=== PATIENT | female | born 1950 | race Caucasian/White ===

== ENCOUNTER 2020-06-17 15:12 | Emergency (ER) | payer MEDICARE, SELFPAY ==
--- NOTE | ~2020-06-17 | XR_ITS ---
XR ankle RT min 3V 06/17/2020 16:13 Indication: Right ankle pain Procedure: 4 views right ankle Comparison: No prior studies for comparison. Findings: There is a side plate and screws transfixing the distal fibula. There are 2 lag screws paiz sfixing the medial malleolus. Ankle mortise intact. Small degenerative calcaneal enthesophyte. No acu te fracture or traumatic malalignment. There are arterial calcifications. Impression: 1: No acute bone or joint abnormality. Reviewed, dictated and finalized at location A. URSEMENT CLERK Impression: 1: No acute bone or joint abnormality.
[2020-06-17 15:28] VITALS: BP 135/71; PULSE 71; RESP 16; TEMP 36.4; O2SAT 98
--- NOTE | 2020-06-17 16:07 | PHAR ---
TORADOL 60 MG DOSE VERIFIED WITH DR MCCORMACK
[2020-06-17] MEDS: KETOROLAC (*BKC) 60 MG/2 ML VIAL IM (16:33)
--- NOTE | 2020-06-17 16:40 | ED.LOWEXIN ---
HPI - Extremity Injury (Lower) General Chief Complaint: Extremity Injury, Lower Stated Complaint: sudden onset right foot pain Time Seen by Provider: 06/17/20 15:17 Source: patient Mode of arrival: ambulatory Limitations: no limitations History of Present Illness HPI Narrative: 70-year-old female Complained for an abrupt onset of pain in her right foot and ankle while she was just shopping at [employer] She had to take a cart out of the store and came right over the ER She did not have any particular injury to it that she can recall There is no swelling present At the time she is seen here the ankle effectively feels back to normal and she can walk and walk on her tiptoes and stand on her heels, and states I can't believe this She did have a previous operation on the ankle for a fracture Related Data Home Medications Medication Instructions Recorded Confirmed lisinopril 30 mg PO DAILY 06/17/20 metformin 1,000 mg PO BID 06/17/20 pramipexole [Mirapex ER] 0.375 mg PO DAILY 06/17/20 Allergies Allergy/AdvReac Type Severity Reaction Status Date / Time No Known Allergies Allergy Verified 06/17/20 15:26 Review of Systems Musculoskeletal: Musculoskeletal: Denies myalgias, Reports arthralgias and Denies joint swelling Neurologic: Denies dizziness, Denies focal weakness, Denies numbness and Denies weakness [facility] Social History Social History Gender identity (if verbalized by the patient): Female Exam Const: General: no acute distress and alert Orientation/consciousness: patient oriented x3 Eyes: EOM: EOMs intact bilaterally Resp: Effort & Inspection: normal respiratory effort and not labored Skin: General skin exam: normal color Neuro: General: patient oriented x3 Speech: normal speech Extrem: General: normal to inspection Other: The right foot and ankle do not have any deformity, swelling, erythema, redness, or local tenderness Dorsalis pedis and posterior tibial pulses are equal bilaterally and 2+ Sensation to light touch is normal Course Vital Signs Vital signs: Vital Signs Temperature 36.4 C L 06/17/20 15:28 Pulse Rate 71 06/17/20 15:28 Respiratory Rate 16 06/17/20 15:28 Blood Pressure 135/71 06/17/20 15:28 Pulse Oximetry 98 06/17/20 15:28 Temperature 36.4 C L 06/17/20 15:28 Pulse Rate 71 12/14/20 15:28 Respiratory Rate 16 06/17/20 15:28 Blood Pressure 135/71 06/17/20 15:28 Pulse Oximetry 98 06/17/20 15:28 MDM - Extremity Injury (Lower) Imaging Data Radiologist's impression: ITS Impressions Ankle X-Ray 06/17/20 16:16 Impression: 1: No acute bone or joint abnormality. Discharge Plan Discharge Clinical Impression: Ankle joint pain Patient Disposition: Home, Self-Care Condition: Stable Instructions: Arthralgia (ED) Additional Instructions: Advil or Aleve if needed for pain Can follow-up with your primary care doctor or if desired with orthopedics if there are any recurrent or ongoing problems Prescriptions: No Action metformin 1,000 mg Tablet 1,000 mg PO BID RF: 0 lisinopril 30 mg Tablet 30 mg PO DAILY RF: 0 pramipexole [Mirapex ER] 0.375 mg Tablet Extended Release 24 Hr 0.375 mg PO DAILY RF: 0 Follow-up/Referrals: Elder Yin MD [Physician] - PHYSICIAN,PURIFICATION OPERATOR HELPER [Primary Care Provider] - Farooq Dyer MD [Physician] -
[2020-06-17 17:16] VITALS: BP 132/70; PULSE 70; RESP 18; O2SAT 98
== END 2020-06-17 17:17 | disposition home or self-care (01) ==
PROVIDERS: Emergency Provider Emergency Medicine
DX: M25.571 Pain in right ankle and joints of right foot (principal); Z79.84 Long term (current) use of oral hypoglycemic drugs
CPT/HCPCS: 73610; 96372; 99283; J1885

== ENCOUNTER 2020-10-08 10:57 | Outpatient (CLI) | payer MEDICARE, SELFPAY | END 2020-10-08 10:58 | disposition home or self-care (01) | LOC: ANHCOVIDVC 10:57 | PROVIDERS: PCP Family Medicine | DX: Z23 Encounter for immunization (principal) | CPT/HCPCS: 0001A; 91300 ==

== ENCOUNTER → 2020-10-17 07:26 | Outpatient (CLI) | payer MEDICARE, SELFPAY ==
--- NOTE | ~2020-10-17 | XR_ITS ---
EXAMINATION: XR_CERV2-3V_CR EXAM DATE: 10/17/2020 08:49 INDICATION: Bilateral upper arm pain. Neck stiffness. TECHNIQUE: Cervical spine frontal, lateral, open-mouth odontoid projections. There is no prior stud y for comparison. FINDINGS: There is moderate disc disease C5-6 and C6-7, mild to moderate at C4-5. There is mild reve rsal of the normal cervical lordosis which may be positional, degenerative or spasm. The vertebral b odies are aligned in the AP dimension. The odontoid process is intact. The lateral masses of C1 line up with C2. Prevertebral soft tissue and pre-dens space are within normal limits. There is moderate cervical facet arthropathy and moderate mid cervical uncovertebral joint arthropathy causing some michelle unt of neural foraminal stenosis. Moderate carotid calcification, arterial sclerotic disease, with un known amount of additional atherosclerotic disease. Consider correlating with carotid ultrasound. Suze ng apices unremarkable. IMPRESSION: 1. Moderate cervical spondylosis. 2. Reversal normal cervical lordosis. 3. Carotid arteriosclerosis; consider ultrasound. Reviewed, dictated and finalized at location A.
--- NOTE | ~2020-10-17 | XR_ITS ---
EXAMINATION: XR wrist RT 2V EXAM DATE: 10/17/2020 08:49 INDICATION: Right wrist pain. TECHNIQUE: Frontal and lateral projections of the right wrist There is no prior study for comparis on. FINDINGS: There is mild right triscaphe primary osteoarthritis. There are no acute fractures or dis locations identified. There is no subcutaneous gas. There are arterial calcifications, arterioscler osis. There are no radiopaque foreign bodies. IMPRESSION: Mild right triscaphe osteoarthritis. Reviewed, dictated and finalized at location A.
== END ==
PROVIDERS: PCP Family Medicine; Visit Provider Physician Assistant
DX: R20.2 Paresthesia of skin (principal); M47.892 Other spondylosis, cervical region; M19.031 Primary osteoarthritis, right wrist
CPT/HCPCS: 72040; 73100

== ENCOUNTER 2020-10-28 11:20 | Outpatient (CLI) | payer MEDICARE, SELFPAY | END 2020-10-28 11:21 | disposition home or self-care (01) | LOC: ANHCOVIDVC 11:20 | PROVIDERS: PCP Family Medicine | DX: Z23 Encounter for immunization (principal) | CPT/HCPCS: 0002A; 91300 ==

== ENCOUNTER 2020-11-11 10:23 | Outpatient (CLI) | payer MEDICARE, SELFPAY ==
--- NOTE | ~2020-11-11 | US_ITS ---
EXAMINATION: US carotid duplex BI DATE: 11/11/2020 10:55 INDICATION: Carotid atherosclerosis and stenosis TECHNIQUE: Grayscale, color Doppler, and pulsed Doppler images of the cervical carotid arteries were obtained. The degree of vessel stenosis is placed in one of the following categories: normal, <50%, 5 0-69%, >=70% but less than near-occlusion, near-occlusion, or total occlusion. Note that percent sten osis relative to normal distal artery lumen diameter is indirectly measured from velocity measurement s as described by Navneet, et al. Radiology 2003; 229:340-346. COMPARISON: Cervical spine radiographs dated 10/17/2020 FINDINGS: RIGHT: The right common carotid artery (CCA) peak systolic velocity (PSV) is 78 cm/s. The right internal car otid artery (ICA) PSV is 60 cm/s. The right ICA end-diastolic velocity (EDV) is 24 cm/s. The right IC A/CCA PSV ratio is 0.8. Grayscale and color Doppler images yield an estimate of <50% diameter reducti on from plaque in the ICA. The external carotid artery (ECA) PSV is 75 cm/s. There is antegrade flow in the right vertebral artery. LEFT: The left CCA PSV is 71 cm/s. The left ICA PSV is 58 cm/s. The left ICA EDV is 24 cm/s. The left ICA/C CA PSV ratio is 0.8. Grayscale and color Doppler images yield an estimate of <50% diameter reduction from plaque in the ICA. The ECA PSV is 82 cm/s. There is antegrade flow in the left vertebral artery. IMPRESSION: 1. <50% stenosis in the right internal carotid artery. 2. <50% stenosis in the left internal carotid artery. Reviewed, dictated and finalized at location A.
== END 2020-11-11 10:24 | disposition home or self-care (01) ==
LOC: ANHIMG 10:24
PROVIDERS: PCP Family Medicine; Visit Provider Physician Assistant
DX: I65.23 Occlusion and stenosis of bilateral carotid arteries (principal)
CPT/HCPCS: 93880

== ENCOUNTER 2020-11-15 07:16 | Outpatient (CLI) | payer MEDICARE, SELFPAY ==
--- NOTE | ~2020-11-15 | XR_ITS ---
EXAMINATION: XR knee LT 3V DATE: 11/15/2020 07:45 INDICATION: Left knee pain. TECHNIQUE: 3 views of left knee were obtained. COMPARISON: None. FINDINGS: Bone alignment is normal. No fracture. There is mild tricompartmental osteoarthritis. There is a small knee joint effusion. IMPRESSION: 1. Mild left knee osteoarthritis. 2. Small left knee joint effusion. Reviewed, dictated and finalized at location B.
== END 2020-11-15 07:17 | disposition home or self-care (01) ==
LOC: ANHIMG 07:20
PROVIDERS: PCP Family Medicine; Visit Provider Physician Assistant
DX: M17.12 Unilateral primary osteoarthritis, left knee (principal); M25.462 Effusion, left knee
CPT/HCPCS: 73562

== ENCOUNTER 2021-01-02 09:49 | Outpatient (CLI) | payer MEDICARE, SELFPAY ==
--- NOTE | 2021-01-02 11:30 | NEURO_ITS ---
Impression: # Complains of numbness of right hand. # Right Carpal Tunnel Syndrome. # No ulnar neuropathy. # Abnormal needle/exam of right APB. Nerve Conduction Studies Anti Sensory Summary Table Stim Site NR Peak (ms) P-T Amp (?V) Site1 Site2 Delta-P (ms) Dist (cm) Emmanuel (m/s) Right Median Anti Sensory (2-3nd Digit) NO RESPONSE Wrist NR Wrist 2-3nd Digit 14.0 Wrist NR Wrist 2-3nd Digit 14.0 Right Radial Anti Sensory (Base 1st Digit) Wrist 2.5 16.1 Wrist Base 1st Digit 2.5 0.0 Right Ulnar Anti Sensory (5th Digit) Wrist 2.3 48.6 Wrist 5th Digit 2.3 14.0 61 Motor Summary Table Stim Site NR Onset (ms) O-P Amp (mV) Site1 Site2 Delta-0 (ms) Dist (cm) Emmanuel (m/s) Right Median Motor (Abd Poll Brev) Wrist 4.3 1.0 Elbow Wrist 5.9 27.0 46 Elbow 10.2 2.1 Right Ulnar Motor (Abd Dig Minimi) Wrist 2.2 7.1 A Elbow Wrist 5.5 29.0 53 A Elbow 7.7 6.2 F Wave Studies NR F-Lat (ms) L-R F-Lat (ms) Right Median (Mrkrs) (Abd Poll Brev) 31.06 Right Ulnar (Mrkrs) (Abd Dig Min) 30.00 EMG Side Muscle Nerve Root Ins Act Fibs Amp Dur Recrt Comment Right 1stDorInt Ulnar C8-T1 Nml Nml Nml Nml Nml Right Ext Indicis Radial (Post Int) C7-8 Nml Nml Nml Nml Nml Right Ext Digitorum Radial (Post Int) C7-8 Nml Nml Nml Nml Nml Right BrachioRad Radial C5-6 Nml Nml Nml Nml Nml Right PronatorTeres Median C6-7 Nml Nml Nml Nml Nml Right Abd Poll Brev Median C8-T1 Nml Nml Incr >12ms Reduced Right ABD Dig Min Ulnar C8-T1 Nml Nml Nml Nml Nml MTDD
== END 2021-01-02 09:50 | disposition home or self-care (01) ==
LOC: ANHNEURO 09:50
PROVIDERS: PCP Family Medicine; Visit Provider Physician Assistant
DX: R20.2 Paresthesia of skin (principal); G56.01 Carpal tunnel syndrome, right upper limb
CPT/HCPCS: 95886; 95909

== ENCOUNTER 2021-01-30 07:32 | Outpatient (CLI) | payer MEDICARE, SELFPAY ==
--- NOTE | ~2021-01-30 | MM_ITS ---
EXAMINATION: MM screening samantha BI w viktoria HISTORY: Screening mammogram TECHNIQUE: Craniocaudal and mediolateral oblique 3-D tomosynthesis images were obtained and synthetic 2-D images were generated. CAD analysis was submitted and interpreted. COMPARISON: No prior mammogram is available for comparison at this institution. BREAST PARENCHYMAL COMPOSITION: The breasts are almost entirely fatty. FINDINGS: There is no evidence of suspicious mass, calcification, or architectural distortion to sugg est malignancy in either breast. There has been no suspicious interval change. IMPRESSION: 1. No mammographic evidence of malignancy. 2. Recommend routine screening mammography in one year. BI-RADS Category 1: Negative Reviewed, dictated and finalized at location A.
== END 2021-01-30 07:33 | disposition home or self-care (01) ==
LOC: ANHIMG 07:36
PROVIDERS: PCP Family Medicine; Visit Provider Physician Assistant
DX: Z12.31 Encounter for screening mammogram for malignant neoplasm of breast (principal)
CPT/HCPCS: 77063; 77067

== ENCOUNTER 2021-06-27 16:41 | Emergency (ER) | payer MEDICARE, SELFPAY ==
[2021-06-27 17:09] VITALS: BP 154/96; PULSE 102; RESP 18; TEMP 36.9; O2SAT 98
--- NOTE | 2021-06-27 19:42 | PC.NURSE ---
Patient states she if feeling better, and states she wants to leave. Patient informed of risks of leaving and benefits of staying to be seen. Patient a/ox4, ambulates with a steady gait out of ED.
== END 2021-06-28 03:07 | disposition left against medical advice (07) ==
LOC: ANHED 20:05
PROVIDERS: PCP Family Medicine
DX: Z53.21 Procedure and treatment not carried out due to patient leaving prior to being seen by health care provider (principal)
CPT/HCPCS: 99199

== ENCOUNTER 2021-07-11 12:56 | Outpatient (CLI) | payer MEDICARE, SELFPAY ==
--- NOTE | 2021-07-11 | ECG_ITS ---
Measurements Intervals [place] Rate: 78 P: 7 ND: 181 QRS: 11 QRSD: 94 T: 69 QT: 377 QTc: 430 Interpretive Statements SINUS RHYTHM VENTRICULAR PREMATURE COMPLEX CANNOT RULE OUT SEPTAL INFARCT, AGE INDETERMINATE BORDERLINE ST-T WAVE ABNORMALITY- HIGH LATERAL LEADS ABNORMAL ECG Electronically Signed On 07-11-2021 13:25:35 CODER OPERATOR by Kareem Alfaro D.O.
== END 2021-07-11 12:57 | disposition home or self-care (01) ==
LOC: ANHCARD 13:01
PROVIDERS: PCP Family Medicine; Visit Provider Orthopaedic Surgery Hand Surgery
DX: E11.9 Type 2 diabetes mellitus without complications (principal); I10 Essential (primary) hypertension; R94.31 Abnormal electrocardiogram [ECG] [EKG]
CPT/HCPCS: 93005

== ENCOUNTER → 2021-10-13 11:12 | Outpatient (CLI) | payer MEDICARE, SELFPAY ==
--- NOTE | ~2021-10-13 | XR_ITS ---
EXAMINATION: XR chest 2V Exam Date/Time: 10/13/2021 11:21 CDT CLINICAL HISTORY: R05.9 - Cough, unspecified Comparison: None available RESULT: Lines, tubes, and devices: Incompletely visualized lumbar fusion hardware. Lungs and pleura: Cholecystectomy clips. Surgical material at the GE junction. Cardiomediastinal silhouette: Normal cardiomediastinal silhouette. Other: No acute osseous or upper abdominal finding. IMPRESSION: No acute cardiopulmonary process. Reviewed, dictated and finalized at location K.
== END ==
PROVIDERS: PCP Family Medicine; Visit Provider Physician Assistant
DX: R05.9 Cough, unspecified (principal)
CPT/HCPCS: 71046

== ENCOUNTER 2021-12-03 14:08 | Outpatient (CLI) | payer MEDICARE, SELFPAY ==
--- NOTE | ~2021-12-03 | CT_ITS ---
EXAMINATION: CT brain wo con DATE: 12/03/2021 14:50 INDICATION: Gait abnormality. TECHNIQUE: Computed tomography (CT) of the head was performed without intravenous contrast. The dose- length product was 681.00 mGy-cm. Automated exposure control and iterative reconstruction technique w ere employed. COMPARISON: None FINDINGS: Mild generalized atrophy. There are scattered mild periventricular and subcortical white ma tter changes, most likely related to small vessel ischemic disease (microangiopathy). There are chron ic infarctions of the right caudate nucleus and left occipital lobe. No ventriculomegaly or midline s hift. Midline sagittal images are unremarkable. No acute infarction or hemorrhage. Paranasal sinuses and mastoids are pneumatized. No depressed skull fractures. IMPRESSION: 1. 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 2: No acute intracranial abnormality. 3: Chronic age-related findings. Reviewed, dictated and finalized at location A.
== END 2021-12-03 14:09 | disposition home or self-care (01) ==
LOC: ANHIMG 14:10
PROVIDERS: PCP Family Medicine; Visit Provider Physician Assistant
DX: R26.89 Other abnormalities of gait and mobility (principal); I63.9 Cerebral infarction, unspecified
CPT/HCPCS: 70450

== ENCOUNTER 2021-12-24 10:12 | Outpatient (CLI) | payer MEDICARE, SELFPAY ==
--- NOTE | ~2021-12-24 | XR_ITS ---
EXAM: XR ribs BI 3V w CXR 2V DATE: 12/24/2021 10:38 HISTORY: R07.81 - Pleurodynia, rib popped out of place , r side pain . COMPARISON: 10/13/2021. FINDINGS: Lungs are clear. Normal cardiomediastinal silhouette. Suture material at the GE junction. C holecystectomy clips. Partially visualized lumbar fusion hardware. Lumbar scoliosis. Decreased minera lization. No fracture or dislocation. No lytic or blastic lesion. Bilateral degenerative change in th e shoulders. Soft tissues within normal limits. IMPRESSION: No acute osseous finding in the ribs. Reviewed, dictated and finalized at location K.
--- NOTE | ~2021-12-24 | XR_ITS ---
XR hip RT min 2V DATE: 12/24/2021 10:38 INDICATION: Right hip pain TECHNIQUE: AP, lateral and crosstable lateral views of right hip COMPARISON: None FINDINGS: There is osteopenia. Pedicle screws and berry are noted on the included right side of the lumbar spine at at least L3-L5. Normal alignment at the pubic symphysis and right sacroiliac joint. No right hip fracture or dislocation, avascular necrosis or bone destruction or spurring. Right hip j oint space appears well preserved. Clip overlies the right lower quadrant near the expected position of the appendix. IMPRESSION: Posterior lumbar spinal fusion Osteopenia No significant abnormality of the right hip Reviewed, dictated and finalized at location A.
== END 2021-12-24 10:13 | disposition home or self-care (01) ==
LOC: ANHIMG 10:13
PROVIDERS: PCP Family Medicine; Visit Provider Physician Assistant Medical
DX: R07.81 Pleurodynia (principal); M41.9 Scoliosis, unspecified; Z98.1 Arthrodesis status; M85.851 Other specified disorders of bone density and structure, right thigh
CPT/HCPCS: 71046; 71110; 73502

== ENCOUNTER 2022-04-01 07:59 | Outpatient (CLI) | payer MEDICARE, SELFPAY ==
--- NOTE | ~2022-04-01 | MM_ITS ---
EXAMINATION: MM screening samantha BI w viktoria HISTORY: Screening mammogram TECHNIQUE: Craniocaudal and mediolateral oblique 3-D tomosynthesis images were obtained and synthetic 2-D images were generated. CAD analysis was submitted and interpreted. COMPARISON: 01/30/2021 bilateral screening mammogram examination BREAST PARENCHYMAL COMPOSITION: The breasts are almost entirely fatty. FINDINGS: There is no evidence of suspicious mass, calcification, or architectural distortion to sugg est malignancy in either breast. There has been no suspicious interval change. IMPRESSION: 1. No mammographic evidence of malignancy. 2. Recommend routine screening mammography in one year. BI-RADS Category 1: Negative Reviewed, dictated and finalized at location A.
== END 2022-04-01 08:00 | disposition home or self-care (01) ==
LOC: ANHIMG 08:07
PROVIDERS: PCP Family Medicine; Visit Provider Family Medicine
DX: Z12.31 Encounter for screening mammogram for malignant neoplasm of breast (principal)
CPT/HCPCS: 77063; 77067

== ENCOUNTER 2022-07-07 09:05 | Outpatient (CLI) | payer MEDICARE, SELFPAY ==
[2022-07-07 09:31] LABS: Add Urine Microscopic? NO; Appearance Urine Clear (Clear); Bilirubin Urine Negative (Negative); Blood Urine Negative (Negative); Color Urine Yellow (Yellow); Glucose Urine UA Negative (Negative); Ketones Urine Negative (Negative); Leukocyte Esterase Ur Negative LEU/UL (Negative); Nitrate Urine Negative (Negative); Protein Urine Negative (Negative)
--- NOTE | 2022-07-07 10:05 | ECG_ITS ---
Measurements Intervals [place] Rate: 62 P: 47 MD: 153 QRS: 19 QRSD: 93 T: 68 QT: 385 QTc: 392 Interpretive Statements SINUS RHYTHM NORMAL ECG COMPARED TO ECG 07/11/2021 13:20:45 NO SIGNIFICANT CHANGES Electronically Signed On 07-07-2022 10:20:03 DIRECTOR OF PHYSICAL THERAPY by Kareem Alfaro D.O.
== END 2022-07-07 09:06 | disposition home or self-care (01) ==
PROVIDERS: PCP Family Medicine; Visit Provider Orthopaedic Surgery
DX: M17.12 Unilateral primary osteoarthritis, left knee (principal); K63.89 Other specified diseases of intestine; E11.9 Type 2 diabetes mellitus without complications; I10 Essential (primary) hypertension
CPT/HCPCS: 81003; 93005

== ENCOUNTER 2022-07-31 10:02 | Outpatient (CLI) | payer MEDICARE, SELFPAY ==
--- NOTE | 2022-08-03 09:40 | WPDPFTINT ---
PFT Procedure Performed PFT Procedure Performed Plethysmography (Lung Vol) Diffusing Cap (DLCO) Flow Vol Loop Spirometry w/o Bronchodil PFT Interpretation Lung volumes were measured with the body plethysmography method. Lung volumes are unremarkable. Spirometry showed normal expiratory flow rates and a normal FEV1 to FVC ratio of 74%. No post bronchodilator study carried out. Lung diffusion capacity is within the normal range at 96% predicted. The flow-volume loop is unremarkable. Impression: Spirometry, lung volumes, and lung diffusion capacity all within the normal range.
== END 2022-07-31 10:03 | disposition home or self-care (01) ==
PROVIDERS: PCP Family Medicine; Visit Provider Family Medicine
DX: R05.3 Chronic cough (principal)
CPT/HCPCS: 94375; 94726; 94729

== ENCOUNTER 2022-08-11 12:16 | Outpatient (CLI) | payer MEDICARE, SELFPAY ==
[2022-08-11 13:54] LABS: Appearance Urine Clear (Clear); Bilirubin Urine Negative (Negative); Blood Urine Negative (Negative); Color Urine Yellow (Yellow); Glucose Urine UA Negative (Negative); Hematocrit 39.8 % (37.0-47.0); Hemoglobin 12.3 g/dL (12.0-15.0); Ketones Urine Negative (Negative); Leukocyte Esterase Ur Negative LEU/UL (Negative); Mean Corpuscular HGB Conc 30.9 g/dl (32-36); Mean Corpuscular Hemoglobin 26.5 pg (26-34); Mean Corpuscular Volume 85.6 fl (80-100); Mean Platelet Volume 9.9 fl (7.4-10.4); Nitrate Urine Negative (Negative); Platelet Count Result 325 k/mm3 (150-375); Protein Urine Negative (Negative); Red Blood Count 4.65 M/mm3 (4.2-5.4); Red Cell Distribution Width 14.6 % (11.5-14.5); Specific Grav Ur 1.015 (1.001-1.035); Urobilinogen Urine 0.2 mg/dL (<2.0); White Blood Count 7.5 K/mm3 (4.5-10.0)
[2022-08-11 13:58] LABS: INR 0.9; Prothrombin Time 11.9 Seconds (11.1-14.7)
[2022-08-11 13:59] LABS: Partial Thromboplastin Time 27.3 SECONDS (22.3-36.8)
[2022-08-11 14:03] LABS: Add Urine Microscopic? NO
[2022-08-11 14:15] LABS: Eosinophils Absolute Manual 1.27 K/mm3 (0.02-0.5); Eosinophils Percent Manual 17 % (0-4); Lymphocytes Percent Manual 36 % (18-44); Monocytes Absolute Manual 0.52 K/mm3 (0.1-0.90); Monocytes Percent Manual 7 % (3-9); Neutrophils Percent Manual 40 % (46-73); Ovalocytes 1+ (NORMAL); Platelet Estimate Adequate (Adequate); Total Cells Counted 100
[2022-08-11 14:16] LABS: Schistocytes None Seen (NORMAL)
[2022-08-11 14:21] LABS: Albumin Level 4.3 g/dL (3.5-5.1); Anion Gap 4 mmol/L (8-16); Blood Urea Nitrogen 25 mg/dL (7-17); Calcium 8.7 mg/dL (8.4-10.2); Carbon Dioxide 30 mmol/L (22-30); Chloride 97 mmol/L (98-107); Estimated Glomerular Filt Rate 54; Glucose 182 mg/dL (65-110); Potassium 4.4 mmol/L (3.4-5.0); Sodium 131 mmol/L (137-145)
[2022-08-11 15:35] LABS: Urine Cotinine NEGATIVE
[2022-08-11 18:37] LABS: Hemoglobin A1C 6.1 % (<5.7)
== END 2022-08-11 12:17 | disposition home or self-care (01) ==
LOC: ANHSURGERY 12:20
PROVIDERS: PCP Family Medicine; Visit Provider Orthopaedic Surgery
DX: Z01.812 Encounter for preprocedural laboratory examination (principal); M17.12 Unilateral primary osteoarthritis, left knee
CPT/HCPCS: 80048; 80307; 81003; 82040; 83036; 85025; 85610; 85730; 87081

== ENCOUNTER 2022-09-02 00:26 | Day surgery (SDC) | payer MEDICARE, SELFPAY ==
[2022-08-10 11:40] VITALS: BMI 26.1
[2022-08-11 12:25] VITALS: BMI 26.2
--- NOTE | 2022-08-11 12:49 | PC.NURSE ---
Report to the Outpatient Waiting Room, entrance under the green pavilion located off [facility], at time ___0600____ on date __09/02/22 . Planned Procedure Time: ___729 . Time changes happen often and if your time is changed the preop area will call you the afternoon before. - You and your visitor will be asked to self-screen and do not enter if you have any COVID symptoms. - Only one visitor is requested with a max of two and NO children visitors are allowed at this time. - The patient visitor may be requested to leave or wait in car when not with patient due to distancing restrictions. - A mask is optional within the hospital at this time. Patients may have clear liquids (water, carbonated beverages, clear teas, apple juice) until 3 hours prior to surgery with a maximum of 20 ounces. - No food from midnight until time of surgery - Infants may have breast milk until 4 hours before surgery, formula 6 hours prior to surgery. - Children will be allowed to drink immediately following surgery. If applicable, please bring a bottle or sippy cup to assist with drinking. Juice, water, soda, and popsicles are readily available. For infants on formula, please bring formula the day of surgery. Pacifiers are allowed. Take the following medications with a SIP of water the morning of surgery: __NONE DO NOT STOP ANY OF YOUR OTHER PRESCRIPTION MEDICATIONS PRIOR TO SURGERY ?EXCEPT THE FOLLOWING Medications to discontinue per physician __ALEVE PER DR NATH. ALL VITAMINS/SUPPLEMENTS 3 DAYS PRE OP . LAST DOSE 08/29/22 TOTAL JOINT CLASS 08/19/22 AT 10 AM Please no make-up, nail english, hairspray, perfume, deodorant, or body powder the day of surgery. No jewelry (including any body piercings) or valuables the day of surgery, leave them at home. Please take a shower or bath the night before, or the morning of, surgery with an antibacterial soap. Wear comfortable, loose fitting clothing. Children are encouraged to wear pajamas. - Jewelry must be removed prior to entering the operating room. Rings and piercings that are not removed may be cut off. - The hospital will not accept responsibility for valuables. - Please leave all valuables, including medications, at home the day of surgery. If you are going home after surgery, a licensed driver's license examiner must drive you home. - NO public transportation without another adult if you receive anesthesia. - We recommend that an adult stay with you for 24 hours following discharge. - We also recommend that you do not drive, make important decision, drink alcoholic beverages, or take any drugs that were not prescribed by your health care provider for at least 24 hours after your discharge time. Follow any additional instructions given to you from your surgeon. If you or anyone in your household have experienced Covid symptoms in the past week, please notify your surgeon or the nurse liaison at the phone number below for possible testing. VERBAL AND WRITTEN instructions given to _PATIENT and asked if any additional questions and then verbalized understanding. Patient advised to call surgeon office or pre surgery nurse liaison [phone] if any additional questions.
[2022-08-11 13:06] VITALS: BP 135/64; PULSE 81; RESP 18; TEMP 36.8; O2SAT 98
[2022-09-02] VITALS (12 sets, daily range): BP systolic 96–151; BP diastolic 57–79; PULSE 74–95; RESP 12–20; TEMP 36.4–37.1; O2SAT 94–100
--- NOTE | ~2022-09-02 | XR_ITS ---
Left Knee Technique: Portable AP and crosstable lateral views Clinical History: Status post TKR Findings: Patient is status post total knee replacement. Orthopedic hardware alignment appears anatom ic. No hardware complication is evident. Subcutaneous emphysema and swelling is likely postoperative in nature. No acute osseous fracture is seen. Impression: Status post total knee replacement, without evidence of hardware complication. Reviewed, dictated and finalized at location . ESSOR OF FORESTRY Impression: Status post total knee replacement, without evidence of hardware complication.
[2022-09-02] MEDS: LACTATED RINGERS 1,000 ML 30 ML IV CONT ×3 (06:35→10:36)
--- NOTE | 2022-09-02 06:43 | WPDANESEPPF ---
Anes - Initial Pre Proc Eval Procedure: Operation Date: 09/02/22 07:30 Proposed Procedures p Left Total Knee Arthroplasty - Ruddy Aguilar MD Date/Time: 09/02/22 06:43 Surgeon: Ruddy Aguilar MD Pre Op Diagnosis: left knee OA Patient Data Age: 72 Gender: F Height: 1.7 m Weight: 75.9 kg Last Vital Signs Temp 36.8 C 08/11/22 13:06 Pulse 81 08/11/22 13:06 Resp 18 08/11/22 13:06 BP 135/64 08/11/22 13:06 Pulse Ox 98 08/11/22 13:06 O2 Del Method Room Air 08/11/22 13:06 Allergies Allergy/AdvReac Type Severity Reaction Status Date / Time No Known Allergies Allergy Verified 09/02/22 06:26 Home Medications Medication Instructions Recorded Confirmed Type vit C 250 mg-vit E 90 mg-zinc 40 1 tablet PO BID 09/05/20 09/02/22 History mg-copper 1 [id number] capsule (PreserVision AREDS-2) lisinopril 40 mg tablet 40 mg PO DAILY #90 tabs 10/19/21 09/02/22 Rx ashwagandha root extract 300 mg 2,100 mg PO DAILY 02/09/22 09/02/22 History capsule biotin 5,000 mcg disintegrating 10,000 mcg PO DAILY 02/09/22 09/02/22 History tablet tumeric 100 mg-chanelle 150 mg-olive 1,000 cap PO BID 02/09/22 09/02/22 History 50 mg-oreg 150 mg-caprylate capsule calcium citrate 500 mg PO DAILY #60 tabs 07/17/22 09/02/22 Rx cholecalciferol (vitamin D3) 25 25 mcg PO DAILY #30 caps 07/17/22 09/02/22 Rx mcg (1,000 unit) capsule ferrous sulfate 325 mg (65 mg 325 mg PO DAILY #30 tabs 07/17/22 09/02/22 Rx iron) tablet mecobalamin (vitamin B12) 5,000 5,000 mcg PO DAILY #30 tabs 07/17/22 09/02/22 Rx mcg disintegrating tablet metformin 1,000 mg tablet 1,000 mg PO BID #180 tabs 07/26/22 09/02/22 Rx cyclobenzaprine 10 mg tablet 10 mg PO TID PRN muscle spasm #90 08/05/22 09/02/22 Rx tabs triamcinolone acetonide 0.5 % 1 applic topical BID #15 grams 08/07/22 08/14/22 Rx topical cream famotidine 40 mg tablet 40 mg PO PRN PRN Heartburn 08/11/22 08/14/22 History hyoscyamine sulfate 0.125 mg tablet 0.125 mg PO PRN PRN IBS 08/11/22 08/14/22 History magnesium 500 mg tablet 15 mg PO BID 08/11/22 09/02/22 History naltrexone 50 mg tablet 2.5 mg PO HS 08/11/22 09/02/22 History naproxen sodium 220 mg capsule 220 mg PO Q12H PRN Pain 08/11/22 09/02/22 History (Aleve) duloxetine 30 mg capsule,delayed 30 mg PO DAILY #60 caps 08/12/22 09/02/22 Rx release pramipexole 0.25 mg tablet 0.25 mg PO TID PRN restless legs 08/27/22 09/02/22 Rx #90 tabs chlorhexidine gluconate 4 % 1 applic topical ONCE #237 mL 08/31/22 09/02/22 Rx topical liquid (Hibiclens) chlorthalidone 25 mg tablet 25 mg PO DAILY #90 tabs 09/01/22 09/02/22 Rx Patient hx anesthesia problems: none Family hx anesthesia problems: none Results Review: All pre-operative results and documents have been reviewed as part of the pre-operative evaluation. [facility] Past Medical History Medical History Arthritis Diabetes Essential hypertension Hypertension Insomnia Left knee DJD Left knee pain Restless legs Right hip pain Small intestinal bacterial overgrowth (SIBO) Unintentional weight loss Urinary frequency Vision changes Vitamin B12 deficiency Wears glasses Surgical History Surgical History History of abdominal hysterectomy History of abdominoplasty History of gastric stapling History of hernia repair History of laparoscopic cholecystectomy History of Jean Marie-en-Y gastric bypass History of tubal ligation Hx of carpal tunnel repair S/P Botox injection of bladder Family History Family History Unknown Hypertension Diabetes mellitus History of stroke Social History Social History Smoking packs per day: 1.5 Smoking cigarettes per day: 30.0 Years smoked: 23 Smoking pack-years: 34.50 Sm
[2022-09-02] MEDS: ACETAMINOPHEN 500 MG TABLET 1000 MG PO (06:44)
[2022-09-02 07:03] LABS: Glucose Point of Care 82 mg/dl (65-105)
[2022-09-02] MEDS: TRANEXAMIC ACID 1,000MG/ISO100 1,000 MG/100 ML BAG 200 MG IVPB (07:09)
[2022-09-02 07:10] LABS: Sodium 133 mmol/L (137-145)
--- NOTE | 2022-09-02 07:20 | WPDHPUPDATE1 ---
History and Physical Update Update Date/Time: 09/02/22 07:20 History and Physical has been reviewed, including an updated exam of the patient. There are NO changes in the patient's condition. Risks, benefits, and alternatives have been discussed and questions answered. Patient agrees to proceed with procedure.
[2022-09-02] MEDS: ceFAZolin 2 GM/D5W 50 ML 2 GM/50 ML BAG IVPB ×3 (07:33→23:30)
[2022-09-02] MEDS: GENTAMICIN BONE CEMENT REFOBACIN 1 EACH TOPICAL (08:15)
[2022-09-02] MEDS: TRANEXAMIC ACID 1,000 MG/10 ML AMPUL 1000 MG IV PUSH (09:10)
--- NOTE | 2022-09-02 09:52 | W.PM.PROC2 ---
Procedure Note - Detailed Date of Procedure 09/02/22 Pre-op Diagnosis left knee OA Post-op Diagnosis Same Procedure Performed L TKA Surgeon Ruddy Aguilar MD Anesthesia General Description of Procedure THE LEFT KNEE WAS PREPPED AND DRAPED IN THE STERILE FASHION. A MIDLINE SKIN INCISION WAS MADE. A MEDIAL PARAPATELLAR ARTHROTOMY WAS MADE. THE PATELLA WAS EVERTED. THERE WAS TRICOMPARTMENT DJD. THERE WAS MINIMAL PATELLA DJD. AN INTRAMEDULLARY JACOB WAS PLACED IN THE FEMUR. A DISTAL FEMORAL CUT WAS MADE IN 5 DEGREES OF VALGUS REMOVING APPROXIMATELY 10 MM OF BONE FROM THE DISTAL FEMUR. THE FEMUR WAS SIZED TO 67.5. A 67.5 FEMORAL CUTTING BLOCK WAS PLACED IN 3 DEGREES OF EXTERNAL ROTATION AND IN ALIGNMENT WITH CHRISTINA'S LINE AND THE TRANSEPICONDYLAR AXIS. ANTERIOR POSTERIOR AND CHAMFER CUTS WERE MADE. THE CUTS WERE EXCELLENT. NEXT AN INTRAMEDULLARY CUTTING GUIDE WAS PLACED IN THE TIBIA. A TRANS TIBIAL CUT WAS MADE ALONG THE LONG AXIS OF THE TIBIA. APPROXIMATELY 10 MM OF BONE WAS REMOVED FROM THE HIGH SIDE OF THE TIBIA. THE TIBIA WAS THEN PLANED TO A SMOOTH SURFACE. POSTERIOR FEMORAL OSTEOPHYTES WERE REMOVED FROM THE FEMORAL CONDYLES. A 71 TIBIAL TRIAL WAS PLACED IN ALIGNMENT WITH THE 1/3 MEDIAL ASPECT OF THE TIBIAL TUBERCLE. THEN A 65 FEMORAL TRIAL COMPONENT WAS PLACED. BOTH HAD EXCELLENT FITS. EVENTUALLY A 10 MM CR POLYETHYLENE TRIAL COMPONENT WAS PLACED. THE KNEE WAS TAKEN THROUGH A RANGE OF MOTION. THE KNEE CAME OUT TO FULL EXTENSION. THERE WAS NO ABNORMAL TILT TO THE PATELLA. THERE WAS GOOD A/P AND VARUS/VALGUS STABILITY. THERE WAS NO EXCESSIVE ROLL BACK WITH FLEXION. THE TRIAL COMPONENTS WERE REMOVED. THEN A 67.5 FEMORAL COMPONENT AND 71 TIBIAL COMPONENT WITH A 10 CR POLYETHYLENE COMPONENT WERE CEMENTED INTO PLACE. ONCE THE CEMENT WAS HARD THE KNEE WAS TAKEN THROUGH A ROM AGAIN AND FOUND TO BE STABLE WITH NO PATELLA TILT NO EXCESSIVE ROLL BACK WITH FLEXION AND GOOD STABILITY WITH COMPLETE AND FULL EXTENSION. THE KNEE WAS IRRIGATED WITH STERILE BETADINE AND WATER FOR ABOUT 3 MINUTES. THE BLEEDERS WERE CAUTERIZED. THE ARTHROTOMY WAS REPAIRED WITH NUMBER 1 VICRYL. THE SUB CUTANEOUS LAYER WITH 2-0 VICRYL AND THE SKIN WITH MAVIS. THE WOUND WAS WASHED AND A STERILE DRESSING WAS APPLIED. PATIENT WAS EXTUBATED. Estimated Blood Loss -150.0 Pathology None sent Complications No immediate complications Condition Stable Disposition PACU
[2022-09-02] MEDS: fentaNYL CITRATE INJ (*CRX) 100 MCG/2 ML VIAL 25 MCG IV PUSH ×6 (10:05→10:42)
[2022-09-02 10:06] LABS: Glucose Point of Care 127 mg/dl (65-105)
--- NOTE | 2022-09-02 10:26 | SUR.PHASEI ---
1022: Simple mask removed. Dentures inserted and glasses applied.
--- NOTE | 2022-09-02 10:32 | WPDANESPNB ---
Anes - Peripheral Nerve Block Date/Time: 09/02/22 10:32 I have discussed with the patient/family/POA the placement of a peripheral nerve block for post-operative pain management, including associated risks, benefits, complications, and side effects. Alternative methods of post-operative analgesia were detailed. Questions were solicited and answers provided to the satisfaction of the patient/family/POA. Time-Out: A pre-procedural Time-Out was completed immediately before starting the procedure and confirmed: Patient Identification, Site, Procedure, Patient Position and the Availability of Requisite Equipment. Clinical Indications: Acute post-operative pain management requested by the operative surgeon. Nerve Block Insertion Note Anes-nerve block: adductor canal left Patient position: supine Skin prep: chlorhexidine Needle: 22 gauge, stimulating, insulated echogenic needle. Needle length: 80 mm Technique: ultrasound Injectate: bupivacaine 0.5% with epi 5 mcg/ml (30ml no epi) Observations: tolerated well Complications: none Procedure start time:: 1011 Procedure end time:: 1016
--- NOTE | 2022-09-02 11:12 | ADMGEN ---
This patient, Loren Purvis, was admitted to 2 Medical Room 251-. Patient/family oriented to hospital policies and general routines including ID bracelet, bed and alarms, visiting hours, pain management, procedures, bathroom and other care routines, personal items, smoking policy, room service/diet, and visiting hours. Information on how to activate the Rapid Response Team has been discussed. Patient/Family are encouraged to report perceived risks to care and to ask questions if they do not understand what they are told or what they should do.
[2022-09-02] MEDS: SODIUM CHLORIDE 0.9% IV 1,000 ML 125 ML IV CONT (11:32)
[2022-09-02] MEDS: oxyCODONE/ACETAMINOPHEN (*CRX) 5-325 MG TABLET 1 TABLET PO (11:32)
[2022-09-02] MEDS: oxyCODONE/ACETAMINOPHEN (*CRX) 5-325 MG TABLET 2 TABLET PO ×2 (15:21→21:21)
[2022-09-02] MEDS: metFORMIN HCL 500 MG TABLET 1000 MG PO (18:07)
[2022-09-02] MEDS: SENNA/DOCUSATE SODIUM TABLET 2 TAB PO (18:07)
[2022-09-02] MEDS: CELECOXIB 200 MG CAPSULE PO (18:07)
[2022-09-02] MEDS: ASPIRIN 325 MG ENTERIC TABLET PO (21:19)
[2022-09-02] MEDS: PRAMIPEXOLE 0.25 MG TABLET PO (21:20)
[2022-09-03 00:40] VITALS: BP 104/54; PULSE 77; RESP 18; TEMP 36.5; O2SAT 95
[2022-09-03] MEDS: oxyCODONE/ACETAMINOPHEN (*CRX) 5-325 MG TABLET 2 TABLET PO (03:38)
[2022-09-03 04:10] VITALS: BP 115/63; PULSE 79; RESP 18; TEMP 36.6; O2SAT 97
[2022-09-03 05:50] LABS: Basophils Absolute Auto 0.1 K/mm3 (0.0-0.1); Basophils Percent Auto 0.7 % (0.2-1.2); Eosinophils Absolute Auto 0.2 K/mm3 (0-0.3); Hematocrit 35.5 % (37.0-47.0); Hemoglobin 10.2 g/dL (12.0-15.0); Immature Granulocyte Absolute 0.01 K/mm3 (0.00-0.031); Immature Granulocyte Percent A 0.1 % (0-0.5); Lymphocytes Absolute Auto 2.22 K/mm3 (0.9-3.2); Lymphocytes Percent Auto 24.1 % (18.3-44.2); Mean Corpuscular HGB Conc 28.7 g/dl (32-36); Mean Corpuscular Hemoglobin 26.8 pg (26-34); Mean Corpuscular Volume 93.2 fl (80-100); Mean Platelet Volume 9.3 fl (7.4-10.4); Monocytes Absolute Auto 0.7 K/mm3 (0.1-0.6); Monocytes Percent Auto 7.6 % (2.6-8.5); Neutrophils Percent Auto 65.5 % (45.5-73.1); Platelet Count Result 238 k/mm3 (150-375); Red Blood Count 3.81 M/mm3 (4.2-5.4); Red Cell Distribution Width 14.6 % (11.5-14.5); White Blood Count 9.2 K/mm3 (4.5-10.0)
[2022-09-03 06:06] LABS: Potassium 4.3 mmol/L (3.4-5.0)
[2022-09-03 06:15] LABS: Anion Gap 4 mmol/L (8-16); Blood Urea Nitrogen 24 mg/dL (7-17); Calcium 8.2 mg/dL (8.4-10.2); Carbon Dioxide 24 mmol/L (22-30); Chloride 103 mmol/L (98-107); Estimated CRCL calculation 43 ml/min; Estimated Glomerular Filt Rate 54; Glucose 78 mg/dL (65-110); Sodium 131 mmol/L (137-145)
[2022-09-03] MEDS: ceFAZolin 2 GM/D5W 50 ML 2 GM/50 ML BAG IVPB (06:45)
[2022-09-03 07:40] LABS: Platelet Estimate Adequate (Adequate); Poikilocytosis 1+ (NORMAL)
[2022-09-03 07:41] LABS: Anisocytosis 1+ (NORMAL); Ovalocytes 1+ (NORMAL); Schistocytes Rare (NORMAL)
--- NOTE | 2022-09-03 09:29 | WPDANESPN ---
Anes - Prog Note Post-Op Date/Time: 09/03/22 09:29 Cardiovascular status: normal Respiratory status: normal Airway patency: baseline Mental status: baseline Post-Op hydration status: normal Vital Signs: Last Vital Signs Temp 97.8 F 09/03/22 04:10 Pulse 79 09/03/22 04:10 Resp 18 09/03/22 04:10 BP 115/63 09/03/22 04:10 Pulse Ox 97 09/03/22 04:10 O2 Del Method Room Air 09/02/22 14:23 O2 Flow Rate 2 09/02/22 10:50 Pain Score (VAS): 0 I/O: Intake & Output 09/02/22 09/03/22 09/03/22 23:59 07:59 15:59 Intake Total 690 390 240 Balance 690 390 240 Laboratory Tests 09/03/22 05:21 09/03/22 05:21 09/02/22 09/03/22 09/03/22 10:02 05:21 05:21 WBC 9.2 RBC 3.81 L Hgb 10.2 L Hct 35.5 L MCV 93.2 MCH 26.8 MCHC 28.7 L RDW 14.6 H Plt Count 238 MPV 9.3 Immature Gran % (Auto) 0.1 Neut % (Auto) 65.5 Lymph % (Auto) 24.1 [place] % (Auto) 7.6 Eos % (Auto) 2.0 Baso % (Auto) 0.7 Lymph # (Auto) 2.22 [place] # (Auto) 0.7 H Eos # (Auto) 0.2 Baso # (Auto) 0.1 Abs Immat Gran (auto) 0.01 Absolute Neuts (auto) 6.0 Absolute Nucleated RBC 0.0 Nucleated RBC % 0.0 Platelet Estimate Adequate Poikilocytosis 1+ Anisocytosis 1+ Ovalocytes 1+ Schistocytes Rare Sodium 131 L Potassium 4.3 Chloride 103 Carbon Dioxide 24 Anion Gap 4 L BUN 24 H Creatinine 1.00 Estim Creat Clear Calc 43 Estimated GFR 54 L Glucose 78 POC Capillary Glucose 127 H Calcium 8.2 L Post-procedural complaints: none Patient Feedback: Patient satisfied with anesthetic care.
[2022-09-03] MEDS: FERROUS SULFATE 324 MG TABLET PO (09:32)
[2022-09-03] MEDS: PRAMIPEXOLE 0.25 MG TABLET PO (09:32)
[2022-09-03] MEDS: metFORMIN HCL 500 MG TABLET 1000 MG PO (09:33)
[2022-09-03] MEDS: lisinopriL 20 MG TABLET 40 MG PO (09:33)
[2022-09-03] MEDS: CELECOXIB 200 MG CAPSULE PO (09:33)
[2022-09-03] MEDS: FAMOTIDINE 20 MG TABLET 40 MG PO (09:34)
[2022-09-03] MEDS: CHOLECALCIFEROL 1,000 UNITS TABLET 1000 UNITS PO (09:34)
[2022-09-03] MEDS: polyethylene glycoL 3350 17 GM POWD.PACK PO (09:34)
[2022-09-03] MEDS: SENNA/DOCUSATE SODIUM TABLET 2 TAB PO (09:34)
[2022-09-03] MEDS: ASPIRIN 325 MG ENTERIC TABLET PO (09:34)
[2022-09-03] MEDS: CHLORTHALIDONE 25 MG TABLET PO (09:35)
[2022-09-03] MEDS: oxyCODONE/ACETAMINOPHEN (*CRX) 5-325 MG TABLET 1 TABLET PO (09:35)
[2022-09-03] MEDS: CYANOCOBALAMIN 1,000 MCG TABLET 5000 MCG PO (10:35)
--- NOTE | 2022-09-03 13:10 | PM.PNORT ---
Progress Note: A&P Assessment and Plan (1) S/P total knee arthroplasty: Qualifiers: Laterality: left Qualified Code(s): Z96.652 - Presence of left artificial knee joint Code(s): Z96.659 - Presence of unspecified artificial knee joint Status: Acute Assessment and Plan: POD #1 : Left TKA Continue PT/OT. WBAT. Walker. HIGH FALL RISK. Continue pain control. Ice Knee. Protect skin. DVT prophylaxis with Aspirin. SCDs. Incentive Spirometry Use reviewed. Monitor Dressing. Change prior to discharge. Bowel Regimen. Dispo: Home with Home Health pending progress with PT/OT (2) Restless legs: Code(s): G25.81 - Restless legs syndrome Status: Acute Assessment and Plan: Patient is on Naltrexone for RLS at home. No history of drug or alcohol abuse. Plan to hold Naltrexone on discharge in order for patient to take needed post op narcotic medication. Patient aware and agrees with plan of care. Subjective Subjective Date/Time Seen: 09/03/22 13:10 Post Op day: 1 Interval history: POD #1: Left TKA Patient doing well. Pain well controlled. No new concerns. Hopeful for d/c home today. Review of Systems Review of Systems: All systems reviewed & are unremarkable except as noted in HPI and below Constitutional: Constitutional: Denies fever(s) and Denies headache(s) ENT: Denies headache(s) Cardiovascular: Cardiovascular: Denies chest pain, Denies diaphoresis, Reports lightheadedness, Denies palpitations and Denies dyspnea Respiratory: Respiratory: Denies dyspnea Gastrointestinal: Gastrointestinal: Denies abdominal pain, Denies constipation, Denies nausea and Denies vomiting Genitourinary: Genitourinary: Reports nocturia and Denies dysuria Musculoskeletal: Musculoskeletal: Reports arthralgias (Left Knee ), Reports joint swelling (Left Knee ) and Reports limited range of motion (ROM limited due to recent surgical intervention LEFT Knee ) Neurologic: Denies headache(s) Endocrine: Endocrine: Denies palpitations Exam Const: General: comfortable and no acute distress Resp: Effort & Inspection: normal respiratory effort Cardio: Rate: regular rate Rhythm: regular rhythm GI: GI Palp: Yes Soft to palpation, No Tenderness to palpation present (GI) and No Guarding due to palpation present (GI) Skin: General skin exam: wounds noted (see extremity assessment ) Wounds: wounds noted (see extremity assessment ) Neuro: Cognition (Neuro): normal cognition Other: NV intact aside from block. Moves toes. Sensation intact to light touch. +ankle dorsiflexion/plantarflexion. Extrem: Left lower extremity: normal to inspection, normal capillary refill, knee Details: tenderness (diffuse ) Location: of the patella, swelling (moderate consistent to recent surgery ), abnormal ROM (limited due to recent surgery ) Details: pain with active ROM and pain with passive ROM and ecchymosis (as expected with recent surgery. NO hematoma. ), lower leg (Negative Marylou's Sign ), ankle (+ankle dorsiflexion/plantarflexion ) Details: normal to inspection, no edema and normal ROM; no tenderness and no swelling and foot Details: normal capillary refill, toes with normal ROM, vascular exam Details: dorsalis pedis pulse present and motor-sensory exam light-touch normal; no tenderness Other: Incision left TKA dressing c/d/i. No hematoma. No signs of infection. No wound dehiscence. Psych: Mental Status: mental status grossly normal Objective Data Vital Signs Vital Signs: Vital Signs - 24 hr 09/02/22 14:23 09/02/22 17:06 09/02/22 20:00 Temperature 36.9 C 37.1 C Pulse Rate 83 74 Respiratory Rate 16 18 Blood Pressure 135/68 117/60 Pulse Oximetry 100 100 Oxygen Delivery Room Air 09/03/22 00:40 09/03/22 04:10 09/03/22 09:30 Temperature 36.5 C 36.6 C Pulse Rate 77 79 Respiratory Rate 18 18 Blood Pressure 104/54 L 115/63 Pulse Oximetry 95 97 Oxygen Delivery Room Air Intake/Output In
--- NOTE | 2022-09-03 13:18 | PM.DS ---
DS: Admitting Diagnosis Discharge Date 09/03/22 Admitting Diagnosis Left Knee DJD DS: Discharge Diagnosis Discharge Diagnosis (1) S/P total knee arthroplasty: Qualifiers: Laterality: left Qualified Code(s): Z96.652 - Presence of left artificial knee joint Code(s): Z96.659 - Presence of unspecified artificial knee joint Status: Acute Assessment and Plan: POD #1 : Left TKA Continue PT/OT. WBAT. Walker. HIGH FALL RISK. Continue pain control. Ice Knee. Protect skin. DVT prophylaxis with Aspirin. SCDs. Incentive Spirometry Use reviewed. Monitor Dressing. Change prior to discharge. Bowel Regimen. Dispo: Home with Home Health pending progress with PT/OT (2) Restless legs: Code(s): G25.81 - Restless legs syndrome Status: Acute Assessment and Plan: Patient is on Naltrexone for RLS at home. No history of drug or alcohol abuse. Plan to hold Naltrexone on discharge in order for patient to take needed post op narcotic medication. Patient aware and agrees with plan of care. DS: Summary Hospital Course Reason for hospitalization: Left TKA Hospital Course: 72 year old female admitted s/p Left TKA for postoperative medical management, pain control and mobilization with PT/OT. Patient progressed well with PT/OT. Pain and vitals remained stable throughout. The patient has been cleared to be discharged home with home health at this time. All discharge care instructions reviewed at depth. New medications reviewed. Follow up planned for 3 weeks in the outpatient orthopedic clinic with Dr. Aguilar. Status at Discharge Functional status at discharge: uses cane/walker Overall status at discharge: patient is progressing back to baseline Time Spent with Patient Time attestation: Total time spent providing and/or coordinating discharge services: Exam Const: General: comfortable and no acute distress Resp: Effort & Inspection: normal respiratory effort Cardio: Rate: regular rate Rhythm: regular rhythm Skin: General skin exam: wounds noted (see extremity assessment ) Wounds: wounds noted (see extremity assessment ) Neuro: Cognition (Neuro): normal cognition Other: NV intact aside from block. Moves toes. Sensation intact to light touch. +ankle dorsiflexion/plantarflexion. Extrem: Left lower extremity: normal to inspection, normal capillary refill, knee Details: tenderness (diffuse ) Location: of the patella, swelling (moderate consistent to recent surgery ), abnormal ROM (limited due to recent surgery ) Details: pain with active ROM and pain with passive ROM and ecchymosis (as expected with recent surgery. NO hematoma. ), lower leg (Negative Marylou's Sign ), ankle (+ankle dorsiflexion/plantarflexion ) Details: normal to inspection, no edema and normal ROM; no tenderness and no swelling and foot Details: normal capillary refill, toes with normal ROM, vascular exam Details: dorsalis pedis pulse present and motor-sensory exam light-touch normal; no tenderness Other: Incision left TKA dressing c/d/i. No hematoma. No signs of infection. No wound dehiscence. Psych: Mental Status: mental status grossly normal DS: Data Data Completed and Pending Labs on day of discharge: Labs from last 24 hours 09/03/22 09/03/22 05:21 05:21 WBC 9.2 RBC 3.81 L Hgb 10.2 L Hct 35.5 L MCV 93.2 MCH 26.8 MCHC 28.7 L RDW 14.6 H Plt Count 238 MPV 9.3 Immature Gran % (Auto) 0.1 Neut % (Auto) 65.5 Lymph % (Auto) 24.1 [place] % (Auto) 7.6 Eos % (Auto) 2.0 Baso % (Auto) 0.7 Lymph # (Auto) 2.22 [place] # (Auto) 0.7 H Eos # (Auto) 0.2 Baso # (Auto) 0.1 Abs Immat Gran (auto) 0.01 Absolute Neuts (auto) 6.0 Absolute Nucleated RBC 0.0 Nucleated RBC % 0.0 Platelet Estimate Adequate Poikilocytosis 1+ Anisocytosis 1+ Ovalocytes 1+ Schistocytes Rare Sodium 131 L Potassium 4.3 Chloride 103 Carbon Dioxide 24 Anion Gap 4 L BUN 24 H Creatini
== END 2022-09-03 14:48 | disposition home health service (06) ==
LOC: ANHSURGERY 06:05 → ANH2MED 11:01
PROVIDERS: PCP Family Medicine; Visit Provider Orthopaedic Surgery
PROC: (CPT 27447; principal; 2022-09-02 07:30)
DX: M17.12 Unilateral primary osteoarthritis, left knee (principal); G89.18 Other acute postprocedural pain; I10 Essential (primary) hypertension; E11.9 Type 2 diabetes mellitus without complications; G25.81 Restless legs syndrome; E53.8 Deficiency of other specified B group vitamins; G47.00 Insomnia, unspecified; Z98.84 Bariatric surgery status; Z87.891 Personal history of nicotine dependence; F12.90 Cannabis use, unspecified, uncomplicated
CPT/HCPCS: 27447; 64447; 36415; 73560; 80048; 80307; 81003; 82040; 82948; 83036; 84295; 85025; 85610; 85730; 86850; 86900; 86901; 87081; 97110; 97116; 97161; 97165; 97530; 97535; A9270; C1713; C1776; J0171; J0690; J1100; J1170; J1885; J2250; J2270; J2405; J2704; J2795; J3010; J7030; J7120

== ENCOUNTER 2022-12-21 11:09 | Outpatient (CLI) | payer MEDICARE, SELFPAY ==
--- NOTE | ~2022-12-21 | XR_ITS ---
Cervical Spine: AP, lateral, open-mouth views Clinical History: Pain Findings: There is mild reversal of the normal cervical lordosis. No fracture or subluxation evident. There is moderate degenerative disc narrowing at C4-C5, C5-C6, and C6-C7. There is mild facet arthro jac at the mid to lower cervical spine. Pre-vertebral soft tissues are unremarkable. Impression: [id number] degenerative spondylosis, as detailed above. Reviewed, dictated and finalized at location M. Impression: [id number] degenerative spondylosis, as detailed above.
== END 2022-12-21 11:10 | disposition home or self-care (01) ==
PROVIDERS: PCP Family Medicine; Visit Provider Physician Assistant Medical
DX: M47.22 Other spondylosis with radiculopathy, cervical region (principal)
CPT/HCPCS: 72050

== ENCOUNTER 2023-04-06 14:06 | Outpatient (CLI) | payer MEDICARE, SELFPAY ==
--- NOTE | ~2023-04-06 | MM_ITS ---
EXAMINATION: MM screening samantha BI w viktoria HISTORY: Screening mammogram TECHNIQUE: Craniocaudal and mediolateral oblique 3-D tomosynthesis images were obtained and synthetic 2-D images were generated. CAD analysis was submitted and interpreted. COMPARISON: 04/01/2022, 01/30/2021 BREAST PARENCHYMAL COMPOSITION: The breasts are almost entirely fatty. FINDINGS: No suspicious mass, calcification, or architectural distortion are identified in either arian ast to suggest malignancy. There has been no suspicious interval change. IMPRESSION: 1. No mammographic evidence of malignancy. 2. Recommend routine screening mammography in one year. BI-RADS Category 1: Negative Reviewed, dictated and finalized at location A.
== END 2023-04-06 14:07 | disposition home or self-care (01) ==
PROVIDERS: PCP Family Medicine; Visit Provider Family Medicine
DX: Z12.31 Encounter for screening mammogram for malignant neoplasm of breast (principal)
CPT/HCPCS: 77063; 77067

== ENCOUNTER → 2023-05-24 09:51 | Outpatient (CLI) | payer MEDICARE, SELFPAY ==
--- NOTE | ~2023-05-24 | DEXA_ITS ---
Bone Density Report Name: TYRONE SANTOS Age: 73 Sex: Female Ethnicity: White Date of : 1950 Indication: postmenopausal; screening for osteoporosis; height loss; prior fracture; hysterectomy; Referring Provider: SENG OLSON Study: Bone densitometry was performed. Exam Date: May 24, 2023 Accession number: [id number] Bone Density: Region BMD T-score Z-score Classification AP Spine (L1, L2) 1.016 0.3 2.6 Normal Femoral Neck (Left) 0.556 -2.6 -0.6 Osteoporosis Total Hip (Left) 0.584 -2.9 -1.2 Osteoporosis Femoral Neck (Right) 0.520 -3.0 -0.9 Osteoporosis Total Hip (Right) 0.561 -3.1 -1.4 Osteoporosis Total Hip Mean 0.573 -3.0 -1.3 Osteoporosis World Health Organization criteria for BMD impression classify patients as: Normal (T-score at or above -1.0), Osteopenia (T-score between -1.0 and -2.5), or Osteoporosis (T-score at or below -2.5). 10-year Fracture Risk: FRAX not reported because: Some T-score for Spine Total or Hip Total or Femoral Neck at or below -2.5 Clinical Information Provided by Patient: Has had a low trauma fracture Has the following medical conditions: Hysterectomy Patient maximum height was 67.0 Menopause Age: 48 Drinks caffeinated beverages Onset of menses at age 13 Number of children 3 Impression: The patient has established osteoporosis, based on the Right Total Hip T-score and the existence of a prior fracture. The patient has risk factors, including: previous fracture. Discussion: HIGH RISK OF FRACTURE. BONE DENSITY IS UNDESIRABLY LOW AT ONE OR MORE SKELETAL SITES, CONSISTENT WITH POSTMENOPAUSAL OSTEOPOROSIS. This patient's lowest T-score, in a patient who has previously fractured, meets the World Health Organization's (WHO) criteria for severe osteoporosis. In untreated patients, the risk of osteoporotic fracture increases approximately two-fold for each 1.0 SD decrease in T-score. Low bone density is not the only risk factor for fracture; also consider factors such as patient's age, frailty or poor health, risk of falling, risk of injury, previous osteoporotic fracture, family history of osteoporosis, cigarette smoking, low body weight, etc. Not everyone with low bone mineral density has osteoporosis; osteomalacia and other metabolic bone disorders should also be considered. Patients who have osteoporosis should be evaluated for specific diseases and conditions (secondary causes) that may cause or contribute to bone loss. The [place] [employer]ocrinologists (AACE) and National Osteoporosis Foundation (NOF) recommend pharmacologic intervention for all postmenopausal women whose T-score is in this range. The patient should follow a healthful lifestyle (good nutrition with adequate calcium and vitamin D, and appropriate weight-bearing exercise). Follow
== END ==
PROVIDERS: PCP Physician Assistant; Visit Provider Physician Assistant
DX: Z78.0 Asymptomatic menopausal state (principal); M81.0 Age-related osteoporosis without current pathological fracture
CPT/HCPCS: 77080

== ENCOUNTER 2023-08-19 14:03 | Outpatient (CLI) | payer MEDICARE, SELFPAY ==
--- NOTE | ~2023-08-19 | US_ITS ---
EXAMINATION: US arterial ankle brachial ind DATE: 08/19/2023 14:55 INDICATION: Peripheral vascular disease TECHNIQUE: Segmental pressures and plethysmographic and Doppler waveforms of the brachial and lower e xtremity arteries were obtained. COMPARISON: None. FINDINGS: Right and left brachial artery pressures of 101 mm Hg and 118 mm Hg, respectively, are concordant (no rmal difference <= 30 mmHg). The right ankle-brachial index (GARRY) is 1.05 (normal >= 0.9-1.0). The right great toe-brachial index (TBI) is 0.38 (normal >= 0.65). Arterial Doppler waveforms are biphasic with brisk systolic upstrokes at both right posterior tibial and dorsalis pedis arteries. The left GARRY is 1.68. The left TBI is 0.36. Arterial Doppler waveforms are biphasic with brisk systol ic upstrokes at both left posterior tibial and dorsalis pedis arteries. IMPRESSION: 1. Mild arterial occlusive disease to the bilateral lower limbs with normal bilateral ABIs but mild t o moderately decreased bilateral TBIs. Reviewed, dictated and finalized at location A. PIECE GOODS INSPECTOR IMPRESSION: 1. Mild arterial occlusive disease to the bilateral lower limbs with normal jamal ateral ABIs but mild to moderately decreased bilateral TBIs.
== END 2023-08-19 14:04 | disposition home or self-care (01) ==
LOC: ANHIMG 14:05
PROVIDERS: PCP Family Medicine; Visit Provider Physician Assistant Medical
DX: I73.9 Peripheral vascular disease, unspecified (principal)
CPT/HCPCS: 93922

== ENCOUNTER 2023-09-10 08:17 | Outpatient (CLI) | payer MEDICARE, SELFPAY ==
--- NOTE | ~2023-09-10 | XR_ITS ---
EXAMINATION: XR hip BI 2V w AP pelvis DATE: 09/10/2023 09:22 INDICATION: Chronic bilateral hip pain TECHNIQUE: AP view the pelvis and two views of each hip were obtained. COMPARISON: 12/24/2021 FINDINGS: Bone alignment is normal. There is no fracture. There is mild osteoarthritis of the hips. T here are partially imaged surgical changes of the lower cervical spine. Phleboliths are noted in the pelvis. IMPRESSION: 1. Mild osteoarthritis of the hips. Reviewed, dictated and finalized at location B. IC SERVICE REPRESENTATIVE
--- NOTE | ~2023-09-10 | MR_ITS ---
MRI of the lumbar spine Clinical History: Radiculopathy Technique: Axial T2-weighted images, and sagittal T1-weighted, T2-weighted, and T2 fat-sat images wer e acquired. Findings: No acute fracture identified. There is 3 mm retrolisthesis of L2 over L3. There is posterio r fusion from L3 through L5, bilateral rods and intrapedicular screws present. There is posterior dec ompression at L3 and L4. There is a 1.2 cm markedly STIR hyperintense, T1 hypointense lesion at the i nferior S2 level (sagittal image 10), indeterminate. At L1-L2, there is severe degenerative disc narrowing. There is minimal disc bulge with moderate face t arthropathy. No central canal stenosis. There is severe left neural foraminal narrowing, and mild r ight neural foraminal narrowing. At L2-L3, there is right paracentral disc extrusion, with moderate facet arthropathy. There is modera te to severe right neural foraminal narrowing. Left neural foramen preserved. There is mild effacemen t of the right side of the thecal sac with right lateral recess stenosis. At L3-L4, there is no disc bulge with mild facet arthropathy. No central canal stenosis. There is mod erate right neural foraminal narrowing. Left neural foramen preserved. At L4-L5, there is disc bulge and facet arthropathy. No central canal stenosis. There is moderate rig ht neural foraminal narrowing. Left neural foramen preserved. At L5-S1, there is diffuse disc bulge and moderate facet arthropathy. No central canal stenosis. Ther e is moderate left neural foraminal narrowing, and mild right neural foraminal narrowing. Paravertebral soft tissues are unremarkable, aside from expected postoperative change. Impression: Right paracentral disc extrusion L2-L3, with associated lateral recess stenosis and possible impingem ent of adjacent nerve root. Posterior fusion from L3 through L5, as detailed above. Additional degenerative changes, as detailed above. 1.2 cm indeterminate intramedullary lesion at the inferior S2 level, T2 hyperintense and T1 hypointen se. The T1 hypointensity is somewhat worrisome, although no other overtly aggressive imaging characte ristics are seen, and no other suspicious osseous lesion seen. Consider bone scan to evaluate for upt kasandra as well as any other osseous lesions. Reviewed, dictated and finalized at location M. TURNER Impression: Right paracentral disc extrusion L2-L3, with associated lateral recess stenosis and possible impingement of adjacent nerve root. Posterior fusion from L3 through L5, as detailed above. Additional degenerative changes, as detailed above. 1.2 cm indeterminate intramedullary lesion at the inferior S2 level, T2 hyperin tense and T1 hypointense. The T1 hypointensity is somewhat worrisome, although no other overtly aggressive imaging characteristics are seen, and no other susp icious osseous lesion seen. Consider bone scan to evaluate for uptake as well a s any other osseous lesions.
== END 2023-09-10 08:18 ==
LOC: GOSHIMG 08:18
PROVIDERS: PCP Family Medicine; Visit Provider Anesthesiology Pain Medicine
DX: M46.1 Sacroiliitis, not elsewhere classified (principal); M25.559 Pain in unspecified hip; M96.1 Postlaminectomy syndrome, not elsewhere classified; M54.9 Dorsalgia, unspecified; M54.17 Radiculopathy, lumbosacral region; M16.0 Bilateral primary osteoarthritis of hip; M48.061 Spinal stenosis, lumbar region without neurogenic claudication; Z98.1 Arthrodesis status
CPT/HCPCS: 72148; 73521

== ENCOUNTER 2023-10-14 13:04 | Outpatient (NON) | payer MEDICARE, SELFPAY ==
[2023-10-14 14:34] LABS: Creatinine Urine 83.6 mg/dL
[2023-10-22 14:22] LABS: Total Volume 900
== END 2023-10-14 13:05 | disposition home or self-care (01) ==
PROVIDERS: PCP Family Medicine; Visit Provider Internal Medicine
DX: M81.0 Age-related osteoporosis without current pathological fracture (principal)
CPT/HCPCS: 82340; 82570

== ENCOUNTER 2023-11-02 09:40 | Day surgery (SDC) | payer MEDICARE, SELFPAY ==
[2023-10-28 11:22] VITALS: BMI 24.1
--- NOTE | ~2023-11-02 | XR_ITS ---
XR fluoroscopy no charge Indication: Left sacroiliac joint steroid injection TECHNIQUE: Fluoroscopy used during Left sacroiliac joint steroid injection performed by [Jens Manning MD] on 11/02/2023. 14 seconds of fluoroscopy with 6 fluoroscopic images captured. FINDINGS: Correlate with procedure note. IMPRESSION: Fluoroscopy used during Left sacroiliac joint steroid injection. Reviewed, dictated and finalized at location B.
--- NOTE | 2023-11-02 10:17 | WPDHPUPDATE1 ---
History and Physical Update Update Date/Time: 11/02/23 10:17 History and Physical has been reviewed, including an updated exam of the patient. There are NO changes in the patient's condition. Risks, benefits, and alternatives have been discussed and questions answered. Patient agrees to proceed with procedure.
--- NOTE | 2023-11-02 10:18 | W.PM.PROC2 ---
Procedure Note - Detailed Date of Procedure 11/02/23 Pre-op Diagnosis Sacroiliitis, Chronic Low Back Pain Post-op Diagnosis Same Procedure Performed left Sacroiliac Joint Steroid Injection under Fluoroscopic Guidance and with Contrast Control Surgeon Jens Manning MD Anesthesia Local Description of Procedure INFORMED CONSENT: Risks, benefits and alternatives to the procedure were discussed in detail with the patient who expressed explicit understanding and consent to proceed. Patient was informed verbally and in written form regarding the risks associated with the procedure including the low risk of serious infection, bleeding/bruising, allergic reaction, nerve or organ injury, paralysis, procedural site pain or discomfort, worsening pain and/or mobility, failure to treat and/or disfigurement. The patient expressed explicit understanding and consent to proceed. All materials required for the procedure were available prior to procedure start. Site and side were marked prior to procedure and confirmed in the presence of the patient. PROCEDURE IN DETAIL: The patient was brought to the procedural suite and placed in the prone position. Patient was made comfortable with use of pillows under the head/chest, hips and ankles. Skin overlying the injection site on the affected side(s) (left) was prepared broadly with ChloraPrep applicator and draped in a sterile manner. Aseptic technique was used throughout. The SI joint was identified in the AP view and contralateral oblique angulation with caudal tilt was utilized to optimize visualization of the inferior and medial joint line representing the posterior portion of the joint. Local anesthesia was established by infiltration with approximately 5 mL of 2% lidocaine via a 1-1/2 inch 27-gauge needle. A 22-gauge 3.5 inch Quincke spinal needle was advanced until the needle entered the inferior third of the joint space approximately 1cm cephalad from its most inferior point. In the AP view, 0.5 mL of Omnipaque 300 contrast medium was injected after negative aspiration for CSF, blood or other bodily fluid, showing appropriate intra-articular spread of contrast without evidence of intravascular, perineural or intrathecal placement. A 1.5 mL solution containing 40 mg of triamcinolone in 0.5% PF bupivacaine was injected after repeat negative aspiration. Appropriate spread of the injectate was confirmed with washout of previous injected contrast. No parasthesias were elicited. Needle was removed completely intact without difficulty. Images were saved and documented in the patient chart. Patient's skin was cleansed and sterile bandage applied. The patient tolerated the procedure well. The patient was transported to the recovery area in stable condition where they were observed for an appropriate amount of time prior to discharge, without evidence of complication. The patient was instructed to avoid excessive activity for the next 48 hours, including climbing and frequent use of stairs. Showers only for 48 hours. They were instructed not to drive or operate heavy machinery for 24 hours. They are to monitor for severe headaches, fevers, chills, night sweats, erythema/swelling at the site or any other signs of infection, bleeding/bruising, bowel or bladder changes as well as new pain, weakness or numbness in the upper or lower extremity. Should they notice these changes, they are instructed to call our office immediately or report directly to the nearest Emergency Department if no answer or if after posted office hours. COMPLICATIONS: None COMMENTS: None CONTRAST WASTED: 14.5mL Omnipaque 300. Complications No immediate complications Condition Stable Disposition Same day [facility] Billing Surgery - Charge Forward: Surgery Billing
[2023-11-02 10:40] VITALS: BP 141/90; PULSE 85; RESP 14; TEMP 37.7; O2SAT 100
[2023-11-02 10:54] VITALS: BP 157/77; PULSE 85; RESP 13; O2SAT 99
[2023-11-02 10:59] VITALS: BP 150/82; PULSE 81; RESP 12; O2SAT 98
[2023-11-02] MEDS: BETAMETHASONE SODIUM PHOSPHATE PF INJ 6 MG/ML VIAL INFILTRATE (11:01)
[2023-11-02] MEDS: BUPivacaine HCL 0.5% 10 ML AMP INFILTRATE (11:02)
[2023-11-02] MEDS: LIDOCAINE HCL 1% PF INJ 5 ML VIAL XX (11:03)
[2023-11-02 11:06] VITALS: BP 137/78; PULSE 78; RESP 16; O2SAT 100
== END 2023-11-02 11:20 | disposition home or self-care (01) ==
PROVIDERS: PCP Family Medicine; Visit Provider Anesthesiology Pain Medicine
PROC: (CPT G0260; principal; 2023-11-02 11:15)
DX: M46.1 Sacroiliitis, not elsewhere classified (principal); M54.59 Other low back pain
CPT/HCPCS: G0260; 27096; 99199

== ENCOUNTER 2023-12-21 08:14 | Day surgery (SDC) | payer MEDICARE, SELFPAY ==
--- NOTE | ~2023-12-21 | XR_ITS ---
EXAMINATION: XR fluoroscopy no charge DATE: 12/21/2023 9:25 CDT INDICATION: DOROTHY L1, L2, L4, L5 NERVE BK . TECHNIQUE: 16 fluoroscopic images and 4 sacral clips of the lumbar spine were obtained during bilater al L1, L2, L4, and L5 nerve block, performed by Jens Manning MD. I was not present during the pro cedure. Fluoroscopy exposure time was 39.7 seconds. Air Kerma 11.60 mGy. COMPARISON: None FINDINGS/IMPRESSION: Fluoroscopic documentation of bilateral L1, L2, L4, and L5 nerve block. Please refer to the operative note for complete procedural details. Reviewed, dictated and finalized at location K.
--- NOTE | 2023-12-21 09:17 | WPDHPUPDATE1 ---
History and Physical Update Update Date/Time: 12/21/23 09:17 History and Physical has been reviewed, including an updated exam of the patient. There are NO changes in the patient's condition. Risks, benefits, and alternatives have been discussed and questions answered. Patient agrees to proceed with procedure.
--- NOTE | 2023-12-21 09:18 | W.PM.PROC2 ---
Procedure Note - Detailed Date of Procedure 12/21/23 Pre-op Diagnosis lumbosacral spondylosis, chronic low back pain, post-laminectomy syndrome Post-op Diagnosis Same Procedure Performed Diagnostic bilateral Lumbar Medial Branch/Dorsal Ramus Blocks at L1, L2, L4, L5 Treating the bilateral L2-3, L5-S1 Facet Joints Under Fluoroscopic Guidance and with Contrast Control. ( 4 levels blocked). Surgeon Jens Manning MD Anesthesia Local Description of Procedure INFORMED CONSENT: Risks, benefits and alternatives to the procedure were discussed in detail with the patient who expressed explicit understanding and consent to proceed. Patient was informed verbally and in written form regarding the risks associated with the procedure including the low risk of serious infection, bleeding/bruising, allergic reaction, nerve or organ injury, paralysis, procedural site pain or discomfort, worsening pain and/or mobility, failure to treat and/or disfigurement. The patient expressed explicit understanding and consent to proceed. All materials required for the procedure were available prior to procedure start. Site and side were marked prior to procedure and confirmed in the presence of the patient. PROCEDURE IN DETAIL: The patient was brought to the procedural suite and placed in the prone position. Patient was made comfortable with use of pillows under the head/chest, hips and ankles. Skin overlying the injection site on the affected side(s) was prepared broadly with ChloraPrep applicator and draped in a sterile manner. Aseptic technique was used throughout. The endplates of the vertebral bodies at the site(s) of interest were aligned in the AP view. Ipsilateral oblique angulation was utilized to optimize visualization of the intersection between the superior articulating process and transverse process at each target site. Local anesthesia was established by infiltration with approximately 5 mL of 1% lidocaine via a 1-1/2 inch 27-gauge needle. A 25-gauge 3.5 inch Quincke spinal needle was advanced until the needle tip contacted periosteum at the target site, right L1. Lateral view was utilized to confirm the appropriate placement of the needle tip just anterior to the facet line and superior to the pedicle. In the Lateral view, 0.25 mL of Omnipaque 300 contrast medium was injected after negative aspiration for CSF, blood or other bodily fluid, showing appropriate extra-articular spread of contrast without evidence of intravascular, foraminal or intrathecal placement. A 0.5 mL solution of 0.5% PF bupivacaine was injected after negative repeat aspiration. Appropriate spread of the injectate was confirmed with washout of previously injected contrast. No parasthesias were elicited. Needle was removed completely intact without difficulty. The same exact procedure was repeated for all remaining levels on the ipsilateral side, right L2, L4, L5, modified as necessary to accommodate for the new target location with identical findings and results and no evidence of complication. The same exact procedure was repeated for all remaining levels on the contralateral side, left L1, L2, L4, L5 medial branches / dorsal ramus, modified as necessary to accommodate for the new target location with identical findings and results and no evidence of complication. Images were saved and documented in the patient chart. Patient's skin was cleaned and sterile bandage applied. The patient tolerated the procedure well. The patient was transported to the recovery area in stable condition where they were observed for an appropriate amount of time prior to discharge, without evidence of complication. Patient was instructed on the appropriate completion of a pain diary over the next 12-24 hours. The patient was instructed to avoid excessive activity for the next 48 hours, including climbing and frequent use of stairs. Showers only for 48 hours. They were instructed not to drive or operate heavy machinery for
[2023-12-21 09:27] VITALS: BP 147/75; PULSE 87; RESP 16; TEMP 37.6; O2SAT 100
[2023-12-21 09:32] VITALS: BP 166/80; PULSE 83; RESP 12; O2SAT 97
[2023-12-21 09:36] VITALS: BP 153/84; PULSE 82; RESP 12; O2SAT 100
[2023-12-21 09:41] VITALS: BP 153/83; PULSE 79; RESP 12; O2SAT 100
[2023-12-21 09:46] VITALS: BP 148/88; PULSE 80; RESP 14; O2SAT 100
[2023-12-21] MEDS: BUPivacaine HCL 0.5% 10 ML AMP INFILTRATE (09:47)
[2023-12-21] MEDS: LIDOCAINE HCL 1% PF INJ 5 ML VIAL XX (09:50)
[2023-12-21 09:53] VITALS: BP 155/102; PULSE 87; RESP 14; O2SAT 100
== END 2023-12-21 10:11 | disposition home or self-care (01) ==
PROVIDERS: PCP Family Medicine; Visit Provider Anesthesiology Pain Medicine
PROC: (CPT 64493; principal; 2023-12-21 09:15)
DX: M47.817 Spondylosis without myelopathy or radiculopathy, lumbosacral region (principal); M54.59 Other low back pain; M96.1 Postlaminectomy syndrome, not elsewhere classified
CPT/HCPCS: 64493; 64494; 99199

== ENCOUNTER 2023-12-23 04:04 | Emergency (ER) | payer MEDICARE, SELFPAY ==
--- NOTE | ~2023-12-23 | XR_ITS ---
EXAMINATION: XR chest 1V DATE: 12/23/2023 04:51 INDICATION: Hypertension. Preop. TECHNIQUE: A single frontal view of the chest was obtained. COMPARISON: Chest 2 views 12/24/2021 FINDINGS: There is no pneumonia, pleural effusion, or pneumothorax. The heart size is normal. There a re surgical clips in the abdomen. IMPRESSION: 1. No acute cardiopulmonary disease. Reviewed, dictated and finalized at location A.
--- NOTE | ~2023-12-23 | XR_ITS ---
EXAMINATION: XR hip LT 2V w AP pelvis DATE: 12/23/2023 04:51 INDICATION: Left hip pain. Fall. TECHNIQUE: An anteroposterior view of the pelvis and 2 views of left hip were obtained. COMPARISON: Pelvis and hip radiographs 09/10/2023 FINDINGS: There are changes of posterior fusion procedure in lumbar spine. No fracture. There is mild osteoarthritis of the hips. IMPRESSION: 1. Mild osteoarthritis of the hips. Reviewed, dictated and finalized at location A.
--- NOTE | ~2023-12-23 | XR_ITS ---
EXAMINATION: XR knee LT 3V DATE: 12/23/2023 04:51 INDICATION: Left knee pain. Fall. TECHNIQUE: 3 views of left knee were obtained. COMPARISON: Left knee radiographs 09/06/2023 FINDINGS: There is a total left knee arthroplasty without patellar resurfacing. There is a comminuted periprosthetic fracture of distal femur. The main distal fracture fragment demonstrates 30 degrees p osterior angulation and impaction. There is a large knee joint effusion. IMPRESSION: 1. Comminuted periprosthetic fracture of distal femur. 2. Large knee joint effusion. Reviewed, dictated and finalized at location A.
[2023-12-23 04:04] VITALS: BP 142/96; PULSE 90; RESP 16; TEMP 36.6; O2SAT 94
--- NOTE | 2023-12-23 04:15 | ECG_ITS ---
Test Date: 2023-12-23 04:22:39 Measurements Intervals [place] Rate: P: MA: QRS: QRSD: T: QT: QTc: Interpretive Statements SINUS RHYTHM NORMAL ELECTROCARDIOGRAM Electronically Signed On 12-27-2023 15:44:15 CDT by Cristhian La M.D.
[2023-12-23] MEDS: HYDROmorphone HCL INJ (*CRX) 1 MG/ML SYR IV PUSH ×3 (04:18→06:00)
[2023-12-23] MEDS: ONDANSETRON INJ 4 MG/2 ML VIAL IV PUSH ×2 (04:19→06:05)
--- NOTE | 2023-12-23 04:23 | ED.GENADULT ---
HPI - General Adult General Chief complaint: Fall Stated complaint: KNEE PAIN S/P GLF Time Seen by Provider: 12/23/23 04:08 History of Present Illness HPI narrative: patient 73-year-old female who presents emergency department with chief complaint of left lower extremity pain. The patient reports that she had the replacement done about 19 months ago reports that she was walking through her house felt her knee give out and she fell to the ground. Patient reports no head injury denies loss of consciousness reports her pain is localized to the left knee area Related Data Home Medications Medication Instructions Recorded Confirmed vit C 250 mg-vit E 90 mg-zinc 40 1 tablet PO BID 09/05/20 12/21/23 mg-copper 1 [id number] capsule (PreserVision AREDS-2) famotidine 40 mg tablet 40 mg PO DAILY PRN REFLUX 04/23/23 12/21/23 hyoscyamine sulfate 0.125 mg tablet 0.125 mg PO QID 04/23/23 12/21/23 trazodone 50 mg tablet 50 mg PO QHS PRN Insomnia 04/23/23 12/21/23 cholecalciferol (vitamin D3) 625 625 mcg PO WEEKLY 11/22/23 12/21/23 mcg (25,000 unit) capsule mirabegron 25 mg tablet,extended 25 mg PO DAILY 11/22/23 12/21/23 release 24 hr (Myrbetriq) Allergies Allergy/AdvReac Type Severity Reaction Status Date / Time No Known Allergies Allergy Verified 12/21/23 09:01 Review of Systems Review of Systems: A 10 system review of systems was completed on the patient and is negative except for what is stated in the HPI. Nursing and ancillary documentation was reviewed. [facility] Past Medical History Medical History Arthritis Diabetes Essential hypertension Hypertension Insomnia Left knee DJD Left knee pain Osteoporosis Restless legs Right hip pain Small intestinal bacterial overgrowth (SIBO) Unintentional weight loss Urinary frequency Vision changes Vitamin B12 deficiency Wears glasses Surgical History Surgical History History of abdominal hysterectomy History of abdominoplasty History of gastric stapling History of hernia repair History of laparoscopic cholecystectomy History of Jean Marie-en-Y gastric bypass History of tubal ligation Hx of carpal tunnel repair S/P Botox injection of bladder S/P total knee arthroplasty Family History Family History Unknown Hypertension Diabetes mellitus History of stroke Social History Social History Smoking packs per day: 1.5 Smoking cigarettes per day: 30.0 Years smoked: 30 Smoking pack-years: 45.00 Smoking status: Former smoker Tobacco type: cigarettes Smoking end date: 07/05/97 Alcohol intake: current Drinks per week: 1 Alcohol use details: socially Substance use: current Substance use type: marijuana Other substance usage details: GUMMIES PRN, INSOMNIA Do You Feel Safe in your Home?: Yes Lack of Transportation: No Lack of Food: Never True Current Housing: I Have Housing Concerned About Future Housing: No Difficulty Paying Gas/Electric Bills: No Difficulty Paying for Meds: No Currently Unemployed: No Education: High School Diploma/GED Difficulty w/ Childcare or Family Care: No Living arrangements: with family Gender identity (if verbalized by the patient): Female Sexual Orientation (if Verbalized by the Patient): Straight or Heterosexual Spiritual care concerns: No Agree to blood products: Yes Exam Narrative: GENERAL: Well-appearing, well-nourished, and in moderate acute pain distress. HEAD: Normocephalic, atraumatic. EYES: PERRLA and EOMI. ENT: Nares clear, no rhinorrhea or epistaxis. Mucous membranes moist. NECK: Supple. CHEST: Clear to auscultation. No respiratory distress. HEART: Regular rate and rhythm. No murmur heard. Normal peripheral pu
[2023-12-23 05:14] LABS: Basophils Absolute Auto 0.1 K/mm3 (0.0-0.1); Basophils Percent Auto 0.5 % (0.2-1.2); Eosinophils Absolute Auto 0.1 K/mm3 (0-0.3); Eosinophils Percent Auto 1.2 % (0-4.4); Hematocrit 33.4 % (37.0-47.0); Hemoglobin 10.7 g/dL (12.0-15.0); Immature Granulocyte Absolute 0.04 K/mm3 (0.00-0.031); Immature Granulocyte Percent A 0.4 % (0-0.5); Lymphocytes Percent Auto 13.7 % (18.3-44.2); Mean Corpuscular Hemoglobin 27.4 pg (26-34); Mean Corpuscular Volume 85.4 fl (80-100); Mean Platelet Volume 9.6 fl (7.4-10.4); Monocytes Absolute Auto 0.6 K/mm3 (0.1-0.6); Monocytes Percent Auto 6.1 % (2.6-8.5); Neutrophils Absolute Auto 7.4 K/mm3 (1.3-6.7); Neutrophils Percent Auto 78.1 % (45.5-73.1); Platelet Count Result 269 k/mm3 (150-375); Red Blood Count 3.91 M/mm3 (4.2-5.4); Red Cell Distribution Width 14.6 % (11.5-14.5); White Blood Count 9.5 K/mm3 (4.5-10.0)
[2023-12-23 05:26] LABS: INR 0.9; Prothrombin Time 12.3 Seconds (11.1-14.7)
[2023-12-23 05:27] LABS: Alanine Aminotransferase 20 U/L (6-35); Albumin Level 3.9 g/dL (3.5-5.1); Alkaline Phosphatase 52 U/L (38-126); Anion Gap 8 mmol/L (4-12); Aspartate Amino Transferase 32 U/L (14-36); Bilirubin,Total 0.4 mg/dL (0.2-1.3); Blood Urea Nitrogen 28 mg/dL (7-17); Calcium 8.4 mg/dL (8.4-10.2); Carbon Dioxide 27 mmol/L (22-30); Chloride 101 mmol/L (98-107); Estimated CRCL calculation 39 ml/min; Estimated Glomerular Filt Rate 49; Glucose 129 mg/dL (65-110); Partial Thromboplastin Time 25.5 Seconds (22.3-36.8); Potassium 4.5 mmol/L (3.4-5.0); Sodium 136 mmol/L (137-145)
[2023-12-23 05:46] LABS: Appearance Urine Clear (Clear); Bacteria Urine None Seen /hpf; Bilirubin Urine Negative (Negative); Blood Urine Negative (Negative); Color Urine Yellow (Yellow); Glucose Urine UA Negative (Negative); Ketones Urine Trace mg/dL (Negative); Leukocyte Esterase Ur Trace LEU/UL (Negative); Need Manual Microscopic Reviewed; Nitrate Urine Negative (Negative); Protein Urine Trace mg/dL (Negative); RBC Urine 0-2 /hpf (0-2); Specific Grav Ur 1.019 (1.001-1.035); Squamous Epithelial Cell Urine None Seen /hpf (Few); WBC Urine 0-5 /hpf (0-3); pH Urine 6.5 (5.0-9.0)
[2023-12-23 05:52] VITALS: BP 136/76; PULSE 89; RESP 15; O2SAT 100
[2023-12-23 05:52] LABS: Add Urine Microscopic? YES
--- NOTE | 2024-01-03 11:51 | PC.NURSE ---
LATE ENTRY This note is being entered to document information to the patient's record. The following information was omitted on [12/14/23], by [Keesha Guzman RN]. Left lower leg- long leg posterior splint applied.
== END 2023-12-23 06:11 | disposition short-term general hospital (02) ==
PROVIDERS: Emergency Provider Emergency Medicine; PCP Family Medicine
DX: S72.402A Unspecified fracture of lower end of left femur, initial encounter for closed fracture (principal); M97.12XA Periprosthetic fracture around internal prosthetic left knee joint, initial encounter; I10 Essential (primary) hypertension; E11.9 Type 2 diabetes mellitus without complications; E53.8 Deficiency of other specified B group vitamins; M81.0 Age-related osteoporosis without current pathological fracture; G25.81 Restless legs syndrome; Z90.710 Acquired absence of both cervix and uterus; Z90.49 Acquired absence of other specified parts of digestive tract; Z98.84 Bariatric surgery status; Z79.84 Long term (current) use of oral hypoglycemic drugs; Z79.899 Other long term (current) drug therapy; M16.0 Bilateral primary osteoarthritis of hip; W18.39XA Other fall on same level, initial encounter
CPT/HCPCS: 29505; 36415; 51702; 71045; 73502; 73562; 80053; 81001; 85025; 85610; 85730; 93005; 96374; 96375; 96376; 99285; J1170; J2405

== ENCOUNTER 2024-05-04 08:58 | Outpatient (CLI) | payer MEDICARE, SELFPAY ==
--- NOTE | ~2024-05-04 | MR_ITS ---
MRI of the right knee Clinical history: Pain Technique: Coronal proton density and proton density-weighted images, sagittal proton-density and T2 fat-sat images, and axial proton-density fat-saturated images were acquired. Findings: Anterior and posterior cruciate ligaments are intact. Medial collateral ligament is thicken ed and hyperintense proximally with running soft tissue edema, compatible with grade 1 to mild grade 2 sprain. Lateral collateral ligament complex is intact. Popliteus tendon is intact. No definite lateral meniscal tear seen. There is prominent intrasubstance degenerative signal anterio r horn of the lateral meniscus. Medial meniscus appears intact, without evidence of tear. There is extensive high-grade chondromalacia of the lateral patellar facet extending to the patellar apex. Remaining articular cartilage is well preserved. Extensor mechanism intact. Small joint effusion and small Abreu's cyst are present. Impression: Grade 1 to possibly mild grade 2 MCL sprain. Chondromalacia patella, as detailed above. Small joint effusion and small Abreu's cyst. Reviewed, dictated and finalized at location . Impression: Grade 1 to possibly mild grade 2 MCL sprain. Chondromalacia patella, as detailed above. Small joint effusion and small Abreu's cyst.
== END 2024-05-04 08:59 | disposition home or self-care (01) ==
LOC: MICIMG 08:59
PROVIDERS: PCP Family Medicine; Visit Provider Nurse Practitioner Family
DX: S83.411A Sprain of medial collateral ligament of right knee, initial encounter (principal); X58.XXXA Exposure to other specified factors, initial encounter; M22.41 Chondromalacia patellae, right knee; M25.461 Effusion, right knee; M71.21 Synovial cyst of popliteal space [Baker], right knee
CPT/HCPCS: 73721

== ENCOUNTER 2024-05-17 10:31 | Outpatient (CLI) | payer MEDICARE, SELFPAY ==
--- NOTE | ~2024-05-17 | MM_ITS ---
EXAMINATION: MM screening samantha BI w viktoria HISTORY: Screening mammogram TECHNIQUE: Craniocaudal and mediolateral oblique 3-D tomosynthesis images were obtained and synthetic 2-D images were generated. CAD analysis was submitted and interpreted. COMPARISON: 04/06/2023, 04/01/2022, 01/30/2021 BREAST PARENCHYMAL COMPOSITION:Not Dense. The breasts are almost entirely fatty FINDINGS: No suspicious mass, calcification, or architectural distortion are identified in either arian ast to suggest malignancy. There has been no suspicious interval change. IMPRESSION: No mammographic evidence of malignancy. Recommend routine screening mammography in one year. BI-RADS Category 1: Negative Reviewed, dictated and finalized at location . E HAND
== END 2024-05-17 10:32 | disposition home or self-care (01) ==
LOC: ANHIMG 10:33
PROVIDERS: PCP Family Medicine; Visit Provider Student in an Organized Health Care Education/Training Program
DX: Z12.31 Encounter for screening mammogram for malignant neoplasm of breast (principal)
CPT/HCPCS: 77063; 77067

== ENCOUNTER 2024-11-02 11:44 | Outpatient (CLI) | payer MEDICARE, SELFPAY ==
[2024-11-02 12:19] LABS: Basophils Absolute Auto 0.1 K/mm3 (0.0-0.1); Basophils Percent Auto 1.3 % (0.2-1.2); Eosinophils Absolute Auto 0.3 K/mm3 (0-0.3); Eosinophils Percent Auto 4.5 % (0-4.4); Hematocrit 40.8 % (37.0-47.0); Hemoglobin 12.6 g/dL (12.0-15.0); Immature Granulocyte Absolute 0.03 K/mm3 (0.00-0.031); Immature Granulocyte Percent A 0.4 % (0-0.5); Lymphocytes Absolute Auto 1.74 K/mm3 (0.9-3.2); Lymphocytes Percent Auto 24.4 % (18.3-44.2); Mean Corpuscular HGB Conc 30.9 g/dl (32-36); Mean Corpuscular Hemoglobin 26.9 pg (26-34); Mean Corpuscular Volume 87.2 fl (80-100); Mean Platelet Volume 9.4 fl (7.4-10.4); Monocytes Absolute Auto 0.4 K/mm3 (0.1-0.6); Monocytes Percent Auto 5.9 % (2.6-8.5); Neutrophils Absolute Auto 4.5 K/mm3 (1.3-6.7); Neutrophils Percent Auto 63.5 % (45.5-73.1); Platelet Count Result 365 k/mm3 (150-375); Red Blood Count 4.68 M/mm3 (4.2-5.4); Red Cell Distribution Width 15.1 % (11.5-14.5); White Blood Count 7.1 K/mm3 (4.5-10.0)
--- OUTSIDE RECORDS SUMMARY | 2024-11-02 13:19 | XMS_ITS | Encounter Summary ---
Author Organization [facility] Address [address] [place] [address] Care Team Providers Care Java Tech Name Role Phone Silvia Quinonez MD Primary Care Provider [phone] Encounter Details Date Type Department Care Team (Late Contact Info) Description 06/15/2007 Outpatient Historical [facility] [place] [address] [place] [id number] Sam Machado MD 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 Gender Identity Not on file Sexual Orientation Not on file documented as of this encounter Plan of Treatment Upcoming Encounters Date Type Department Care Team (Late Contact Info) Description 11/09/2024 4:30 PM CDT Telephone Check Up [facility] Oncology and Hematology - [place] [address] [facility] [address] [place] [address] Quique Khalil MD [address] [facility] [address] [place] [address] documented as of this encounter Visit Diagnoses Not on filedocumented in this encounter Care Teams Java Tech Relationship Specialty Start Date End Date Silvia Quinonez MD [address] [place] [address] PCP - General Family Practice 11/02/24 No DME 09/02/15 documented as of this encounter
--- OUTSIDE RECORDS SUMMARY | 2024-11-02 13:19 | XMS_ITS | Encounter Summary ---
Author Organization [facility] Address [address] [place] [address] Care Team Providers Care Community Development Coordinator Name Role Phone Silvia Quinonez MD Primary Care Provider [phone] Encounter Details Date Type Department Care Team (Late Contact Info) Description 06/10/2006 Outpatient Historical [facility] [place] [address] [place] [id number] Sam Machado MD 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 Gender Identity Not on file Sexual Orientation Not on file documented as of this encounter Plan of Treatment Upcoming Encounters Date Type Department Care Team (Late Contact Info) Description 11/09/2024 4:30 PM CDT Telephone Check Up [facility] Oncology and Hematology - [place] [address] [facility] [address] [place] [address] Quique Khalil MD [address] [facility] [address] [place] [address] documented as of this encounter Visit Diagnoses Not on filedocumented in this encounter Care Teams Community Development Coordinator Relationship Specialty Start Date End Date Silvia Quinonez MD [address] [place] [address] PCP - General Family Practice 11/02/24 No DME 09/02/15 documented as of this encounter
--- OUTSIDE RECORDS SUMMARY | 2024-11-02 13:19 | XMS_ITS | Encounter Summary ---
Author Organization [facility] Address [address] [place] [address] Care Team Providers Care Burner Operator Name Role Phone Silvia Quinonez MD Primary Care Provider Encounter Details Date Type Department Care Team (Latest Contact Info) Description 02/28/2008 Outpatient Historical [facility] Ora Machado MD 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 Gender Identity Not on file Sexual Orientation Not on file documented as of this encounter Plan of Treatment Upcoming Encounters Date Type Department Care Team (Late st Contact Info) Description 11/09/2024 4:30 PM CDT Telephone Check Up [facility] Oncology and Hematology - Reji [address] [facility] 200 [place] [address] Quique Khalil MD 2227 [facility] [address] [place] [address] documented as of this encounter Procedures Procedure Name Priority Date/Time Associated Diagnosis Comments MAMMO SCREEN BILAT W OR WO CAD Timed Study 02/28/2008 9:06 AM CDT documented in this encounter Results * MAMMO DIGITAL SCREEN BILAT (02/28/2008 9:06 AM CDT) Anatomical Region Laterality Modality Breast Bilateral Other 02/28/2008 9:06 AM CDT Narrative 03/01/2008 8:15 AM CDT [address] [address] Admit Date: 02/28/2008 TYRONE REID Sex: F Admit Prov: ORA MACHADO Date: 1950 Primary Care Prov: BIB MACHUCA CMRN: [id number] Room: [facility]: [id number] IMAGING SERVICES Ordering Prov: ORA MACHADO Accession Number: [id number] Interpretation BILATERAL SCREENING DIGITAL MAMMOGRAMS WITH COMPUTER ASSISTED DIAGNOSIS, 02/28/2008 Reason For Examination: Screening mammogram, V76.12. Findings: The parenchyma is predominantly fatty bilaterally. There is no mass, malignant calcification, lymphadenopathy or other sign of malignancy. The CAD system was utilized. Summary: No mammographic evidence of malignancy. No change since 02/2007. BI-RADS Category: 1, negative. Assessment BIRADS: 1-Negative Recommendation: Normal interval follow-up Dictated by: GABINO WORTHINGTON Electronically signed by: GABINO WORTHINGTON 03/01/2008 08:15 Transcribed: 02/29/2008 17:09 DKT Procedure Note Gabino Worthington MD - 03/01/[address] [address] Admit Date: 02/28/2008 TYRONE REID Sex: F Admit Prov: ORA MACHADO Date: 1950 Primary Care Prov: BIB MACHUCA CMRN: [id number] Room: [facility]: [id number] IMAGING SERVICES Ordering Prov: ORA MACHADO Interpretation BILATERAL SCREENING DIGITAL MAMMOGRAMS WITH COMPUTER ASSISTEDDIAGNOSIS, 02/28/2008 Reason For Examination: Screening mammogram, V76.12. Findings: The parenchyma is predominantly fatty bilaterally. There isno mass, malignant calcification, lymphadenopathy or other sign ofmalignancy. The CAD system was utilized. Summary: No mammographic evidence of malignancy. No change since02/2007. BI-RADS Category: 1, negative. Assessment BIRADS: 1-Negative Recommendation: Normal interval follow-up Dictated by: GABINO WORTHINGTON Electronically signed by: GABINO WORTHINGTON 03/01/2008 08:15 Transcribed: 02/29/2008 17:09 DKT us Ora Machado MD MAMMO ORDERABLES Final Result documented in this encounter Visit Diagnoses Diagnosis Other screening mammogram documented in this encounter Care Teams Burner Operator Relationship Specialty Start Date End Date Silvia Quinonez MD [address] [place] [phone] PCP - General Family Practice 11/02/24 No DME 09/02/15 documented as of this encounter
--- OUTSIDE RECORDS SUMMARY | 2024-11-02 13:19 | XMS_ITS | Encounter Summary ---
Author Organization [facility] Address [address] [place] [address] Care Team Providers Care Wrist Liner Name Role Phone Silvia Quinonez MD Primary Care Provider [phone] Encounter Details Date Type Department Care Team (Latest Contact Info) Description 07/31/2008 Outpatient Historical [facility] TF DIAChuck-Jayce Dupree MD [address] [facility] [address] [place] [address] Nonspecific Abnormal Unspecified Cardiovascular Function Study Social History Tobacco Use Types Packs/Day Years Used Date Smoking Tobacco: Never Assessed Comments Unknown Sex and Gender Information Value Date Recorded Sex Assigned at Not on file Legal Sex Female 3: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 AREA SUPERVISOR Gender Identity Not on file Sexual Orientation Not on file documented as of this encounter Plan of Treatment Upcoming Encounters Date Type Department Care Team (Late st Contact Info) Description 11/09/2024 4:30 PM CDT Telephone Check Up [facility] Oncology and Hematology - Reji 2227 [facility] 200 [place] [address] Quique Khalil MD [address] [facility] [address] [place] [address] documented as of this encounter Visit Diagnoses Diagnosis Nonspecific abnormal unspecified cardiovascular function study documented in this encounter Care Teams Wrist Liner Relationship Specialty Start Date End Date Silvia Quinonez MD [address] [place] [phone] PCP - General Family Practice 11/02/24 No DME 09/02/15 documented as of this encounter
--- OUTSIDE RECORDS SUMMARY | 2024-11-02 13:19 | XMS_ITS | Encounter Summary ---
Author Organization [facility] Address [address] [place] [address] Care Team Providers Care Curing Finisher Name Role Phone Silvia Quinonez MD Primary Care Provider [phone] Encounter Details Date Type Department Care Team (Late Contact Info) Description 06/15/2007 Outpatient Historical [facility] [place] [address] [place] [id number] Sam Machado MD 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 Gender Identity Not on file Sexual Orientation Not on file documented as of this encounter Plan of Treatment Upcoming Encounters Date Type Department Care Team (Late Contact Info) Description 11/09/2024 4:30 PM CDT Telephone Check Up [facility] Oncology and Hematology - Reji [facility] [facility] 200 [place] [address] Quique Khalil MD 2227 [facility] [address] [place] [address] documented as of this encounter Visit Diagnoses Not on filedocumented in this encounter Care Teams Curing Finisher Relationship Specialty Start Date End Date Silvia Quinonez MD [address] [place] [address] PCP - General Family Practice 11/02/24 No DME 09/02/15 documented as of this encounter
--- OUTSIDE RECORDS SUMMARY | 2024-11-02 13:19 | XMS_ITS | Encounter Summary ---
Author Organization [facility] Address [address] [place] [address] Care Team Providers Care Senior Front End Developer Name Role Phone Silvia Quinonez MD Primary Care Provider Encounter Details Date Type Department Care Team (Latest Contact Info) Description 07/31/2008 Outpatient Historical [facility] TF Loco Starr MD [address] [place] [address] [address] [place] [address] Jayce Orellana MD [address] [facility] [address] [place] [address] Other and Unspecified Angina Pectoris Social History Tobacco Use Types Packs/Day Years Used Date Smoking Tobacco: Never Assessed Comments Unknown Sex and Gender Information Value Date Recorded Sex Assigned at Not on file Legal Sex Female 3:05 AM RUG WEAVER Gender Identity Not on file Sexual Orientation Not on file documented as of this encounter Plan of Treatment Upcoming Encounters Date Type Department Care Team (Late st Contact Info) Description 11/09/2024 4:30 PM CDT Telephone Check Up [facility] Oncology and Hematology - Reji 2227 [facility] 200 [place] [address] Quique Khalil MD 2[address] [facility] [address] [place] [address] documented as of this encounter Visit Diagnoses Diagnosis Other and unspecified angina pectoris documented in this encounter Care Teams Senior Front End Developer Relationship Specialty Start Date End Date Silvia Quinonez MD [address] [place] [phone] PCP - General Family Practice 11/02/24 No DME 09/02/15 documented as of this encounter
--- OUTSIDE RECORDS SUMMARY | 2024-11-02 13:19 | XMS_ITS | Encounter Summary ---
Author Organization [facility] [place] [facility] Address 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 Gender Identity Not on file Sexual Orientation Not on file documented as of this encounter Plan of Treatment Upcoming Encounters Date Type Department Care Team (Late st Contact Info) Description 11/09/2024 4:30 PM CDT Telephone Check Up [facility] Oncology and Hematology - Reji 2[address] [facility] 200 [place] [address] Quique Khalil MD 2[address] [facility] [address] [place] [address] documented as of this encounter Visit Diagnoses Diagnosis Localized superficial swelling, mass, or lump- Primary documented in this encounter Care Teams Signals Officer Relationship Specialty Start Date End Date Silvia Quinonez MD [address] [place] [phone] PCP - General Family Practice 11/02/24 No DME 09/02/15 documented as of this encounter
--- OUTSIDE RECORDS SUMMARY | 2024-11-02 13:19 | XMS_ITS | Encounter Summary ---
Author Organization [facility] Address [address] [place] [address] Care Team Providers Care Spray Rig Operator Name Role Phone Silvia Quinonez MD Primary Care Provider [phone] Encounter Details Date Type Department Care Team (Late Contact Info) Description 06/10/2006 Outpatient Historical [facility] [place] [address] [place] [address] Sam Machado MD 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 Gender Identity Not on file Sexual Orientation Not on file documented as of this encounter Plan of Treatment Upcoming Encounters Date Type Department Care Team (Late Contact Info) Description 11/09/2024 4:30 PM CDT Telephone Check Up [facility] Oncology and Hematology - Reji [facility] [facility] 200 [place] [address] Quique Khalil MD [address] [facility] [place] [facility] [address] [place] [address] documented as of this encounter Visit Diagnoses Not on filedocumented in this encounter Care Teams Spray Rig Operator Relationship Specialty Start Date End Date Silvia Quinonez MD [address] [place] [address] PCP - General Family Practice 11/02/24 No DME 09/02/15 documented as of this encounter
--- OUTSIDE RECORDS SUMMARY | 2024-11-02 13:19 | XMS_ITS | Encounter Summary ---
Author Organization [facility] Address [address] [place] [address] Care Team Providers Care Carbon Paste Mixer Operator Name Role Phone Silvia Quinonez MD Primary Care Provider [phone] Encounter Details Date Type Department Care Team (Latest Contact Info) Description 03/03/2007 Outpatient Historical [facility] Sam Machado MD [address] [place], [place] [address] Other Screening Mammogram (Primary Dx) Social History Tobacco Use Types Packs/Day Years Used Date Smoking Tobacco: Never Assessed Comments Unknown Sex and Gender Information Value Date Recorded Sex Assigned at Not on file Legal Sex Female 3:05 AM CONTACT CENTER ANALYST Gender Identity Not on file Sexual Orientation Not on file documented as of this encounter Plan of Treatment Upcoming Encounters Date Type Department Care Team (Late st Contact Info) Description 11/09/2024 4:30 PM CDT Telephone Check Up [facility] Oncology and Hematology - Reji 2[address] [facility] [address] [place] [address] Quique Khalil MD 2[address] [facility] [address] [place] [address] documented as of this encounter Visit Diagnoses Diagnosis Other screening mammogram- Primary documented in this encounter Care Teams Carbon Paste Mixer Operator Relationship Specialty Start Date End Date Silvia Quinonez MD [address] [place] [phone] PCP - General Family Practice 11/02/24 No DME 09/02/15 documented as of this encounter
--- OUTSIDE RECORDS SUMMARY | 2024-11-02 13:20 | XMS_ITS | Encounter Summary ---
Author Organization [facility] Address [address] [place] [address] Care Team Providers Care Reading Instructor Name Role Phone Silvia Quinonez MD Primary Care Provider [phone] Encounter Details Date Type Department Care Team (Latest Contact Info) Description 06/10/2001 Outpatient Historical [facility] EMERGENCY RO[facility] WASH Duc Molina MD [address] [place] [address] [place] [address] CRAMP IN LIMB (Primary Dx) Social History Tobacco Use Types Packs/Day Years Used Date Smoking Tobacco: Never Assessed Comments Unknown Sex and Gender Information Value Date Recorded Sex Assigned at Not on file Legal Sex Female 3:05 AM PIGMENT SUPPLIER Gender Identity Not on file Sexual Orientation Not on file documented as of this encounter Plan of Treatment Upcoming Encounters Date Type Department Care Team (Late st Contact Info) Description 11/09/2024 4:30 PM CDT Telephone Check Up [facility] Oncology and Hematology - Reji 2227 [facility] 200 [place] [address] Quique Khalil MD 2[address] [facility] [address] [place] [address] documented as of this encounter Visit Diagnoses Diagnosis Cramp of limb- Primary documented in this encounter Care Teams Reading Instructor Relationship Specialty Start Date End Date Silvia Quinonez MD [address] [place] [phone] PCP - General Family Practice 11/02/24 No DME 09/02/15 documented as of this encounter
--- OUTSIDE RECORDS SUMMARY | 2024-11-02 13:20 | XMS_ITS | Encounter Summary ---
Author Organization [facility] Address [address] [place] [address] Care Team Providers Care Canal Driver Name Role Phone Silvia Quinonez MD Primary Care Provider [phone] Encounter Details Date Type Department Care Team (Late Contact Info) Description 10/08/2004 Outpatient Historical [facility] [place] [address] [place] [address] Sam Machado MD [address] [place] [address] Social History Tobacco Use Types Packs/Day Years Used Date Smoking Tobacco: Never Assessed Comments Unknown Sex and Gender Information Value Date Recorded Sex Assigned at Not on file Legal Sex Female 3:05 AM COOK SAUCE Gender Identity Not on file Sexual Orientation Not on file documented as of this encounter Plan of Treatment Upcoming Encounters Date Type Department Care Team (Late Contact Info) Description 11/09/2024 4:30 PM CDT Telephone Check Up [facility] Oncology and Hematology - Reji [facility] [email or web address] 200 [place] [address] Quique Khalil MD [address] [facility] [address] [place] [address] documented as of this encounter Visit Diagnoses Not on filedocumented in this encounter Care Teams Canal Driver Relationship Specialty Start Date End Date Silvia Quinonez MD [address] [place] [address] PCP - General Family Practice 11/02/24 No DME 09/02/15 documented as of this encounter
--- OUTSIDE RECORDS SUMMARY | 2024-11-02 13:20 | XMS_ITS | Encounter Summary ---
Author Organization [facility] Address [address] [place] [address] Care Team Providers Care Manager Of Digital Name Role Phone Silvia Quinonez MD Primary Care Provider [phone] Encounter Details Date Type Department Care Team (Latest Contact Info) Description 04/23/[address] [facility] Marquez, Tiffanie Barrett MD [address] [facility] [address] [place] [address] OTHER MALAISE AND FATIGUE (Primary Dx) Social History Tobacco Use Types Packs/Day Years Used Date Smoking Tobacco: Never Assessed Comments Unknown Sex and Gender Information Value Date Recorded Sex Assigned at Not on file Legal Sex Female 3:05 AM JIRA DEVELOPER Gender Identity Not on file Sexual Orientation Not on file documented as of this encounter Plan of Treatment Upcoming Encounters Date Type Department Care Team (Late st Contact Info) Description 11/09/2024 4:30 PM CDT Telephone Check Up [facility] Oncology and Hematology - Reji [address] [facility] 200 [place] [address] Quique Khalil MD 2[address] [facility] [address] [place] [address] documented as of this encounter Visit Diagnoses Diagnosis Other malaise and fatigue- Primary documented in this encounter Care Teams Manager Of Digital Relationship Specialty Start Date End Date Silvia Quinonez MD [address] [place] [address] PCP - General Family Practice 11/02/24 No DME 09/02/15 documented as of this encounter
--- OUTSIDE RECORDS SUMMARY | 2024-11-02 13:20 | XMS_ITS | Encounter Summary ---
Author Organization [facility] Address 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 Gender Identity Not on file Sexual Orientation Not on file documented as of this encounter Plan of Treatment Upcoming Encounters Date Type Department Care Team (Late st Contact Info) Description 11/09/2024 4:30 PM CDT Telephone Check Up [facility] Oncology and Hematology - Reji [address] [facility] 200 [place] [address] Quique Khalil MD 2227 [facility] [address] [place] [address] documented as of this encounter Visit Diagnoses Diagnosis Persistent postoperative fistula, 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
--- OUTSIDE RECORDS SUMMARY | 2024-11-02 13:20 | XMS_ITS | Encounter Summary ---
Author Organization [facility] Address [address] [place] [address] Care Team Providers Care Biscuit Packer Name Role Phone Silvia Quinonez MD Primary Care Provider Encounter Details Date Type Department Care Team (Latest Contact Info) Description 11/16/2001 Outpatient Historical [facility] Jocy Espinal MD NO ADDRESS ON FILE SCREENING MAMM-MAILG NEOPL-OTHER (Primary Dx) Social History Tobacco Use Types Packs/Day Years Used Date Smoking Tobacco: Never Assessed Comments Unknown Sex and Gender Information Value Date Recorded Sex Assigned at Not on file Legal Sex Female 3:05 AM BORDERER Gender Identity Not on file Sexual Orientation Not on file documented as of this encounter Plan of Treatment Upcoming Encounters Date Type Department Care Team (Late st Contact Info) Description 11/09/2024 4:30 PM CDT Telephone Check Up [facility] Oncology and Hematology - Reji [address] [place] [address] [facility] 200 [place] [address] [place] [address] [place] [address] [address] [place] [address] documented as of this encounter Visit Diagnoses Diagnosis Other screening mammogram- Primary documented in this encounter Care Teams Biscuit Packer Relationship Specialty Start Date End Date Silvia Quinonez MD [address] [place] [phone] PCP - General Family Practice 11/02/24 No DME 09/02/15 documented as of this encounter
--- OUTSIDE RECORDS SUMMARY | 2024-11-02 13:20 | XMS_ITS | Encounter Summary ---
Author Organization [facility] Address 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 Gender Identity Not on file Sexual Orientation Not on file documented as of this encounter Plan of Treatment Upcoming Encounters Date Type Department Care Team (Late st Contact Info) Description 11/09/2024 4:30 PM CDT Telephone Check Up [facility] Oncology and Hematology - Reji [address] [place] [address] [facility] 200 [place] [address] Quique Khalil MD [address] [facility] [address] [place] [address] documented as of this encounter Visit Diagnoses Diagnosis Other screening mammogram- Primary documented in this encounter Care Teams Cheesemaker Helper Relationship Specialty Start Date End Date Silvia Quinonez MD [address] [place] [phone] PCP - General Family Practice 11/02/24 No DME 09/02/15 documented as of this encounter
--- OUTSIDE RECORDS SUMMARY | 2024-11-02 13:20 | XMS_ITS | Encounter Summary ---
Author Organization [facility] Address [address] [place] [address] Care Team Providers Care Parks Worker Name Role Phone Silvia Quinonez MD Primary Care Provider [phone] Encounter Details Date Type Department Care Team (Late Contact Info) Description 08/18/2000 Outpatient Historical [facility] Primary Care Internal Medicine [address] [place] [address] Jens Lora MD [address] [place] [address] Social History Tobacco Use Types Packs/Day Years Used Date Smoking Tobacco: Never Assessed Comments Unknown Sex and Gender Information Value Date Recorded Sex Assigned at Not on file Legal Sex Female 3:05 AM INTERNAL AUDIT DIRECTOR Gender Identity Not on file Sexual Orientation Not on file documented as of this encounter Plan of Treatment Upcoming Encounters Date Type Department Care Team (Late st Contact Info) Description 11/09/2024 4:30 PM CDT Telephone Check Up [facility] Oncology and Hematology - Re[facility] [address] [facility] [address] [place] [address] Quique Khalil MD [address] [facility] [address] [place] [address] documented as of this encounter Visit Diagnoses Not on filedocumented in this encounter Care Teams Parks Worker Relationship Specialty Start Date End Date Silvia Quinonez MD [address] [place] [address] PCP - General Family Practice 11/02/24 No DME 09/02/15 documented as of this encounter
--- OUTSIDE RECORDS SUMMARY | 2024-11-02 13:20 | XMS_ITS | Encounter Summary ---
Author Organization [facility] Address [address] [place] [address] Care Team Providers Care Dairy Farmer Name Role Phone Silvia Quinonez MD Primary Care Provider [phone] Encounter Details Date Type Department Care Team (Latest Contact Info) Description 09/21/2002 Outpatient Historical [facility] Loco Ahn MD [address] [facility] [address] [place] [address] ABDOMINAL PAIN RUQ (Primary Dx) Social History Tobacco Use Types Packs/Day Years Used Date Smoking Tobacco: Never Assessed Comments Unknown Sex and Gender Information Value Date Recorded Sex Assigned at Not on file Legal Sex Female 3:05 AM POLICY LOAN CALCULATOR Gender Identity Not on file Sexual Orientation Not on file documented as of this encounter Plan of Treatment Upcoming Encounters Date Type Department Care Team (Late st Contact Info) Description 11/09/2024 4:30 PM CDT Telephone Check Up [facility] Oncology and Hematology - Reji [address] [facility] [address] [place] [address] Quique Khalil MD [address] [facility] [address] [place] [address] documented as of this encounter Visit Diagnoses Diagnosis Abdominal pain, right upper quadrant- Primary documented in this encounter Care Teams Dairy Farmer Relationship Specialty Start Date End Date Silvia Quinonez MD [address] [place] [phone] PCP - General Family Practice 11/02/24 No DME 09/02/15 documented as of this encounter
--- OUTSIDE RECORDS SUMMARY | 2024-11-02 13:20 | XMS_ITS | Encounter Summary ---
Author Organization [employer] [facility] Address [address] [place] [address] Care Team Providers Care Halftone Operator Name Role Phone Silvia Quinonez MD Primary Care Provider [phone] Encounter Details Date Type Department Care Team (Late st Contact Info) Description 10/18/2015 Chart Note [facility] Therapy Services Lara Andersony [address] [place] [id number] Tatiana Spaulding Physical Therapist Social History Tobacco Use Types Packs/Day Years Used Date Smoking Tobacco: Former Cigarettes 1 23 1 - 04/04/1986 Smokeless Tobacco: Never Alcohol Use Standard Drinks/Week Comments Yes 0 (1 standard drink = 0.6 oz pur e alcohol) social Comments No Sex and Gender Information Value Date Recorded Sex Assigned at Not on file Legal Sex Female 3:05 AM SAMPLE TESTER GRINDER Gender Identity Not on file Sexual Orientation Not on file Occupation Industry Job Start Date Job End Date Not on file Not on file Not on file Not on file documented as of this encounter Miscellaneous Notes * Therapy Evaluation - Tatinaa Spaulding Physical Therapist - 10/18/2015 8:15 AM CDT Images from the original note were not included. Physical Therapy Discharge Summary Patient: Loren Purvis Date: 10/18/2015 Date of : 1950 Referring Provider: Patricia Krueger MD Diagnosis: sciatic R leg pain Loren Purvis was seen from 07/17/15 to 08/09/15 for a total of 7 visits with 1 cancellation and 1 no-show. This patient did not return for further therapy visits following the last session noted above, therefore a complete re-evaluation of status was not completed & she is now Discharged from PT. Please contact me if you have any questions. Thank you for this referral. JOHN Schumacher [facility] [address] [facility], [address] [place] [address] (phone) [phone] (fax) [place]: [id number] documented in this encounter Plan of Treatment Upcoming Encounters Date Type Department Care Team (Late st Contact Info) Description 11/09/2024 4:30 PM CDT Telephone Check Up [facility] Oncology and Hematology - Reji [address] [facility] [address] [place] [address] Quique Khalil MD [address] [facility] [address] [place] [address] documented as of this encounter Visit Diagnoses Not on filedocumented in this encounter Additional Health Concerns Assessment Noted Time PHQ-9 Depression Total Score: 2 09/02/19 16 11:00 AM SAMPLE TESTER GRINDER documented as of this encounter Care Teams Halftone Operator Relationship Specialty Start Date End Date Silvia Quinonez MD [address] [place] [phone] PCP - General Family Practice 11/02/24 No DME 09/02/15 documented as of this encounter
--- OUTSIDE RECORDS SUMMARY | 2024-11-02 13:20 | XMS_ITS | Encounter Summary ---
Author Organization [facility] Address [address] [place] [address] Care Team Providers Care Maintenance Superintendent Name Role Phone Silvia Quinonez MD Primary Care Provider [phone] Encounter Details Date Type Department Care Team (Late st Contact Info) Description 10/28/2001 Outpatient Historical [facility] Mary Carmen Cline MD [address] [facility] [address] [place] [address] HEMORRHOIDS NOS (Primary Dx) Social History Tobacco Use Types Packs/Day Years Used Date Smoking Tobacco: Never Assessed Comments Unknown Sex and Gender Information Value Date Recorded Sex Assigned at Not on file Legal Sex Female 3:05 AM HEAD OF PHYSICS Gender Identity Not on file Sexual Orientation Not on file documented as of this encounter Plan of Treatment Upcoming Encounters Date Type Department Care Team (Late st Contact Info) Description 11/09/2024 4:30 PM CDT Telephone Check Up [facility] Oncology and Hematology - Reji [address] [facility] [address] [place] [address] Quique Khalil MD [address] [facility] [address] [place] [address] documented as of this encounter Visit Diagnoses Diagnosis Unspecified hemorrhoids without mention of complication- Primary documented in this encounter Care Teams Maintenance Superintendent Relationship Specialty Start Date End Date Silvia Quinonez MD [address] [place] [phone] PCP - General Family Practice 11/02/24 No DME 09/02/15 documented as of this encounter
--- OUTSIDE RECORDS SUMMARY | 2024-11-02 13:20 | XMS_ITS | Clinical Summary ---
Author Organization [facility] Address [address] [place] [address] Care Team Providers Care Manager Behavioral Name Role Phone Silvia Quinonze MD Primary Care Provider [phone] Silvia Quinonez MD Unavailable [phone] Allergies Active Allergy Reactions Criticality Noted Date Comments Amlodipine Fatigue Low 03/23/2012 Excessive fatigue Other Unknown 05/22/2009 SURGICAL MESH Medications calcium carbonate (CALCIUM 500 ORAL) Active cholecalciferol (VITAMIN D-3) 18637 unit tablet once a week 3 Active naltrexone HCl (NALTREXONE ORAL) Take by mouth Active alendronate (FOSAMAX) 70 mg tablet Take 70 mg by mouth once a week 0 Active chlorthalidone 25 mg tablet Take 25 mg by mouth daily 1 Active cyclobenzaprine (FLEXERIL) 5 mg tablet Take 10 mg by mouth once Active fesoterodine ER (TOVIAZ) 4 mg tablet extended release 24 hr Take 4 mg by mouth daily Active gabapentin (NEURONTIN) 100 mg capsule Take 100 mg by mouth 3 (three) times a day 0 Active ibandronate (BONIVA) 150 mg tablet TAKE 1 TABLET ONCE MONTHLY WITH 8 TO 10 OUNCES OF WATER. STAY UPRIGHT AND DO NOT EAT OR DRINK FOR 1 HOUR. 2 Active levothyroxine (SYNTHROID) 75 mcg tablet TAKE 1 & 1 2 (ONE & ONE HALF) TABLETS BY MOUTH FIRST IN THE MORNING ON AN EMPTY STOMACH. 0 Active lisinopriL (PRINIVIL,ZESTR IL) 40 mg tablet Take 40 mg by mouth daily 1 Active metFORMIN (GLUCOPHAGE) 1,000 mg tablet Take 1,000 mg by mouth 2 (two) times a day 1 Active pramipexole (MIRAPEX) 0.25 mg tablet 1 Active pravastatin (PRAVACHOL) 40 mg tablet Take 40 mg by mouth daily 0 Active rOPINIRole (REQUIP) 1 mg tablet Active traMADoL (ULTRAM) 50 mg tablet Active traZODone (DESYREL) 50 mg tablet Take 50 mg by mouth nightly 1 Active triamcinolone (KENALOG) 0.1 % lotion APPLY LOTION TOPICALLY TO AFFECTED AREA TWICE DAILY 1 Active trospium (SANCTURA) 20 mg tablet Take 20 mg by mouth 2 (two) times a day 1 Active calcium carbonate (OS-KANWAL) 1,500 mg (600 mg elemental) tablet Take 1 tablet (1,500 mg total) by mouth 2 (two) times a day 4 Active metFORMIN (GLUCOPHAGE) 1,000 mg tablet Take 1 tablet (1,000 mg total) by mouth 2 (two) times a day with meals 4 Active pramipexole (MIRAPEX) 0.25 mg tablet Take 1 tablet (0.25 mg total) by mouth 3 (three) times a day as needed (restless leg syndrome) 4 Active hydrOXYzine (ATARAX) 25 mg tablet Take 1 tablet (25 mg total) by mouth 2 (two) times a day as needed for itching 4 Active mirabegron ER (MYRBETRIQ) 25 mg tablet extended release 24 hr Take 1 tablet (25 mg total) by mouth Active cholecalciferol (VITAMIN D-3) 2000 unit capsule Take 1 capsule (2,000 Units total) by mouth daily Active rOPINIRole (REQUIP) 0.5 mg tablet Take 1 tablet (0.5 mg total) by mouth nightly Active traZODone (DESYREL) 50 mg tablet Take 1 tablet (50 mg total) by mouth nightly Active acetaminophen 500 mg capsuleIndicati ons:Pain Take 2 capsules (1,000 mg total) by mouth every 6 (six) hours as needed for pain 4 Active gabapentin (NEURONTIN) 300 mg capsule Take 1 capsule (300 mg total) by mouth 3 (three) times a day 4 12/29/19 25 Active lidocaine (ASPERCREME) 4 % adhesive patch,medicated Place 1 patch on the skin daily 4 Active methocarbamoL (ROBAXIN) 500 mg tablet Take 1 tablet (500 mg total) by mouth 3 (three) times a day 4 Active polyethylene glycol (MIRALAX) 17 gram packetIndicatio ns:constipation Take 1 packet (17 g total) by mouth daily 4 Active Eliquis 5 mg tablet Take 1 tablet (5 mg total) by mouth every 12 (twelve) hours 4 Active diclofenac sodium (VOLTAREN) 1 % gel APPLY 4G TOPICALLY FOUR TIMES DAILY TO SINGLE KNEE, ANKLE, FOOT (INCLUDING SOLES, TOES, TOP OF FOOT) [address] (PROTONIX) 40 mg EC tablet Take 1 tablet (40 mg total) by mouth every morning 4 Active Active Problems Problem Noted Date Diagnosed Date Anemia 12/24/2023 Assessment & Plan (12/29/2023 8:46 AM CDT): - Hgb 10.6 on admission - EBL in OR 750 cc - Hgb trend 10.6-7.9-7-6.7 - 12/23: Hgb 7, hypotensive.1 unit PRBCs transfused. Post transfusion Hgb 7.6, additional 1 unit PRBCs ordered to be transfused, post transfusion Hgb 8.0g/dL - Hgb (12/25): 7.4g/d - Hgb (12/26): 8.6g/d - Hgb (12/27): 7.7 g/dL - CBC was monitored, no active signs or symptoms of bleeding, hemodynamically unsupported at discharge YAMILKA (acute kidney injury) 12/24/2023 Assessment & Plan (12/29/2023 8:46 AM CDT): - Cr 1.22 on admission - Cr trend 1.22-1.83-2 - Creatinine (12/25): 1.49mg/dL + urine output 1275mL/24h - Cr (12/26): 1.29, urine output 2175ml/24h - Cr (12/28): 1.33, urine output 1750 ml/24 h - Continue to encourage oral intake Discharge planning issues 12/24/2023 Assessment & Plan (12/29/2023 8:45 AM CDT): 12/23: 2 unit PRBCs transfused, hypotensive. Espino removed, void check. Pending PT/OT. 12/23: Hgb 8.5; normotensive, vitals stable. CTM CBC; PT/OT recommend IPR 12/25: Patient is medically stable for discharge, SW/CM updated. Discharge pending facility acceptance - 12/28 Patient is medically stable for discharge, SW/CM updated. Discharge today to IRF. Periprosthetic distal femur fracture, Left 12/22 Assessment & Plan (12/29/2023 8:43 AM CDT): - Ortho consult - s/p OR 12/22 IMN and ORIF left distal femur - EBL in OR 750 cc - Hemovac drain in place, will be removed by orthopedics once output < 30 mL over 24h - WBAT LLE - 12/25: Hemovac drain removal - Sutures/nadia to be removed 3 weeks from surgery on 01/14/24 - Pain control, PT/OT - Bone Health referral - DVT prevention at discharge: aspirin 81 mg twice daily with food x 14 days - Follow up scheduled with Ortho Trauma on 02/01/24 Fall 12/23/2023 Assessment & Plan (12/23/2023 2:18 PM CDT): -Same level mechanical fall occurred AFTER the fracture per patient Acute pain 12/23/2023 Assessment & Plan (12/24/2023 2:23 PM CDT): - Patient previously prescribed Percocet 5/325 - Oxy 5 prn - Scheduled Tylenol - Gabapentin 300 mg TID - Robaxin 500 mg TID - Lidocaine patch for chronic back pain HTN (hypertension) 12/23/2023 Assessment & Plan (12/29/2023 8:44 AM CDT): - Home Lisinopril held - Home Chlorthalidone held - Vital signs monitored - Blood pressure has been hypo- to normo-tensive. Okay to resume lisinopril and chlorthalidone for high blood pressure. Follow up with PCP for further management. Restless leg syndrome 12/23/2023 Assessment & Plan (12/23/2023 2:22 PM CDT): - Home Ropinirole continued - Home Pramipexole PRN Type 2 diabetes mellitus 12/23/2023 Assessment & Plan (12/29/2023 8:40 AM CDT): - Home Metformin held - SSI, Accu check ACHS - Carb controlled diet - Hgb A1C 5.5 - 6: BG 488-Pt endorsed eating a lot of candy prior to getting checked. 7u insulin ordered - Pt educated on eating candy - Continue home medications at discharge, follow up with PCP Advanced care planning/counseling discussion Assessment & Plan (12/23/2023 2:39 PM CDT): - Patient confirmed DNR/DNI - Okay with intubation for orthopedic surgery Encounter for medication review 12/23/2023 Assessment & Plan (12/23/2023 2:40 PM CDT): - Medication list confirmed with patient 12/22 Hypercholesteremia 06/01/2018 Type 2 diabetes with stage 3 chronic kidney disease GFR 30-59 12/14/2017 Low ferritin level 03/14/2017 Rash and nonspecific skin eruption 03/14/2017 Memory loss of unknown cause 08/06/2016 Chronic cough 05/07/2016 Urinary incontinence 05/07/2016 Anxiety disorder 09/30/2015 Chronic pain 09/03/2013 Overview (12/20/2020): In back Vitamin B12 deficiency 09/03/2013 Vitamin D deficiency 07/07/2012 Gallstones 05/11/2012 Pain in extremity 10/01/2011 Notalgia 10/01/2011 GERD (gastroesophageal reflux disease) 2 Fuchs' corneal dystrophy 10/01/2011 Osteopenia 10/01/2011 Knee pain 10/02/2010 Restless legs syndrome 09/27/2009 Overview (12/20/2020): Improved with treatment for intestinal bacterial overgrowth (Dr. Ferrell) Diabetes mellitus 09/27/2009 HTN (hypertension), benign 09/27/2009 Immunizations Immunization Administration Dates Next Due Influenza, Quadrivalent, Hig h Dose, Preservative Free, Intrr 04/27/2020 Influenza, Quadrivalent, Spl it, Preservative Free, Intramuscular 04/29/2018,03/31/2016 Influenza, Trivalent, High D ose, Split, Preservative Free, Intramuscular 04/28/2014 Influenza, Trivalent, IM (MDV) 06/18/2015 Influenza, Trivalent, Preservative Free, Intramu scular 05/04/2017 Pfizer SARS-CoV-2 Monovalent Vaccination (12+ Yrs) PURPLE 10/28/2020,10/08/2020 Pneumococcal Conjugate PCV 13 10/03/2014 Pneumococcal Polysaccharide PPV23 09/16/2011 Tdap 10/21/2011 ZOSTER LIVE 07/05/2014 Surgical History Surgery Date Site/Laterality Comments GASTRIC BYPASS High Gastric Bypass - (Added by TW Conv) Medical History Medical History Date Comments Personal history of healed t raumatic fracture History of fracture of ankle - (Added by TW Conv) Type 2 diabetes mellitus (HCC) Hypertension Social History Tobacco Use Types Packs/Day Years Used Date Smoking Tobacco: Never Smokeless Tobacco: Never Tobacco Cessation:Counseling Given: Not Answered [facility] Utilities Answer Date Recorded In the past 12 months has th e [employer] gas, oil, or water directworx threatened to shut off services in your home? No 12/23/2023 Humiliation, Afraid, Rape, and Kick questionnair e Answer Date Recorded Within the last year, have y ou been afraid of your partner or ex-partner? No 12/23/2023 Within the last year, have y ou been humiliated or emotionally abused in other ways by your partner or ex-partner? No Within the last year, have y ou been kicked, hit, slapped, or otherwise physically hurt by your partner or ex-partner? No 12/23/2023 Within the last year, have y ou been raped or forced to have any kind of sexual activity by your partner or ex-partner? No 12/23/2023 Social Connection and Isolat ion Panel [NHANES] Answer Date Recorded In a typical week, how many times do you talk on the phone with family, friends, or neighbors? More than three times a week 12/23/2023 How often do you get togethe r with friends or relatives? Twice a week 12/23/2023 How often do you attend chur ch or evangelical services? More than 4 times per year 12/23/2023 Do you belong to any clubs o r organizations such as temple groups, unions, fraternal or athletic groups, or school groups? Yes 12/23/2023 How often do you attend meet ings of the clubs or organizations you belong to? 1 to 4 times per year 12/23/2023 Are you , , di vorced, , never , or living with a partner? 12/23/2023 AUDIT-C Answer Date Recorded Q1: How often do you have a drink containing alc ohol? Monthly or less 12/23/2023 Q2: How many drinks containi ng alcohol do you have on a typical day when you are drinking? 1 or 2 12/23/2023 Q3: How often do you have si x or more drinks on one occasion? Less than monthly 12/23/2023 Overall Financial Resource Strain (CARDIA) Answe r Date Recorded How hard is it for you to pa y for the very basics like food, housing, medical care, and heating? Not hard at all 12/23/2023 [facility] Occupat ional Health - Occupational Stress Questionnaire Answer Date Recorded Do you feel stress - tense, restless, nervous, or anxious, or unable to sleep at night because your mind is troubled all the time - these days? Not at all 12/23/2023 Exercise Vital Sign Answer Date Recorde d On average, how many days pe r week do you engage in moderate to strenuous exercise (like a brisk walk)? 4 days 12/23/2023 On average, how many minutes do you engage in exercise at this level? 60 min 12/23/2023 Hunger Vital Sign Answer Date Recorded Within the past 12 months, y ou worried that your food would run out before you got the money to buy more. Never true 12/23/19 Within the past 12 months, t he food you bought just didn't last and you didn't have money to get more. Never true 12/23/2023 PRAPARE - Transportation Answer Date Re corded In the past 12 months, has l ack of transportation kept you from medical appointments or from getting medications? No 12/04 In the past 12 months, has l ack of transportation kept you from meetings, work, or from getting things needed for daily living? No 12/23/2023 Housing Stability Vital Sign Answer Anderson e Recorded In the last 12 months, was t here a time when you were not able to pay the mortgage or rent on time? No 12/23/2023 In the past 12 months, how m any times have you moved where you were living? 0 12/23/2023 Homeless in the Last Year Not on file 2023 Personal Safety Answer Date Recorded Have you ever been in or are you currently in a harmful physical or emotional relationship or is someone making you feel afraid or unsafe? Denies 12/23/2023 Comments No Sex and Gender Information Value Date Recorded Sex Assigned at Not on file Legal Sex Female 8:58 PM RESPIRATORY THERAPY TECHNICIAN Gender Identity Female 12/16/2020 9:45 PM CDT Sexual Orientation Not on file Obstetrics History Last Filed Vital Signs Vital Sign Reading Time Taken Comments Blood Pressure 108/54 12/29/2023 3:41 PM CDT Pulse 78 12/29/2023 3:41 PM CDT Temperature 36.4 C (97.5 F) 12/29/2023 3:41 PM CDT Respiratory Rate 20 12/29/2023 3:41 PM CDT Oxygen Saturation 95% 12/29/2023 3:41 PM CDT Inhaled Oxygen Concentration - - Weight 74.5 kg (164 lb 4.8 oz) 12/29/2023 5:00 P M CDT Height 170.2 cm (5' 7.01 ) 12/28/2023 11:05 AM C DT Body Mass Index 25.73 12/28/2023 11:05 AM CDT Plan of Treatment Health Maintenance Due Date Last Done Comments Albumin Creatinine Ratio, Urine 1950 Colon Cancer Screening-Colonoscopy 1950 Depression Screening 1950 Hepatitis C Screening 1950 Dilated Eye Exam 1949 Foot Exam 1949 Hepatitis B Screening 1967 Well Visit 65+ 2014 Zoster Vaccine (2 of 3) 08/30/2014 07/05/2014 Osteoporosis Screening-Bone Density Scan 09/30/2017 10/01/2015, 10/01/2015, 07/07/2012 Pneumococcal vaccine 65+ (3 of 3 - PCV20 or PCV21) 10/04/2019 10/03/2014, 09/16/2011 Lipid Panel 11/29/2020 11/30/2019 DTaP/Tdap/Td Vaccine (2 - Td or Tdap) 10/20/2021 10/21/2011 Covid-19 Vaccine (3 - 2023-2 5 season) 2024 10/28/2020, 10/08/2020 Hemoglobin A1C 06/27/2024 12/27/2023, 12/04, 11/30/2019, Additional history exists eGFR 12/27/2024 12/28/2023, 12/04, 12/26/2023, Additional history exists Fall Risk Assessment 12/28/2024 12/29/2023 Influenza Vaccine (Season Ended) 2025 04/27/2020, 04/29/2018, 05/04/2017, Additional history exists Medical Devices Implanted Type Area Regional Office Coordinator Device Identifier Shelf Expiration Date Model / Serial / Lot [employer] Screw Bone 5mm 80mm Lock Strl 2361-5080s - [id number] Implanted:Qty: 1 on 12/23/2023 by Dave Rosas MD at [facility] Screw Left: Femur [employer] [id number] 10/02/2033 1845-2831 S / / [id number] [employer] Screw Bone 5mm 70mm Lock Strl 2361-5070s - [id number] Implanted:Qty: 1 on 12/23/2023 by Dave Rosas MD at [facility] Screw Left: Femur [employer] [id number] 11/01/2033 1003-7773 S / / [id number] [employer] Screw Bone Locking Cannulated Tibial Oversized Thread Black T2 Alpha 5.0x85mm Titanium 2361-5085s - [id number] Implanted:Qty: 1 on 12/23/2023 by Dave Rosas MD at [facility] Screw Left: Fem[employer] [id number] 10/02/2033 0221-5394 S / / [id number] [employer] Screw Bone 5mm 37.5mm T2 Alpha Lock Strl 2360-5037s - [id number] Implanted:Qty: 1 on 12/23/2023 by Dave Rosas MD at [facility] Screw Left: Femur [employer] [id number] 11/01/2033 6007-7954 S / / [id number] [employer] Screw Bone 5mm 40mm T2 Alpha Lock Strl 2360-5040s - [id number] Implanted:Qty: 1 on 12/23/2023 by Dave Rosas MD at [facility] Screw Left: Femur [employer] [id number] 11/01/2033 9065-6384 S / / [id number] [employer] Screw Bone 5mm 42.5mm T2 Alpha Lock Strl 2360-5042s - [id number] Implanted:Qty: 1 on 12/23/2023 by Dave Rosas MD at [facility] Screw Left: Femur [employer] [id number] 10/02/2030 4227-9580 S / / [id number] S[employer] Plate Bone Compression Locking Low Profile 18 Hole Left Va Lcp 4.3d052pl Ss 02.124.419s - [id number] Implanted:Qty: 1 on 12/23/2023 by Dave Rosas MD at [facility] Left: Femur [employer]ynthes 02.124.41 9S / / [employer] Nail Intramedullary Femoral Retrograde T2 Alpha [id number] Titanium 2339-1124s - [id number] Implanted:Qty: 1 on 12/23/2023 by Dave Rosas MD at [facility] Left: Femur [employer] 07/04/2033 0046-5904 S / / [id number] Synthes 5mm 36mm Variable Angle Self Tap Lock Stardrive Condylar T25 02.231.236 - [id number] Implanted:Qty: 1 on 12/23/2023 by Dave Rosas MD at [facility] Left: Femur [employer]ynthe[employer] I 02.231.23 6 / / Synthes 4.5mm 8mm 36mm Self Tap Large Hexagonal Socket Cortex Screw Bone 214.836 - [id number] Implanted:Qty: 1 on 12/23/2023 by Dave Rosas MD at [facility] Left: Femur Synthes I 214.836 / / Synthes 5mm 80mm Variable Angle Self Tap Lock [employer] Condylar T25 02.231.280 - [id number] Implanted:Qty: 2 on 12/23/2023 by Dave Rosas MD at [facility] Left: Femur Synthes 02.231.28 0 / / Synthes 5mm 85mm Variable Angle Self Tap Lock [employer] Condylar T25 02.231.285 - [id number] Implanted:Qty: 2 on 12/23/2023 by Dave Rosas MD at [facility] Left: Femur Synthes I 02.231.28 5 / / Synthes 4.5mm 8mm 100mm Self Tap Large Hexagonal Socket Cortical Screw 214.900 - [id number] Implanted:Qty: 1 on 12/23/2023 by Dave Rosas MD at [facility] Left: Femur Synthes I 214.900 / / Synthes 5mm 38mm Variable Angle Self Tap Lock [employer] Condylar T25 02.231.238 - [id number] Implanted:Qty: 1 on 12/23/2023 by Dave Rosas MD at [facility] Left: Femur Synthes I 8 / / Synthes 5mm 40mm Variable Angle Self Tap Lock [employer] Condylar T25 240 - [id number] Implanted:Qty: 1 on 12/23/2023 by Dave Rosas MD at [facility] Left: Femur Synthes I 0 / / Explanted Type Area Regional Office Coordinator Device Identifier Shelf Expiration Date Model / Serial / Lot [employer] Nail Intramedullary Femoral Retrograde T2 Alpha 38p761er Titanium 2339-1122s - [id number] Explanted:Qty: 1 on 12/23/2023 by Dave Rosas MD at [facility] Left: Femur [employer] 07/04/2033 7542-8312 S / / [id number] Procedures Procedure Name Priority Date/Time Associated Diagnosis Comments EGFR Routine 12/28/2023 12:34 AM CDT HEMOGLOBIN A1C Routine 12/26/2023 10:39 PM CDT BONE MINERAL DENSITY 07/07/2012 from Last 3 Months or Most Recently Relevant to Health Maintenance Results * (ABNORMAL) eGFR (12/28/2023 12:34 AM CDT) eGFR 52(L) >=60 mL/min/1. 73 m2 Comment: Interpretive Data Reference Interval Normal >/= 90 mL/min/1.73m2 Mildly decreased* 60 - 89 mL/min/1.73m2 Mildly to moderately decreased 45 - 59 mL/min/1.73m2 Moderately to severely decreased 30 - 44 mL/min/1.73m2 Severely decreased 15 - 29 mL/min/1.73m2 Kidney Failure < 15 mL/min/1.73m2 *Relative to young adult level Estimated glomerular filtration rate is determined by the 2020 CKD-EPI equation recommended by the National Kidney Foundation (A Unifying Approach to GFR Estimation: Recommendations of the NKF-ASK Task Force on Reassessing the Inclusion of Race in Diagnosing Kidney Disease, JASN 2020). The CKD-EPI equation should not be used for patients with unstable renal function and has not been validated in children and those over 70. Current interpretive data was last reviewed 2021. Blood 12/28/2023 12:3 4 AM CDT 12/28/2023 1:26 AM CDT Rama Johnson MD LAB BLOOD ORDERABLES Final Result Performing Organization Address [facility] de Phone Number [facility] Department [place] [address] * Hemoglobin A1c (12/26/2023 10:39 PM CDT) Hgb A1C 5.5 4.0 - 5.6 % Estimated Average Glucose 111 mg/dL [facility] Comment: The ADA recommends reporting an estimated Average Glucose (eAG) with all Hemoglobin A1c results using the equation derived from a study of 507 normal and diabetic adults. Minority populations were underrepresented and children were not included. (Diabetes Care 2020; 43(S1): S66-S76). The eAG is not equivalent to a fasting glucose. Blood 12/26/2023 10:3 9 PM CDT 12/26/2023 11:40 PM CDT Result [facility] Rama Johnson MD LAB BLOOD ORDERABLES Final Result Performing Organization Address [facility] de Phone Number [facility] [place] [address] * BONE MINERAL DENSITY (07/07/2012) Anatomical Region Laterality Modality Radiographic Bonnie ging Narrative 07/07/2012 Ordered by an unspecified provider. Historical Provider IMG DXA PROCEDURES Final Result from Last 3 Months or Most Recently Relevant to Health Maintenance Insurance AETNA MEDICARE GOLD MEDICARE AETNA SENIOR SUPPLEMENT AETNA MEDICARE GOLD [id number] [place] [id number] [facility] MEDICARE [facility] MEDICARE GOLD Advance Directives For more information, please contact: [phone] * Full Code (Latest Code Status on File) Date Activated Date Inactivated Comments 12/24/2023 2:29 AM 12/30/2023 2:38 AM * LIMITED - No CPR Date Activated Date Inactivated Comments 12/23/2023 2:10 PM 12/24/2023 2:29 AM Question Answer Comments Provide aggressive medical m anagement before a full cardiopulmonary arrest occurs. Use antibiotics, IV Fluids, and medical treatment unless specifically selected below: No intubation Discussed with the following attending physician: Denise. Okay to proceed with surgery, Okay with intubation for surgery * Full Code Date Activated Date Inactivated Comments 12/23/2023 1:45 PM 12/23/2023 2:10 PM Care Teams Manager Behavioral Relationship Specialty Start Date End Date Silvia Quinonez MD PCP - General Family Medicine 12/23/23 Silvia Quinonez MD Family Medicine 12/23/23
--- OUTSIDE RECORDS SUMMARY | 2024-11-02 13:20 | XMS_ITS | Encounter Summary ---
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 Gender Identity Not on file Sexual Orientation Not on file documented as of this encounter Plan of Treatment Upcoming Encounters Date Type Department Care Team (Late st Contact Info) Description 11/09/2024 4:30 PM CDT Telephone Check Up [facility] Oncology and Hematology - [place] [address] [place] [address] [facility] [address] [place] [address] Quique Khalil MD [address] [facility] [address] [place] [address] documented as of this encounter Visit Diagnoses Not on filedocumented in this encounter Care Teams Data Quality Consultant Relationship Specialty Start Date End Date Silvia Quinonez MD [address] [place] [address] PCP - General Family Practice 11/02/24 No DME 09/02/15 documented as of this encounter
--- OUTSIDE RECORDS SUMMARY | 2024-11-02 13:20 | XMS_ITS | Encounter Summary ---
Author Organization [facility] Address [address] [place] [address] Care Team Providers Care Early Intervention School Psychologist Name Role Phone Silvia Quinonez MD Primary Care Provider [phone] Encounter Details Date Type Department Care Team (Latest Contact Info) Description 11/18/2004 Inpatient Historical [facility] INPAT[facility] IN BED Sam Machado MD 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 Gender Identity Not on file Sexual Orientation Not on file documented as of this encounter Plan of Treatment Upcoming Encounters Date Type Department Care Team (Late st Contact Info) Description 11/09/2024 4:30 PM CDT Telephone Check Up [facility] Oncology and Hematology - Reji [address] [facility] [address] [place] [address] Quique Khalil MD [address] [facility] [address] [place] [address] documented as of this encounter Procedures Procedure Name Priority Date/Time Associated Diagnosis Comments CBC WITH DIFFERENTIAL Routine 11/19/2004 5:15 AM CDT CBC WITH DIFFERENTIAL Routine 11/19/2004 5:15 AM CDT POC GLUCOSE Routine 11/18/2004 8:25 AM CDT URINALYSIS W/REFLEX MICROSCOPIC Routine 11/10/2004 10:38 AM CDT CBC WITH DIFFERENTIAL Routine 11/10/2004 10:34 AM CDT CBC WITH DIFFERENTIAL Routine 11/10/2004 10:34 AM CDT BASIC METABOLIC PANEL Routine 11/10/2004 10:34 AM CDT documented in this encounter Results * (ABNORMAL) CBC WITH DIFFERENTIAL (11/19/2004 5:15 AM CDT) NEUTROPHILS 83(H) 45 - 70 % INTERFAC E SYSTEM LYMPHOCYTES 11(L) 16 - 45 % INTERFAC E SYSTEM MONOCYTES 6 3 - 13 % INTERFACE SYSTEM EOSINOPHILS 0 0 - 7 % INTERFAC E SYSTEM BASOPHILS 0 0 - 2 % INTERFACE SYSTEM NEUTROPHIL ABSOLUTE 10.45(H) 1.90 - 7.00 K/uL INTERFACE SYSTEM LYMPHOCYTE ABSOLUTE 1.39 0.70 - 4.50 K/uL INTERFACE SYSTEM MONOCYTE ABSOLUTE 0.80 0.10 - 1.30 K/uL INTERFACE SYSTEM EOSINOPHIL ABSOLUTE 0.01 0.00 - 0.70 K/uL INTERFACE SYSTEM BASOPHILS ABSOLUTE 0.01 0.00 - 0.20 K/uL INTERFACE SYSTEM 11/19/2004 5:15 AM CDT us Sam Machado MD HEMATOLOGY ORDERABLES Final Re sult INTERFACE SYSTEM Refer to clinic/hospital department * (ABNORMAL) CBC WITH DIFFERENTIAL (11/19/2004 5:15 AM CDT) WBC 12.7(H) 4.0 - 9.8 K/uL INTERFACE SYSTEM RBC 4.35 3.90 - 4.90 M/uL INTERFACE SYSTEM HEMOGLOBIN 11.8 11.8 - 14.8 g/dL INTERFACE SYSTEM HEMATOCRIT 36.7 35.5 - 44.0 % INTERFACE SYSTEM MCV 84.4 82.0 - 99.0 fL INTERFACE SYSTEM MCH 27.1(L) 27.2 - 32.6 pg INTERFACE SYSTEM MCHC 32.2 31.5 - 35.5 % INTERFACE SYSTEM RDW 13.3 11.5 - 14.5 % INTERFACE SYSTEM RDW-STDEV 41.2 37.1 - 48.7 fL INTERFACE SYSTEM PLATELETS 268 140 - 350 K/uL INTERFACE SYSTEM MPV 9.8 9.3 - 12.4 fL INTERFACE SYSTEM 11/19/2004 5:15 AM CDT us Sam Machado MD HEMATOLOGY ORDERABLES Final Re sult Performing Organization Address [facility] Number INTERFACE SYSTEM Refer to clinic/hospital department * POC GLUCOSE (11/18/2004 8:25 AM CDT) GLUCOSE POC 84 65 - 115 mg/dL INTERFACE SYSTEM 11/18/2004 8:25 AM CDT us Sam aMchado MD POINT OF CARE TESTING Final Re sult Performing Organization Address [facility] INTERFACE SYSTEM Refer to clinic/hospital department * URINALYSIS (11/10/2004 10:38 AM CDT) COLOR UA Yellow INTERFACE SYSTEM CLARITY UA Clear Clear INTERFACE SYSTEM SPECIFIC GRAVITY UA 1.015 1.001 - 1.035 INTERFACE SYSTEM PH UA 8.0 5.0 - 8.0 INTERFACE SYSTEM LEUKOCYTE ESTERASE UA Negative Negative INTERFACE SYSTEM NITRITE UA Negative Negative INTERFACE SYSTEM PROTEIN UA Negative Negative INTERFACE SYSTEM GLUCOSE UA Negative Negative INTERFACE SYSTEM KETONES UA Negative Negative INTERFACE SYSTEM UROBILINOGEN UA <1 <1 EU INTE RFACE SYSTEM BILIRUBIN UA Negative Negative INTERFA CE SYSTEM BLOOD UA Negative Negative INTERFACE SYSTEM 11/10/2004 10:3 8 AM CDT us Sam Machado MD URINE ORDERABLES Final Result Performing Organization Address [facility] Number INTERFACE SYSTEM Refer to clinic/hospital department * BASIC METABOLIC PANEL (11/10/2004 10:34 AM CDT) GLUCOSE 93 65 - 109 mg/dL INTERFACE SYSTEM CREATININE 0.9 0.4 - 1.2 mg/dL INTERFACE SYSTEM CALCIUM 9.5 8.6 - 10.2 mg/dL INTERFACE SYSTEM BUN 13 6 - 20 mg/dL INTERFACE SYSTEM SODIUM 139 135 - 145 mmol/L INTERFACE SYSTEM POTASSIUM 4.4 3.5 - 4.9 mmol/L INTERFACE SYSTEM CHLORIDE 102 96 - 108 mmol/L INTERFACE SYSTEM CO2 29 22 - 30 mmol/L INTERFACE SYSTEM 11/10/2004 10:3 4 AM CDT Sam Machado MD CHEMISTRY ORDERABLES Final Res ult Performing Organization Address [facility] de Phone Number INTERFACE SYSTEM Refer to clinic/hospital department * CBC WITH DIFFERENTIAL (11/10/2004 10:34 AM CDT) NEUTROPHILS 55 45 - 70 % INTERFAC E SYSTEM LYMPHOCYTES 33 16 - 45 % INTERFAC E SYSTEM MONOCYTES 8 3 - 13 % INTERFACE SYSTEM EOSINOPHILS 3 0 - 7 % INTERFAC E SYSTEM BASOPHILS 1 0 - 2 % INTERFACE SYSTEM NEUTROPHIL ABSOLUTE 2.61 1.90 - 7.00 K/uL INTERFACE SYSTEM LYMPHOCYTE ABSOLUTE 1.55 0.70 - 4.50 K/uL INTERFACE SYSTEM MONOCYTE ABSOLUTE 0.37 0.10 - 1.30 K/uL INTERFACE SYSTEM EOSINOPHIL ABSOLUTE 0.15 0.00 - 0.70 K/uL INTERFACE SYSTEM BASOPHILS ABSOLUTE 0.04 0.00 - 0.20 K/uL INTERFACE SYSTEM 11/10/2004 10:3 4 AM CDT Sam Machado MD HEMATOLOGY ORDERABLES Final Re sult Performing Organization Address [facility] de Phone Number INTERFACE SYSTEM Refer to clinic/hospital department * (ABNORMAL) CBC WITH DIFFERENTIAL (11/10/2004 10:34 AM CDT) WBC 4.7 4.0 - 9.8 K/uL INTERFACE SYSTEM RBC 5.11(H) 3.90 - 4.90 M/uL INTERFACE SYSTEM HEMOGLOBIN 13.9 11.8 - 14.8 g/dL INTERFACE SYSTEM HEMATOCRIT 43.0 35.5 - 44.0 % INTERFACE SYSTEM MCV 84.1 82.0 - 99.0 fL INTERFACE SYSTEM MCH 27.2 27.2 - 32.6 pg INTERFACE SYSTEM MCHC 32.3 31.5 - 35.5 % INTERFACE SYSTEM RDW 13.3 11.5 - 14.5 % INTERFACE SYSTEM RDW-STDEV 41.0 37.1 - 48.7 fL INTERFACE SYSTEM PLATELETS 291 140 - 350 K/uL INTERFACE SYSTEM MPV 9.5 9.3 - 12.4 fL INTERFACE SYSTEM 11/10/2004 10:3 4 AM CDT us Sam Machado MD HEMATOLOGY ORDERABLES Final Re sult INTERFACE SYSTEM Refer to clinic/hospital department documented in this encounter Visit Diagnoses Diagnosis Uterovaginal prolapse, incomplete- Primary documented in this encounter Care Teams Early Intervention School Psychologist Relationship Specialty Start Date End Date Silvia Quinonez MD [address] [place] [id number] PCP - General Family Practice 11/02/24 No DME 09/02/15 documented as of this encounter
--- OUTSIDE RECORDS SUMMARY | 2024-11-02 13:20 | XMS_ITS | Encounter Summary ---
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 Gender Identity Not on file Sexual Orientation Not on file documented as of this encounter Plan of Treatment Upcoming Encounters Date Type Department Care Team (Late st Contact Info) Description 11/09/2024 4:30 PM CDT Telephone Check Up [facility] Oncology and Hematology - [place]ji [address] [place] [address] [facility] [address] [place] [address] Quique Khalil MD [address] [facility] [address] [place] [address] documented as of this encounter Visit Diagnoses Not on filedocumented in this encounter Care Teams Map Editor Relationship Specialty Start Date End Date Silvia Quinonez MD [address] [place] [address] PCP - General Family Practice 11/02/24 No DME 09/02/15 documented as of this encounter
--- OUTSIDE RECORDS SUMMARY | 2024-11-02 13:20 | XMS_ITS | Encounter Summary ---
Author Organization [facility] Address [address] [place] [address] Care Team Providers Care Epitaxial Reactor Operator Name Role Phone Silvia Quinonez MD Primary Care Provider Encounter Details Date Type Department Care Team (Late st Contact Info) Description 11/10/2004 Outpatient Historical [facility] Support Services Card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 Gender Identity Not on file Sexual Orientation Not on file documented as of this encounter Plan of Treatment Upcoming Encounters Date Type Department Care Team (Late st Contact Info) Description 11/09/2024 4:30 PM CDT Telephone Check Up [facility] Oncology and Hematology - [place]ji [address] [place] [address] [facility] [address] [place] [address] [place] [address] [place] [address] [address] [place] [address] documented as of this encounter Visit Diagnoses Not on filedocumented in this encounter Care Teams Epitaxial Reactor Operator Relationship Specialty Start Date End Date Silvia Quinonez MD [address] [place] [phone] PCP - General Family Practice 11/02/24 No DME 09/02/15 documented as of this encounter
--- OUTSIDE RECORDS SUMMARY | 2024-11-02 13:20 | XMS_ITS | Encounter Summary ---
Author Organization [facility] Address [address] [place] [address] Care Team Providers Care Steamer Blocker Name Role Phone Silvia Quinonez MD Primary Care Provider [phone] Encounter Details Date Type Department Care Team (Late Contact Info) Description 11/10/2004 Outpatient Historical [facility] [place] [address] [place] [phone] Sam Machado MD [address] [place] [address] Social History Tobacco Use Types Packs/Day Years Used Date Smoking Tobacco: Never Assessed Comments Unknown Sex and Gender Information Value Date Recorded Sex Assigned at Not on file Legal Sex Female 3:05 AM INSTRUCTIONAL COORDINATOR Gender Identity Not on file Sexual Orientation Not on file documented as of this encounter Plan of Treatment Upcoming Encounters Date Type Department Care Team (Late Contact Info) Description 11/09/2024 4:30 PM CDT Telephone Check Up [facility] Oncology and Hematology - Reji [address] [facility] [address] [place] [address] Quique Khalil MD [address] [facility] [address] [place] [address] documented as of this encounter Visit Diagnoses Not on filedocumented in this encounter Care Teams Steamer Blocker Relationship Specialty Start Date End Date Silvia Quinonez MD [address] [place] [address] PCP - General Family Practice 11/02/24 No DME 09/02/15 documented as of this encounter
--- OUTSIDE RECORDS SUMMARY | 2024-11-02 13:20 | XMS_ITS | Encounter Summary ---
Author Organization [facility] Address [address] [place] [address] Care Team Providers Care Factory Supervisor Name Role Phone Silvia Quinonez MD Primary Care Provider [phone] Encounter Details Date Type Department Care Team (Late Contact Info) Description 05/18/2000 Outpatient Historical [facility] Care Internal Medicine 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 [address] [place] [address] documented as of this encounter Visit Diagnoses Not on filedocumented in this encounter Care Teams Factory Supervisor Relationship Specialty Start Date End Date Silvia Quinonez MD [address] [place] [address] PCP - General Family Practice 11/02/24 No DME 09/02/15 documented as of this encounter
--- OUTSIDE RECORDS SUMMARY | 2024-11-02 13:20 | XMS_ITS | Clinical Summary ---
Author Organization [facility] Address [address] [place] [address] Phone Care Team Providers Care Maintenance Team Leader Name Role Phone Silvia Quinonez MD Primary Care Provider [phone] Allergies Active Allergy Reactions Criticality Noted Date Comments Amlodipine Other (See Comments) Low 03/23/2012 Excessive fatigue Unclassified Drug Unknown 05/22/2009 SURGICAL MESH Medications vit C-vit P-nfwnen-lkbd OXIDE-lutein (PRESERVISION) 226-90-0.8-5 mg Capsule Take 1 Capsule by mouth daily. Active metFORMIN (GLUCOPHAGE) 1,000 mg tablet Take 1,000 mg by mouth 2 times daily. 4 Active lisinopriL (PRINIVIL) 40 mg tablet Take 40 mg by mouth daily. 5 Active levocetirizine (XYZAL) 5 mg tablet Take 5 mg by mouth 2 times daily. Active hyoscyamine sulfate 0.125 mg tablet Take 0.125 mg by mouth every 4 hours as needed for Spasm. Active FIBER, DEXTRIN, ORAL Take by mouth 2 times daily. Active ferrous sulfate 137 mg (45 mg iron) Tablet Sustained Release Take 45 mg by mouth daily. Active docusate sodium (COLACE) 100 mg capsule Take 100 mg by mouth 2 times daily. Active cyclobenzaprine (FLEXERIL) 10 mg tablet Take 10 mg by mouth 3 times daily as needed for Spasm. Active chlorthalidone (HYGROTON) 25 mg tablet Take 1 Tablet by mouth daily. 5 Active calcium as CARBONATE (CALTRATE) 1,500 mg (600 mg elemental) Tablet Take 1,500 mg by mouth 2 times daily. 4 Active biotin 1,000 mcg Tablet, Chewable Take 1,000 mcg by mouth daily. Active OMEGA-3 FATTY ACIDS ORAL Take 720 mg by mouth 2 times daily. 2 Active pramipexole (MIRAPEX) 0.25 mg tablet Take 0.25 mg by mouth daily at bedtime. 2 tablets by mouth daily at bedtime 4 Active B-complex with vitamin C (SUPER B COMPLEX + C ORAL) Take by mouth daily. Active zoledronic kgzh-shslytdS-m ater (RECLAST) 5 mg/100 mL Piggyback Inject 5 mg by intravenous injection one time only. 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 GF R 30-59 12/14/2017 Rash and nonspecific skin eruption 03/14/2017 Low ferritin level 03/14/2017 Memory loss of unknown cause 08/06/2016 Urinary incontinence 05/07/2016 Chronic cough 05/07/2016 Anxiety disorder 09/30/2015 Vitamin D deficiency 09/03/2013 Chronic pain 09/03/2013 Overview (09/03/2013): In back Vitamin B12 deficiency 09/03/2013 Gallstones 05/11/2012 GERD (gastroesophageal reflux disease) 2 Knee pain 10/02/2010 Diabetes mellitus 09/27/2009 HTN (hypertension), benign 09/27/2009 Restless legs syndrome 09/27/2009 Overview (01/26/2017): Improved with treatment for intestinal bacterial overgrowth (Dr. Ferrell) Resolved Problems Problem Noted Date Diagnosed Date Resolved Date Chest pain 03/23/2012 09/03/2013 Shortness of breath 01/21/2011 08/06/19 17 Overview (09/15/2012): Likely due to weight, mild anxiety. PFTs nl 2010, stress echo nl 2008 Encounters Date Type Department Care Team Description 11/02/2024 10:30 AM CDT Office Visit [facility] Oncology and Hematology - [address] [place] [address] Quique Khalil MD Chronic anemia (Primary Dx) from Last 3 Months Immunizations Immunization Administration Dates Next Due (ADACEL/BOOSTRIX)(10 YR UP) TDAP VACCINE, 0.5ML, IM 10/21/2011 (PNEUMOVAX 23)(50 YRS UP) PN EUMOCOCCAL POLYSACCHARIDE (PPV23) 0.5 ML, IM 09/16/2011 (PREVNAR 13)(6 WKS UP) PNEUM OCOCCAL CONJUGATE (PCV13) 0.5 ML, IM 10/03/2014 INFLUENZA VACCINE QUADRIVALENT 3 YR UP PF IM INFLUENZA VACCINE QUADRIVALENT 6 MOS UP PF IM Influenza Seasonal Unspecified Formulation IM ,04/28/2014 Influenza Vaccine High Dose 65+ Yrs IM 4 Influenza Vaccine Split 3+ Yrs IM 06/18/2015 Influenza Vaccine Tri Split 4+ Pf Im 05/04/2017 Zoster Vaccine Live SQ 07/05/2014 Family History Medical History Relation Name Comments Hypertension Brother 1 Pedro Liver Disease Brother 2 Romeo hep c, at 69 Healthy Daughter Heike Heart Disease Mother Christina LA x 1 Stroke Mother Christina silent Healthy Sister 1 Eunice Healthy Sister 2 Aurelia Healthy Son 1 Сергей Healthy Son 2 Nnamdi Relation Name Status Comments Brother 1 Pedro Alive Brother 2 Romeo (Age 69) Daughter Heike Alive Father unknown Other Mother Christina Alive Sister 1 Eunice Alive Sister 2 Aurelia Alive Son 1 Сергей Alive Son 2 Nnamdi Alive Social History Tobacco Use Types Packs/Day Years Used Date Smoking Tobacco: Former Cigarettes 1 23 1 - 04/04/1986 Smokeless Tobacco: Never Tobacco Cessation:Counseling Given: Not Answered Alcohol Use Standard Drinks/Week Comments Yes 0 (1 standard drink = 0.6 oz pur e alcohol) social Comments No Sex and Gender Information Value Date Recorded Sex Assigned at Not on file 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 Gender Identity Not on file Sexual Orientation Not on file Occupation Industry Job Start Date Job End Date Not on file Not on file Not on file Not on file Last Filed Vital Signs Vital Sign Reading Time Taken Comments Blood Pressure 160/94 11/02/2024 11:12 AM CDT Pt stated thatsince she got off of her lisinopril her bp has been running high Pulse 71 11/02/2024 11:10 AM CDT Temperature 36.8 C (98.2 F) 11/02/2024 11:10 AM CDT Respiratory Rate 15 11/02/2024 11:1 0 AM CDT Oxygen Saturation 94% 11/02/2024 11: 10 AM CDT Inhaled Oxygen Concentration - - Weight 70.6 kg (155 lb 9.6 oz) 11/02/2024 11:10 AM CDT Height 170.2 cm (5' 7 ) 11/02/2024 11:1 0 AM CDT Body Mass Index 24.37 11/02/2024 11:10 AM CDT Plan of Treatment Upcoming Encounters Date Type Department Care Team (Late st Contact Info) Description 11/09/2024 4:30 PM CDT Telephone Check Up [facility] Oncology and Hematology - [place] [address] [facility] [address] [place] [address] Quique Khalil MD [address] [place] [address] Health Maintenance Due Date Last Done Comments DIABETES ANNUAL FOOT EXAM 1967 FIT-DNA Q 3 years 1994 FIT/FOBT Q 1 year 1994 Flex Sig/CT Colonography Q 5 years 1994 ZOSTER VACCINE (2 of 3) 08/30/2014 07/05/2014 DIABETES MICROALBUMIN ANNUAL SCREEN 06/14/2019 06/14/2018, 09/18/2016, 03/20/2016, Additional history exists PNEUMOCOCCAL VACCINE 50+ YEA RS (3 of 3 - PCV20 or PCV21) 10/04/2019 10/03/2014, 09/16/2011 OSTEOPOROSIS SCREENING 09/30/2020 10/01/2015, 2015 LDL CHOLESTEROL ANNUAL 11/29/2020 0, 06/14/2018, 09/18/2016, Additional history exists DIABETES ANNUAL RETINAL EXAM 08/07/202109/2020, 06/14/2020, 06/14/2020, Additional history exists DTAP/TDAP/TD VACCINES (2 - T d or Tdap) 10/20/2021 10/21/2011 RSV VACCINE (60+ or ) (1 - 1-dose 75+ series) 01/09/2024 INFLUENZA VACCINE (#1) 2024 0, 04/29/2018, 05/04/2017, Additional history exists COVID-19 Vaccine (3 - 2023-2 5 season) 2024 10/28/2020, 10/08/2020 DIABETES HBA1C Q 6 MONTHS 06/27/20242023, 12/26/2023, 04/18/2020, Additional history exists Medicare Advantage ([place]) Preventative Visit/Annual Wellness Visit 07/05/2024 11/30/2019, 09/30/2017, 09/29/2016, Additional history exists COLORECTAL SCREENING 12/26/2029 12/27/2019, 10/01/19 10 Colorectal Cancer Screening 12/26/2029 Procedures Procedure Name Priority Date/Time Associated Diagnosis Comments DIABETES EYE EXAM Routine 12/12/2019 LIPID PANEL Routine 11/30/2019 12:13 PM CDT Type 2 diabetes mellitus with other diabetic kidney complication, without long-term current use of insulin ([facility]) HEMOGLOBIN A1C Routine 11/30/2019 12:13 PM CDT Type 2 diabetes mellitus with other diabetic kidney complication, without long-term current use of insulin ([facility]) MICROALBUMIN/CREATIN INE RATIO, RANDOM UR Routine 06/14/2018 2:19 AM SOAKER SODA WORKER Type 2 diabetes mellitus with complication, without long-term current use of insulin ([facility]) XR DEXA BONE DENSITY AXIAL 1 OR MORE SITES Routine 10/01/2015 9:00 AM CDT Menopausal syndrome from Last 3 Months or Most Recently Relevant to Health Maintenance Results * DIABETES EYE EXAM (12/12/2019) us Abstract Provider HEALTH MAINTENANCE Edited Resu lt - Final [facility] - OB & MOTOR POOL CLERK CLIA# [id number] [address] [place] [address], [facility] [address] [place] [address] * (ABNORMAL) HEMOGLOBIN A1C (11/30/2019 12:13 PM CDT) HEMOGLOBIN A1C 5.9(H) <5.7 % 11/30/2019 4:00 PM CDT [facility] [employer] [facility] EST. AVG GLUCOSE, A1C 123 mg/dL 11/30/2019 4:00 PM CDT [facility] Blood Venipuncture / Unknown 11/30/2019 12:13 PM CDT 11/30/2019 12:13 PM CDT [facility] [facility] - 11/30/2019 4:00 PM CDT HGB A1C INTERPRETATION NORMAL: <5.7% PRE-DIABETES: 5.7 - 6.4% DIABETES: 6.5% OR GREATER Yasmeen Garcia MD CHEMISTRY ORDERABLES Final Res ult [facility]# [id number] [address] [facility] [place] [address] * (ABNORMAL) LIPID PANEL (11/30/2019 12:13 PM CDT) CHOLESTEROL 145 <200 mg/dL 11/30/2019 4:37 PM CDT [facility] TRIGLYCERIDE 76 <150 mg/dL 11/30/2019 4:37 PM CDT [facility] HDL 69(H) 40 - 59 mg/dL 11/30/2019 4:37 PM CDT [facility] LDL CALCULATED 61 <100 mg/dL 11/30/2019 4:37 PM CDT [facility] [facility] NON-HDL CHOLESTEROL 76 <130 mg/dL 11/30/2019 4:37 PM CDT [facility] Blood Venipuncture / Unknown 11/30/2019 12:13 PM CDT 11/30/2019 12:13 PM CDT [facility] [facility] - 11/30/2019 4:37 PM CDT TOTAL CHOLESTEROL mg/dL Desirable <200 Borderline high 200-239 High >=240 TRIGLYCERIDES mg/dL Normal <150 Borderline high 150-199 High 200-499 Very high >=500 HDL CHOLESTEROL mg/dL Low <40 Normal 40-59 Desirable >=60 NON HDL CHOLESTEROL mg/dL Optimal <130 Near Optimal 130-159 Borderline High 160-189 Very High >=190 CALCULATED LDL mg/dL LDL <70, OPTIMAL if have Atherosclerotic cardiovascular disease (ASCVD) or intermediate or higher (>7.5%) 10 year risk of ASCVD including most adults with diabetes. LDL <100, Optimal in adult patients with low (<7.5%) 10 year ASCVD risk LDL 100-160, Suboptimal LDL >160, High LDL >190, Very high ATPIII Guidelines Reference Ranges for Lipid Panels (NCEP/AMA) . Yasmeen Garcia MD CHEMISTRY ORDERABLES Final Res ult Performing Organization Address City/[facility]/ZIP Co de Phone Number [facility] LABORATORY SERVICES [facility]# [id number] [address] [place] [address] * MICROALBUMIN/CREATININE RATIO, RANDOM UR (06/14/2018 2:19 AM SOAKER SODA WORKER) Creatinine, Urine 128 20 - 275 mg/dL [employer] [facility] MICROALBUMIN, URINE 0.4 See Note: mg/dL [facility] Comment: Reference Range: Reference Range Not established MICROALBUMIN/CREAT RATIO, UR 3 <30 mcg/mg creat [facility] Comment: The ADA defines abnormalities in albumin excretion as follows: Category Result (mcg/mg creatinine) Normal <30 Microalbuminuria 30-299 Clinical albuminuria > OR = 300 The ADA recommends that at least two of three specimens collected within a 3-6 month period be abnormal before considering a patient to be within a diagnostic category. Test Performed at: [facility] [address] [place] [address] Jens Aguilar D.O., MPH Urine URINE SPECIMEN OBTAINED BY CLEAN CATCH PROCEDURE / Unknown 06/14/2018 2:19 AM SOAKER SODA WORKER Chary Hardin MD URINE ORDERABLES Edited Result - Final Performing Organization Address City/[facility]/ZIP Co de Phone Number [employer] [facility] [address] * XR DEXA BONE DENSITY AXIAL 1 OR MORE SITES (10/01/2015 9:00 AM CDT) Anatomical Region Laterality Modality Digital Radiogra phy 10/01/2015 9:00 AM CDT Impressions 10/01/2015 9:27 AM CDT IMPRESSION: Osteopenic BMD. Lumbar Spine T-score: -0.1 Left femoral neck T-score: -1.9 Right femoral neck T-score: -1.9 DEFINITIONS: Normal: T-score above -1.0 Osteopenia T-score less than -1.0 and above -2.5 Osteoporosis: T-score < -2.5 FOLLOW-UP RECOMMENDATIONS: Patients without high risk factors for osteoporosis: T-score -1.0 to -1.5 - Consider repeat BMD in 5-10 years T-score -1.5 to -2.0 - Consider repeat BMD in 3-5 years T-score -2.0 to - 2.5 - Consider repeat BMD every 2 years Patients on treatment for osteoporosis:1-2 years after initiation of treatment and every 2 [address] Cristhian Rivera DO DICTATION LOCATION: Location 1 - [facility] 10/01/2015 9:27 AM CDT XR DEXA BONE DENSITY AXIAL 1 OR MORE SITES DATE: 10/01/2015 9:00 AM HISTORY: 65 years old Female with post menopausal symptoms. PROCEDURE: Planar images of the lumbar spine and hip(s) using a [employer] DEXA scanner for bone mineral density determination (BMD). FINDINGS: Lumbar Spine (L1-L4) 1.171 gm/cm2, T-score: -0.1 Left femoral neck 0.780 gm/cm2, T-score: -1.9 Right femoral neck 0.780 gm/cm2, T-score: -1.9 Comments: None Detailed report placed in Imaging Section of [facility] EMR. Procedure Note Cristhian Rivera DO - 10/01/2015 XR DEXA BONE DENSITY AXIAL 1 OR MORE SITES DATE: 10/01/2015 9:00 AM HISTORY: 65 years old Female with post menopausal symptoms. PROCEDURE: Planar images of the lumbar spine and hip(s) using a [employer] DEXA scanner for bone mineral density determination (BMD). FINDINGS: Lumbar Spine (L1-L4) 1.171 gm/cm2, T-score: -0.1 Left femoral neck 0.780 gm/cm2, T-score: -1.9 Right femoral neck 0.780 gm/cm2, T-score: -1.9 Comments: None Detailed report placed in Imaging Section of [facility] EMR. IMPRESSION IMPRESSION: Osteopenic BMD. Lumbar Spine T-score: -0.1 Left femoral neck T-score: -1.9 Right femoral neck T-score: -1.9 DEFINITIONS: Normal: T-score above -1.0 Osteopenia T-score less than -1.0 and above -2.5 Osteoporosis: T-score < -2.5 FOLLOW-UP RECOMMENDATIONS: Patients without high risk factors for osteoporosis: T-score -1.0 to -1.5 - Consider repeat BMD in 5-10 years T-score -1.5 to -2.0 - Consider repeat BMD in 3-5 years T-score -2.0 to - 2.5 - Consider repeat BMD every 2 years Patients on treatment for osteoporosis:1-2 years after initiation of treatment and every 2 [address] Cristhian Rivera, DO DICTATION LOCATION: Location 1 - [facility] Patricia Krueger MD DIAGNOSTIC IMAGING ORDERABLES F inal Result from Last 3 Months or Most Recently Relevant to Health Maintenance Insurance MEDICARE PART A AND B TNA MEDICARE SUPP AESSI AETNA HMO [facility] Address: [facility] [id number] [place] [address] Advance Directives For more information, please contact: [phone] Documents on File Type Date Recorded Patient Expert Medical Writer Expl anation Advance Directive POA 10/03/2014 12:00 PM Advance Directive Living Will 10/03/2014 12:00 PM * Full Code (Latest Code Status on File) Date Activated Date Inactivated Comments 06/14/2012 8:51 AM 06/15/2012 11:54 AM * Full Code Date Activated Date Inactivated Comments 06/14/2012 6:20 AM 06/14/2012 8:51 AM * Full Code Date Activated Date Inactivated Comments 09/30/2009 7:06 AM 10/01/2009 2:01 AM Care Teams Maintenance Team Leader Relationship Specialty Start Date End Date Silvia Quinonez MD [address] [place] [address] PCP - General Family Practice 11/02/24 No DME 09/02/15
--- OUTSIDE RECORDS SUMMARY | 2024-11-02 13:20 | XMS_ITS | Encounter Summary ---
Author Organization [facility] Address [address] [place] [address] Care Team Providers Care Digital Sales Planner Name Role Phone Silvia Quinonez MD Primary Care Provider [phone] Encounter Details Date Type Department Care Team (Late Contact Info) Description 10/16/2004 Outpatient Historical [facility] [place] [address] [place] [id number] Sam Machado MD 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 Gender Identity Not on file Sexual Orientation Not on file documented as of this encounter Plan of Treatment Upcoming Encounters Date Type Department Care Team (Late Contact Info) Description 11/09/2024 4:30 PM CDT Telephone Check Up [facility] Oncology and Hematology - [place] [address] [facility] [address] [place] [address] Quique Khalil MD [address] [facility] [address] [place] [address] documented as of this encounter Visit Diagnoses Not on filedocumented in this encounter Care Teams Digital Sales Planner Relationship Specialty Start Date End Date Silvia Quinonez MD [address] [place] [address] PCP - General Family Practice 11/02/24 No DME 09/02/15 documented as of this encounter
--- OUTSIDE RECORDS SUMMARY | 2024-11-02 13:20 | XMS_ITS | Encounter Summary ---
Author Organization [facility] Address [address] [place] [address] Care Team Providers Care Mortgage Broker Name Role Phone Silvia Quinonez MD Primary Care Provider Encounter Details Date Type Department Care Team (Late Contact Info) Description 04/23/2003 Outpatient Historical Division of Neurology [address] [facility] [address] [place], [place] [id number] Tiffanie Marquez MD [address] [facility] [address] [place] [address] Social History Tobacco Use Types Packs/Day Years Used Date Smoking Tobacco: Never Assessed Comments Unknown Sex and Gender Information Value Date Recorded Sex Assigned at Not on file 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 Gender Identity Not on file Sexual Orientation Not on file documented as of this encounter Plan of Treatment Upcoming Encounters Date Type Department Care Team (Late Contact Info) Description 11/09/2024 4:30 PM CDT Telephone Check Up [facility] Oncology and Hematology - Re[place] [address] [facility] [address] [place] [address] Quique Khalil MD [address] [facility] [address] [place] [address] documented as of this encounter Visit Diagnoses Not on filedocumented in this encounter Care Teams Mortgage Broker Relationship Specialty Start Date End Date Silvia Quinonez MD [address] [place] [address] PCP - General Family Practice 11/02/24 No DME 09/02/15 documented as of this encounter
--- OUTSIDE RECORDS SUMMARY | 2024-11-02 13:20 | XMS_ITS | Encounter Summary ---
Author Organization [facility] Address 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 Oncology and Hematology - [place] [address] [facility] [address] [place] [address] Quique Khalil MD [address] [facility] [address] [place] [address] documented as of this encounter Visit Diagnoses Diagnosis Nonspecific abnormal electromyogram (EMG)- Primary documented in this encounter Care Teams Fuel Cell Assembler Relationship Specialty Start Date End Date Silvia Quinonez MD [address] [place] [address] PCP - General Family Practice 11/02/24 No DME 09/02/15 documented as of this encounter
--- OUTSIDE RECORDS SUMMARY | 2024-11-02 13:20 | XMS_ITS | Encounter Summary ---
Author Organization [facility] Address [address] [place] [address] Care Team Providers Care Legal Manager Name Role Phone Silvia Quinonez MD Primary Care Provider [phone] Encounter Details Date Type Department Care Team (Latest Contact Info) Description 02/18/2006 Outpatient Historical [facility] Sam Machado MD 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 Gender Identity Not on file Sexual Orientation Not on file documented as of this encounter Plan of Treatment Upcoming Encounters Date Type Department Care Team (Late st Contact Info) Description 11/09/2024 4:30 PM CDT Telephone Check Up [facility] Oncology and Hematology - Re[place] [address] [facility] [address] [place] [address] Quique Khalil MD [address] [facility] [address] [place] [address] documented as of this encounter Visit Diagnoses Diagnosis Other screening mammogram- Primary documented in this encounter Care Teams Legal Manager Relationship Specialty Start Date End Date Silvia Quinonez MD [address] [place] [phone] PCP - General Family Practice 11/02/24 No DME 09/02/15 documented as of this encounter
--- OUTSIDE RECORDS SUMMARY | 2024-11-02 13:20 | XMS_ITS | Encounter Summary ---
Author Organization [facility] Address 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 COORDINATOR Gender Identity Not on file Sexual Orientation Not on file documented as of this encounter Plan of Treatment Upcoming Encounters Date Type Department Care Team (Late st Contact Info) Description 11/09/2024 4:30 PM CDT Telephone Check Up [facility] Oncology and Hematology - [place] [address] [place] [address] [facility] [address] [place] [address] Quique Khalil MD [address] [facility] [address] [place] [address] documented as of this encounter Visit Diagnoses Diagnosis Other screening mammogram- Primary documented in this encounter Care Teams Equestrian Trainer Relationship Specialty Start Date End Date Silvia Quinonez MD [address] [place] [phone] PCP - General Family Practice 11/02/24 No DME 09/02/15 documented as of this encounter
--- OUTSIDE RECORDS SUMMARY | 2024-11-02 13:20 | XMS_ITS | Encounter Summary ---
Author Organization [facility] Address [address] [place] [address] Care Team Providers Care Well Head Pumper Name Role Phone Silvia Quinonez MD Primary Care Provider [phone] Encounter Details Date Type Department Care Team ([facility] Contact Info) Description 11/18/2004 Outpatient Historical [facility] [address] [place] [address] Efren Resendez MD [address] [place] [address] [place] [address] Social History Tobacco Use Types Packs/Day Years Used Date Smoking Tobacco: Never Assessed Comments Unknown Sex and Gender Information Value Date Recorded Sex Assigned at Not on file 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 Gender Identity Not on file Sexual Orientation Not on file documented as of this encounter Plan of Treatment Upcoming Encounters Date Type Department Care Team (Late Contact Info) Description 11/09/2024 4:30 PM CDT Telephone Check Up [facility] Oncology and Hematology - Reji [address] [facility] [address] [place] [address] Quique Khalil MD 2[address] [facility] [address] [place] [address] documented as of this encounter Visit Diagnoses Not on filedocumented in this encounter Care Teams Well Head Pumper Relationship Specialty Start Date End Date Silvia Quinonez MD [address] [place] [address] PCP - General Family Practice 11/02/24 No DME 09/02/15 documented as of this encounter
--- OUTSIDE RECORDS SUMMARY | 2024-11-02 13:20 | XMS_ITS | Encounter Summary ---
Author Organization [facility] Address [address] [place] [address] Care Team Providers Care Rubber Turner Name Role Phone Silvia Quinonez MD Primary Care Provider [phone] Encounter Details Date Type Department Care Team (Late Contact Info) Description 02/21/2003 Outpatient Historical Division of Neurology [address] [facility] [place] [address] Tiffanie Marquez MD [address] [facility] [address] [place] [address] Social History Tobacco Use Types Packs/Day Years Used Date Smoking Tobacco: Never Assessed Comments Unknown Sex and Gender Information Value Date Recorded Sex Assigned at Not on file 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 Gender Identity Not on file Sexual Orientation Not on file documented as of this encounter Plan of Treatment Upcoming Encounters Date Type Department Care Team (Late st Contact Info) Description 11/09/2024 4:30 PM CDT Telephone Check Up [facility] Oncology and Hematology - Reji 2227 [facility] [address] [place] [address] Quique Khalil MD [address] [facility] [address] [place] [address] documented as of this encounter Visit Diagnoses Not on filedocumented in this encounter Care Teams Rubber Turner Relationship Specialty Start Date End Date Silvia Quinonez MD [address] [place] [address] PCP - General Family Practice 11/02/24 No DME 09/02/15 documented as of this encounter
--- OUTSIDE RECORDS SUMMARY | 2024-11-02 13:20 | XMS_ITS | Encounter Summary ---
Author Organization [facility] [employer] [facility] Address [address] [place] [address] Care Team Providers Care Pc Tech Name Role Phone Silvia Quinonez MD Primary Care Provider [phone] Reason for Visit * Reason Comments Establish Care Encounter Details Date Type Department Care Team (Late st Contact Info) Description 11/02/2024 10:30 AM CDT Office Visit [facility] Oncology and Hematology - Reji 2[address] [facility] [address] [place] [address] Quique Khalil MD 2[address] [facility] [address] [place] [address] Chronic anemia (Primary Dx) Social History Tobacco Use Types [...] on file 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 Gender Identity Not on file Sexual Orientation Not on file Occupation Industry Job Start Date Job End Date Not on file Not on file Not on file Not on file documented as of this encounter Last Filed Vital Signs Vital Sign Reading [...] Mass Index 24.37 11/02/2024 11:10 AM CDT documented in this encounter Progress Notes * Quique Khalil MD - 11/02/2024 12:26 PM CDT Hematology-oncology consult Note Requesting Physician Silvia Quinonez MD Primary Care Physician Silvia Quinonez MD Problem list Patient Active Problem List Diagnosis Code Diabetes mellitus (CMS/HCC) E11.9 HTN (hypertension), benign I10 Restless legs syndrome G25.81 Knee pain M25.569 GERD (gastroesophageal reflux disease) K21.9 Gallstones K80.20 Vitamin D deficiency E55.9 Chronic pain G89.29 Vitamin B12 deficiency E53.8 Anxiety disorder F41.9 Urinary incontinence R32 Chronic cough R05.3 Memory loss of unknown cause R41.3 Rash and nonspecific skin eruption R21 Low ferritin level R79.0 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 Measurable Disease ? Reason for Visit Loren Bryan is a 74 y.o. female who was referred for consultation for chronic anemia. History of present illness This is a 74-year-old female with history of morbid obesity status post gastric bypass surgery 1997 with 150 pound weight loss. She has history of hypertension, diabetes and osteoporosis. She denies any bleeding including melena hematochezia. She denies being a vegetarian but rarely eats red meat. Her last colonoscopy was 6 years ago and showed polyps. Patient is on Slow Fe with vitaminC. She is also taking sublingual vitamin B12. She used to get vitamin B12 injection until 1 year ago. Her labs showed significantly low vitamin B12 of 181. She denies any other new complaints. Past Medical History Past Medical History: Diagnosis Date Anxiety Back pain Diabetes mellitus (CMS/HCC) GERD (gastroesophageal reflux disease) not taking meds at present Headache(784.0) migraines 1980s HTN (hypertension) Hypercholesteremia 06/01/2018 Osteopenia 2016 Restless leg syndrome Urinary incontinence Surgical History Past Surgical History: Procedure Laterality Date HX ANKLE SURGERY Right 07/05/2011 spontaneous fracture of ankle HX APPENDECTOMY 07/05/1977 HX FEMUR SURGERY 2023 HX GASTRIC BYPASS HX HYSTERECTOMY early HX SURGICAL OTHER 07/05/2002 i and d abdominal incision s/p hernia repair HX SURGICAL OTHER 07/05/2000 excessive skin removal from arms, leg belly HX SURGICAL OTHER 07/05/2004 removal of mess placed during hernia surgery in 2002 HX SURGICAL OTHER Bilateral 07/05/1998 laser vision procedure HX TONSILLECTOMY 07/05/1955 HX TUBAL LIGATION 07/05/1979 MA COLONOSCOPY FLX DX W/COLLJ SPEC WHEN PFRMD 09/30/2009 COLONOSCOPY performed by AMI RANDOLPH at [facility] MA LAPS SURG CHOLECYSTECTOMY W/CHOLANGIOGRAPHY 06/14/2012 CHOLECYSTECTOMY LAPAROSCOPIC W/ CHOLANGIOGRAM performed by Gabe Frausto MD at [facility] Medications Current Outpatient Medications Medication Sig Dispense Refill vit C-vit B-gogkxe-szuy OXIDE-lutein (PRESERVISION) 226-90-0.8-5 mg Capsule Take 1 Capsule by mouthdaily. metFORMIN (GLUCOPHAGE) 1,000 mg tablet Take 1,000 mg by mouth 2 times daily. lisinopriL (PRINIVIL) 40 mg tablet Take 40 mg by mouth daily. levocetirizine (XYZAL) 5 mg tablet Take 5 mg by mouth 2 times daily. hyoscyamine sulfate 0.125 mg tablet Take 0.125 mg by mouth every 4 hours as needed for Spasm. FIBER, DEXTRIN, ORAL Take by mouth 2 times daily. ferrous sulfate 137 mg (45 mg iron) Tablet Sustained Release Take 45 mg by mouth daily. docusate sodium (COLACE) 100 mg capsule Take 100 mg by mouth 2 times daily. cyclobenzaprine (FLEXERIL) 10 mg tablet Take 10 mg by mouth 3 times daily as needed for Spasm. chlorthalidone (HYGROTON) 25 mg tablet Take 1 Tablet by mouth daily. calcium as CARBONATE (CALTRATE) 1,500 mg (600 mg elemental) Tablet Take 1,500 mg by mouth 2 times daily. biotin 1,000 mcg Tablet, Chewable Take 1,000 mcg by mouth daily. OMEGA-3 FATTY ACIDS ORAL Take 720 mg by mouth 2 times daily. pramipexole (MIRAPEX) 0.25 mg tablet Take 0.25 mg by mouth daily at bedtime. 2 tablets by mouth daily at bedtime B-complex with vitamin C (SUPER B COMPLEX + C ORAL) Take by mouth daily. zoledronic edue-ihgfdkgE-hulub (RECLAST) 5 mg/100 mL Piggyback Inject 5 mg by intravenous injectionone time only. No current facility-administered medications for this visit. Allergies Allergies Allergen Reactions Unclassified Drug Unknown SURGICAL MESH Amlodipine Other (See Comments) Excessive fatigue Immunizations: Immunization History Administered Date(s) Administered (ADACEL/BOOSTRIX)(10 YR UP) TDAP VACCINE, 0.5ML, IM 10/21/2011 (PFIZER)(12 YR UP) COVID-19 VACCINE - EMERGENCY USE AUTHORIZATION, MRNA, [id number](PF) 30 MCG/0.3 MLIM SUSP 10/08/2020, 10/28/2020 (PNEUMOVAX 23)(50 YRS UP) PNEUMOCOCCAL POLYSACCHARIDE (PPV23) 0.5 ML, IM 09/16/2011 (PREVNAR 13)(6 WKS UP) PNEUMOCOCCAL CONJUGATE (PCV13) 0.5 ML, IM 10/03/2014 INFLUENZA VACCINE QUADRIVALENT 3 YR UP PF IM 03/31/2016 INFLUENZA VACCINE QUADRIVALENT 6 MOS UP PF IM 04/29/2018 Influenza Seasonal Unspecified Formulation IM 04/28/2014, 05/04/2017 Influenza Vaccine High Dose 65+ Yrs IM 04/28/2014 Influenza Vaccine Split 3+ Yrs IM 06/18/2015 Influenza Vaccine Tri Split 4+ Pf Im 05/04/2017 Zoster Vaccine Live SQ 07/05/2014 Family History Family History Problem Relation Name Age of Onset Stroke Mother Christina silent Heart Disease Mother Christina OR x 1 Healthy Sister Eunice Hypertension Brother Pedro Healthy Sister Aurelia Liver Disease Brother Romeo gutierrez, at 69 Healthy Daughter Heike Healthy Son Сергей Healthy Son Nnamdi Social History Social History Tobacco Use Smoking status: Former Current packs/day: 0.00 Average packs/day: 1 pack/day for 23.0 years (23.0 ttl pk-yrs) Types: Cigarettes Start date: 04/04/1963 Quit date: 04/04/1986 Years since quittin.6 Smokeless tobacco: Never Substance Use Topics Alcohol use: Yes Alcohol/week: 0.0 standard drinks of alcohol Comment: social Review of Systems Constitutional: Patient did not mention fever; no night sweats; no anorexia; no weight loss; complain of tiredness and fatigue NEENT: Patient did not mention headache; no change in vision; no change in hearing; no sore throat;no dysphagia Respiratory: Patient did not mention shortness of breath; no pleuritic chest pain; no cough; no hemoptysis Cardiac: Patient did not mention cardiac-like chest pain; no palpitations; no orthopnea; no PND; noDOE Breasts: Patient did not mention tenderness; no masses GI: Patient did not mention abdominal pain; no nausea; no vomiting; no diarrhea; no hematochezia; no melena : Patient did not mention dysuria; no frequency; no hesitancy; no hematuria SPECIAL EDUCATION AIDE: Musculosketetal: Patient did not mention bone pain; no arthralgia; no joint swelling; no myalgia; Skin: Patient did not mention pruritis; no rash; no petechiae; no ecchymoses Endocrine: Patient did not mention polydipsia; no polyuria; no unusual weight gain Neuro: Patient did not mention headache; no change in vision; no sensory changes; no muscle weakness; no confusion; no seizures Psych: Patient did not mention anxiety; no depression; Physical Exam Vitals: As per nursing note Constitutional: Well developed, well nourished, no acute distress, non-toxic appearance Teeth and gum. No signs of infection or swelling. Eyes: PERRL, conjunctiva normal HEENT: Atraumatic, external ears normal, nose normal, oropharynx moist, no pharyngeal exudates. no sinus tenderness Neck- normal range of motion, no tenderness, supple Respiratory: No respiratory distress, normal breath sounds, no rales, no wheezing Cardiovascular: Normal rate, normal rhythm, no murmurs, no gallops, no rubs GI: Soft, nondistended, normal bowel sounds, nontender, no splenomegaly, no hepatomegaly, no mass, no rebound, no guarding : No costovertebral angle tenderness Musculoskeletal: No edema, no tenderness, no deformities. Back- no tenderness Integument: Well hydrated, no rash, Digits and nails inspection normal Lymphatic: No lymphadenopathy noted Neurologic: Alert & oriented x 3, CN 2-12 normal, normal motor function, normal sensory function, no focal deficits noted Psychiatric: Speech and behavior appropriate ? labs No results found for this or any previous visit (from the past 24 hours). Labs from May 2024 showed hemoglobin 11.8 vitamin B12 181 Pathology ? Imaging & Other Studies Performance Status? Assessment / Plan: ? Chronic anemia. Patient is a 74-year-old female with history of morbid obesity status post gastric bypass surgery in 1997 with 150 pound weight loss. She also has a history of osteoporosis,hypertension and diabetes. She denies any bleeding including melena and hematochezia. Her last colonoscopy was 6 years ago and showed colon polyps. She is currently taking Slow Fe with vitamin C and s ublingual vitamin B12. She is not a vegetarian but rarely eats red meat. I have reviewed the labs done previously and discussed vitamin B12 level being significantly low. At this time we will repeat labs including CBC, CMP, iron profile, vitamin B12 level, methylmalonic acid level, parietal cell and intrinsic factor antibodies and LDH. I will start her on weekly B12 injection based on the repeat labs. She may also need IV iron infusion based on the repeat labs. I will discuss the labs with her next week. I have answered all the questions to patient satisfaction. Type 2 diabetes. Patient is on metformin. Hypertension. Patient is on Prinivil. Thank you very much for allowing me to participate in Loren Bryan's evaluation and management. Please feel free to contact if I can be of any further assistance in your patient???s care requiring hematology or oncology evaluation. Sincerely, ? ? Quique Khalil M.D. cell TOBACCO COUNSELING She is not a tobacco/nicotine user. Quique Khalil MD ,11/02/2024 12:26 PM ? Total time spent 60 minutes, two third of the total time spent counseling patient [id number]. CC:?Silvia Quinonez MD documented in this encounter Plan of Treatment Upcoming Encounters Date Type Department Care Team (Late st Contact Info) Description 11/09/2024 4:30 PM CDT Telephone Check Up [facility] Oncology and Hematology [facility] [address] [place] [id number] Quique Khalil MD [address] [facility] [address] [place] [address] Scheduled Orders Name Type Priority Associated Diagnoses Orde r Schedule CBC WITH DIFFERENTIAL Lab Stat Chronic anemia Expected: 11/02/2024, Expires: 11/02/2025 COMPREHENSIVE METABOLIC PANEL Lab Stat Chronic anemia Expected: 11/02/2024, Expires: 11/02/2025 FERRITIN Lab Routine Chronic anemia Expected: 11/02/2024, Expires: 11/02/2025 INTRINSIC FACTOR BLOCKING ANTIBODY Lab Routine Chronic anemia Expected: 11/02/2024, Expires: 11/02/2025 IRON, TIBC, AND PERCENT SATURATION Lab Routine Chronic anemia Expected: 11/02/2024, Expires: 11/02/2025 METHYLMALONIC ACID Lab Routine Chronic anemia Expected: 11/02/2024, Expires: 11/02/2025 LACTATE DEHYDROGENASE Lab Routine Chronic anemia Expected: 11/02/2024, Expires: 11/02/2025 TRANSFERRIN RECEPTOR TFR SOLUBLE Lab Routine Chronic anemia Expected: 11/02/2024, Expires: 11/02/2025 VITAMIN B12 AND FOLATE Lab Routine Chronic anemia Expected: 11/02/2024, Expires: 11/02/2025 PARIETAL CELL ANTIBODY Lab Routine Chronic anemia Expected: 11/02/2024, Expires: 11/02/2025 documented as of this encounter Visit Diagnoses Diagnosis Chronic anemia- Primary Anemia, unspecified documented in this encounter Additional Health Concerns Assessment Noted Time PHQ-9 Depression Total Score: 1 11/30/19 20 11:39 AM CDT documented as of this encounter Care Teams Pc Tech Relationship Specialty Start Date End Date Silvia Quinonez MD [address] [place] [phone] PCP - General Family Practice 11/02/24 No DME 09/02/15 documented as of this encounter
--- OUTSIDE RECORDS SUMMARY | 2024-11-02 13:20 | XMS_ITS | Encounter Summary ---
Author Organization [facility] Address [address] [place] [address] Care Team Providers Care Hydrotechnical Specialist Name Role Phone Silvia Quinonez MD Primary Care Provider [phone] Encounter Details Date Type Department Care Team (Late Contact Info) Description 11/18/2004 Outpatient Historical [facility] [place] [address] [place] [phone] Sam Machado MD 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 Gender Identity Not on file Sexual Orientation Not on file documented as of this encounter Plan of Treatment Upcoming Encounters Date Type Department Care Team (Late Contact Info) Description 11/09/2024 4:30 PM CDT Telephone Check Up [facility] Oncology and Hematology - Reji [address] [facility] [address] [place] [address] Quique Khalil MD 2[address] [facility] [address] [place] [address] documented as of this encounter Visit Diagnoses Not on filedocumented in this encounter Care Teams Hydrotechnical Specialist Relationship Specialty Start Date End Date Silvia Quinonez MD [address] [place] [address] PCP - General Family Practice 11/02/24 No DME 09/02/15 documented as of this encounter
--- OUTSIDE RECORDS SUMMARY | 2024-11-02 13:20 | XMS_ITS | Encounter Summary ---
Author Organization [facility] Address [address] [place] [address] Care Team Providers Care News Agent Name Role Phone Silvia Quinonez MD Primary Care Provider [phone] Encounter Details Date Type Department Care Team (Late st Contact Info) Description 03/17/2005 Outpatient Historical [facility] [place] [address] [place] [address] Gunjan Szymanski MD NO ADDRESS ON FILE Social History Tobacco Use Types Packs/Day Years Used Date Smoking Tobacco: Never Assessed Comments Unknown Sex and Gender Information Value Date Recorded Sex Assigned at Not on file 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 Gender Identity Not on file Sexual Orientation Not on file documented as of this encounter Plan of Treatment Upcoming Encounters Date Type Department Care Team (Late st Contact Info) Description 11/09/2024 4:30 PM CDT Telephone Check Up [facility] Oncology and Hematology - Reji [address] [place] [address] [facility] [address] [place] [address] Quique Khalil MD 2[address] [facility] [address] [place] [address] documented as of this encounter Visit Diagnoses Not on filedocumented in this encounter Care Teams News Agent Relationship Specialty Start Date End Date Silvia Quinonez MD [address] [place] [phone] PCP - General Family Practice 11/02/24 No DME 09/02/15 documented as of this encounter
--- OUTSIDE RECORDS SUMMARY | 2024-11-02 13:20 | XMS_ITS | Encounter Summary ---
Author Organization [facility] Address [address] [place] [address] Care Team Providers Care Healthcare Network Consultant Name Role Phone Silvia Quinonez MD Primary Care Provider [phone] Encounter Details Date Type Department Care Team (Latest Contact Info) Description 03/29/2001 Outpatient Historical [facility] Erick Ma MD NO ADDRESS ON FILE Contusion of face, scalp, and neck except eye(s) (Primary Dx) Social History Tobacco Use Types Packs/Day Years Used Date Smoking Tobacco: Never Assessed Comments Unknown Sex and Gender Information Value Date Recorded Sex Assigned at Not on file Legal Sex Female 3:05 AM STABLEHAND Gender Identity Not on file Sexual Orientation Not on file documented as of this encounter Plan of Treatment Upcoming Encounters Date Type Department Care Team (Late st Contact Info) Description 11/09/2024 4:30 PM CDT Telephone Check Up [facility] Oncology and Hematology - Reji 2[address] [facility] [address] [place] [address] Quique Khalil MD 2[address] [facility] [address] [place] [address] documented as of this encounter Visit Diagnoses Diagnosis Contusion of face, scalp, and neck except eye(s)- Primary documented in this encounter Care Teams Healthcare Network Consultant Relationship Specialty Start Date End Date Silvia Quinonez MD [address] [place] [phone] PCP - General Family Practice 11/02/24 No DME 09/02/15 documented as of this encounter
--- OUTSIDE RECORDS SUMMARY | 2024-11-02 13:20 | XMS_ITS | Encounter Summary ---
Author Organization [facility] Address [address] [facility] Attn: Epic Prelude ADT [place] [address] Care Team Providers Care Sexual Assault Counsellor Name Role Phone Silvia Quinonez MD Primary Care Provider [phone] Encounter Details Date Type Department Care Team (Late st Contact Info) Description 02/11/1995 Outpatient Historical Josr Toledo MD NO ADDRESS ON FILE Social History Tobacco Use Types Packs/Day Years Used Date Smoking Tobacco: Never Assessed Comments Unknown Sex and Gender Information Value Date Recorded Sex Assigned at Not on file 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 Gender Identity Not on file Sexual Orientation Not on file documented as of this encounter Plan of Treatment Upcoming Encounters Date Type Department Care Team (Late st Contact Info) Description 11/09/2024 4:30 PM CDT Telephone Check Up [facility] Oncology and Hematology - [place]ji [address] [place] [address] [facility] 200 [place] [address] Quique Khalil MD [address] [facility] [address] [place] [address] documented as of this encounter Visit Diagnoses Not on filedocumented in this encounter Care Teams Sexual Assault Counsellor Relationship Specialty Start Date End Date Silvia Quinonez MD [address] [place] [address] PCP - General Family Practice 11/02/24 No DME 09/02/15 documented as of this encounter
--- OUTSIDE RECORDS SUMMARY | 2024-11-02 13:20 | XMS_ITS | Encounter Summary ---
Author Organization [facility] Address [address] [place] [address] Care Team Providers Care Licensed Loan Officer Assistant Name Role Phone Silvia Quinonez MD Primary Care Provider [phone] Encounter Details Date Type Department Care Team (Late Contact Info) Description 11/28/2004 Outpatient Historical [facility] [place] [address] [place] [phone] Sam Machado MD 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 Gender Identity Not on file Sexual Orientation Not on file documented as of this encounter Plan of Treatment Upcoming Encounters Date Type Department Care Team (Late Contact Info) Description 11/09/2024 4:30 PM CDT Telephone Check Up [facility] Oncology and Hematology - Reji [address] [facility] [address] [place] [address] Quique Khalil MD [address] [facility] [address] [place] [address] documented as of this encounter Visit Diagnoses Not on filedocumented in this encounter Care Teams Licensed Loan Officer Assistant Relationship Specialty Start Date End Date Silvia Quinonez MD [address] [place] [address] PCP - General Family Practice 11/02/24 No DME 09/02/15 documented as of this encounter
--- OUTSIDE RECORDS SUMMARY | 2024-11-02 13:20 | XMS_ITS | Encounter Summary ---
Author Organization [facility] Address 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 [address] [place] [address] Quique Khalil MD [address] [facility] [address] [place] [address] documented as of this encounter Visit Diagnoses Diagnosis Other screening mammogram- Primary documented in this encounter Care Teams Toe Sewer Relationship Specialty Start Date End Date Silvia Quinonez MD [address] [place] [phone] PCP - General Family Practice 11/02/24 No DME 09/02/15 documented as of this encounter
--- OUTSIDE RECORDS SUMMARY | 2024-11-02 13:20 | XMS_ITS | Encounter Summary ---
Author Organization [facility] Address 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 Gender Identity Not on file Sexual Orientation Not on file documented as of this encounter Plan of Treatment Upcoming Encounters Date Type Department Care Team (Late st Contact Info) Description 11/09/2024 4:30 PM CDT Telephone Check Up [facility] Oncology and Hematology - Reji [address] [facility] [address] [place] [address] Quique Khalil MD [address] [facility] [address] [place] [address] documented as of this encounter Visit Diagnoses Diagnosis Abdominal pain, unspecified site- Primary documented in this encounter Care Teams Online Merchandising Coordinator Relationship Specialty Start Date End Date Silvia Quinonez MD [address] [place] [address] PCP - General Family Practice 11/02/24 No DME 09/02/15 documented as of this encounter
--- OUTSIDE RECORDS SUMMARY | 2024-11-02 13:20 | XMS_ITS | Referral Summary ---
Author Organization [facility] Address [address] [place] [address] Care Team Providers Care Chemical Economist Name Role Phone Silvia Quinonez MD Primary Care Provider [phone] Silvia Quinonez MD Unavailable [phone] Allergies Active Allergy Reactions Criticality Noted Date Comments Amlodipine Fatigue Low 03/23/2012 Excessive fatigue Other Unknown 05/22/2009 SURGICAL MESH Medications calcium carbonate (CALCIUM 500 ORAL) Active cholecalciferol (VITAMIN D-3) 76353 unit tablet once a week 3 Active [...] PPV23 09/16/2011 Tdap 10/21/2011 ZOSTER LIVE 07/05/2014 Social History Tobacco Use Types Packs/Day Years Used Date Smoking Tobacco: Never Smokeless Tobacco: Never Tobacco Cessation:Counseling Given: Not Answered [facility] Utilities Answer Date Recorded In the past 12 months has [employer] gas, oil, or water [employer] threatened to shut off services in your [...] often do you attend chur ch or orthodoxy services? More than 4 times per year 12/23/2023 Do you belong to any clubs o r organizations such as spiritism groups, unions, fraternal or athletic groups, or [...] and heating? 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 Gender Identity Female 12/16/2020 9:45 PM CDT Sexual Orientation Not on file Last Filed Vital Signs [...] 12/28/2023 11:05 AM CDT Plan of Treatment Not on file Medical Devices Implanted Type Area Olericulture Professor Device Identifier Shelf Expiration Date Model / Serial / Lot [employer] Screw Bone 5mm 80mm Lock Strl [id number] - [id number] Implanted:Qty: 1 on 12/23/2023 by Dave Rosas MD at [facility] Screw Left: Femur [employer] [id number] 10/02/2033 9996-2995 S / / [id number] [employer] Screw Bone 5mm 70mm Lock Strl 23615070s - [id number] Implanted:Qty: 1 on 12/23/2023 by Dave Rosas MD at [facility] Screw Left: Femur [employer] [id number] 11/01/2033 5627-0948 S / / [id number] [employer] Screw Bone Locking Cannulated Tibial Oversized Thread Black T2 Alpha 5.0x85mm Titanium 23615085s - [id number] Implanted:Qty: 1 on 12/23/2023 by Dave Rosas MD at [facility] Screw Left: Femur [employer] [id number] 10/02/2033 3376-9592 S / / [id number] [employer] Screw Bone 5mm 37.5mm T2 Alpha Lock Strl 2360-5037s - [id number] Implanted:Qty: 1 on 12/23/2023 by Dave Rosas MD at [facility] Screw Left: Femur [employer] [id number] 11/01/2033 1668-4856 S / / [id number] [employer] Screw Bone 5mm 40mm T2 Alpha Lock Strl 2360-5040s - [id number] Implanted:Qty: 1 on 12/23/2023 by Dave Rosas MD at [facility] Screw Left: Femur [employer] [id number] 11/01/2033 5333-7269 S / / [id number] [employer] Screw Bone 5mm 42.5mm T2 Alpha Lock Strl 2360-5042s - [id number] Implanted:Qty: 1 on 12/23/2023 by Dave Rosas MD at [facility] Screw Left: Femur [employer] [id number] 10/02/2030 5064-2605 S / / [id number] Synthes Plate Bone Compression Locking Low Profile 18 Hole Left Va Lcp 4.5u395zh Ss 02.124.419s - [id number] Implanted:Qty: 1 on 12/23/2023 by Dave Rosas MD at [facility] Left: Femur Synthes 02.124.41 9S / / [employer] Nail Intramedullary Femoral Retrograde T2 Alpha 64b219uv Titanium 2339-1124s - [id number] Implanted:Qty: 1 on 12/23/2023 by Dave Rosas MD at [facility] Left: Femur [employer] 07/04/2033 8733-4525 S / / [id number] Synthes 5mm 36mm Variable Angle Self Tap Lock Stardrive Condylar T25 02.231.236 - [id number] Implanted:Qty: 1 on 12/23/2023 by Dave Rosas MD at [facility] Left: Femur Synthes I 02.231.23 6 / / Synthes 4.5mm 8mm 36mm Self Tap Large Hexagonal Socket Cortex Screw Bone 214.836 - [id number] Implanted:Qty: 1 on 12/23/2023 by Dave Rosas MD at [facility] Left: Femur Synthes I 214.836 / / Synthes 5mm 80mm Variable Angle Self Tap Lock [employer] Condylar T25 02.231.280 - [id number] Implanted:Qty: 2 on 12/23/2023 by Dave Rosas MD at [facility] Left: Femur Synthes 02.231.28 0 / / Synthes 5mm 85mm Variable Angle Self Tap Lock [employer] Condylar T25 02.231.285 - [id number] Implanted:Qty: 2 on 12/23/2023 by Dave Rosas MD at [facility] Left: Femur Synthes I 02.231.28 5 / / Synthes 4.5mm 8mm 100mm Self Tap Large Hexagonal Socket Cortical Screw 214.900 - [id number] Implanted:Qty: 1 on 12/23/2023 by Dave Rosas MD at [facility] Left: Femur Synthes I 214.900 / / Synthes 5mm 38mm Variable Angle Self Tap Lock [employer] Condylar T25 02.231.238 - [id number] Implanted:Qty: 1 on 12/23/2023 by Dave Rosas MD at [facility] Left: Femur Synthes I 02.231.23 8 / / Synthes 5mm 40mm Variable Angle Self Tap Lock [employer] Condylar T25 02.231.240 - [id number] Implanted:Qty: 1 on 12/23/2023 by Dave Rosas MD at [facility] Left: Femur Synthes I .231.24 0 / / Explanted Type Area Olericulture Professor Device Identifier Shelf Expiration Date Model / Serial / Lot [employer] Nail Intramedullary Femoral Retrograde T2 Alpha [id number] Titanium 2339-1122s - [id number] Explanted:Qty: 1 on 12/23/2023 by Dave Rosas MD at [facility] Left: Femur [employer] 07/04/2033 8804-8359 S / / [id number] Procedures Procedure Name Priority Date/Time Associated Diagnosis [...] of Race in Diagnosing Kidney Disease, JASN 202). The CKD-EPI equation should not be used for patients with unstable renal function and has not been validated in children and those over 70. Current interpretive data was last reviewed 2021. Blood 12/28/2023 12:3 4 AM CDT 12/28/2023 1:26 AM CDT Rama Johnson MD LAB BLOOD ORDERABLES Final Result Performing Organization Address [facility] de Phone Number [place] [address] * Hemoglobin A1c (12/26/2023 10:39 PM CDT) [facility] Hgb A1C 5.5 4.0 - 5.6 % Estimated Average Glucose 111 mg/dL [facility] Comment: The ADA recommends reporting an estimated Average Glucose (eAG) with all Hemoglobin A1c results using the equation derived from a study of 507 normal and diabetic adults. Minority populations were underrepresented and children were not included. (Diabetes Care 2020; 43(S1): S66-S76). The eAG is not equivalent to a fasting glucose. Blood 12/26/2023 10:3 9 PM CDT 12/26/2023 11:40 PM CDT Rama Johnson MD LAB BLOOD ORDERABLES Final Result Performing Organization Address [facility] de Phone Number [facility] [place] [address] * BONE MINERAL DENSITY (07/07/2012) Anatomical Region Laterality Modality Radiographic Bonnie ging Narrative 07/07/2012 Ordered by an unspecified provider. us Historical Provider MD CAVAZOS DXA PROCEDURES Final Result from Last 3 Months or Most Recently Relevant to Health Maintenance Insurance TNA MEDICARE GOLD MEDICARE [facility] SUPPLEMENT AETNA MEDICARE GOLD AETNA MEDICARE GOLD Advance Directives For more information, please contact: [phone] * Full Code (Latest Code Status on [...] 1:45 PM 12/23/2023 2:10 PM Care Teams Chemical Economist Relationship Specialty Start Date End Date Silvia Quinonez MD PCP - General Family Medicine 12/23/23 Silvia Quinonez MD Family Medicine 12/23/23
[2024-11-02 13:37] LABS: Alanine Aminotransferase 25 U/L (6-35); Albumin Level 4.7 g/dL (3.5-5.1); Alkaline Phosphatase 72 U/L (38-126); Anion Gap 11 mmol/L (4-12); Aspartate Amino Transferase 29 U/L (14-36); Bilirubin,Total 0.5 mg/dL (0.2-1.3); Blood Urea Nitrogen 25 mg/dL (7-17); Calcium 9.1 mg/dL (8.4-10.2); Carbon Dioxide 28 mmol/L (22-30); Chloride 99 mmol/L (98-107); Estimated Glomerular Filt Rate 53; Glucose 109 mg/dL (65-110); Lactate Dehydrogenase 216 U/L (120-246); Potassium 4.2 mmol/L (3.4-5.0); Sodium 138 mmol/L (137-145)
[2024-11-02 13:39] LABS: Iron 90 ug/dL (37-170)
[2024-11-02 13:42] LABS: Percent Iron Saturation 28 % (20-50)
[2024-11-02 15:06] LABS: Folic Acid 18.6 ng/mL (2.76->20)
[2024-11-06 06:34] LABS: Methylmalonic Acid 313 nmol/L (69-390)
[2024-11-07 16:08] LABS: Intrinsic Factor Blocking Ab NEGATIVE
== END 2024-11-02 11:45 | disposition home or self-care (01) ==
LOC: ANHLAB 11:47
PROVIDERS: PCP Family Medicine; Visit Provider Internal Medicine Hematology & Oncology
DX: D64.9 Anemia, unspecified (principal)
CPT/HCPCS: 36415; 80053; 82607; 82728; 82746; 83516; 83540; 83550; 83615; 83921; 84238; 85025; 86340

== ENCOUNTER 2024-11-07 09:32 | Outpatient (CLI) | payer MEDICARE, SELFPAY ==
--- NOTE | ~2024-11-07 | XR_ITS ---
Clinical Indication: Cough PA and lateral views of the chest: Comparison: None Findings: The lungs are clear, without evidence of focal consolidation or pleural effusion. Cardiome diastinal silhouette is within normal limits. Bones and soft tissues are unremarkable. Impression: Normal chest. Reviewed, dictated and finalized at location . Impression: Normal chest.
== END 2024-11-07 09:33 | disposition home or self-care (01) ==
PROVIDERS: PCP Family Medicine
DX: R05.9 Cough, unspecified (principal)
CPT/HCPCS: 71046

== ENCOUNTER 2025-01-15 10:43 | Outpatient (CLI) | payer MEDICARE, SELFPAY ==
--- OUTSIDE RECORDS SUMMARY | 2025-01-15 10:47 | XMS_ITS | Encounter Summary ---
Author Organization [facility] Address [address] [place] [address] Care Team Providers Care Polishing Machine Tender Name Role Phone Silvia Quinonez MD Primary Care Provider [phone] Encounter Details Date Type Department Care Team (Latest Contact Info) Description 03/03/2007 Outpatient Historical [facility] Sam Machado MD 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 Oncology and Hematology - Reji [address] [facility] [address] [place] [address] Quique Khalil MD [address] [facility] [address] [place] [address] documented as of this encounter Visit Diagnoses Diagnosis Other screening mammogram- Primary documented in this encounter Care Teams Polishing Machine Tender Relationship Specialty Start Date End Date Silvia Quinonez MD [address] [place] [phone] PCP - General Family Practice 11/02/24 No DME 09/02/15 documented as of this encounter
--- OUTSIDE RECORDS SUMMARY | 2025-01-15 10:47 | XMS_ITS | Encounter Summary ---
Author Organization [facility] Address [address] [place] [address] Care Team Providers Care Crime Scene Photographer Name Role Phone Silvia Quinonez MD Primary Care Provider [phone] Encounter Details Date Type Department Care Team (Latest Contact Info) Description 07/31/2008 Outpatient Historical [facility] TF DIAChuck-Jayce Dupree MD [address] [facility] [address] [place] [address] Nonspecific Abnormal Unspecified Cardiovascular Function Study Social History Tobacco Use Types Packs/Day Years Used Date Smoking Tobacco: Never Assessed Comments Unknown Sex and Gender Information Value Date Recorded Sex Assigned at Not on file 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 Gender Identity Not on file Sexual Orientation Not on file documented as of this encounter Plan of Treatment Upcoming Encounters Date Type Department Care Team (Late st Contact Info) Description 04/18/2025 3:45 PM CDT Office Visit [facility] Oncology and Hematology - Reji [address] [facility] [address] [place] [address] Quique Khalil MD [address] [facility] [address] [place] [address] documented as of this encounter Visit Diagnoses Diagnosis Nonspecific abnormal unspecified cardiovascular function study documented in this encounter Care Teams Crime Scene Photographer Relationship Specialty Start Date End Date Silvia Quinonez MD [address] [place] [phone] PCP - General Family Practice 11/02/24 No DME 09/02/15 documented as of this encounter
--- OUTSIDE RECORDS SUMMARY | 2025-01-15 10:47 | XMS_ITS | Encounter Summary ---
Author Organization [facility] Address [address] [place] [address] Care Team Providers Care Contract Graphic Designer Name Role Phone Silvia Qiunonez MD Primary Care Provider [phone] Encounter Details Date Type Department Care Team (Late Contact Info) Description 06/10/2006 Outpatient Historical [facility] [place] [address] [place] [address] Sam Machado MD 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 [address] [place] [address] Quique Khalil MD [address] [facility] [address] [place] [address] documented as of this encounter Visit Diagnoses Not on filedocumented in this encounter Care Teams Contract Graphic Designer Relationship Specialty Start Date End Date Silvia Quinonez MD [address] [place] [address] PCP - General Family Practice 11/02/24 No DME 09/02/15 documented as of this encounter
--- OUTSIDE RECORDS SUMMARY | 2025-01-15 10:47 | XMS_ITS | Encounter Summary ---
Author Organization [facility] Address [address] [place] [address] Care Team Providers Care School Standards Coach Name Role Phone Silvia Quinonez MD Primary Care Provider [phone] Encounter Details Date Type Department Care Team (Late Contact Info) Description 06/15/2007 Outpatient Historical [facility] [place] [address] [place] [address] Sam Machado MD 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 [address] [place] [address] Quique Khalil MD [address] [facility] [address] [place] [address] documented as of this encounter Visit Diagnoses Not on filedocumented in this encounter Care Teams School Standards Coach Relationship Specialty Start Date End Date Silvia Quinonez MD [address] [place] [address] PCP - General Family Practice 11/02/24 No DME 09/02/15 documented as of this encounter
--- OUTSIDE RECORDS SUMMARY | 2025-01-15 10:48 | XMS_ITS | Encounter Summary ---
Author Organization [facility] Address [address] [place] [address] Care Team Providers Care Tong Carrier Name Role Phone Silvia Quinonez MD Primary Care Provider [phone] Encounter Details Date Type Department Care Team (Late Contact Info) Description 11/18/2004 Outpatient Historical [facility] [address] [place] [address] Efren Resendez MD [address] [place] [address] [place] [address] Social History Tobacco Use Types Packs/Day Years Used Date Smoking Tobacco: Never Assessed Comments Unknown Sex and Gender Information Value Date Recorded Sex Assigned at Not on file 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 [address] [place] [address] documented as of this encounter Visit Diagnoses Not on filedocumented in this encounter Care Teams Tong Carrier Relationship Specialty Start Date End Date Silvia Quinonez MD [address] [place] [address] PCP - General Family Practice 11/02/24 No DME 09/02/15 documented as of this encounter
--- OUTSIDE RECORDS SUMMARY | 2025-01-15 10:48 | XMS_ITS | Encounter Summary ---
Author Organization [facility] Address [address] [place] [address] Care Team Providers Care Cobol Engineer Name Role Phone Silvia Quinonez MD Primary Care Provider [phone] Encounter Details Date Type Department Care Team (Late Contact Info) Description 05/18/2000 [facility] 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 [address] [place] [address] Quique Khalil MD [address] [facility] [address] [place] [address] documented as of this encounter Visit Diagnoses Not on filedocumented in this encounter Care Teams Cobol Engineer Relationship Specialty Start Date End Date Silvia Quinonez MD [address] [place] [address] PCP - General Family Practice 11/02/24 No DME 09/02/15 documented as of this encounter
--- OUTSIDE RECORDS SUMMARY | 2025-01-15 10:48 | XMS_ITS | Clinical Summary ---
Author Organization [facility] Address [address] [place] [address] Phone Care Team Providers Care Retail Route Supervisor Name Role Phone Silvia Quinonez MD Primary Care Provider [phone] Allergies Active Allergy Reactions Criticality Noted Date Comments Amlodipine Other (See Comments) Low 03/23/2012 Excessive fatigue Unclassified Drug Unknown 05/22/2009 SURGICAL MESH Medications vit C-vit S-[id number] OXIDE-lutein (PRESERVISION) 226-90-0.8-5 mg Capsule Take 1 [...] mg by mouth 2 times daily. Active cyclobenzaprin e (FLEXERIL) 10 mg tablet Take 10 mg [...] ORAL) Take by mouth daily. Active zoledronic acid-mannitoL- water (RECLAST) 5 mg/100 mL Piggyback Inject 5 mg by intravenous injection one time only. Active cyanocobalamin (VITAMIN B-12) 1,000 mcg/mL SolutionIndica tions:Chronic anemia Inject 1 mL (1,000 mcg) by intramuscular injection every 30 days. 3 mL 1 5 Active Syringe with Needle,Disp, Tray (Monoject Allergy Tray) 1 mL 28 x 1/2 TrayIndication s:Chronic anemia USE WITH B12 INJECTIONS 3 Each 1 5 Active Active Problems Problem Noted Date Diagnosed [...] Encounters Date Type Department Care Team Description 12/19/2024 External Device Data STL ABSTRACTION Provider, Abstract 12/05/2024 Refill [facility] Oncology and Hematology - Reji [address] [place] [phone] Quique Khalil MD Chronic anemia 12/05/2024 Refill [facility] Oncology and Hematology - Re[address] [place] [phone] Quique Khalil MD Chronic anemia 11/23/2024 External Device Data STL ABSTRACTION Provider, Abstract 11/10/2024 Orders Only [facility] Oncology and Hematology - Reji [address] [place] [phone] Quique Khalil MD 11/10/2024 Refill [facility] Oncology and Hematology - Reji [address] [place] [phone] Quique Khalil MD Chronic anemia (Primary Dx) 11/09/2024 4:30 PM CDT Telephone Check Up [facility] Oncology and Hematology - Re[address] [place] [phone] Quique Khalil MD Chronic anemia (Primary Dx) 11/08/2024 Orders Only [facility] Oncology and Hematology - Re[address] [place] [phone] Quique Khalil MD 11/07/2024 External Device Data STL ABSTRACTION Provider, Abstract 11/07/2024 External Device Data STL ABSTRACTION Provider, Abstract 11/07/2024 External Device Data STL ABSTRACTION Provider, Abstract 11/03/2024 Orders Only [facility] Oncology and Hematology - Reji [address] [place] [address] Quique Khalil MD 11/02/2024 10:30 AM CDT Office Visit [facility] Oncology and Hematology - Reji [address] [place] [address] Quique Khalil MD Chronic anemia (Primary [...] Healthy Daughter Heike Heart Disease Mother Christina OR x 1 Stroke Mother Christina silent Healthy [...] on file Legal Sex Female 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 SUPERVISOR Gender Identity Not on file Sexual [...] 11:10 AM CDT Height 170.2 cm (5' 7) 11/02/2024 11:1 0 AM CDT Body Mass Index 24.37 11/02/2024 11:10 AM CDT Plan of Treatment Upcoming Encounters Date Type Department Care Team (Late st Contact Info) Description 04/18/2025 3:45 PM CDT Office Visit [facility] Oncology and Hematology [facility] [address] [facility] [address] [place] [address] Quique Khalil MD [address] [facility] [address] [place] [address] Health Maintenance Due Date Last Done Comments DIABETES ANNUAL FOOT EXAM 1968 ZOSTER VACCINE (2 of 3) 08/30/2014 07/05/2014 DIABETES MICROALBUMIN ANNUAL SCREEN 06/14/2019 06/14/2018, 09/18/2016, 03/20/2016, Additional history exists PNEUMOCOCCAL VACCINE 50+ YEA RS (3 of 3 - PCV20 or PCV21) 10/04/2019 10/03/2014, 09/16/2011 OSTEOPOROSIS SCREENING 09/30/2020 10/01/2015, 2015 LDL CHOLESTEROL ANNUAL 11/29/2020 , 06/14/2018, 09/18/2016, Additional history exists DIABETES ANNUAL RETINAL EXAM 08/07/202109/2020, 06/14/2020, 06/14/2020, Additional history exists DTAP/TDAP/TD VACCINES (2 - T d or Tdap) 10/20/2021 10/21/2011 RSV VACCINE (60+ or ) (1 - 1-dose 75+ series) 01/09/2024 COVID-19 Vaccine (3 - 2023-2 5 season) 2024 10/28/2020, 10/08/2020 DIABETES HBA1C Q 6 MONTHS 06/27/20242023, 12/26/2023, 04/18/2020, Additional history exists INFLUENZA VACCINE (#1) 2025 , 04/29/2018, 05/04/2017, Additional history exists COLORECTAL SCREENING Discontinued 12/27/2019, 10/01/19 10 Colorectal Cancer Screening Discontinued FIT-DNA Q 3 years Discontinued FIT/FOBT Q 1 year Discontinued Flex Sig/CT Colonography Q 5 years Discontinued Procedures Procedure Name Priority Date/Time Associated Diagnosis Comments TRANSFERRIN RECEPTOR TFR SOLUBLE Routine 11/02/2024 3:12 PM CDT PARIETAL CELL ANTIBODY Routine 11/02/2024 2:39 PM CDT INTRINSIC FACTOR BLOCKING ANTIBODY Routine 11/02/2024 1:54 PM CDT IRON LEVEL Routine 11/02/2024 1:17 PM CDT HM DIABETES EYE EXAM Routine 12/12/2019 LIPID PANEL Routine 11/30/2019 12:13 PM CDT Type 2 diabetes mellitus with other diabetic kidney complication, without long-term current use of insulin (CMS/HCC) HEMOGLOBIN A1C Routine 11/30/2019 12:13 PM CDT Type 2 diabetes mellitus with other diabetic kidney complication, without long-term current use of insulin (CMS/HCC) MICROALBUMIN/CREATIN INE RATIO, RANDOM UR Routine 06/14/2018 2:19 AM BAKERY SUPERVISOR Type 2 diabetes mellitus with complication, without long-term current use of insulin (CMS/HCC) XR DEXA BONE DENSITY AXIAL 1 OR MORE SITES Routine 10/01/2015 9:00 AM CDT Menopausal syndrome from Last 3 Months or Most Recently Relevant to Health Maintenance Results * TRANSFERRIN RECEPTOR TFR SOLUBLE (11/02/2024 3:12 PM CDT) Blood Quique Khalil MD CHEMISTRY ORDERABLES Final Resu lt * PARIETAL CELL ANTIBODY (11/02/2024 2:39 PM CDT) Blood Quique Khalil MD CHEMISTRY ORDERABLES Final Resu lt * INTRINSIC FACTOR BLOCKING ANTIBODY (11/02/2024 1:54 PM CDT) Blood Quique Khalil MD CHEMISTRY ORDERABLES Final Resu lt * IRON LEVEL (11/02/2024 1:17 PM CDT) Blood Result [facility] Quique Khalil MD CHEMISTRY ORDERABLES Final Resu lt * HM DIABETES EYE EXAM (12/12/2019) Abstract Provider HEALTH MAINTENANCE Edited Resu lt - Final [facility] CLIA# [id number] [address] [place] [address], [facility] [address] [place] [address] * (ABNORMAL) HEMOGLOBIN A1C (11/30/2019 12:13 PM CDT) HEMOGLOBIN A1C 5.9(H) <5.7 % 11/30/2019 4:00 PM CDT [facility] EST. AVG GLUCOSE, A1C 123 mg/dL 11/30/2019 4:00 PM CDT [facility] Blood Venipuncture / Unknown 11/30/2019 12:13 PM CDT 11/30/2019 12:13 PM CDT Narrative [facility] - 11/30/2019 4:00 PM CDT HGB A1C INTERPRETATION NORMAL: <5.7% PRE-DIABETES: 5.7 - 6.4% DIABETES: 6.5% OR GREATER Yasmeen Garcia MD CHEMISTRY ORDERABLES Final Res ult [facility]# [id number] [address] [place] [address] * (ABNORMAL) LIPID PANEL (11/30/2019 12:13 PM CDT) CHOLESTEROL 145 <200 mg/dL 11/30/2019 4:37 PM CDT [facility] TRIGLYCERIDE 76 <150 mg/dL 11/30/2019 4:37 PM CDT [facility] [employer] [facility] HDL 69(H) 40 - 59 mg/dL 11/30/2019 4:37 PM CDT [facility] [employer] [facility] LDL CALCULATED 61 <100 mg/dL 11/30/2019 4:37 PM CDT [facility] [employer] [facility] NON-HDL CHOLESTEROL 76 <130 mg/dL 11/30/2019 4:37 PM T [facility] [employer] [facility] Blood Venipuncture / Unknown 11/30/2019 12:13 PM CDT 11/30/2019 12:13 PM CDT Narrative [facility] - 11/30/2019 4:37 PM CDT TOTAL CHOLESTEROL [...] MD CHEMISTRY ORDERABLES Final Res ult [facility] CLIA# [id number] [address] [place] [address] * MICROALBUMIN/CREATININE RATIO, RANDOM UR (06/14/2018 2:19 AM BAKERY SUPERVISOR) Creatinine, Urine 128 20 - 275 mg/dL [facility] [employer] [facility] MICROALBUMIN, URINE 0.4 See Note: mg/dL [facility] Comment: Reference Range: Reference Range Not established MICROALBUMIN/CREAT RATIO, UR 3 <30 mcg/mg creat [facility] Comment: The ADA defines abnormalities in albumin excretion as follows: Category Result (mcg/mg creatinine) Normal <30 Microalbuminuria 30-299 Clinical albuminuria > OR = 300 The ADA recommends that at least two of three specimens collected within a 3-6 month period be abnormal before considering a patient to be within a diagnostic category. Test Performed at: [facility] [address] [place] [address] Jens Aguilar D.O., MPH Urine URINE SPECIMEN OBTAINED BY CLEAN CATCH PROCEDURE / Unknown 06/14/2018 2:19 AM BAKERY SUPERVISOR Chary Hardin MD URINE ORDERABLES Edited Result - Final Performing Organization Address [facility] Co de Phone Number [employer] [facility] [address] [place] [address] * XR DEXA BONE DENSITY AXIAL 1 [...] Rivera DO DICTATION LOCATION: Location 1 - [facility] 10/01/2015 9:27 AM CDT XR DEXA BONE DENSITY AXIAL 1 OR MORE SITES DATE: 10/01/2015 9:00 AM HISTORY: 65 years old Female with post menopausal symptoms. PROCEDURE: Planar images of the lumbar spine and hip(s) using a LUNAR DEXA scanner for bone mineral density determination (BMD). FINDINGS: Lumbar Spine (L1-L4) 1.171 gm/cm2, T-score: -0.1 Left femoral neck 0.780 gm/cm2, T-score: -1.9 Right femoral neck 0.780 gm/cm2, T-score: -1.9 Comments: None Detailed report placed in Imaging Section of [employer]. Procedure Note Cristhian Rivera DO - 10/01/2015 XR DEXA BONE DENSITY AXIAL 1 OR MORE SITES DATE: 10/01/2015 9:00 AM HISTORY: 65 years old Female with post menopausal symptoms. PROCEDURE: Planar images of the lumbar spine and hip(s) using a LUNAR DEXA scanner for bone mineral density determination (BMD). FINDINGS: Lumbar Spine (L1-L4) 1.171 gm/cm2, T-score: -0.1 Left femoral neck 0.780 gm/cm2, T-score: -1.9 Right femoral neck 0.780 gm/cm2, T-score: -1.9 Comments: None Detailed report placed in Imaging Section of [employer] EMR. IMPRESSION IMPRESSION: Osteopenic BMD. Lumbar Spine [...] years thereafter Dictated by Dr. Cristhian Rivera, DICTATION LOCATION: Location 1 - [facility] Patricia Krueger MD DIAGNOSTIC IMAGING ORDERABLES F inal Result from Last 3 Months or Most Recently Relevant to Health Maintenance Insurance MEDICARE PART A AND B [employer]ET[employer] MEDICARE SUPP AESSI [facility] Advance Directives For more information, please contact: [phone] Documents on File Type Date Recorded Patient Manager Database Expl anation Advance Directive POA 10/03/2014 12:00 [...] 7:06 AM 10/01/2009 2:01 AM Care Teams Retail Route Supervisor Relationship Specialty Start Date End Date Silvia Quinonez MD [address] [place] [phone] PCP - General Family Practice 11/02/24 No DME 09/02/15
--- OUTSIDE RECORDS SUMMARY | 2025-01-15 10:48 | XMS_ITS | Encounter Summary ---
Author Organization [facility] Address 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 Gender Identity Not on file Sexual Orientation Not on file documented as of this encounter Plan of Treatment Upcoming Encounters Date Type Department Care Team (Late st Contact Info) Description 04/18/2025 3:45 PM CDT Office Visit [facility] Oncology and Hematology - Reji [address] [facility] [address] [place] [address] Quique Khalil MD [address] [facility] [address] [place] [address] documented as of this encounter Visit Diagnoses Diagnosis Other screening mammogram- Primary documented in this encounter Care Teams Director Loan Relationship Specialty Start Date End Date Silvia Quinonez MD [address] [place] [phone] PCP - General Family Practice 11/02/24 No DME 09/02/15 documented as of this encounter
--- OUTSIDE RECORDS SUMMARY | 2025-01-15 10:48 | XMS_ITS | Encounter Summary ---
Author Organization [facility] Address 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 Gender Identity Not on file Sexual Orientation Not on file documented as of this encounter Plan of Treatment Upcoming Encounters Date Type Department Care Team (Late st Contact Info) Description 04/18/2025 3:45 PM CDT Office Visit [facility] Oncology and Hematology - Reji [address] [facility] [address] [place] [address] Quique Khalil MD [address] [facility] [address] [place] [address] documented as of this encounter Visit Diagnoses Diagnosis Localized superficial swelling, mass, or lump- Primary documented in this encounter Care Teams Staffing Program Manager Relationship Specialty Start Date End Date Silvia Quinonez MD [address] [place] [phone] PCP - General Family Practice 11/02/24 No DME 09/02/15 documented as of this encounter
--- OUTSIDE RECORDS SUMMARY | 2025-01-15 10:48 | XMS_ITS | Encounter Summary ---
Author Organization [facility] Address [address] [place] [address] Care Team Providers Care Can Closing Machine Tender Name Role Phone Silvia Quinonez MD Primary Care Provider [phone] Encounter Details Date Type Department Care Team (Late Contact Info) Description 04/23/2003 Outpatient Historical Division of Neurology [address] [facility] [address] [place] [address] Tiffanie Marquez MD [address] [facility] [address] [place] [address] Social History Tobacco Use Types Packs/Day Years Used Date Smoking Tobacco: Never Assessed Comments Unknown Sex and Gender Information Value Date Recorded Sex Assigned at Not on file 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 Oncology and Hematology - Reji [address] [facility] [address] [place] [address] Quique Khalil MD [address] [facility] [address] [place] [address] documented as of this encounter Visit Diagnoses Not on filedocumented in this encounter Care Teams Can Closing Machine Tender Relationship Specialty Start Date End Date Silvia Quinonez MD [address] [place] [address] PCP - General Family Practice 11/02/24 No DME 09/02/15 documented as of this encounter
--- OUTSIDE RECORDS SUMMARY | 2025-01-15 10:48 | XMS_ITS | Encounter Summary ---
Author Organization [facility] Address [address] [place] [address] Care Team Providers Care Green Chain Offbearer Name Role Phone Silvia Quinonez MD Primary Care Provider [phone] Encounter Details Date Type Department Care Team (Late Contact Info) Description 06/15/2007 Outpatient Historical [facility] [place] [address] [place] [phone] Sam Machaod MD 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 Gender Identity Not on file Sexual Orientation Not on file documented as of this encounter Plan of Treatment Upcoming Encounters Date Type Department Care Team (Late st Contact Info) Description 04/18/2025 3:45 PM CDT Office Visit [facility] Oncology and Hematology - Reji [address] [facility] [address] [place] [address] Quique Khalil MD [address] [facility] [address] [place] [address] documented as of this encounter Visit Diagnoses Not on filedocumented in this encounter Care Teams Green Chain Offbearer Relationship Specialty Start Date End Date Silvia Quinonez MD [address] [place] [address] PCP - General Family Practice 11/02/24 No DME 09/02/15 documented as of this encounter
--- OUTSIDE RECORDS SUMMARY | 2025-01-15 10:48 | XMS_ITS | Encounter Summary ---
Author Organization [facility] Address [address] [place] [address] Care Team Providers Care New Vehicle Sales Consultant Name Role Phone Silvia Quinonez MD Primary Care Provider [phone] Encounter Details Date Type Department Care Team (Latest Contact Info) Description 11/18/2004 Inpatient Historical [facility] INPATIENT IN BED Sam Machado MD 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 Gender Identity Not on file Sexual Orientation Not on file documented as of this encounter Plan of Treatment Upcoming Encounters Date Type Department Care Team (Late st Contact Info) Description 04/18/2025 3:45 PM CDT Office Visit [facility] Oncology and Hematology - Reji [address] [facility] [address] [place] [address] Quique Khalil MD [address] [facility] [address] [place] [address] documented as of this encounter [...] INTERFACE SYSTEM 11/19/2004 5:15 AM CDT us Sma Machado MD HEMATOLOGY ORDERABLES Final Re sult Performing Organization Address [facility] Phone Number INTERFACE SYSTEM Refer to clinic/hospital department * POC GLUCOSE (11/18/2004 8:25 AM CDT) GLUCOSE POC 84 65 - 115 mg/dL INTERFACE SYSTEM 11/18/2004 8:25 AM CDT us Sam Machado MD POINT OF CARE TESTING Final Re sult Performing Organization Address [facility] Number INTERFACE SYSTEM Refer to clinic/hospital department [...] URINE ORDERABLES Final Result Performing Organization Address [facility] Phone Number INTERFACE SYSTEM Refer to clinic/hospital [...] ORDERABLES Final Res ult Performing Organization Address [facility] de Phone Number INTERFACE SYSTEM [...] ORDERABLES Final Re sult Performing Organization Address [facility] de Phone Number INTERFACE SYSTEM [...] Primary documented in this encounter Care Teams New Vehicle Sales Consultant Relationship Specialty Start Date End Date Silvia Quinonez MD [address] [place] [address] PCP - General Family Practice 11/02/24 No DME 09/02/15 documented as of this encounter
--- OUTSIDE RECORDS SUMMARY | 2025-01-15 10:48 | XMS_ITS | Encounter Summary ---
Author Organization [facility] Address [address] [place] [address] Care Team Providers Care Pocket And Pulley Machine Operator Name Role Phone Silvia Quinonez MD Primary Care Provider [phone] Encounter Details Date Type Department Care Team (Late Contact Info) Description 06/10/2006 Outpatient Historical [facility] [place] [address] [place] [address] Sam Machado MD 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 Gender Identity Not on file Sexual Orientation Not on file documented as of this encounter Plan of Treatment Upcoming Encounters Date Type Department Care Team (Late st Contact Info) Description 04/18/2025 3:45 PM CDT Office Visit [facility] Oncology and Hematology - Re[facility] [address] [facility] [address] [place] [address] Quique Khalil MD [address] [facility] [address] [place] [address] documented as of this encounter Visit Diagnoses Not on filedocumented in this encounter Care Teams Pocket And Pulley Machine Operator Relationship Specialty Start Date End Date Silvia Quinonez MD [address] [place] [address] PCP - General Family Practice 11/02/24 No DME 09/02/15 documented as of this encounter
--- OUTSIDE RECORDS SUMMARY | 2025-01-15 10:48 | XMS_ITS | Encounter Summary ---
Author Organization [facility] Address [address] [place] [address] Care Team Providers Care Alum Plant Supervisor Name Role Phone Silvia Quinonez MD Primary Care Provider [phone] Encounter Details Date Type Department Care Team (Late Contact Info) Description 11/18/2004 Outpatient Historical [facility] [place] [address] [place] [phone] Sam Machado MD 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 Gender Identity Not on file Sexual Orientation Not on file documented as of this encounter Plan of Treatment Upcoming Encounters Date Type Department Care Team (Late st Contact Info) Description 04/18/2025 3:45 PM CDT Office Visit [facility] Oncology and Hematology - Reji [address] [facility] [address] [place] [address] Quique Khalil MD [address] [facility] [address] [place] [address] documented as of this encounter Visit Diagnoses Not on filedocumented in this encounter Care Teams Alum Plant Supervisor Relationship Specialty Start Date End Date Silvia Quinonez MD [address] [place] [address] PCP - General Family Practice 11/02/24 No DME 09/02/15 documented as of this encounter
--- OUTSIDE RECORDS SUMMARY | 2025-01-15 10:48 | XMS_ITS | Encounter Summary ---
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 Gender Identity Not on file Sexual Orientation Not on file documented as of this encounter Plan of Treatment Upcoming Encounters Date Type Department Care Team (Late st Contact Info) Description 04/18/2025 3:45 PM CDT [facility] Oncology and Hematology - Reji [address] [facility] [address] [place] [address] Quique Khalil MD [address] [facility] [address] [place] [address] documented as of this encounter Visit Diagnoses Not on filedocumented in this encounter Care Teams Furniture Duster Relationship Specialty Start Date End Date Silvia Quinonez MD [address] [place] [address] PCP - General Family Practice 11/02/24 No DME 09/02/15 documented as of this encounter
--- OUTSIDE RECORDS SUMMARY | 2025-01-15 10:48 | XMS_ITS | Encounter Summary ---
Author Organization [facility] Address [address] [place] [address] Care Team Providers Care Bag Patcher Name Role Phone Silvia Quinonez MD Primary Care Provider [phone] Encounter Details Date Type Department Care Team (Latest Contact Info) Description 06/10/2001 Outpatient Historical [facility] EM[facility]GENCY [facility] W[facility] Duc Molina MD [address] [place] [address] [place] [address] CRAMP IN LIMB (Primary Dx) Social History Tobacco Use Types Packs/Day Years Used Date Smoking Tobacco: Never Assessed Comments Unknown Sex and Gender Information Value Date Recorded Sex Assigned at Not on file Legal Sex Female 3:05 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 Gender Identity Not on file Sexual Orientation Not on file documented as of this encounter Plan of Treatment Upcoming Encounters Date Type Department Care Team (Late st Contact Info) Description 04/18/2025 3:45 PM CDT Office Visit [facility] Oncology and Hematology - Reji [address] [facility] 200 [place] [address] Quique Khalil MD [address] [facility] [address] [place] [address] documented as of this encounter Visit Diagnoses Diagnosis Cramp of limb- Primary documented in this encounter Care Teams Bag Patcher Relationship Specialty Start Date End Date Silvai Quinonez MD [address] [place] [phone] PCP - General Family Practice 11/02/24 No DME 09/02/15 documented as of this encounter
--- OUTSIDE RECORDS SUMMARY | 2025-01-15 10:48 | XMS_ITS | Encounter Summary ---
Author Organization [facility] Address [address] [place] [address] Care Team Providers Care Research Methods Instructor Name Role Phone Silvia Quinonez MD Primary Care Provider [phone] Encounter Details Date Type Department Care Team (Late Contact Info) Description 10/08/2004 Outpatient Historical [facility] [place] [address] [place] [address] Sam Machado MD 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 Gender Identity Not on file Sexual Orientation Not on file documented as of this encounter Plan of Treatment Upcoming Encounters Date Type Department Care Team (Late st Contact Info) Description 04/18/2025 3:45 PM CDT Office Visit [facility] Oncology and Hematology - Reji [address] [facility] 200 [place] [address] Quique Khalil MD [address] [facility] [address] [place] [address] documented as of this encounter Visit Diagnoses Not on filedocumented in this encounter Care Teams Research Methods Instructor Relationship Specialty Start Date End Date Silvia Quinonez MD [address] [place] [address] PCP - General Family Practice 11/02/24 No DME 09/02/15 documented as of this encounter
--- OUTSIDE RECORDS SUMMARY | 2025-01-15 10:48 | XMS_ITS | Encounter Summary ---
Author Organization [facility] Address 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 Gender Identity Not on file Sexual Orientation Not on file documented as of this encounter Plan of Treatment Upcoming Encounters Date Type Department Care Team (Late st Contact Info) Description 04/18/2025 3:45 PM CDT [facility] Visit [facility] Oncology and Hematology - Reji [address] [facility] 200 [place] [address] Quique Khalil MD [address] [facility] [address] [place] [address] documented as of this encounter Visit Diagnoses Diagnosis Abdominal pain, right upper quadrant- Primary documented in this encounter Care Teams Senior Engineering Technician Relationship Specialty Start Date End Date Silvia Quinonez MD [address] [place] [phone] PCP - General Family Practice 11/02/24 No DME 09/02/15 documented as of this encounter
--- OUTSIDE RECORDS SUMMARY | 2025-01-15 10:48 | XMS_ITS | Encounter Summary ---
Author Organization [facility] Address 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 200 [place] [address] Quique Khalil MD [address] [facility] [address] [place] [address] documented as of this encounter Visit Diagnoses Diagnosis Nonspecific abnormal electromyogram (EMG)- Primary documented in this encounter Care Teams Funeral Car Chauffeur Relationship Specialty Start Date End Date Silvia Quinonez MD [address] [place] [phone] PCP - General Family Practice 11/02/24 No DME 09/02/15 documented as of this encounter
--- OUTSIDE RECORDS SUMMARY | 2025-01-15 10:48 | XMS_ITS | Encounter Summary ---
Author Organization [facility] Address 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 Gender Identity Not on file Sexual Orientation Not on file documented as of this encounter Plan of Treatment Upcoming Encounters Date Type Department Care Team (Late st Contact Info) Description 04/18/2025 3:45 PM CDT Office Visit [facility] Oncology and Hematology - [place] [address] [place] [address] [facility] 200 [place] [address] Quique Khalil MD [address] [facility] [address] [place] [address] documented as of this encounter Visit Diagnoses Not on filedocumented in this encounter Care Teams Diesel Maintenance Technician Relationship Specialty Start Date End Date Silvia Quinonez MD [address] [place] [phone] PCP - General Family Practice 11/02/24 No DME 09/02/15 documented as of this encounter
--- OUTSIDE RECORDS SUMMARY | 2025-01-15 10:48 | XMS_ITS | Encounter Summary ---
Author Organization [facility] Address [address] [place] [address] Care Team Providers Care Map Compiler Name Role Phone Silvia Quinonez MD Primary Care Provider [phone] Encounter Details Date Type Department Care Team (Latest Contact Info) Description 07/31/2008 Outpatient Historical [facility] Loco Starr MD [address] [place] [address] [address] [place] [address] Jayce Orellana MD [address] [facility] [address] [place] [address] Other and Unspecified Angina Pectoris Social History Tobacco Use Types Packs/Day Years Used Date Smoking Tobacco: Never Assessed Comments Unknown Sex and Gender Information Value Date Recorded Sex Assigned at Not on file 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 Gender Identity Not on file Sexual Orientation Not on file documented as of this encounter Plan of Treatment Upcoming Encounters Date Type Department Care Team (Late st Contact Info) Description 04/18/2025 3:45 PM CDT Office Visit [facility] Oncology and Hematology - Reji [address] [facility] 200 [place] [address] Quique Khalil MD [address] [facility] [address] [place] [address] documented as of this encounter Visit Diagnoses Diagnosis Other and unspecified angina pectoris documented in this encounter Care Teams Map Compiler Relationship Specialty Start Date End Date Silvia Quinonez MD [address] [place] [address] PCP - General Family Practice 11/02/24 No DME 09/02/15 documented as of this encounter
--- OUTSIDE RECORDS SUMMARY | 2025-01-15 10:48 | XMS_ITS | Encounter Summary ---
Author Organization [facility] Address [address] [place] [address] Care Team Providers Care Pin Pusher Name Role Phone Silvia Quinonez MD Primary Care Provider [phone] Encounter Details Date Type Department Care Team (Late st Contact Info) Description 11/10/2004 Outpatient Historical [facility] 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 Gender Identity Not on file Sexual Orientation Not on file documented as of this encounter Plan of Treatment Upcoming Encounters Date Type Department Care Team (Late st Contact Info) Description 04/18/2025 3:45 PM CDT Office Visit [facility] Oncology and Hematology - [place] [address] [place] [address] [facility] [address] [place] [address] [place] [address] [place] [address] [address] [place] [address] documented as of this encounter Visit Diagnoses Not on filedocumented in this encounter Care Teams Pin Pusher Relationship Specialty Start Date End Date Silvia Quinonez MD [address] [place] [phone] PCP - General Family Practice 11/02/24 No DME 09/02/15 documented as of this encounter
--- OUTSIDE RECORDS SUMMARY | 2025-01-15 10:48 | XMS_ITS | Referral Summary ---
Author Organization [facility] Address [address] [place] [address] Care Team Providers Care Irrigation Equipment Installer Name Role Phone Silvia Quinonez MD Primary Care Provider [phone] Silvia Quinonez MD Unavailable [phone] Allergies Active Allergy Reactions Criticality Noted Date Comments Amlodipine Fatigue Low 03/23/2012 Excessive fatigue Other Unknown 05/22/2009 SURGICAL MESH Medications calcium carbonate (CALCIUM 500 ORAL) Active cholecalciferol (VITAMIN D-3) 81123 unit tablet once a week 3 Active [...] 3 (three) times a day 4 Active lidocaine (ASPERCREME) 4 % adhesive patch,medicated [...] Tobacco: Never Tobacco Cessation:Counseling Given: Not Answered [facility] Utilities Answer Date Recorded In the past 12 months has e [employer], oil, or water [employer] threatened to shut off services in your [...] often do you attend chur ch or taoist services? More than 4 times per year 12/23/2023 Do you belong to any clubs o r organizations such as yarsani groups, unions, fraternal or athletic groups, or [...] and heating? 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 Gender Identity Female 12/16/2020 9:45 PM CDT [...] P M CDT Height 170.2 cm (5' 7.01) 12/28/2023 11:05 AM C DT Body Mass Index 25.73 12/28/2023 11:05 AM CDT Plan of Treatment Not on file Medical Devices Implanted Type Area Ship Wirer Device Identifier Shelf Expiration Date Model / Serial / Lot [employer] Screw Bone 5mm 80mm Lock Strl [id number] - [id number] Implanted:Qty: 1 on 12/23/2023 by Dave Rosas MD at [facility] Screw Left: Femur [employer] [id number] 10/02/2033 5255-4736 S / / [id number] [employer] Screw Bone 5mm 70mm Lock Strl 23615070s - [id number] Implanted:Qty: 1 on 12/23/2023 by Dave Rosas MD at [facility] Screw Left: Femur [employer] [id number] 11/01/2033 7004-1726 S / / [id number] [employer] Screw Bone Locking Cannulated Tibial Oversized Thread Black T2 Alpha 5.0x85mm Titanium 23615085s - [id number] Implanted:Qty: 1 on 12/23/2023 by Dave Rosas MD at [facility] Screw Left: Femur [employer] [id number] 10/02/2033 9535-1473 S / / [id number] [employer] Screw Bone 5mm 37.5mm T2 Alpha Lock Strl 2360-5037s - [id number] Implanted:Qty: 1 on 12/23/2023 by Dave Rosas MD at [facility] Screw Left: Femur [employer] [id number] 11/01/2033 5358-0453 S / / [id number] [employer] Screw Bone 5mm 40mm T2 Alpha Lock Strl 2360-5040s - [id number] Implanted:Qty: 1 on 12/23/2023 by Dave Rosas MD at [facility] Screw Left: Femur [employer] [id number] 11/01/2033 5388-3824 S / / [id number] [employer] Screw Bone 5mm 42.5mm T2 Alpha Lock Strl 2360-5042s - [id number] Implanted:Qty: 1 on 12/23/2023 by Dave Rosas MD at [facility] Screw Left: Femur [employer] [id number] 10/02/2030 8215-1812 S / / [id number] Synthes Plate Bone Compression Locking Low Profile 18 Hole Left Va Lcp 4.2v071uo Ss 02.124.419s - [id number] Implanted:Qty: 1 on 12/23/2023 by Dave Rosas MD at [facility] Left: Femur [employer]ynthes 02.124.41 9S / / [employer] Nail Intramedullary Femoral Retrograde T2 Alpha [id number] Titanium 2339-1124s - [id number] Implanted:Qty: 1 on 12/23/2023 by Dave Rosas MD at [facility] Left: Femur [employer] 07/04/2033 1348-2100 S / / [id number] Synthes 5mm 36mm Variable Angle Self Tap Lock Stardrive Condylar T25 02.231.236 - [id number] Implanted:Qty: 1 on 12/23/2023 by Dave Rosas MD at [facility] Left: Femur [employer]ynthe[employer] I 02.231.23 6 / / Synthes 4.5mm 8mm 36mm Self Tap Large Hexagonal Socket Cortex Screw Bone 214.836 - [id number] Implanted:Qty: 1 on 12/23/2023 by Dave Rosas MD at [facility] Left: Femur [employer]ynthe[employer] I 214.836 / / Synthes 5mm 80mm Variable Angle Self Tap Lock [employer] Condylar T25 02.231.280 - [id number] Implanted:Qty: 2 on 12/23/2023 by Dave Rosas MD at [facility] Left: Femur Synthes 02.231.28 0 / / Synthes 5mm 85mm Variable Angle Self Tap Lock [employer] Condylar T25 02.231.285 - [id number] Implanted:Qty: 2 on 12/23/2023 by Dave Rosas MD at [facility] Left: Femur [employer]ynthes I 02.231.28 5 / / Synthes 4.5mm 8mm 100mm Self Tap Large Hexagonal Socket Cortical Screw 214.900 - [id number] Implanted:Qty: 1 on 12/23/2023 by Dave Rosas MD at [facility] Left: Femur Synthes I 214.900 / / Synthes 5mm 38mm Variable Angle Self Tap Lock [employer] Condylar T25 .231.238 - [id number] Implanted:Qty: 1 on 12/23/2023 by Dave Rosas MD at [facility] Left: Femur Synthes I 02.231.23 8 / / Synthes 5mm 40mm Variable Angle Self Tap Lock [employer] Condylar T25 .231.240 - [id number] Implanted:Qty: 1 on 12/23/2023 by Dave Rosas MD at [facility] Left: Femur [employer]ynthes I 231.24 0 / / Explanted Type Area Ship Wirer Device Identifier Shelf Expiration Date Model / Serial / Lot [employer] Nail Intramedullary Femoral Retrograde T2 Alpha [id number] Titanium 2339-1122s - [id number] Explanted:Qty: 1 on 12/23/2023 by Dave Rosas MD at [facility] Left: Femur [employer] 07/04/2033 2894-4269 S / / [id number] Procedures Procedure Name Priority Date/Time Associated Diagnosis [...] BLOOD ORDERABLES Final Result Performing Organization Address [facility] Co de Phone Number [facility] [place] [address] * Hemoglobin A1c (12/26/2023 10:39 PM CDT) [facility] Hgb A1C 5.5 4.0 - 5.6 % Estimated Average Glucose 111 mg/dL [facility] Comment: The ADA recommends reporting an estimated [...] BLOOD ORDERABLES Final Result Performing Organization Address City/[facility] Co de Phone Number [facility] [place] [address] * BONE MINERAL DENSITY (07/07/2012) Anatomical Region Laterality Modality Radiographic Bonnie ging Narrative 07/07/2012 Ordered by an unspecified provider. us Historical Provider MD CAVAZOS DXA PROCEDURES Final Result from Last 3 Months or Most Recently Relevant to Health Maintenance Insurance TNA MEDICARE GOLD MEDICARE T SENIOR SUPPLEMENT AETNA MEDICARE GOLD AETNA MEDICARE [facility] Advance Directives For more information, please contact: [phone] * Full Code (Latest Code Status on [...] 1:45 PM 12/23/2023 2:10 PM Care Teams Irrigation Equipment Installer Relationship Specialty Start Date End Date Silvia Quinonez MD PCP - General Family Medicine 12/23/23 Silvia Quinonez MD Family Medicine 12/23/23
--- OUTSIDE RECORDS SUMMARY | 2025-01-15 10:48 | XMS_ITS | Encounter Summary ---
Author Organization [facility] Address 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 Gender Identity Not on file Sexual Orientation Not on file documented as of this encounter Plan of Treatment Upcoming Encounters Date Type Department Care Team (Late st Contact Info) Description 04/18/2025 3:45 PM CDT Office Visit [facility] Oncology and Hematology - Reji [address] [facility] [address] [place] [address] Quique Khalil MD [address] [facility] [address] [place] [address] documented as of this encounter Visit Diagnoses Diagnosis Other screening mammogram- Primary documented in this encounter Care Teams Truck Headlight Assembler Relationship Specialty Start Date End Date Silvia Quinonez MD [address] [place] [phone] PCP - General Family Practice 11/02/24 No DME 09/02/15 documented as of this encounter
--- OUTSIDE RECORDS SUMMARY | 2025-01-15 10:48 | XMS_ITS | Clinical Summary ---
Author Organization [facility] Address [address] [place] [address] Care Team Providers Care Fire Fighting Equipment Specialist Name Role Phone Silvia Quinonez MD Primary Care Provider [phone] Silvia Quinonez MD Unavailable [phone] Allergies Active Allergy Reactions Criticality Noted Date Comments Amlodipine Fatigue Low 03/23/2012 Excessive fatigue Other Unknown 05/22/2009 SURGICAL MESH Medications calcium carbonate (CALCIUM 500 ORAL) Active cholecalciferol (VITAMIN D-3) 77131 unit tablet once a week 3 Active [...] Tobacco: Never Tobacco Cessation:Counseling Given: Not Answered [facility] Utilities Answer Date Recorded In the past 12 months has th e [employer], gas, oil, or water [employer] threatened to shut off services in your [...] 12/23/2023 How often do you attend chur or latter day services? More than 4 times per year 12/23/2023 Do you belong to any clubs o r organizations such as restoration groups, unions, fraternal or athletic groups, or [...] and heating? Not hard at all 12/23/2023 [facility] - Occupational Stress [...] money to buy more. 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 Gender Identity Female 12/16/2020 9:45 PM CDT [...] Done Comments Albumin Creatinine Ratio, Urine 1950 Depression Screening 1950 Hepatitis C Screening [...] Fall Risk Assessment 12/28/2024 12/29/2023 Influenza Vaccine (#1) 2025 , 04/29/2018, 05/04/2017, Additional history exists Medical Devices Implanted Type Area Preparation Supervisor Freezing Device Identifier Shelf Expiration Date Model / Serial / Lot [employer] Screw Bone 5mm 80mm Lock Strl 7102-9161s - [id number] Implanted:Qty: 1 on 12/23/2023 by Dave Rosas MD at [facility] Screw Left: Femur [employer] [id number] 10/02/2033 2670-9584 S / / [id number] [employer] Screw Bone 5mm 70mm Lock Strl 3491-5070s - [id number] Implanted:Qty: 1 on 12/23/2023 by Dave Rosas MD at [facility] Screw Left: Femur [employer] [id number] 11/01/2033 4560-8235 S / / [id number] [employer] Screw Bone Locking Cannulated Tibial Oversized Thread Black T2 Alpha 5.0x85mm Titanium 2361-5085s - [id number] Implanted:Qty: 1 on 12/23/2023 by Dave Rosas MD at [facility] Screw Left: Femur [employer] [id number] 10/02/2033 6036-5460 S / / [id number] [employer] Screw Bone 5mm 37.5mm T2 Alpha Lock Strl 2360-5037s - [id number] Implanted:Qty: 1 on 12/23/2023 by Dave Rosas MD at [facility] Screw Left: Femur [employer] [id number] 11/01/2033 7084-5787 S / / [id number] [employer] Screw Bone 5mm 40mm T2 Alpha Lock Strl 2360-5040s - [id number] Implanted:Qty: 1 on 12/23/2023 by Dave Rosas MD at [facility] Screw Left: Femur [employer] [id number] 11/01/2033 5756-3327 S / / [id number] [employer] Screw Bone 5mm 42.5mm T2 Alpha Lock Strl 2360-5042s - [id number] Implanted:Qty: 1 on 12/23/2023 by Dave Rosas MD at [facility] Screw Left: Femur [employer] [id number] 10/02/2030 7631-8966 S / / [id number] Synthes Plate Bone Compression Locking Low Profile 18 Hole Left Va Lcp 4.7i318ed Ss 02.124.419s - [id number] Implanted:Qty: 1 on 12/23/2023 by Dave Rosas MD at [facility] Left: Femur [employer]s 02.124.41 9S / / [employer] Nail Intramedullary Femoral Retrograde T2 Alpha [id number] Titanium 2339-1124s - [id number] Implanted:Qty: 1 on 12/23/2023 by Dave Rosas MD at [facility] Left: Femur [employer] 07/04/2033 4373-6831 S / / [id number] Synthes 5mm 36mm Variable Angle Self Tap Lock Stardrive Condylar T25 02.231.236 - [id number] Implanted:Qty: 1 on 12/23/2023 by Dave Rosas MD at [facility] Left: Femur Synthes I 02.231.23 6 / / Synthes 4.5mm 8mm 36mm Self Tap Large Hexagonal Socket Cortex Screw Bone 214.836 - [id number] Implanted:Qty: 1 on 12/23/2023 by Dave Rosas MD at [facility] Left: Femur Synthes I 214.836 / / Synthes 5mm 80mm Variable Angle Self Tap Lock [employer] Condylar T25 02.231.280 - [id number] Implanted:Qty: 2 on 12/23/2023 by Dave Rosas MD at [facility] Left: Femur Synthes 02.231.28 0 / / Synthes 5mm 85mm Variable Angle Self Tap Lock [employer] Condylar T25 02.231.285 - [id number] Implanted:Qty: 2 on 12/23/2023 by Dave Rosas MD at [facility] Left: Femur Synthes I 02.231.28 5 / / Synthes 4.5mm 8mm 100mm Self Tap Large Hexagonal Socket Cortical Screw 214.900 - [id number] Implanted:Qty: 1 on 12/23/2023 by Dave Rosas MD at [facility] Left: Femur Synthes I 214.900 / / Synthes 5mm 38mm Variable Angle Self Tap Lock St[employer] Condylar T25 02.231.238 - [id number] Implanted:Qty: 1 on 12/23/2023 by Dave Rosas MD at [facility] Left: Femur Synthes I 02.231.23 8 / / Synthes 5mm 40mm Variable Angle Self Tap Lock St[employer]rive Condylar T25 231.240 - [id number] Implanted:Qty: 1 on 12/23/2023 by Dave Rosas MD at [facility] Left: Femur Synthes I 24 0 / / Explanted Type Area Preparation Supervisor Freezing Device Identifier Shelf Expiration Date Model / Serial / Lot [employer] Nail Intramedullary Femoral Retrograde T2 Alpha [id number] Titanium 2339-1122s - [id number] Explanted:Qty: 1 on 12/23/2023 by Dave Rosas MD at [facility] Left: Femur [employer] 07/04/2033 7424-7354 S / / [id number] Procedures Procedure Name Priority Date/Time Associated Diagnosis [...] BLOOD ORDERABLES Final Result Performing Organization Address [facility] [place] [address] * Hemoglobin A1c (12/26/2023 10:39 PM CDT) Hgb A1C 5.5 4.0 - 5.6 % Estimated Average Glucose 111 mg/dL [facility] Comment: The ADA recommends reporting [...] PM CDT 12/26/2023 11:40 PM CDT Result [facility] Rama Johnson MD LAB BLOOD ORDERABLES Final Result Performing Organization Address [facility] de Phone Number [facility] [employer] [place] [address] * BONE MINERAL DENSITY (07/07/2012) Anatomical Region Laterality Modality Radiographic Bonnie ging Narrative 07/07/2012 Ordered by an unspecified provider. Historical Provider IMG DXA PROCEDURES Final Result from Last 3 Months or Most Recently Relevant to Health Maintenance Insurance [employer] MEDICARE GOLD MEDICARE T SENIOR SUPPLEMENT A[employer] MEDICARE GOLD [id number] [facility] MEDICARE [facility] Advance Directives For more information, please contact: [phone] * Full Code (Latest Code Status on [...] 1:45 PM 12/23/2023 2:10 PM Care Teams Fire Fighting Equipment Specialist Relationship Specialty Start Date End Date Silvia Quinonez MD PCP - General Family Medicine 12/23/23 Silvia Quinonez MD Family Medicine 12/23/23
--- OUTSIDE RECORDS SUMMARY | 2025-01-15 10:48 | XMS_ITS | Encounter Summary ---
Author Organization [facility] Address 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 RISK ASSESSMENT ANALYST Gender Identity Not on file Sexual Orientation Not on file documented as of this encounter Plan of Treatment Upcoming Encounters Date Type Department Care Team (Late st Contact Info) Description 04/18/2025 3:45 PM CDT Office Visit [facility] Oncology and Hematology - Reji [address] [facility] [address] [place] [address] Quique Khalil MD [address] [facility] [address] [place] [address] documented as of this encounter Visit Diagnoses Diagnosis Abdominal pain, unspecified site- Primary documented in this encounter Care Teams Rail Car Driver Relationship Specialty Start Date End Date Silvia Quinonez MD [address] [place] [address] PCP - General Family Practice 11/02/24 No DME 09/02/15 documented as of this encounter
--- OUTSIDE RECORDS SUMMARY | 2025-01-15 10:48 | XMS_ITS | Encounter Summary ---
Author Organization [facility] Address [address] [place] [address] Care Team Providers Care Boathouse Keeper Name Role Phone Silvia Quinonez MD Primary Care Provider [phone] Encounter Details Date Type Department Care Team (Late st Contact Info) Description 10/28/2001 Outpatient Historical [facility] Mary Carmen Cline MD [address] 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 Gender Identity Not on file Sexual Orientation Not on file documented as of this encounter Plan of Treatment Upcoming Encounters Date Type Department Care Team (Late st Contact Info) Description 04/18/2025 3:45 PM CDT Office Visit [facility] Oncology and Hematology - Reji [address] [facility] [address] [place] [address] Quique Khalil MD [address] [facility] [address] [place] [address] documented as of this encounter Visit Diagnoses Diagnosis Unspecified hemorrhoids without mention of complication- Primary documented in this encounter Care Teams Boathouse Keeper Relationship Specialty Start Date End Date Silvia Quinonez MD [address] [place] [phone] PCP - General Family Practice 11/02/24 No DME 09/02/15 documented as of this encounter
--- OUTSIDE RECORDS SUMMARY | 2025-01-15 10:48 | XMS_ITS | Encounter Summary ---
Author Organization [facility] Address [address] [place] [address] Care Team Providers Care Director Of Recruitment Name Role Phone Silvia Quinonez MD Primary Care Provider [phone] Encounter Details Date Type Department Care Team (Late Contact Info) Description 11/10/2004 Outpatient Historical [facility] [place] [address] [place] [id number] Sam Machado MD 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 Gender Identity Not on file Sexual Orientation Not on file documented as of this encounter Plan of Treatment Upcoming Encounters Date Type Department Care Team (Late st Contact Info) Description 04/18/2025 3:45 PM CDT [facility] Oncology and Hematology - Reji [address] [facility] [address] [place] [address] Quique Khalil MD [address] [facility] [address] [place] [address] documented as of this encounter Visit Diagnoses Not on filedocumented in this encounter Care Teams Director Of Recruitment Relationship Specialty Start Date End Date Silvia Quinonez MD [address] [place] [address] PCP - General Family Practice 11/02/24 No DME 09/02/15 documented as of this encounter
--- OUTSIDE RECORDS SUMMARY | 2025-01-15 10:48 | XMS_ITS | Encounter Summary ---
Author Organization [facility] Address 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 Gender Identity Not on file Sexual Orientation Not on file documented as of this encounter Plan of Treatment Upcoming Encounters Date Type Department Care Team (Late st Contact Info) Description 04/18/2025 3:45 PM CDT Office Visit [facility] Oncology and Hematology - Reji [address] [facility] [address] [place] [address] Quique Khalil MD [address] [facility] [address] [place] [address] documented as of this encounter Visit Diagnoses Diagnosis Persistent postoperative fistula, 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
--- OUTSIDE RECORDS SUMMARY | 2025-01-15 10:48 | XMS_ITS | Encounter Summary ---
Author Organization [facility] Address [address] [place] [address] Care Team Providers Care Flight Dynamicist Name Role Phone Silvia Quinonez MD Primary Care Provider [phone] Encounter Details Date Type Department Care Team (Late Contact Info) Description 10/16/2004 Outpatient Historical [facility] [place] [address] [place] [id number] Sam Machado MD 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 [address] [place] [address] documented as of this encounter Visit Diagnoses Not on filedocumented in this encounter Care Teams Flight Dynamicist Relationship Specialty Start Date End Date Silvia Quinonez MD [address] [place] [address] PCP - General Family Practice 11/02/24 No DME 09/02/15 documented as of this encounter
--- OUTSIDE RECORDS SUMMARY | 2025-01-15 10:48 | XMS_ITS | Encounter Summary ---
Author Organization [facility] Address [address] [place] [address] Care Team Providers Care Moderate Needs Teacher Name Role Phone Silvia Quinonez MD Primary Care Provider [phone] Encounter Details Date Type Department Care Team (Latest Contact Info) Description 04/23/2003 Outpatient Historical [facility] [place] Marquez, Tiffanie Barrett MD [address] [facility] [address] [place] [address] OTHER MALAISE AND FATIGUE (Primary Dx) Social History Tobacco Use Types Packs/Day Years Used Date Smoking Tobacco: Never Assessed Comments Unknown Sex and Gender Information Value Date Recorded Sex Assigned at Not on file 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 Gender Identity Not on file Sexual Orientation Not on file documented as of this encounter Plan of Treatment Upcoming Encounters Date Type Department Care Team (Late st Contact Info) Description 04/18/2025 3:45 PM CDT Office Visit [facility] Oncology and Hematology - Reji [address] [facility] [address] [place] [address] Quique Khalil MD [address] [facility] [address] [place] [address] documented as of this encounter Visit Diagnoses Diagnosis Other malaise and fatigue- Primary documented in this encounter Care Teams Moderate Needs Teacher Relationship Specialty Start Date End Date Silvia Quinonez MD [address] [place] [address] PCP - General Family Practice 11/02/24 No DME 09/02/15 documented as of this encounter
--- OUTSIDE RECORDS SUMMARY | 2025-01-15 10:48 | XMS_ITS | Encounter Summary ---
Author Organization [facility] Address [address] [place] [address] Care Team Providers Care Functional Tester Name Role Phone Silvia Quinonez MD Primary Care Provider Encounter Details Date Type Department Care Team (Late Contact Info) Description 11/28/2004 Outpatient Historical [facility] [place] [address] [place] [address] Sam Machado MD 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 Gender Identity Not on file Sexual Orientation Not on file documented as of this encounter Plan of Treatment Upcoming Encounters Date Type Department Care Team (Late st Contact Info) Description 04/18/2025 3:45 PM CDT Office Visit [facility] Oncology and Hematology - Reji [address] [facility] [address] [place] [address] Quique Khalil MD [address] [facility] [address] [place] [address] documented as of this encounter Visit Diagnoses Not on filedocumented in this encounter Care Teams Functional Tester Relationship Specialty Start Date End Date Silvia Quinonez MD [address] [place] [address] PCP - General Family Practice 11/02/24 No DME 09/02/15 documented as of this encounter
--- OUTSIDE RECORDS SUMMARY | 2025-01-15 10:48 | XMS_ITS | Encounter Summary ---
Author Organization [facility] Address 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 Gender Identity Not on file Sexual Orientation Not on file documented as of this encounter Plan of Treatment Upcoming Encounters Date Type Department Care Team (Late st Contact Info) Description 04/18/2025 3:45 PM CDT Office Visit [facility] Oncology and Hematology - Reji [address] [facility] [address] [place] [address] Quique Khalil MD [address] [facility] [address] [place] [address] documented as of this encounter Visit Diagnoses Diagnosis Other screening mammogram- Primary documented in this encounter Care Teams Spiral Winder Relationship Specialty Start Date End Date Silvia Quinonez MD [address] [place] [phone] PCP - General Family Practice 11/02/24 No DME 09/02/15 documented as of this encounter
--- OUTSIDE RECORDS SUMMARY | 2025-01-15 10:48 | XMS_ITS | Encounter Summary ---
Author Organization [facility] Address [address] [place] [address] Care Team Providers Care Tiltrotor Crew Chief Name Role Phone Silvia Quinonez MD Primary Care Provider [phone] Encounter Details Date Type Department Care Team (Late Contact Info) Description 02/21/2003 Outpatient Historical Division of Neurology [address] [facility] [address] [place] [address] Tiffanie Marquez MD [address] 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 Gender Identity Not on file Sexual Orientation Not on file documented as of this encounter Plan of Treatment Upcoming Encounters Date Type Department Care Team (Late st Contact Info) Description 04/18/2025 3:45 PM CDT Office Visit [facility] Oncology and Hematology - Reji [address] [facility] [address] [place] [address] Quique Khalil MD [address] [facility] [address] [place] [address] documented as of this encounter Visit Diagnoses Not on filedocumented in this encounter Care Teams Tiltrotor Crew Chief Relationship Specialty Start Date End Date Silvia Quinonez MD [address] [place] [address] PCP - General Family Practice 11/02/24 No DME 09/02/15 documented as of this encounter
--- OUTSIDE RECORDS SUMMARY | 2025-01-15 10:48 | XMS_ITS | Encounter Summary ---
Author Organization [facility] Address [address] [place] [address] Care Team Providers Care Cash Grain Grower Name Role Phone Silvia Quinonez MD Primary Care Provider [phone] Encounter Details Date Type Department Care Team (Late st Contact Info) Description 10/18/2015 Chart Note [facility] Therapy Services Lara Andersony [address] [place] [address] Tatiana Spaulding Physical Therapist Social History Tobacco Use Types Packs/Day Years Used Date Smoking Tobacco: Former Cigarettes 1 23 1 - 04/04/1986 Smokeless Tobacco: Never Alcohol Use Standard Drinks/Week Comments Yes 0 (1 standard drink = 0.6 oz pur e alcohol) social Comments No Sex and Gender Information Value Date Recorded Sex Assigned at Not on file 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 JOHN Schumacher [facility] [address] [facility], [address] [place] [address] (phone) [phone] (fax) [place] License Number: [id number] documented in this encounter Plan of Treatment Upcoming Encounters Date Type Department Care Team (Late st Contact Info) Description 04/18/2025 3:45 PM CDT Office Visit [facility] Oncology and Hematology - Reji [address] [facility] [address] [place] [address] Quique Khalil MD [address] [facility] [address] [place] [address] documented as of this encounter Visit Diagnoses Not on filedocumented in this encounter Additional Health Concerns Assessment Noted Time PHQ-9 Depression Total Score: 2 09/02/19 16 11:00 AM HOT END OPERATOR documented as of this encounter Care Teams Cash Grain Grower Relationship Specialty Start Date End Date Silvia Quinonez MD [address] [place] [address] PCP - General Family Practice 11/02/24 No DME 09/02/15 documented as of this encounter
--- OUTSIDE RECORDS SUMMARY | 2025-01-15 10:48 | XMS_ITS | Encounter Summary ---
Author Organization [facility] Address [address] [place] [address] Care Team Providers Care Rcis Name Role Phone Silvia Quinonez MD Primary Care Provider [phone] Encounter Details Date Type Department Care Team (Late st Contact Info) Description 08/18/2000 Outpatient Historical [facility] Internal Medicine 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 Gender Identity Not on file Sexual Orientation Not on file documented as of this encounter Plan of Treatment Upcoming Encounters Date Type Department Care Team (Late st Contact Info) Description 04/18/2025 3:45 PM CDT Office Visit [facility] Oncology and Hematology - Reji [address] [facility] [address] [place] [address] Quique Khalil MD [address] [facility] [address] [place] [address] documented as of this encounter Visit Diagnoses Not on filedocumented in this encounter Care Teams Rcis Relationship Specialty Start Date End Date Silvia Quinonez MD [address] [place] [address] PCP - General Family Practice 11/02/24 No DME 09/02/15 documented as of this encounter
--- OUTSIDE RECORDS SUMMARY | 2025-01-15 10:48 | XMS_ITS | Encounter Summary ---
Author Organization [facility] Address [address] [facility] Attn: Epic Prelude ADT [place] [address] Care Team Providers Care Storekeeper Engineering Name Role Phone Silvia Quinonez MD Primary Care Provider [phone] Encounter Details Date Type Department Care Team (Late st Contact Info) Description 08/05/1994 Outpatient Historical Josr Toledo MD NO ADDRESS ON FILE Social History Tobacco Use Types Packs/Day Years Used Date Smoking Tobacco: Never Assessed Comments Unknown Sex and Gender Information Value Date Recorded Sex Assigned at Not on file 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 [address] [place] [address] Quique Khalil MD [address] [facility] [address] [place] [address] documented as of this encounter Visit Diagnoses Not on filedocumented in this encounter Care Teams Storekeeper Engineering Relationship Specialty Start Date End Date Silvia Quinonez MD [address] [place] [address] PCP - General Family Practice 11/02/24 No DME 09/02/15 documented as of this encounter
--- OUTSIDE RECORDS SUMMARY | 2025-01-15 10:48 | XMS_ITS | Encounter Summary ---
Author Organization [facility] Address [address] [place] [address] Care Team Providers Care Automatic Serging Machine Operator Name Role Phone Silvia Quinonez MD Primary Care Provider [phone] Encounter Details Date Type Department Care Team (Latest Contact Info) Description 02/18/2006 Outpatient Historical [facility] Sam Machado MD 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 Gender Identity Not on file Sexual Orientation Not on file documented as of this encounter Plan of Treatment Upcoming Encounters Date Type Department Care Team (Late st Contact Info) Description 04/18/2025 3:45 PM CDT Office Visit [facility] Oncology and Hematology - Reji [address] [facility] [address] [place] [address] Quique Khalil MD [address] [facility] [address] [place] [address] documented as of this encounter Visit Diagnoses Diagnosis Other screening mammogram- Primary documented in this encounter Care Teams Automatic Serging Machine Operator Relationship Specialty Start Date End Date Silvia Quinonez MD [address] [place] [phone] PCP - General Family Practice 11/02/24 No DME 09/02/15 documented as of this encounter
--- OUTSIDE RECORDS SUMMARY | 2025-01-15 10:48 | XMS_ITS | Encounter Summary ---
Author Organization [facility] Address 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 Gender Identity Not on file Sexual Orientation Not on file documented as of this encounter Plan of Treatment Upcoming Encounters Date Type Department Care Team (Late st Contact Info) Description 04/18/2025 3:45 PM CDT Office Visit [facility] Oncology and Hematology - Reji [address] [facility] [address] [place] [address] [place] [address] [place] [address] [address] [place] [address] documented as of this encounter Visit Diagnoses Diagnosis Other screening mammogram- Primary documented in this encounter Care Teams Press Writer Relationship Specialty Start Date End Date Silvia Quinonez MD [address] [place] [phone] PCP - General Family Practice 11/02/24 No DME 09/02/15 documented as of this encounter
--- OUTSIDE RECORDS SUMMARY | 2025-01-15 10:48 | XMS_ITS | Encounter Summary ---
Author Organization [facility] Address [address] [facility] Attn: Epic Prelude ADT [place] [address] Care Team Providers Care Leguillon Debeader Name Role Phone Silvia Quinonez MD Primary Care Provider [phone] Encounter Details Date Type Department Care Team (Late st Contact Info) Description 09/17/1994 Outpatient Historical Josr Toledo MD NO ADDRESS ON FILE Social History Tobacco Use Types Packs/Day Years Used Date Smoking Tobacco: Never Assessed Comments Unknown Sex and Gender Information Value Date Recorded Sex Assigned at Not on file Legal Sex Female 3:[address] AND BUILDING Gender Identity Not on file Sexual Orientation Not on file documented as of this encounter Plan of Treatment Upcoming Encounters Date Type Department Care Team (Late st Contact Info) Description 04/18/2025 3:45 PM CDT Office Visit [facility] Oncology and Hematology - Reji [address] [facility] [address] [place] [address] Quique Khalil MD [address] [facility] [address] [place] [address] documented as of this encounter Visit Diagnoses Not on filedocumented in this encounter Care Teams Leguillon Debeader Relationship Specialty Start Date End Date Silvia Quinonez MD [address] [place] [address] PCP - General Family Practice 11/02/24 No DME 09/02/15 documented as of this encounter
--- OUTSIDE RECORDS SUMMARY | 2025-01-15 10:48 | XMS_ITS | Encounter Summary ---
Author Organization [facility] Address [address] [place] [address] Care Team Providers Care Tea Blender Name Role Phone Silvia Quinonez MD Primary Care Provider [phone] Encounter Details Date Type Department Care Team (Latest Contact Info) Description 02/28/2008 Outpatient Historical [facility] Ora Machado MD 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 Gender Identity Not on file Sexual Orientation Not on file documented as of this encounter Plan of Treatment Upcoming Encounters Date Type Department Care Team (Late st Contact Info) Description 04/18/2025 3:45 PM CDT Office Visit [facility] Oncology and Hematology - Reji [address] [facility] [address] [place] [address] Quique Khalil MD [address] [facility] [address] [place] [address] documented as of this encounter Procedures Procedure Name Priority Date/Time Associated Diagnosis Comments MAMMO SCREEN BILAT W OR WO CAD Timed Study 02/28/2008 9:06 AM CDT documented in this encounter Results * MAMMO DIGITAL SCREEN BILAT (02/28/2008 9:06 AM CDT) Anatomical Region Laterality Modality Breast Bilateral Other 02/28/2008 9:06 AM CDT Narrative 03/01/2008 8:15 AM CDT [address] [address] Admit Date: 02/28/2008 TYRONE REID Sex: F Admit Prov: ORA MACHADO Date: 1950 Primary Care Prov: BIB MACHUCA CMRN: [id number] [id number] Ordering Prov: ORA MACHADO Accession Number: [id number] Interpretation BILATERAL SCREENING DIGITAL MAMMOGRAMS WITH COMPUTER [...] Procedure Note Gabino Worthington MD - 03/01/[address] [address] Admit Date: 02/28/2008 TYRONE REID Sex: F Admit Prov: ORA MACHADO Date: 1950 Primary Care Prov: BIB MACHUCA CMRN: [id number] Room: [facility] SSN: [id number] IMAGING SERVICES Ordering Prov: ORA MACHADO Interpretation [...] mammogram documented in this encounter Care Teams Tea Blender Relationship Specialty Start Date End Date Silvia Quinonez MD [address] [place] [phone] PCP - General Family Practice 11/02/24 No DME 09/02/15 documented as of this encounter
--- OUTSIDE RECORDS SUMMARY | 2025-01-15 10:48 | XMS_ITS | Clinical Summary ---
Author Organization [facility] Address [address] [place] [address] Care Team Providers Care Manager Architecture Name Role Phone Silvia Quinonez MD Primary Care Provider [phone] Source Comments [facility],non-owned Affiliates and Associated Physician Practices is amultiple site organization consisting of ambulatory clinics and hospital sitesin [place], [place], [place] and [place]. This disclosure is being madepursuant to the Care Everywhere program and may not contain all information available regarding this patient. Last updated 18.[facility] Allergies Active Allergy Reactions Criticality Noted Date Comments Other 05/22/2009 SURGICAL MESH Medications * Be aware that medications may not be up to date on this document. Alwaysverify current medications with the patient. ROPINirole (REQUIP) 1 MG tablet Take 1 mg by mouth once. Active metFORMIN (GLUCOPHAGE) 1000 MG tablet Take 1,000 mg by mouth 2 times daily 12/10/2020 Active lisinopril (PRINIVIL; ZESTRIL) 40 MG tablet 07/25/2021 Active chlorthalidone (HYGROTON) 25 MG tablet Take 25 mg by mouth once daily 09/09/2020 Active pramipexole (MIRAPEX) 0.25 MG tablet 08/31/2021 Active naltrexone (REVIA) 50 MG tablet Active [place]-3 Fatty Acids (FISH OIL DELAYED RELEASE) 1000 MG capsule Take 2 capsules by mouth daily with food Active vitamin D, cholecalciferol , 50 MCG (2000 UT) tablet Take 2,000 Units by mouth once daily Active magnesium 30 MG tablet Take 30 mg by mouth once daily Active biotin 5 MG tablet Take 5 mg by mouth once daily Active Turmeric (QC TUMERIC COMPLEX PO) Active NADH POWD Active benzonatate (TESSALON) 200 MG capsule Take 1 (one) capsule by mouth 3 times daily as needed for Cough 30 capsule 09/19/2021 Active Family History Medical History Relation Name Comments Heart Failure Father Hypertension Father Relation Name Status Comments Father Social History Tobacco Use Types Packs/Day Years Used Date Smoking Tobacco: Former Comments:24 years ago Alcohol Use Standard Drinks/Week Comments Yes 0.8 (1 standard drink = 0.6 oz p ure alcohol) last usage 05/28/09 Comments Unknown Sex and Gender Information Value Date Recorded Sex Assigned at Not on file Legal Sex Female 7:35 AM CARDIOGRAPHER Gender Identity Not on file Sexual Orientation Not on file Last Filed Vital Signs Vital Sign Reading Time Taken Comments Blood Pressure 135/82 09/19/2021 10:45 AM CDT Pulse 92 09/19/2021 10:45 AM CDT Temperature 37.4 C (99.3 F) 09/19/2021 10:45 AM CDT Respiratory Rate 20 09/19/2021 10:45 AM CDT Oxygen Saturation 99% 09/19/2021 10:45 AM CDT Inhaled Oxygen Concentration - - Weight 73.9 kg (163 lb) 09/19/2021 10:45 AM CDT Height 170.2 cm (5' 7) 09/19/2021 10:45 AM CDT Body Mass Index 25.53 09/19/2021 10:45 AM CDT Plan of Treatment Upcoming Encounters Date Type Department Care Team (Late st Contact Info) Description 02/01/2025 3:00 PM CDT Office Visit [facility] [address] [place] [address] Joy Lake MD [address] [place] [address] Health Maintenance Due Date Last Done Comments BONE DENSITY TESTING 1950 HEPATITIS C SCREENING 01/04/1967 DTAP/TDAP/TD VACCINES (1 - Tdap) 01/09/1968 PNEUMOCOCCAL VACCINE 50+ (1 of 1 - PCV) 1999 ZOSTER VACCINE (1 of 2) 1999 Respiratory Syncytial Virus (RSV) Vaccine Pt: or over 60 yrs (1 - 1-dose 75+ series) 01/09/2024 COVID-19 VACCINE (3 - season) 2024 10/28/2020, 10/08/2020 DEPRESSION SCREENING 07/05/2024 MEDICARE AWV CALENDAR YEAR 2024 INFLUENZA VACCINE (#1) 2025 , 04/29/2018, 05/04/2017, Additional history exists HEPATITIS B VACCINE Aged Out No longe r eligible based on patient's age to complete this topic HIB VACCINE Aged Out No longer eligi ble based on patient's age to complete this topic HPV VACCINE Aged Out No longer eligi ble based on patient's age to complete this topic MENINGOCOCCAL (Group B) VACCINE SHARED DECISION-MAKING Aged Out No longer eligible based on patient's age to complete this topic MENINGOCOCCAL GROUPS A/C/Y/W VACCINE Aged Out No longer eligible based on patient's age to complete this topic Insurance AETNA MEDICARE A[employer] MEDICARE ADV Care Teams Manager Architecture Relationship Specialty Start Date End Date Silvia Quinonez MD [address] [place] [address] PCP - General Family Medicine 09/19/21
--- OUTSIDE RECORDS SUMMARY | 2025-01-15 10:48 | XMS_ITS | Encounter Summary ---
Author Organization [facility] Address [address] [place] [address] Care Team Providers Care District Engineer Name Role Phone Silvia Quinonez MD Primary Care Provider [phone] Encounter Details Date Type Department Care Team [...] on file Legal Sex Female 3:05 AM DIRECTOR CREDIT RISK Gender Identity Not on file Sexual Orientation Not on file documented as of this encounter Plan of Treatment Upcoming Encounters Date Type Department Care Team (Late st Contact Info) Description 04/18/2025 3:45 PM CDT Office Visit [facility] Oncology and Hematology - Reji [address] [facility] [address] [place] [address] [place] [address] [place] [address] [address] [place] [address] documented as of this encounter Visit Diagnoses Diagnosis Contusion of face, scalp, and neck except eye(s)- Primary documented in this encounter Care Teams District Engineer Relationship Specialty Start Date End Date Silvia Quinonez MD [address] [place] [phone] PCP - General Family Practice 11/02/24 No DME 09/02/15 documented as of this encounter
--- OUTSIDE RECORDS SUMMARY | 2025-01-15 10:49 | XMS_ITS | Patient Health Record ---
Author Organization [facility] [employer] [place] ([address]) Address [address] [place] [address] Care Team Providers Care Cobol Programmer Name Role Phone Silvia Quinonez Primary Care Provider Elva Whiteside Unavailable [phone] Allergies No Known Allergies Results Component Value Reference Range Notes -TSH Rfx on Abnormal to Free T4 Reviewed date:08/31/2024 11:44:33 AM Interpretation:Abnormal Performing Lab:[facility] [place], [address] [place] [id number], Phone - [phone], Director - PhDAbrili Notes/Report: TSH 4.800 0.450-4.500 uIU/mL T4,Free (Direct) 1.35 0.82-1.77 ng/dL -CBC With Differential/Plate let Reviewed date:08/31/2024 11:47:08 AM Interpretation:Normal Performing Lab:[facility] [place], [address] [place] [id number], Phone - [phone], Director - [facility] Notes/Report: WBC 7.4 3.4-10.8 x10E3/uL RBC 4.67 3.77-5.28 x10E6/uL Hemoglobin 12.2 11.1-15.9 g/dL Hematocrit 40.1 34.0-46.6 % MCV 86 79-97 fL MCH 26.1 26.6-33.0 pg MCHC 30.4 31.5-35.7 g/dL RDW 12.8 11.7-15.4 % Platelets 356 150-450 x10E3/uL Neutrophils 56 Not Estab. % Lymphs 29 Not Estab. % Monocytes 8 Not Estab. % Eos 5 Not Estab. % Basos 2 Not Estab. % Neutrophils (Absolute) 4.2 1.4-7.0 x10E3/uL Lymphs (Absolute) 2.1 0.7-3.1 x10E3/uL Monocytes(Absolute) 0.6 0.1-0.9 x10E3/uL Eos (Absolute) 0.3 0.0-0.4 x10E3/uL Baso (Absolute) 0.1 0.0-0.2 x10E3/uL Immature Granulocytes 0 Not Estab. % Immature Grans (Abs) 0.0 0.0-0.1 x10E3/uL -CMP (14) Reviewed date:08/31/2024 11:44:49 AM Interpretation:Abnormal Performing Lab:[facility] [place], [address] [place] [id number], Phone - [phone], Director - Ga Notes/Report: Glucose 102 70-99 mg/dL BUN 21 8-27 mg/dL Creatinine 1.04 0.57-1.00 mg/dL eGFR 56 >59 mL/min/1.73 BUN/Creatinine Ratio 20 12-28 Sodium 138 134-144 mmol/L Potassium 5.2 3.5-5.2 mmol/L Chloride 96 96-106 mmol/L Carbon Dioxide, Total 28 20-29 mmol/L Calcium 10.1 8.7-10.3 mg/dL Protein, Total 7.3 6.0-8.5 g/dL Albumin 4.5 3.8-4.8 g/dL Globulin, Total 2.8 1.5-4.5 g/dL Bilirubin, Total 0.3 0.0-1.2 mg/dL Alkaline Phosphatase 81 44-121 IU/L AST (SGOT) 23 0-40 IU/L ALT (SGPT) 20 0-32 IU/L Spirometry (Not yet reviewed by provider) Interpretation: Performing Lab: Notes/Report: SpiroPreBronchodilator_FVC 2.89 SpiroPostBronchodilator_FEF25_75 0 SpiroPreBronchodilator_FEF25_75 1.89 SpiroPreBronchodilator_FEV1 2.19 SpiroPrecentPredictionPost_FEF25_75 0 SpiroPrecentPredictionPost_FEV1 0 SpiroPrecentPredictionPost_FEV1_OVER_FVC 0 SpiroPrecentPredictionPost_FVC 0 SpiroPrecentPredictionPre_FEF25_75 104.4 SpiroPrecentPredictionPre_FEV1 97.8 SpiroPrecentPredictionPre_FEV1_OVER_FVC 102.8 SpiroPrecentPredictionPre_FVC 95.7 SpiroPredicted_FEF25_75 1.81 SpiroPreBronchodilator_FEV1_OVER_FVC 75.87 SpiroPreBronchodilator_PEF 4.2 SpiroPostBronchodilator_FVC 0 SpiroPostBronchodilator_FEV1 0 SpiroPostBronchodilator_FEV1_OVER_FVC 0 SpiroPostBronchodilator_PEF 0 SpiroPredicted_FVC 3.02 SpiroPredicted_FEV1 2.24 SpiroPredicted_FEV1_OVER_FVC 73.82 SpiroPredicted_PEF 5.6 Spirometry Reviewed date: Interpretation:Normal Performing Lab: Notes/Report: Normal SpiroPreBronchodilator_FVC 2.53 SpiroPostBronchodilator_FEF25_75 0 SpiroPreBronchodilator_FEF25_75 2.17 SpiroPreBronchodilator_FEV1 2.03 SpiroPrecentPredictionPost_FEF25_75 0 SpiroPrecentPredictionPost_FEV1 0 SpiroPrecentPredictionPost_FEV1_OVER_FVC 0 SpiroPrecentPredictionPost_FVC 0 SpiroPrecentPredictionPre_FEF25_75 119.9 SpiroPrecentPredictionPre_FEV1 90.6 SpiroPrecentPredictionPre_FEV1_OVER_FVC 108.6 SpiroPrecentPredictionPre_FVC 83.8 SpiroPredicted_FEF25_75 1.81 SpiroPreBronchodilator_FEV1_OVER_FVC 80.18 SpiroPreBronchodilator_PEF 3.21 SpiroPostBronchodilator_FVC 0 SpiroPostBronchodilator_FEV1 0 SpiroPostBronchodilator_FEV1_OVER_FVC 0 SpiroPostBronchodilator_PEF 0 SpiroPredicted_FVC 3.02 SpiroPredicted_FEV1 2.24 SpiroPredicted_FEV1_OVER_FVC 73.82 SpiroPredicted_PEF 5.6 Reason For Referral No Information Medications Medication SIG (Take, Route, Frequency, Duration) Notes Start Date End Date Status traZODone HCl Active Pramipexole Dihydrochloride Active Calcium 600 MG 1 tablet with meals Orally Twice a day Active Xyzal Allergy 24HR 5 MG 1 tablet in the evening Orally Once a day Active metFORMIN HCl 1000 MG 1 tablet with a me al Orally Once a day Active Hyoscyamine Sulfate ER Active Triamcinolone Acetonide 0.5 % External; Duration: 7 Days Active Biotin Active rOPINIRole HCl 0.5 MG Oral; Duration: 90 Days Active Vitamin B Complex-C Active Senna 8.6 MG TAKE 1 TABLET BY MOUTH TWICE A DAY Oral; Duration: 15 Days Active Fish Oil Active Albuterol Sulfate HFA 108 (90 Base) MCG/ACT 2 puffs as needed Inhalation every 4 hrs; Duration: 30 days Active Lisinopril Not-Takin g Vitamin D3 Active Stool Softener Activ e Losartan Potassium 25 MG Oral; Duration: 30 Days Active Xyzal Allergy 24HR 5 MG 1 tablet in the evening Orally Once a day; Duration: 30 days Active Cyclobenzaprine HCl Active Famotidine 20 MG 1 tablet Orally Twic e a day; Duration: 30 days Active Social History Tobacco Use: Social History Observation Description Date Details (start date - stop date) Former Smoker NA - NA Tobacco Control (Standard) Question Answer Notes Tobacco use: Former smoker How long has it been since you last smoked? Chantellea ter than 10 years Problems Problem Type SNOMED Code ICD Code Onset Dates Problem Status W/U Status Risk Notes Problem Allergic rhinitis (54087217) Other allergic rhinitis (J30.89) Active confirmed Problem Chronic rhinitis (20953968) Chronic rhinitis (J31.0) Active confirmed Vital Signs Oximetry 100 % 11/07/2024 Blood pressure diastolic 73 mm Hg 11/07/2024 Height 66 in 11/07/2024 Blood pressure systolic 134 mm Hg 11/07/2024 Weight 157.8 lbs 11/07/2024 BMI 25.47 kg/m2 11/07/2024 Encounters Encounter Location Date Provider Diagnosis [facility] [address] [facility] [address] [place] [phone] 08/29/2024 Elva Luna Other allergic rhinitis J30.89 ; Dermatitis, unspecified L30.9 and Pruritus, unspecified L29.9 [facility] [address] [place] [address] 10/10/2024 Elva Jeremy Dermatitis, unspecified L30.9 ; Cough, unspecified R05.9 ; Other allergic rhinitis J30.89 and Pruritus, unspecified L29.[address] [address] 11/07/2024 Elva Jeremy Dermatitis, unspecified L30.9 ; Cough, unspecified R05.9 ; Other allergic rhinitis J30.89 and Pruritus, unspecified L29.[address] [place] [address] 08/31/2024 Elva Jeremy [address] [place] [address] 11/08/2024 Elva Jeremy [address] [place] [address] 11/23/2024 Elva Jeremy Cough, unspecified R05.[address] [place] [address] 12/04/2024 Elva Jeremy Cough, unspecified R05.9 Assessments Encounter Date Diagnosis (ICD Code) Assessment Notes Treatment Notes Treatment Clinical Notes Section Notes 08/29/2024 Other allergic rhinitis (ICD-10 - J30.89) Given the history and symptoms, skin testing was performed to common aeroallergens to determine atopic status. Loren clearly suffers from atopic disease based upon our skin testing and clinical history. Accordingly, we have discussed allergy-specific avoidance measures. Unclear if playing a role in pruritus. 08/29/2024 Dermatitis, unspecified (ICD-10 - L30.9) Unclear cause for pruritus. Skin testing only showed sensitivity to alternaria. Labs ordered as above for further evaluation. Start a trial of Zyrtec 10 mg BID and Famotidine 20 mg BID. We discussed that her daily medications could be held for 2-3 weeks individually to see if helps with itching. She would need to discuss with PCP before holding any medications. 10/10/2024 Dermatitis, unspecified (ICD-10 - L30.9) Unclear cause for pruritus. Skin testing only showed sensitivity to alternaria. Labs showed normal CMP, CBC and elevated TSH but normal free T4. Labs forwarded to Dr. Quinonez. Loren would like to take 2 Xyzal at night and continue Famotidine 20 mg BID. We discussed that her daily medications could be held for 2-3 weeks individually to see if helps with itching. She would need to discuss with PCP before holding any medications. 10/10/2024 Cough, unspecified (ICD-10 - R05.9) Considerations for cough include post nasal drip, asthma, and GERD. Start a trial of albuterol when cough occurs. Spirometry attempted today but technical difficulties and unable to read. F/u in 1 month 11/07/2024 Dermatitis, unspecified (ICD-10 - L30.9) Unclear cause for pruritus. Skin testing only showed sensitivity to alternaria. Labs showed normal CMP, CBC and elevated TSH but normal free T4. Continue 2 Xyzal at night and Famotidine 20 mg BID. We discussed that her daily medications could be held for 2-3 weeks individually to see if helps with itching. She would need to discuss with PCP before holding any medications. 11/07/2024 Cough, unspecified (ICD-10 - R05.9) Considerations for cough include post nasal drip, asthma, and GERD. Start a trial of albuterol when cough occurs. Spirometry today is normal. Astepro for PND. 11/23/2024 Cough, unspecified (ICD-10 - R05.9) 12/04/2024 Cough, unspecified (ICD-10 - R05.9) 11/07/2024 Other allergic rhinitis (ICD-10 - J30.89) Loren clearly suffers from atopic disease based upon our skin testing and clinical history. Accordingly, we have discussed allergy-specific avoidance measures. Unclear if playing a role in pruritus. 10/10/2024 Other allergic rhinitis (ICD-10 - J30.89) Loren clearly suffers from atopic disease based upon our skin testing and clinical history. Accordingly, we have discussed allergy-specific avoidance measures. Unclear if playing a role in pruritus. 08/29/2024 Pruritus, unspecified (ICD-10 - L29.9) 10/10/2024 Pruritus, unspecified (ICD-10 - L29.9) moisturization recommended with Vaseline after bathing and prn Eucerin 11/07/2024 Pruritus, unspecified (ICD-10 - L29.9) moisturization recommended with Vaseline after bathing and prn Eucerin 08/29/2024 Other 10/10/2024 Other 11/07/2024 Other Plan Of Treatment Pending Test Test Name Order Date X ray : Chest 11/07/2024 Spirometry 10/10/2024 Insurance Providers Payer Name Payer Address Payer Phone Subscriber Number Group Number Insured Name Patient Relationship to Insured Coverage Start Date Coverage End Date [employer] [address] [place] [phone] [id number] Loren Fernández Self - patient is the insured Medical (General) History Medical History History ICD Code high blood pressure Type II diabetes Macular degeneration Osteoporosis Eczema Surgical History Surgery Date(Month/Year) knee replacement 2022 gastric bypass 1997 lower leg surgery 2019 Hospitalization History Reason Date(Month/Year) See Above
--- NOTE | 2025-01-15 10:54 | ECHO_ITS ---
Patient Info Name: Loren Bryan Age: 75 years : 1950 Gender: Female Ht: 67 in Wt: 160 lbs BSA: 1.86 m2 HR: 72 bpm BP: 152 / 83 mmHg Technical Quality: Good Exam Date: 01/15/2025 11:09 AM Patient Status: O Admit Date: 01/15/2025 Exam Type: CA echo doppler color flow Car Rental Agency Manager: Doris Corbin Attending Provider: Jasmyne Varghese Summary 1. Left ventricular chamber dimension is normal. 2. Left ventricular systolic function is normal, estimated at 60-65. 3. There is mild concentric increased left ventricular wall thickness. 4. The left ventricular diastolic function is grade I diastolic dysfunction. 5. E/e' 39 is significantly elevated. 6. Left atrial chamber dimension is severely enlarged. 7. There is severe aortic valve sclerosis. 8. There is severe aortic valve stenosis with a peak velocity of 328 cm/s, mean gradient of 22 mmHg, and aortic valve area of 0.8 cm2. 9. There is trace aortic valve regurgitation. 10. The mitral valve has not well visualized leaflets, severely calcified leaflets and a severely calcified annulus. 11. There is moderate mitral valve stenosis based on valve area of 1.1 cm2 and mean gradient of 5 mmHg. 12. There is mild mitral valve regurgitation. 13. There is trace tricuspid valve regurgitation. 14. No pulmonary hypertension, estimated pulmonary arterial systolic pressure is 27 mmHg. Left Ventricle E/e' 39 is significantly elevated. Left ventricular chamber dimension is normal. Left ventricular systolic function is normal, estimated at 60-65. There is mild concentric increased left ventricular wall thickness. The left ventricular diastolic function is grade I diastolic dysfunction. Right Ventricle Right ventricular chamber dimension is normal. Right ventricular systolic function is normal. Left Atria Left atrial chamber dimension is severely enlarged. Right Atria Right atrial chamber dimension is normal. Aortic Valve The aortic valve is trileaflet. There is severe aortic valve sclerosis. There is severe aortic valve stenosis with a peak velocity of 328 cm/s, mean gradient of 22 mmHg, and aortic valve area of 0.8 cm2. There is trace aortic valve regurgitation. Pulmonic Valve There is no pulmonic regurgitation. Mitral Valve The mitral valve has not well visualized leaflets, severely calcified leaflets and a severely calcified annulus. There is moderate mitral valve stenosis based on valve area of 1.1 cm2 and mean gradient of 5 mmHg. There is mild mitral valve regurgitation. Tricuspid Valve There is trace tricuspid valve regurgitation. No pulmonary hypertension, estimated pulmonary arterial systolic pressure is 27 mmHg. Pericardium/Pleural There is no pericardial effusion. Inferior Vena Cava Normal inferior vena cava with >50% collapse upon inspiration consistent with normal right atrial pressure, 5 mmHg. Aorta The aortic root size at the sinus of Valsalva is normal. Left Ventricular Outflow Tract Name Value Normal LVOT 2D LVOT Diameter 1.9 cm LVOT Doppler LVOT Peak Velocity 89 cm/s LVOT Peak Gradient 3 mmHg LVOT Mean Gradient 2 mmHg LVOT VTI 24 cm LVOT VTI/AV VTI Ratio 0.3 LVOT Stroke Volume 66 ml LVOT CO 4.0 l/min LVOT CI 2.1 l/min/m2 Pulmonic Valve Name Value Normal RVOT Doppler RVOT Peak Velocity 61 cm/s RVOT Peak Gradient 1 mmHg PV Doppler PV Peak Velocity 62 cm/s PV Peak Gradient 2 mmHg Mitral Valve Name Value Normal MV Doppler MV Peak Gradient 16 mmHg MV Mean Gradient 5 mmHg MV Area (Cont Eq VTI) 1.1 cm2 MV Diastolic Function MV E Peak Velocity 198 cm/s MV A Peak Velocity 127 cm/s MV E/A 1.5 MV Decel Time (PW) 297 ms Tricuspid Valve Name Value Normal TV Regurgitation Doppler TR Peak Velocity 236 cm/s TR Peak Gradient 22 mmHg Estimated PAP/RSVP RA Pressure 5 mmHg <=5 PA Systolic Pressure 27 mmHg <36 RV Systolic Pressure 27 mmHg <36 Aorta Name Value Normal Ascending Aorta Ao Root Diameter (MM) 2.5 cm Ao Root Diam Index (MM) 1.4 cm/m2 Aortic Valve Name Value Normal AV Doppler AV Peak Velocity 328 cm/s AV Peak Gradient 39 mmHg AV Mean Gradient 22 mmHg AV VTI 83 cm AV Area (Cont Eq VTI) 0.8 cm2 >=3.0 AV Area (Cont Eq Emmanuel) 0.8 cm2 AV DI (Emmanuel) 0.27 AV Regurgitation 2D LVOT Area 2.8 cm2 Ventricles Name Value Normal LV Dimensions 2D/MM IVS Diastolic Thickness (2D) 1.1 cm 0.6-1.0 IVS Diastole Thickness (MM) 1.0 cm 0.6-0.9 LVID Diastole (2D) 3.7 cm 3.8-5.2 LVID Diastole (MM) 4.0 cm 3.8-5.2 LVIW Diastolic Thickness (2D) 1.1 cm 0.6-0.9 LVIW Diastolic Thickness (MM) 1.2 cm 0.6-0.9 LVID Systole (2D) 2.0 cm 2.2-3.5 LVID Systole (MM) 2.5 cm 2.2-3.5 LVOT Diameter 1.9 cm LV Mass (2D Cubed) 126.42 g 67.00-162.00 LV Mass Index (2D Cubed) 68 g/m2 43-95 Relative Wall Thickness (2D) 0.59 <=0.42 LV Mass (MM Cubed) 141.26 g 67.00-162.00 LV Mass Index (MM Cubed) 76 g/m2 43-95 Relative Wall Thickness (MM) 0.59 LV Fractional Shortening/Ejection Fraction 2D/MM LV Fractional Shortening (2D) 45 % 27-45 LV Fractional Shortening (MM) 39 % 27-45 LV EF (MM Teichholz) 69 % LV EF (2D Teichholz) 77 % LV Diastolic Volume (4C MOD) 68 ml LV EF (4C MOD) 63 % LV Diastolic Volume (2C MOD) 49 ml LV EF (2C MOD) 60 % LV Diastolic Volume (BP MOD) 57 ml 46-106 LV Diastolic Volume Index (BP MOD) 31 ml/m2 29-61 LV Systolic Volume (BP MOD) 22 ml 14-42 LV Systolic Volume Index (BP MOD) 12 ml/m2 8-24 LV EF (BP MOD) 61 % 54-74 LV Diastolic Length (4C) 6.9 cm LV Systolic Length (4C) 5.8 cm LV Stroke Volume (4C MOD) 43 ml Atria Name Value Normal LA Dimensions LA Dimension (MM) 4.6 cm 2.7-3.8 LA Volume (4C A-L) 112 ml LA Volume (BP A-L) 108 ml RA Dimensions RA Systolic Major [place] Length (4C) 4.9 cm 2.2-2.8 RA Area (4C) 13.8 cm2 <=18.0 Report Signatures
== END 2025-01-15 10:44 | disposition home or self-care (01) ==
PROVIDERS: PCP Family Medicine; Visit Provider Student in an Organized Health Care Education/Training Program
DX: R93.1 Abnormal findings on diagnostic imaging of heart and coronary circulation (principal); R01.1 Cardiac murmur, unspecified; Z98.890 Other specified postprocedural states
CPT/HCPCS: 93306

== ENCOUNTER → 2025-04-05 00:14 | Day surgery (SDC) | payer MEDICARE, SELFPAY ==
[2025-04-05] VITALS (10 sets, daily range): BP systolic 112–201; BP diastolic 60–96; PULSE 77–97; RESP 10–27; TEMP 36.9; O2SAT 95–100; BMI 25.2
--- OUTSIDE RECORDS SUMMARY | 2025-04-05 00:16 | XMS_ITS | Encounter Summary ---
Author Organization [facility] Address [address] [place] [address] Care Team Providers Care Commercial Leasing Agent Name Role Phone Silvia Quinonez MD Primary Care Provider [phone] Encounter Details Date Type Department Care Team (Latest Contact Info) Description 03/03/2007 Outpatient Historical [facility] Sam Machado MD 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 Gender Identity Not on file Sexual Orientation Not on file documented as of this encounter Plan of Treatment Upcoming Encounters Date Type Department Care Team (Late st Contact Info) Description 04/18/2025 3:45 PM CDT Office Visit [facility] Oncology and Hematology - Reji [address] [facility] [address] [place] [address] Quique Khalil MD [address] [facility] [address] [place] [address] documented as of this encounter Visit Diagnoses Diagnosis Other screening mammogram- Primary documented in this encounter Care Teams Commercial Leasing Agent Relationship Specialty Start Date End Date Silvia Quinonez MD [address] [place] [phone] PCP - General Family Practice 11/02/24 No DME 09/02/15 documented as of this encounter
--- OUTSIDE RECORDS SUMMARY | 2025-04-05 00:16 | XMS_ITS | Encounter Summary ---
Author Organization [facility] Address [address] [place] [address] Care Team Providers Care Home Improvement Advisor Name Role Phone Silvia Quinonez MD Primary Care Provider [phone] Encounter Details Date Type Department Care Team (Latest Contact Info) Description 07/31/2008 Outpatient Historical [facility] DIAChuck-Jayce Dupree MD [address] [facility] [address] [place] [address] Nonspecific Abnormal Unspecified Cardiovascular Function Study Social History Tobacco Use Types Packs/Day Years Used Date Smoking Tobacco: Never Assessed Comments Unknown Sex and Gender Information Value Date Recorded Sex Assigned at Not on file Legal Sex Female 3:05 AM CHIEF PROGRAM OFFICER Gender Identity Not on file Sexual Orientation Not on file documented as of this encounter Plan of Treatment Upcoming Encounters Date Type Department Care Team (Late st Contact Info) Description 04/18/2025 3:45 PM CDT Office Visit [facility] Oncology and Hematology - Reji [address] [facility] [address] [place] [address] Quique Khalil MD [address] [facility] [address] [place] [address] documented as of this encounter Visit Diagnoses Diagnosis Nonspecific abnormal unspecified cardiovascular function study documented in this encounter Care Teams Home Improvement Advisor Relationship Specialty Start Date End Date Silvia Quinonez MD [address] [place] [phone] PCP - General Family Practice 11/02/24 No DME 09/02/15 documented as of this encounter
--- OUTSIDE RECORDS SUMMARY | 2025-04-05 00:16 | XMS_ITS | Encounter Summary ---
Author Organization [facility] Address [address] [place] [address] Care Team Providers Care Hog Room Supervisor Name Role Phone Silvia Quinonez MD Primary Care Provider [phone] Encounter Details Date Type Department Care Team (Late Contact Info) Description 06/10/2006 Outpatient Historical [facility] [place] [address] [place] [id number] Sam Machado MD 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 Gender Identity Not on file Sexual Orientation Not on file documented as of this encounter Plan of Treatment Upcoming Encounters Date Type Department Care Team (Late st Contact Info) Description 04/18/2025 3:45 PM CDT Office Visit [facility] Oncology and Hematology - [place] [address] [facility] [address] [place] [address] Quique Khalil MD [address] [facility] [address] [place] [address] documented as of this encounter Visit Diagnoses Not on filedocumented in this encounter Care Teams Hog Room Supervisor Relationship Specialty Start Date End Date Silvia Quinonez MD [address] [place] [address] PCP - General Family Practice 11/02/24 No DME 09/02/15 documented as of this encounter
--- OUTSIDE RECORDS SUMMARY | 2025-04-05 00:16 | XMS_ITS | Encounter Summary ---
Author Organization [facility] Address [address] [place] [address] Care Team Providers Care Electrical Engineering Technician Name Role Phone Silvia Quinonez MD Primary Care Provider [phone] Encounter Details Date Type Department Care Team (Late Contact Info) Description 06/15/2007 Outpatient Historical [facility] [place] [address] [place] [phone] Sam Machado MD [address] [place] [address] Social History Tobacco Use Types Packs/Day Years Used Date Smoking Tobacco: Never Assessed Comments Unknown Sex and Gender Information Value Date Recorded Sex Assigned at Not on file Legal Sex Female 3:05 AM CURRICULUM COORDINATOR Gender Identity Not on file Sexual Orientation Not on file documented as of this encounter Plan of Treatment Upcoming Encounters Date Type Department Care Team (Late st Contact Info) Description 04/18/2025 3:45 PM CDT Office Visit [facility] Oncology and Hematology - [place] [address] [facility] [address] [place] [address] Quique Khalil MD [address] [facility] [address] [place] [address] documented as of this encounter Visit Diagnoses Not on filedocumented in this encounter Care Teams Electrical Engineering Technician Relationship Specialty Start Date End Date Silvia Quinonez MD [address] [place] [address] PCP - General Family Practice 11/02/24 No DME 09/02/15 documented as of this encounter
--- OUTSIDE RECORDS SUMMARY | 2025-04-05 00:17 | XMS_ITS | Encounter Summary ---
Author Organization [facility] Address [address] [place] [address] Care Team Providers Care Insurance Case Manager Name Role Phone Silvia Quinonez MD Primary Care Provider [phone] Encounter Details Date Type Department Care Team (Latest Contact Info) Description 11/18/2004 Inpatient Historical [facility] INPATIENT IN BED Sam Machado MD 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 Gender Identity Not on file Sexual Orientation Not on file documented as of this encounter Plan of Treatment Upcoming Encounters Date Type Department Care Team (Late st Contact Info) Description 04/18/2025 3:45 PM CDT Office Visit [facility] Oncology and Hematology - Reji 2227 [facility] [address] [place] [address] Quique Khalil MD 2227 [facility] [address] [place] [address] documented as of this encounter [...] ORDERABLES Final Re sult Performing Organization Address [facility] Phone Number INTERFACE SYSTEM Refer to clinic/hospital department * POC GLUCOSE (11/18/2004 8:25 AM CDT) GLUCOSE POC 84 65 - 115 mg/dL INTERFACE SYSTEM 11/18/2004 8:25 AM CDT us Sam Machado MD POINT OF CARE TESTING Final Re sult Performing Organization Address [facility] Number INTERFACE SYSTEM Refer to clinic/hospital department [...] URINE ORDERABLES Final Result Performing Organization Address [facility] Phone Number INTERFACE SYSTEM Refer to [...] ORDERABLES Final Res ult Performing Organization Address [facility] de Phone Number INTERFACE SYSTEM Refer [...] ORDERABLES Final Re sult Performing Organization Address [facility] de Phone Number INTERFACE SYSTEM Refer [...] Primary documented in this encounter Care Teams Insurance Case Manager Relationship Specialty Start Date End Date Silvia Quinonez MD [address] [place] [address] PCP - General Family Practice 11/02/24 No DME 09/02/15 documented as of this encounter
--- OUTSIDE RECORDS SUMMARY | 2025-04-05 00:17 | XMS_ITS | Encounter Summary ---
Author Organization [facility] Address [address] [place] [address] Care Team Providers Care Lei Maker Name Role Phone Silvia Quinonez MD Primary Care Provider [phone] Encounter Details Date Type Department Care Team (Late Contact Info) Description 04/23/2003 Outpatient Historical Division of Neurology [address] [facility] [address] [place] [address] Tiffanie Marquez MD [address] [facility] [address] [place] [address] Social History Tobacco Use Types Packs/Day Years Used Date Smoking Tobacco: Never Assessed Comments Unknown Sex and Gender Information Value Date Recorded Sex Assigned at Not on file 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 Oncology and Hematology - Reji 2227 [facility] 200 [place] [address] Quique Khalil MD 2[address] [facility] [address] [place] [address] documented as of this encounter Visit Diagnoses Not on filedocumented in this encounter Care Teams Lei Maker Relationship Specialty Start Date End Date Silvia Quinonez MD [address] [place] [address] PCP - General Family Practice 11/02/24 No DME 09/02/15 documented as of this encounter
--- OUTSIDE RECORDS SUMMARY | 2025-04-05 00:17 | XMS_ITS | Encounter Summary ---
Author Organization [facility] Address 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 Gender Identity Not on file Sexual Orientation Not on file documented as of this encounter Plan of Treatment Upcoming Encounters Date Type Department Care Team (Late st Contact Info) Description 04/18/2025 3:45 PM CDT [facility]ology - Reji 2[address] [facility] [address] [place] [address] [place] [address] [place] [address] [address] [place] [address] documented as of this encounter Visit Diagnoses Diagnosis Other screening mammogram- Primary documented in this encounter Care Teams Pharmacologist Relationship Specialty Start Date End Date Silvia Quinonez MD [address] [place] [phone] PCP - General Family Practice 11/02/24 No DME 09/02/15 documented as of this encounter
--- OUTSIDE RECORDS SUMMARY | 2025-04-05 00:17 | XMS_ITS | Encounter Summary ---
Author Organization [facility] Address [address] [place] [address] Care Team Providers Care Bull Gang Supervisor Name Role Phone Silvia Quinonez MD Primary Care Provider [phone] Encounter Details Date Type Department Care Team (Late st Contact Info) Description 08/18/2000 Outpatient Historical [facility] Primary Care Internal Medicine [address] [address] Jens Lora MD [address] [place] [address] Social History Tobacco Use Types Packs/Day Years Used Date Smoking Tobacco: Never Assessed Comments Unknown Sex and Gender Information Value Date Recorded Sex Assigned at Not on file Legal Sex Female 3:05 AM RN CLINICAL APPEALS Gender Identity Not on file Sexual Orientation Not on file documented as of this encounter Plan of Treatment Upcoming Encounters Date Type Department Care Team (Late st Contact Info) Description 04/18/2025 3:45 PM CDT Office Visit [facility] Oncology and Hematology - Reji 2[address] Il[address] [facility] 200 [place] [address] Quique Khalil MD [address] [facility] [address] [place] [address] documented as of this encounter Visit Diagnoses Not on filedocumented in this encounter Care Teams Bull Gang Supervisor Relationship Specialty Start Date End Date Silvia Quinonez MD [address] [place] [address] PCP - General Family Practice 11/02/24 No DME 09/02/15 documented as of this encounter
--- OUTSIDE RECORDS SUMMARY | 2025-04-05 00:17 | XMS_ITS | Encounter Summary ---
Author Organization [facility] Address [address] [place] [address] Care Team Providers Care Sewing Machinist Name Role Phone Silvia Quinonez MD Primary Care Provider [phone] Encounter Details Date Type Department Care Team (Late st Contact Info) Description 03/24/2006 Outpatient Historical [facility] Latonia Scott MD [address] [place] [address] Localized Superficial Swelling, Mass, or Lump (Primary Dx) Social History Tobacco Use Types Packs/Day Years Used Date Smoking Tobacco: Never Assessed Comments Unknown Sex and Gender Information Value Date Recorded Sex Assigned at Not on file Legal Sex Female 3:05 AM PROGRAM SUPPORT ASSISTANT Gender Identity Not on file Sexual Orientation Not on file documented as of this encounter Plan of Treatment Upcoming Encounters Date Type Department Care Team (Late st Contact Info) Description 04/18/2025 3:45 PM CDT Office Visit [facility] Oncology and Hematology - Reji 2227 [facility] [address] [place] [address] Quique Khalil MD [address] [facility] [address] [place] [address] documented as of this encounter Visit Diagnoses Diagnosis Localized superficial swelling, mass, or lump- Primary documented in this encounter Care Teams Sewing Machinist Relationship Specialty Start Date End Date Silvia Quinonez MD [address] [place] [phone] PCP - General Family Practice 11/02/24 No DME 09/02/15 documented as of this encounter
--- OUTSIDE RECORDS SUMMARY | 2025-04-05 00:17 | XMS_ITS | Encounter Summary ---
Author Organization [facility] Address [address] [place] [address] Care Team Providers Care Radiotelegraphist Name Role Phone Silvia Quinonez MD Primary Care Provider [phone] Encounter Details Date Type Department Care Team (Latest Contact Info) Description 01/24/2003 Outpatient Historical [facility] Latonia Scott MD [address] [place], [place] [id number] PERSIST POSTOP FISTULA (Primary Dx) Social History Tobacco Use Types Packs/Day Years Used Date Smoking Tobacco: Never Assessed Comments Unknown Sex and Gender Information Value Date Recorded Sex Assigned at Not on file Legal Sex Female 3:05 AM REMOTE ENCODING 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 Gender Identity Not on file Sexual Orientation Not on file documented as of this encounter Plan of Treatment Upcoming Encounters Date Type Department Care Team (Late st Contact Info) Description 04/18/2025 3:45 PM CDT Office Visit [facility] Oncology and Hematology - Reji 2[address] [facility] [address] [place] [address] Quique Khalil MD [address] [facility] [address] [place] [address] documented as of this encounter Visit Diagnoses Diagnosis Persistent postoperative fistula, 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
--- OUTSIDE RECORDS SUMMARY | 2025-04-05 00:17 | XMS_ITS | Encounter Summary ---
Author Organization [facility] Address [address] [place] [address] Care Team Providers Care Rn Burn Name Role Phone Silvia Quinonez MD Primary Care Provider [phone] Encounter Details Date Type Department Care Team (Late Contact Info) Description 11/18/2004 Outpatient Historical [facility] [place] [address] [place] [address] Sam Machado MD 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 Gender Identity Not on file Sexual Orientation Not on file documented as of this encounter Plan of Treatment Upcoming Encounters Date Type Department Care Team (Late st Contact Info) Description 04/18/2025 3:45 PM CDT Office Visit [facility] Oncology and Hematology - Reji [address] [facility] [address] [place] [address] Quique Khalil MD 2[address] [facility] [address] [place] [address] documented as of this encounter Visit Diagnoses Not on filedocumented in this encounter Care Teams Rn Burn Relationship Specialty Start Date End Date Silvia Quinonez MD [address] [place] [address] PCP - General Family Practice 11/02/24 No DME 09/02/15 documented as of this encounter
--- OUTSIDE RECORDS SUMMARY | 2025-04-05 00:17 | XMS_ITS | Encounter Summary ---
Author Organization [facility] Address [address] [facility] Attn: Epic Prelude ADT [place] [address] Care Team Providers Care Drug And Alcohol Counsellor Name Role Phone Silvia Quinonez MD Primary Care Provider [phone] Encounter Details Date Type Department Care Team (Late st Contact Info) Description 09/17/1994 Outpatient Historical Josr Toledo MD NO ADDRESS ON FILE Social History Tobacco Use Types Packs/Day Years Used Date Smoking Tobacco: Never Assessed Comments Unknown Sex and Gender Information Value Date Recorded Sex Assigned at Not on file Legal Sex Female 3:05 AM PSYCHIATRIC NURSING ASSISTANT Gender Identity Not on file Sexual Orientation Not on file documented as of this encounter Plan of Treatment Upcoming Encounters Date Type Department Care Team (Late st Contact Info) Description 04/18/2025 3:45 PM CDT Office Visit [facility] Oncology and Hematology - Reji 2227 [facility] 200 [place] [address] Quique Khalil MD [address] [facility] [address] [place] [address] documented as of this encounter Visit Diagnoses Not on filedocumented in this encounter Care Teams Drug And Alcohol Counsellor Relationship Specialty Start Date End Date Silvia Quinonez MD [address] [place] [address] PCP - General Family Practice 11/02/24 No DME 09/02/15 documented as of this encounter
--- OUTSIDE RECORDS SUMMARY | 2025-04-05 00:17 | XMS_ITS | Encounter Summary ---
Author Organization [facility] Address [address] [place] [address] Care Team Providers Care Relief Cook Name Role Phone Silvia Quinonez MD Primary Care Provider [phone] Encounter Details Date Type Department Care Team (Late Contact Info) Description 06/15/2007 Outpatient Historical [facility] [place] [address] [place] [address] Sam Machado MD 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 Gender Identity Not on file Sexual Orientation Not on file documented as of this encounter Plan of Treatment Upcoming Encounters Date Type Department Care Team (Late st Contact Info) Description 04/18/2025 3:45 PM CDT Office Visit [facility] Oncology and Hematology - Reji [address] [facility] 200 [place] [address] Quique Khalil MD [address] [facility] [address] [place] [address] documented as of this encounter Visit Diagnoses Not on filedocumented in this encounter Care Teams Relief Cook Relationship Specialty Start Date End Date Silvia Quinonez MD [address] [place] [address] PCP - General Family Practice 11/02/24 No DME 09/02/15 documented as of this encounter
--- OUTSIDE RECORDS SUMMARY | 2025-04-05 00:17 | XMS_ITS | Encounter Summary ---
Author Organization [facility] Address 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 [address] [place] [address] documented as of this encounter Visit Diagnoses Diagnosis Nonspecific abnormal electromyogram (EMG)- Primary documented in this encounter Care Teams Facilities Project Manager Relationship Specialty Start Date End Date Silvia Quinonez MD [address] [place] [phone] PCP - General Family Practice 11/02/24 No DME 09/02/15 documented as of this encounter
--- OUTSIDE RECORDS SUMMARY | 2025-04-05 00:17 | XMS_ITS | Encounter Summary ---
Author Organization [facility] Address [address] [place] [address] Care Team Providers Care Shotweld Operator Name Role Phone Silvia Quinonez MD Primary Care Provider [phone] Encounter Details Date Type Department Care Team (Latest Contact Info) Description 02/18/2006 Outpatient Historical [facility] RADIOLOG[facility] Sam Machado MD [address] [place], [place] [id number] Other Screening Mammogram (Primary Dx) Social History Tobacco Use Types Packs/Day Years Used Date Smoking Tobacco: Never Assessed Comments Unknown Sex and Gender Information Value Date Recorded Sex Assigned at Not on file Legal Sex Female 3:05 AM CLINICAL ENGINEERING DIRECTOR Gender Identity Not on file Sexual Orientation Not on file documented as of this encounter Plan of Treatment Upcoming Encounters Date Type Department Care Team (Late st Contact Info) Description 04/18/2025 3:45 PM CDT Office Visit [facility] Oncology and Hematology - Reji 2[address] [facility] 200 [place] [address] Quique Khalil MD 2[address] [facility] [address] [place] [address] documented as of this encounter Visit Diagnoses Diagnosis Other screening mammogram- Primary documented in this encounter Care Teams Shotweld Operator Relationship Specialty Start Date End Date Silvia Quinonez MD [address] [place] [phone] PCP - General Family Practice 11/02/24 No DME 09/02/15 documented as of this encounter
--- OUTSIDE RECORDS SUMMARY | 2025-04-05 00:17 | XMS_ITS | Encounter Summary ---
Author Organization [facility] Address [address] [place] [address] Care Team Providers Care Binder Fixer Name Role Phone Silvia Quinonez MD Primary Care Provider [phone] Encounter Details Date Type Department Care Team (Late st Contact Info) Description 03/29/2001 Emergency [facility] EMERGENCY ROOM WASH Erick Ma MD NO ADDRESS ON FILE Contusion of face, scalp, and neck except eye(s) (Primary Dx) Social History Tobacco Use Types Packs/Day Years Used Date Smoking Tobacco: Never Assessed Comments Unknown Sex and Gender Information Value Date Recorded Sex Assigned at Not on file Legal Sex Female 3:05 AM SELECT BANKER Gender Identity Not on file Sexual Orientation Not on file documented as of this encounter Plan of Treatment Upcoming Encounters Date Type Department Care Team (Late st Contact Info) Description 04/18/2025 3:45 PM CDT Office Visit [facility] Oncology and Hematology - Reji 2[address] [facility] 200 [place] [address] [place] [address] [place] [address] [address] [place] [address] documented as of this encounter Visit Diagnoses Diagnosis Contusion of face, scalp, and neck except eye(s)- Primary documented in this encounter Care Teams Binder Fixer Relationship Specialty Start Date End Date Silvia Quinonez MD [address] [place] [phone] PCP - General Family Practice 11/02/24 No DME 09/02/15 documented as of this encounter
--- OUTSIDE RECORDS SUMMARY | 2025-04-05 00:17 | XMS_ITS | Encounter Summary ---
Author Organization [facility] Address [address] [place] [address] Care Team Providers Care Cotton Ball Bagger Name Role Phone Silvia Quinonez MD Primary Care Provider [phone] Encounter Details Date Type Department Care Team (Latest Contact Info) Description 02/28/2008 Outpatient Historical [facility] RADIOLOG[facility] Ora Machado MD 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 Gender Identity Not on file Sexual Orientation Not on file documented as of this encounter Plan of Treatment Upcoming Encounters Date Type Department Care Team (Late st Contact Info) Description 04/18/2025 3:45 PM CDT Office Visit [facility] Oncology and Hematology - Reji 2227 [facility] [address] [place] [address] Quique Khalil MD [address] [facility] [address] [place] [address] documented as of this encounter Procedures Procedure Name Priority Date/Time Associated Diagnosis Comments MAMMO SCREEN BILAT W OR WO CAD Timed Study 02/28/2008 9:06 AM CDT documented in this encounter Results * MAMMO DIGITAL SCREEN BILAT (02/28/2008 9:06 AM CDT) Anatomical Region Laterality Modality Breast Bilateral Other 02/28/2008 9:06 AM CDT Narrative 03/01/2008 8:15 AM CDT [address] [address] Admit Date: 02/28/2008 TYRONE REID Sex: F Admit Prov: ORA MACHADO Date: 1950 Primary Care Prov: BIB MACHUCA CMRN: [id number] [id number] Ordering Prov: ORA MACHADO Accession Number: [id number] Interpretation BILATERAL SCREENING DIGITAL MAMMOGRAMS WITH COMPUTER [...] Procedure Note Gabino Worthington MD - 03/01/[address] [address] Admit Date: 02/28/2008 TYRONE REID Sex: F Admit Prov: ORA MACHADO Date: 1950 Primary Care Prov: BIB MACHUCA CMRN: [id number] Room: [facility] SSN: [id number] IMAGING SERVICES Ordering Prov: ORA MACHADO Interpretation [...] mammogram documented in this encounter Care Teams Cotton Ball Bagger Relationship Specialty Start Date End Date Silvia Quinonez MD [address] [place] [phone] PCP - General Family Practice 11/02/24 No DME 09/02/15 documented as of this encounter
--- OUTSIDE RECORDS SUMMARY | 2025-04-05 00:17 | XMS_ITS | Encounter Summary ---
Author Organization [facility] Address [address] [place] [address] Care Team Providers Care Support Service Tech Name Role Phone Silvia Quinonez MD Primary Care Provider [phone] Encounter Details Date Type Department Care Team (Late Contact Info) Description 02/21/2003 Outpatient Historical Division of Neurology [address] 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 Gender Identity Not on file Sexual Orientation Not on file documented as of this encounter Plan of Treatment Upcoming Encounters Date Type Department Care Team (Late st Contact Info) Description 04/18/2025 3:45 PM CDT Office Visit [facility] Oncology and Hematology - Reji 2227 [facility] 200 [place] [address] Quique Khalil MD 2227 [facility] [address] [place] [address] documented as of this encounter Visit Diagnoses Not on filedocumented in this encounter Care Teams Support Service Tech Relationship Specialty Start Date End Date Silvia Quinonez MD [address] [place] [address] PCP - General Family Practice 11/02/24 No DME 09/02/15 documented as of this encounter
--- OUTSIDE RECORDS SUMMARY | 2025-04-05 00:17 | XMS_ITS | Encounter Summary ---
Author Organization [facility] Address 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 Gender Identity Not on file Sexual Orientation Not on file documented as of this encounter Plan of Treatment Upcoming Encounters Date Type Department Care Team (Late st Contact Info) Description 04/18/2025 3:45 PM CDT Office Visit [facility] Oncology and Hematology - Reji [address] [place] [address] [facility] 200 [place] [address] Quique Khalil MD [address] [facility] [address] [place] [address] documented as of this encounter Visit Diagnoses Diagnosis Other screening mammogram- Primary documented in this encounter Care Teams Chair Trimmer Relationship Specialty Start Date End Date Silvia Quinonez MD [address] [place] [phone] PCP - General Family Practice 11/02/24 No DME 09/02/15 documented as of this encounter
--- OUTSIDE RECORDS SUMMARY | 2025-04-05 00:17 | XMS_ITS | Encounter Summary ---
Author Organization [facility] Address 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 Gender Identity Not on file Sexual Orientation Not on file documented as of this encounter Plan of Treatment Upcoming Encounters Date Type Department Care Team (Late st Contact Info) Description 04/18/2025 3:45 PM CDT Office Visit [facility] Oncology and Hematology - Reji [address] [facility] 200 [place] [address] [place] [address] [place] [address] [address] [place] [address] documented as of this encounter Visit Diagnoses Diagnosis Other screening mammogram- Primary documented in this encounter Care Teams Claims Adjustor Relationship Specialty Start Date End Date Silvia Quinonez MD [address] [place] [phone] PCP - General Family Practice 11/02/24 No DME 09/02/15 documented as of this encounter
--- OUTSIDE RECORDS SUMMARY | 2025-04-05 00:17 | XMS_ITS | Encounter Summary ---
Author Organization [facility] Address [address] [place] [address] Care Team Providers Care Surveyor Mine Name Role Phone Silvia Quinonez MD Primary Care Provider [phone] Encounter Details Date Type Department Care Team (Latest Contact Info) Description 07/31/2008 Outpatient Historical [facility] Loco Starr MD [address] [place] [address] [address] [place] [address] Jayce Orellana MD [address] 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 Gender Identity Not on file Sexual Orientation Not on file documented as of this encounter Plan of Treatment Upcoming Encounters Date Type Department Care Team (Late st Contact Info) Description 04/18/2025 3:45 PM CDT Office Visit [facility] Oncology and Hematology - Reji [address] [facility] 200 [place] [address] Quique Khalil MD [address] [facility] [address] [place] [address] documented as of this encounter Visit Diagnoses Diagnosis Other and unspecified angina pectoris documented in this encounter Care Teams Surveyor Mine Relationship Specialty Start Date End Date Silvia Quinonez MD [address] [place] [address] PCP - General Family Practice 11/02/24 No DME 09/02/15 documented as of this encounter
--- OUTSIDE RECORDS SUMMARY | 2025-04-05 00:17 | XMS_ITS | Encounter Summary ---
Author Organization [facility] Address 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 Gender Identity Not on file Sexual Orientation Not on file documented as of this encounter Plan of Treatment Upcoming Encounters Date Type Department Care Team (Late st Contact Info) Description 04/18/2025 3:45 PM CDT Office Visit [facility] Oncology and Hematology - Reji [address] [facility] 200 [place] [address] Quique Khalil MD [address] [facility] [address] [place] [address] documented as of this encounter Visit Diagnoses Diagnosis Unspecified hemorrhoids without mention of complication- Primary documented in this encounter Care Teams Reserves Clerk Relationship Specialty Start Date End Date Silvia Quinonez MD [address] [place] [phone] PCP - General Family Practice 11/02/24 No DME 09/02/15 documented as of this encounter
--- OUTSIDE RECORDS SUMMARY | 2025-04-05 00:17 | XMS_ITS | Encounter Summary ---
Author Organization [facility] Address [address] [place] [address] Care Team Providers Care Call Center Analyst Name Role Phone Silvia Quinonez MD Primary Care Provider [phone] Encounter Details Date Type Department Care Team (Late st Contact Info) Description 11/10/2004 Outpatient Historical [facility] Support Services Cardiac 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 Gender Identity Not on file Sexual Orientation Not on file documented as of this encounter Plan of Treatment Upcoming Encounters Date Type Department Care Team (Late st Contact Info) Description 04/18/2025 3:45 PM CDT Office Visit [facility] Oncology and Hematology - Reji [address] [place] [address] [facility] 200 [place] [address] [place] [address] [place] [address] [address] [place] [address] documented as of this encounter Visit Diagnoses Not on filedocumented in this encounter Care Teams Call Center Analyst Relationship Specialty Start Date End Date Silvia Quinonez MD [address] [place] [phone] PCP - General Family Practice 11/02/24 No DME 09/02/15 documented as of this encounter
--- OUTSIDE RECORDS SUMMARY | 2025-04-05 00:17 | XMS_ITS | Encounter Summary ---
Author Organization [facility] Address [address] [place] [address] Care Team Providers Care Child Care Group Leader Name Role Phone Silvia Quinonez MD Primary Care Provider [phone] Encounter Details Date Type Department Care Team (Latest Contact Info) Description 04/23/2003 Outpatient Historical [facility] OS[facility]DO Marquez, Tiffanie Barrett MD [address] [facility] [address] [address] OTHER MALAISE AND FATIGUE (Primary Dx) Social History Tobacco Use Types Packs/Day Years Used Date Smoking Tobacco: Never Assessed Comments Unknown Sex and Gender Information Value Date Recorded Sex Assigned at Not on file 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 Gender Identity Not on file Sexual Orientation Not on file documented as of this encounter Plan of Treatment Upcoming Encounters Date Type Department Care Team (Late st Contact Info) Description 04/18/2025 3:45 PM CDT Office Visit [facility] Oncology and Hematology - Reji [address] [facility] 200 [place] [address] Quique Khalil MD [address] [facility] [address] [place] [address] documented as of this encounter Visit Diagnoses Diagnosis Other malaise and fatigue- Primary documented in this encounter Care Teams Child Care Group Leader Relationship Specialty Start Date End Date Silvia Quinonez MD [address] [place] [address] PCP - General Family Practice 11/02/24 No DME 09/02/15 documented as of this encounter
--- OUTSIDE RECORDS SUMMARY | 2025-04-05 00:17 | XMS_ITS | Encounter Summary ---
Author Organization [facility] Address 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 Gender Identity Not on file Sexual Orientation Not on file documented as of this encounter Plan of Treatment Upcoming Encounters Date Type Department Care Team (Late st Contact Info) Description 04/18/2025 3:45 PM CDT Office Visit [facility] Oncology and Hematology - Reji 2[address] [facility] 200 [place] [address] Quique Khalil MD [address] [facility] [address] [place] [address] documented as of this encounter Visit Diagnoses Diagnosis Abdominal pain, right upper quadrant- Primary documented in this encounter Care Teams Crocheter Relationship Specialty Start Date End Date Silvia Quinonez MD [address] [place] [phone] PCP - General Family Practice 11/02/24 No DME 09/02/15 documented as of this encounter
--- OUTSIDE RECORDS SUMMARY | 2025-04-05 00:17 | XMS_ITS | Encounter Summary ---
Author Organization [facility] Address [address] [place] [address] Care Team Providers Care Financial Accounting Analyst Name Role Phone Silvia Quinonez MD Primary Care Provider [phone] Encounter Details Date Type Department Care Team (Late Contact Info) Description 05/18/2000 Outpatient Historical [facility] Primary Care Internal Medicine 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 Gender Identity Not on file Sexual Orientation Not on file documented as of this encounter Plan of Treatment Upcoming Encounters Date Type Department Care Team (Late st Contact Info) Description 04/18/2025 3:45 PM CDT Office Visit [facility] Oncology and Hematology - Reji [address] [facility] 200 [place] [address] Quique Khalil MD [address] [facility] [address] [place] [address] documented as of this encounter Visit Diagnoses Not on filedocumented in this encounter Care Teams Financial Accounting Analyst Relationship Specialty Start Date End Date Silvia Quinonez MD [address] [place] [address] PCP - General Family Practice 11/02/24 No DME 09/02/15 documented as of this encounter
--- OUTSIDE RECORDS SUMMARY | 2025-04-05 00:17 | XMS_ITS | Encounter Summary ---
Author Organization [facility] Address 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 Gender Identity Not on file Sexual Orientation Not on file documented as of this encounter Plan of Treatment Upcoming Encounters Date Type Department Care Team (Late st Contact Info) Description 04/18/2025 3:45 PM CDT Office Visit [facility] Oncology and Hematology - Reji 2[address] [facility] 200 [place] [address] Quique Khalil MD [address] [facility] [address] [place] [address] documented as of this encounter Visit Diagnoses Diagnosis Abdominal pain, unspecified site- Primary documented in this encounter Care Teams Creel Operator Relationship Specialty Start Date End Date Silvia Quinonez MD [address] [place] [address] PCP - General Family Practice 11/02/24 No DME 09/02/15 documented as of this encounter
--- OUTSIDE RECORDS SUMMARY | 2025-04-05 00:17 | XMS_ITS | Encounter Summary ---
Author Organization [facility] Address [address] [place] [address] Care Team Providers Care Parimutuel Ticket Cashier Name Role Phone Silvia Quinonez MD Primary Care Provider Encounter Details Date Type Department Care Team (Late Contact Info) Description 10/08/2004 Outpatient Historical [facility] [place] [address] [place] [address] Sam Machado MD 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 200 [place] [address] Quique Khalil MD [address] [facility] [address] [place] [address] documented as of this encounter Visit Diagnoses Not on filedocumented in this encounter Care Teams Parimutuel Ticket Cashier Relationship Specialty Start Date End Date Silvia Quinonez MD [address] [place] [address] PCP - General Family Practice 11/02/24 No DME 09/02/15 documented as of this encounter
--- OUTSIDE RECORDS SUMMARY | 2025-04-05 00:17 | XMS_ITS | Encounter Summary ---
Author Organization [facility] Address [address] [place] [address] Care Team Providers Care Foot Tender Name Role Phone Silvia Quinonez MD Primary Care Provider [phone] Encounter Details Date Type Department Care Team (Late st Contact Info) Description 03/17/2005 Outpatient Historical [facility] Services [facility] [place] [address] [place] [address] Gunjan Szymanski MD NO ADDRESS ON FILE Social History Tobacco Use Types Packs/Day Years Used Date Smoking Tobacco: Never Assessed Comments Unknown Sex and Gender Information Value Date Recorded Sex Assigned at Not on file 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 Gender Identity Not on file Sexual Orientation Not on file documented as of this encounter Plan of Treatment Upcoming Encounters Date Type Department Care Team (Late st Contact Info) Description 04/18/2025 3:45 PM CDT Office Visit [facility] Oncology and Hematology - Reji [address] [place] [address] [facility] 200 [place] [address] Quique Khalil MD [address] [facility] [address] [place] [address] documented as of this encounter Visit Diagnoses Not on filedocumented in this encounter Care Teams Foot Tender Relationship Specialty Start Date End Date Silvia Quinonez MD [address] [place] [address] PCP - General Family Practice 11/02/24 No DME 09/02/15 documented as of this encounter
--- OUTSIDE RECORDS SUMMARY | 2025-04-05 00:17 | XMS_ITS | Encounter Summary ---
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 Gender Identity Not on file Sexual Orientation Not on file documented as of this encounter Plan of Treatment Upcoming Encounters Date Type Department Care Team (Late st Contact Info) Description 04/18/2025 3:45 PM CDT Office Visit [facility] Oncology and Hematology - Reji 2[address] [facility] 200 [place] [address] Quique Khalil MD [address] [facility] [address] [place] [address] documented as of this encounter Visit Diagnoses Not on filedocumented in this encounter Care Teams Animal Behaviorist Relationship Specialty Start Date End Date Silvia Quinonez MD [address] [place] [address] PCP - General Family Practice 11/02/24 No DME 09/02/15 documented as of this encounter
--- OUTSIDE RECORDS SUMMARY | 2025-04-05 00:17 | XMS_ITS | Encounter Summary ---
Author Organization [facility] Address [address] [place] [address] Care Team Providers Care Marine Photographer Name Role Phone Silvia Quinonez MD Primary Care Provider [phone] Encounter Details Date Type Department Care Team (Late Contact Info) Description 11/28/2004 Outpatient Historical [facility] [place] [address] [place] [address] Sam Machado MD 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 Gender Identity Not on file Sexual Orientation Not on file documented as of this encounter Plan of Treatment Upcoming Encounters Date Type Department Care Team (Late st Contact Info) Description 04/18/2025 3:45 PM CDT Office Visit [facility] Oncology and Hematology - Reji [facility] [facility] 200 [place] [address] Quique Khalil MD 2227 [facility] [address] [place] [address] documented as of this encounter Visit Diagnoses Not on filedocumented in this encounter Care Teams Marine Photographer Relationship Specialty Start Date End Date Silvia Quinonez MD [address] [place] [address] PCP - General Family Practice 11/02/24 No DME 09/02/15 documented as of this encounter
--- OUTSIDE RECORDS SUMMARY | 2025-04-05 00:17 | XMS_ITS | Encounter Summary ---
Author Organization [facility] Address [address] [place] [address] Care Team Providers Care Tool And Machine Maintainer Name Role Phone Silvia Quinonez MD Primary Care Provider [phone] Encounter Details Date Type Department Care Team (Late Contact Info) Description 11/18/[address] 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 Oncology and Hematology - Reji [address] [facility] 200 [place] [address] Quique Khalil MD [address] [facility] [place] [address] [place] [address] documented as of this encounter Visit Diagnoses Not on filedocumented in this encounter Care Teams Tool And Machine Maintainer Relationship Specialty Start Date End Date Silvia Quinonez MD [address] [place] [address] PCP - General Family Practice 11/02/24 No DME 09/02/15 documented as of this encounter
--- OUTSIDE RECORDS SUMMARY | 2025-04-05 00:17 | XMS_ITS | Encounter Summary ---
Author Organization [facility] Address 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 Gender Identity Not on file Sexual Orientation Not on file documented as of this encounter Plan of Treatment Upcoming Encounters Date Type Department Care Team (Late st Contact Info) Description 04/18/2025 3:45 PM CDT Office Visit [facility] Oncology and Hematology - Reji 2227 [facility] 200 [place] [address] Quique Khalil MD [address] [facility] [address] [place] [address] documented as of this encounter Visit Diagnoses Diagnosis Other screening mammogram- Primary documented in this encounter Care Teams Ice Cream Shop Associate Relationship Specialty Start Date End Date Silvia Quinonez MD [address] [place] [phone] PCP - General Family Practice 11/02/24 No DME 09/02/15 documented as of this encounter
--- OUTSIDE RECORDS SUMMARY | 2025-04-05 00:17 | XMS_ITS | Encounter Summary ---
Author Organization [facility] Address 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 [address] [place] [address] documented as of this encounter Visit Diagnoses Diagnosis Cramp of limb- Primary documented in this encounter Care Teams Critical Care Cns Relationship Specialty Start Date End Date Silvia Quinonez MD [address] [place] [phone] PCP - General Family Practice 11/02/24 No DME 09/02/15 documented as of this encounter
--- OUTSIDE RECORDS SUMMARY | 2025-04-05 00:17 | XMS_ITS | Encounter Summary ---
Author Organization [employer] [facility] Address [address] [place] [address] Care Team Providers Care Administrative Assistant Office Manager Name Role Phone Silvia Quinonez MD Primary Care Provider [phone] Encounter Details Date Type Department Care Team (Late st Contact Info) Description 10/18/2015 Chart Note [facility] Services Lara Andersony [address] [place] [id number] Tatiana Spaulding Physical Therapist Social History Tobacco Use Types Packs/Day Years Used Date Smoking Tobacco: Former Cigarettes 1 23 1 - 04/04/1986 Smokeless Tobacco: Never Alcohol Use Standard Drinks/Week Comments Yes 0 (1 standard drink = 0.6 oz pur e alcohol) social Comments No Sex and Gender Information Value Date Recorded Sex Assigned at Not on file 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 JOHN Schumacher [facility] [address] [facility], [address] [place] [address] (phone) [phone] (fax) [place] License Number: [id number] documented in this encounter Plan of Treatment Upcoming Encounters Date Type Department Care Team (Late st Contact Info) Description 04/18/2025 3:45 PM CDT Office Visit [facility] Oncology and Hematology - Reji [address] [facility] [address] [place] [address] Quique Khalil MD [address] [facility] [address] [place] [address] documented as of this encounter Visit Diagnoses Not on filedocumented in this encounter Additional Health Concerns Assessment Noted Time PHQ-9 Depression Total Score: 2 09/02/19 16 11:00 AM HERD TESTER documented as of this encounter Care Teams Administrative Assistant Office Manager Relationship Specialty Start Date End Date Silvia Quinonez MD [address] [place] [phone] PCP - General Family Practice 11/02/24 No DME 09/02/15 documented as of this encounter
--- OUTSIDE RECORDS SUMMARY | 2025-04-05 00:17 | XMS_ITS | Encounter Summary ---
Author Organization [facility] Address [address] [place] [address] Care Team Providers Care Fiscal Assistant Name Role Phone Silvia Quinonez MD Primary Care Provider [phone] Encounter Details Date Type Department Care Team (Late Contact Info) Description 06/10/2006 Outpatient Historical [facility] [place] [address] [place] [phone] Sam Machado MD 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 Gender Identity Not on file Sexual Orientation Not on file documented as of this encounter Plan of Treatment Upcoming Encounters Date Type Department Care Team (Late st Contact Info) Description 04/18/2025 3:45 PM CDT Office Visit [facility] Oncology and Hematology - Reji [address] [facility] [address] [place] [address] Quique Khalil MD [address] [facility] [address] [place] [address] documented as of this encounter Visit Diagnoses Not on filedocumented in this encounter Care Teams Fiscal Assistant Relationship Specialty Start Date End Date Silvia Quinonez MD [address] [place] [address] PCP - General Family Practice 11/02/24 No DME 09/02/15 documented as of this encounter
--- OUTSIDE RECORDS SUMMARY | 2025-04-05 00:17 | XMS_ITS | Encounter Summary ---
Author Organization [facility] Address [address] [place] [address] Care Team Providers Care Breadman Name Role Phone Silvia Quinonez MD Primary Care Provider [phone] Encounter Details Date Type Department Care Team (Late Contact Info) Description 11/10/2004 Outpatient Historical [facility] [place] [address] [place] [address] Sam Machado MD 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 Gender Identity Not on file Sexual Orientation Not on file documented as of this encounter Plan of Treatment Upcoming Encounters Date Type Department Care Team (Late st Contact Info) Description 04/18/2025 3:45 PM CDT Office Visit [facility] Oncology and Hematology - Reji [address] [facility] [address] [place] [address] Quique Khalil MD [address] [facility] [address] [place] [address] documented as of this encounter Visit Diagnoses Not on filedocumented in this encounter Care Teams Breadman Relationship Specialty Start Date End Date Silvia Quinonez MD [address] [place] [address] PCP - General Family Practice 11/02/24 No DME 09/02/15 documented as of this encounter
--- OUTSIDE RECORDS SUMMARY | 2025-04-05 00:17 | XMS_ITS | Encounter Summary ---
Author Organization [facility] Address [address] [place] [address] Care Team Providers Care Closing Supervisor Name Role Phone Silvia Quinonez MD Primary Care Provider [phone] Encounter Details Date Type Department Care Team (Late Contact Info) Description 10/16/2004 Outpatient Historical [facility] [place] [address] [place] [phone] Sam Machado MD 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 Gender Identity Not on file Sexual Orientation Not on file documented as of this encounter Plan of Treatment Upcoming Encounters Date Type Department Care Team (Late st Contact Info) Description 04/18/2025 3:45 PM CDT Office Visit [facility] Oncology and Hematology - Reji [address] [facility] [address] [place] [address] Quique Khalil MD [address] [facility] [address] [place] [address] documented as of this encounter Visit Diagnoses Not on filedocumented in this encounter Care Teams Closing Supervisor Relationship Specialty Start Date End Date Silvia Quinonez MD [address] [place] [address] PCP - General Family Practice 11/02/24 No DME 09/02/15 documented as of this encounter
--- OUTSIDE RECORDS SUMMARY | 2025-04-05 00:18 | XMS_ITS | Clinical Summary ---
Author Organization [facility] Address [address] [place] [address] Care Team Providers Care Thermometer Maker Name Role Phone Silvia Quinonez MD Primary Care Provider [phone] Silvia Quinonez MD Unavailable [phone] Allergies Active Allergy Reactions Criticality Noted Date Comments Amlodipine Fatigue Low 03/23/2012 Excessive fatigue Other Unknown 05/22/2009 SURGICAL MESH Medications calcium carbonate (CALCIUM 500 ORAL) Active cholecalciferol (VITAMIN D-3) 68209 unit tablet once a week 3 Active [...] Diabetes mellitus 09/27/2009 HTN (hypertension), benign 09/27/2009 Encounters Date Type Department Care Team Description 04/03/2025 Telephone [facility] Cardiology [address] [place] [address] Joel Azevedo MD [facility] from Last 3 Months Immunizations Immunization Administration Dates Next Due Influenza, [...] of fracture of ankle - (Added by BARBRA Conv) Type 2 diabetes mellitus Hypertension Social History Tobacco Use Types Packs/Day Years Used Date Smoking Tobacco: Never Smokeless Tobacco: Never Tobacco Cessation:Counseling Given: Not Answered [facility] Utilities Answer Date Recorded In the past 12 months has e Interview, [employer], oil, or water [employer] threatened to shut off services in your [...] or ex-partner? No 12/23/2023 Social Connection and Isolation Panel Answer Date Recorded In a typical week, how many times do you talk on the phone with family, friends, or neighbors? More than three times a week 12/23/2023 How often do you get togethe r with friends or relatives? Twice a week 12/23/2023 How often do you attend [facility] or anglican services? More than 4 times per year 12/23/2023 Do you belong to any clubs o r organizations such as latter-day groups, unions, fraternal or athletic groups, or [...] and heating? 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 Gender Identity Female 12/16/2020 9:45 PM CDT [...] - PCV20 or PCV21) 10/04/2019 10/03/2014, 09/16/2011 Covid-19 Vaccine (3 - Pfizer risk series) 11/25/2020 10/28/2020, 10/08/2020 Lipid Panel 11/29/2020 11/30/2019 DTaP/Tdap/Td Vaccine (2 - Td or Tdap) 10/20/2021 10/21/2011 Hemoglobin A1C 06/27/2024 12/27/2023, 12/04, 11/30/2019, Additional history exists eGFR 12/27/2024 12/28/2023, 12/04, 12/26/2023, Additional history exists Fall Risk Assessment 12/28/2024 12/29/2023 Influenza Vaccine (#1) 2025 , 04/29/2018, 05/04/2017, Additional history exists Medical Devices Implanted Type Area Land Inspector Device Identifier Shelf Expiration Date Model / Serial / Lot [employer] Screw Bone 5mm 80mm Lock Strl 2361-5080s - [id number] Implanted:Qty: 1 on 12/23/2023 by Dave Rosas MD at [facility] Screw Left: Femur [employer] [id number] 10/02/2033 2041-4029 S / / [id number] [employer] Screw Bone 5mm 70mm Lock Strl 2361-5070s - [id number] Implanted:Qty: 1 on 12/23/2023 by Dave Rosas MD at [facility] Screw Left: Femur [employer] [id number] 11/01/2033 4406-1311 S / / [id number] [employer] Screw Bone Locking Cannulated Tibial Oversized Thread Black T2 Alpha 5.0x85mm Titanium 2361-5085s - [id number] Implanted:Qty: 1 on 12/23/2023 by Dave Rosas MD at [facility] Screw Left: Femur [employer] [id number] 10/02/2033 5571-0622 S / / [id number] [employer] Screw Bone 5mm 37.5mm T2 Alpha Lock Strl 2360-5037s - [id number] Implanted:Qty: 1 on 12/23/2023 by Dave Rosas MD at [facility] Screw Left: Femur [employer] [id number] 11/01/2033 7284-9934 S / / [id number] [employer] Screw Bone 5mm 40mm T2 Alpha Lock Strl 2360-5040s - [id number] Implanted:Qty: 1 on 12/23/2023 by Dave Rosas MD at [facility] Screw Left: Femur [employer] [id number] 11/01/2033 2736-2771 S / / [id number] [employer] Screw Bone 5mm 42.5mm T2 Alpha Lock Strl 2360-5042s - [id number] Implanted:Qty: 1 on 12/23/2023 by Dave Rosas MD at [facility] Screw Left: Femur [employer] [id number] 10/02/2030 2930-2145 S / / [id number] Synthes Plate Bone Compression Locking Low Profile 18 Hole Left Va Lcp 4.9m699th Ss 02.124.419s - [id number] Implanted:Qty: 1 on 12/23/2023 by Dave Rosas MD at [facility] Left: Femur [employer]ynthe[employer] 02.124.41 9S / / [employer] Nail Intramedullary Femoral Retrograde T2 Alpha 41o330jl Titanium 2339-1124s - [id number] Implanted:Qty: 1 on 12/23/2023 by Dave Rosas MD at [facility] Left: Femur [employer] 07/04/2033 4330-5655 S / / [id number] Synthes 5mm 36mm Variable Angle Self Tap Lock Stardrive Condylar T25 02.231.236 - [id number] Implanted:Qty: 1 on 12/23/2023 by Dave Rosas MD at [facility] Left: Femur [employer] I 02.231.23 6 / / Synthes 4.5mm 8mm 36mm Self Tap Large Hexagonal Socket Cortex Screw Bone 214.836 - [id number] Implanted:Qty: 1 on 12/23/2023 by Dave Rosas MD at [facility] Left: Femur [employer] I 214.836 / / Synthes 5mm 80mm Variable Angle Self Tap Lock [employer] Condylar T25 02.231.280 - [id number] Implanted:Qty: 2 on 12/23/2023 by Dave Rosas MD at [facility] Left: Femur [employer]ynthes 02.231.28 0 / / Synthes 5mm 85mm Variable Angle Self Tap Lock [employer]ar T25 02.231.285 - [id number] Implanted:Qty: 2 on 12/23/2023 by Dave Rosas MD at [facility] Left: Femur [employer] I 02.231.28 5 / / Synthes 4.5mm 8mm 100mm Self Tap Large Hexagonal Socket Cortical Screw 214.900 - [id number] Implanted:Qty: 1 on 12/23/2023 by Dave Rosas MD at [facility] Left: Femur [employer]ynthes I 214.900 / / Synthes 5mm 38mm Variable Angle Self Tap Lock [employer] Condylar T25 02.231.238 - [id number] Implanted:Qty: 1 on 12/23/2023 by Dave Rosas MD at [facility] Left: Femur Synthes I .23 8 / / Synthes 5mm 40mm Variable Angle Self Tap Lock [employer] Condylar T25 231.240 - [id number] Implanted:Qty: 1 on 12/23/2023 by Dave Rosas MD at [facility] Left: Femur Synthes I .24 0 / / Explanted Type Area Land Inspector Device Identifier Shelf Expiration Date Model / Serial / Lot [employer] Nail Intramedullary Femoral Retrograde T2 Alpha [id number] Titanium [id number] - [id number] Explanted:Qty: 1 on 12/23/2023 by Dave Rosas MD at [facility] Left: Femur [employer] 07/04/2033 8852-8690 S / / [id number] Procedures Procedure Name Priority Date/Time Associated Diagnosis [...] Inclusion of Race in Diagnosing Kidney Disease, DEANSN 2020). The CKD-EPI equation should not be used for patients with unstable renal function and has not been validated in children and those over 70. Current interpretive data was last reviewed 2021. Blood 12/28/2023 12:3 4 AM CDT 12/28/2023 1:26 AM CDT Rama Johnson MD LAB BLOOD ORDERABLES Final Result Performing Organization Address [facility] de Phone Number [facility] [place] [place] [address] * Hemoglobin A1c (12/26/2023 10:39 PM CDT) [facility] Hgb A1C 5.5 4.0 - 5.6 % Estimated Average Glucose 111 mg/dL [facility] Comment: The ADA recommends reporting an [...] BLOOD ORDERABLES Final Result Performing Organization Address [facility] de Phone Number [facility] [place] [place] [address] * BONE MINERAL DENSITY (07/07/2012) Anatomical Region Laterality Modality Radiographic Bonnie ging Narrative 07/07/2012 Ordered by an unspecified provider. Historical Provider IMG DXA PROCEDURES Final Result from Last 3 Months or Most Recently Relevant to Health Maintenance Insurance AETNA MEDICARE GOLD MEDICARE AETNA SENIOR SUPPLEMENT AETNA MEDICARE GOLD [address] [place] [id number] [facility] [id number] [facility] [address] MEDICARE [facility] Advance Directives For more information, please contact: [phone] * Full Code (Latest Code Status on [...] 1:45 PM 12/23/2023 2:10 PM Care Teams Thermometer Maker Relationship Specialty Start Date End Date Silvia Quinonez MD PCP - General Family Medicine 12/23/23 Silvia Quinonez MD Family Medicine 12/23/23
--- OUTSIDE RECORDS SUMMARY | 2025-04-05 00:18 | XMS_ITS | Clinical Summary ---
Author Organization [facility] [email or web address] Address [address] [place] [address] Care Team Providers Care Employee Benefits Specialist Name Role Phone Silvia Quinonez MD Primary Care Provider [phone] Source Comments [email or web address],non-owned Affiliates and Associated Physician Practices is amultiple site organization consisting of ambulatory clinics and hospital sitesin [place], [place], [place] and [place]. This disclosure is being madepursuant to the Care Everywhere program and may not contain all information available regarding this patient. 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 Gender Identity Not on file Sexual Orientation [...] 09/19/2021 10:45 AM CDT Plan of Treatment Health Maintenance Due Date Last Done Comments BONE DENSITY TESTING 1950 HEPATITIS C SCREENING 01/04/1967 DTAP/TDAP/TD VACCINES (1 - Tdap) 01/09/1968 PNEUMOCOCCAL VACCINE 50+ (1 of 1 - PCV) 1999 ZOSTER VACCINE (1 of 2) 1999 Respiratory Syncytial Virus (RSV) Vaccine Pt: or over 60 yrs (1 - 1-dose 75+ series) 01/09/2024 DEPRESSION SCREENING 07/05/2024 MEDICARE AWV CALENDAR YEAR 2024 COVID-19 VACCINE (3 - 2024-26 season) 2025 10/28/2020, 10/08/2020 INFLUENZA VACCINE (#1) 2025 , 04/29/2018, 05/04/2017, [...] patient's age to complete this topic Insurance MEDICARE AETNA MEDICARE [facility] Care Teams Employee Benefits Specialist Relationship Specialty Start Date End Date Silvia Quinonez MD [address] [place] [address] PCP - General Family Medicine 09/19/21
--- OUTSIDE RECORDS SUMMARY | 2025-04-05 00:18 | XMS_ITS | Clinical Summary ---
Author Organization [facility] Address [address] [place] [address] Phone Care Team Providers Care Delivery Analyst Name Role Phone Silvia Quinonez MD Primary Care Provider [phone] Allergies Active Allergy Reactions Criticality Noted Date Comments Amlodipine Other (See Comments) Low 03/23/2012 Excessive fatigue Unclassified Drug Unknown 05/22/2009 SURGICAL MESH Medications vit C-vit M-yrcwue-oewo OXIDE-lutein (PRESERVISION) 226-90-0.8-5 mg Capsule Take 1 [...] Encounters Date Type Department Care Team Description 01/17/2025 External Device Data STL ABSTRACTION Provider, Abstract 01/16/2025 External Device Data STL ABSTRACTION Provider, Abstract from Last 3 Months Immunizations Immunization Administration [...] Healthy Daughter Heike Heart Disease Mother Christina SD x 1 Stroke Mother Christina silent Healthy [...] on file 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 Gender Identity Not on file Sexual Orientation [...] Institute Oncology and Hematology - [place]ji [address] [facility] [address] [place] [address] Quique Khalil MD [address] [facility] [address] [place] [address] Health Maintenance Due Date Last [...] ) (1 - 1-dose 75+ series) 01/09/2024 DIABETES HBA1C Q 6 MONTHS 06/27/20242023, 12/26/2023, 04/18/2020, Additional history exists INFLUENZA VACCINE (#1) 2025 0, 04/29/2018, 05/04/2017, Additional history exists COVID-19 Vaccine (3 - 2024-2 6 season) 2025 10/28/2020, 10/08/2020 COLORECTAL SCREENING Discontinued 12/27/2019, 10/01/19 10 Colorectal Cancer Screening Discontinued FIT-DNA Q 3 years Discontinued FIT/FOBT Q 1 year Discontinued Flex Sig/CT Colonography Q 5 years Discontinued Procedures Procedure Name Priority Date/Time Associated Diagnosis Comments DIABETES EYE EXAM Routine 12/12/2019 LIPID PANEL Routine 11/30/2019 12:13 PM CDT Type 2 diabetes mellitus with other diabetic kidney complication, without long-term current use of insulin ([facility]) HEMOGLOBIN A1C Routine 11/30/2019 12:13 PM CDT Type 2 diabetes mellitus with other diabetic kidney complication, without long-term current use of insulin ([facility]) MICROALBUMIN/CREATIN INE RATIO, RANDOM UR Routine 06/14/2018 2:19 AM FURNITURE RESTORER Type 2 diabetes mellitus with complication, without long-term current use of insulin ([facility]) XR DEXA BONE DENSITY AXIAL 1 OR MORE SITES Routine 10/01/2015 9:00 AM CDT Menopausal syndrome from Last 3 Months or Most Recently Relevant to Health Maintenance Results * DIABETES EYE EXAM (12/12/2019) us Abstract Provider HEALTH MAINTENANCE Edited Resu lt - Final [facility] - OB & WATER TANKER DRIVER CLIA# [id number] [address] [place] [address], [address] [place] [address] * (ABNORMAL) HEMOGLOBIN A1C (11/30/2019 12:13 PM CDT) HEMOGLOBIN A1C 5.9(H) <5.7 % 11/30/2019 4:00 PM CDT [facility] EST. AVG GLUCOSE, A1C 123 mg/dL 11/30/2019 4:00 PM CDT [facility] Blood Venipuncture / Unknown 11/30/2019 12:13 PM CDT 11/30/2019 12:13 PM CDT [facility] Datam [facility] - 11/30/2019 4:00 PM CDT HGB A1C INTERPRETATION NORMAL: <5.7% PRE-DIABETES: 5.7 - 6.4% DIABETES: 6.5% OR GREATER Yasmeen Garcia MD CHEMISTRY ORDERABLES Final Res ult [facility]# [id number] [address] [facility] [place] [place] [address] * (ABNORMAL) LIPID PANEL (11/30/2019 12:13 PM CDT) CHOLESTEROL 145 <200 mg/dL 11/30/2019 4:37 PM CDT [facility] TRIGLYCERIDE 76 <150 mg/dL 11/30/2019 4:37 PM CDT [facility] HDL 69(H) 40 - 59 mg/dL 11/30/2019 4:37 PM CDT [facility] LDL CALCULATED 61 <100 mg/dL 11/30/2019 4:37 PM CDT [facility] NON-HDL CHOLESTEROL 76 <130 mg/dL 11/30/2019 4:37 PM CDT [facility] Blood Venipuncture / Unknown 11/30/2019 12:13 PM CDT 11/30/2019 12:13 PM CDT [facility] Datam [facility] - 11/30/2019 4:37 PM CDT TOTAL CHOLESTEROL [...] ORDERABLES Final Res ult Performing Organization Address [facility]/ZIP Co de Phone Number [facility]# [id number] [address] [facility] [place] [address] * MICROALBUMIN/CREATININE RATIO, RANDOM UR (06/14/2018 2:19 AM FURNITURE RESTORER) Creatinine, Urine 128 20 - 275 mg/dL [facility] MICROALBUMIN, URINE 0.4 See Note: mg/dL [facility] Comment: Reference Range: Reference Range Not established MICROALBUMIN/CREAT RATIO, UR 3 <30 mcg/mg creat [facility] Comment: The ADA defines abnormalities in albumin excretion as follows: Category Result (mcg/mg creatinine) Normal <30 Microalbuminuria 30-299 Clinical albuminuria > OR = 300 The ADA recommends that at least two of three specimens collected within a 3-6 month period be abnormal before considering a patient to be within a diagnostic category. Test Performed at: [facility] [address] [facility] [place] [address] Jens Aguilar D.O., MPH Urine URINE SPECIMEN OBTAINED BY CLEAN CATCH PROCEDURE / Unknown 06/14/2018 2:19 AM FURNITURE RESTORER Chary Hardin MD URINE ORDERABLES Edited Result - Final Performing Organization Address City/[facility]/ZIP Co de Phone Number [employer] [facility] [address] [place] [id number] * XR DEXA BONE DENSITY AXIAL 1 [...] Rivera DO DICTATION LOCATION: Location 1 - [facility] 10/01/2015 9:27 AM CDT XR DEXA BONE DENSITY AXIAL 1 OR MORE SITES DATE: 10/01/2015 9:00 AM HISTORY: 65 years old Female with post menopausal symptoms. PROCEDURE: Planar images of the lumbar spine and hip(s) using a Jetaport DEXA scanner for bone mineral density determination (BMD). FINDINGS: Lumbar Spine (L1-L4) 1.171 gm/cm2, T-score: -0.1 Left femoral neck 0.780 gm/cm2, T-score: -1.9 Right femoral neck 0.780 gm/cm2, T-score: -1.9 Comments: None Detailed report placed in Imaging Section of [facility] EMR. Procedure Note Cristhian Rivera DO - 10/01/2015 XR DEXA BONE DENSITY AXIAL 1 OR MORE SITES DATE: 10/01/2015 9:00 AM HISTORY: 65 years old Female with post menopausal symptoms. PROCEDURE: Planar images of the lumbar spine and hip(s) using a [employer]aport DEXA scanner for bone mineral density determination (BMD). FINDINGS: Lumbar Spine (L1-L4) 1.171 gm/cm2, T-score: -0.1 Left femoral neck 0.780 gm/cm2, T-score: -1.9 Right femoral neck 0.780 gm/cm2, T-score: -1.9 Comments: None Detailed report placed in Imaging Section of [facility] EMR. IMPRESSION IMPRESSION: Osteopenic BMD. Lumbar [...] Cristhian Rivera, DICTATION LOCATION: Location 1 - [facility] Patricia Krueger MD DIAGNOSTIC IMAGING ORDERABLES F inal Result from Last 3 Months or Most Recently Relevant to Health Maintenance Insurance MEDICARE PART A AND B AETNA MEDICARE SUPP AESSI AETNA O [facility] Address: [address] [place] [address] Advance Directives For more information, please contact: [phone] Documents on File Type Date Recorded Patient Float Builder Expl anation Advance Directive POA 10/03/2014 12:00 [...] 7:06 AM 10/01/2009 2:01 AM Care Teams Delivery Analyst Relationship Specialty Start Date End Date Silvia Quinonez MD [address] [place] [address] PCP - General Family Practice 11/02/24 No DME 09/02/15
--- OUTSIDE RECORDS SUMMARY | 2025-04-05 00:18 | XMS_ITS | Encounter Summary ---
Author Organization [facility] Address [address] [facility] Attn: Epic Prelude ADT [place] [address] Care Team Providers Care Manager Water Name Role Phone Silvia Quinonez MD Primary Care Provider [phone] Encounter Details Date Type Department Care Team (Late st Contact Info) Description 08/05/1994 Outpatient Historical Josr Toledo MD NO ADDRESS ON FILE Social History Tobacco Use Types Packs/Day Years Used Date Smoking Tobacco: Never Assessed Comments Unknown Sex and Gender Information Value Date Recorded Sex Assigned at Not on file 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 Gender Identity Not on file Sexual Orientation Not on file documented as of this encounter Plan of Treatment Upcoming Encounters Date Type Department Care Team (Late st Contact Info) Description 04/18/2025 3:45 PM CDT Office Visit [facility] Oncology and Hematology - Reji [address] [facility] [address] [place] [address] Quique Khalil MD [address] [facility] [address] [place] [address] documented as of this encounter Visit Diagnoses Not on filedocumented in this encounter Care Teams Manager Water Relationship Specialty Start Date End Date Silvia Quinonez MD [address] [place] [address] PCP - General Family Practice 11/02/24 No DME 09/02/15 documented as of this encounter
--- OUTSIDE RECORDS SUMMARY | 2025-04-05 00:18 | XMS_ITS | Patient Health Record ---
Author Organization [facility] [employer] [place] ([address]) Address [address] [place] [address] Care Team Providers Care Beauty Director Name Role Phone Silvia Quinonez Primary Care Provider Elva Whiteside Unavailable [phone] Allergies No Known Allergies Results Component Value Reference Range Notes -CBC With Differential/Plate let Reviewed date:08/31/2024 11:47:08 AM Interpretation:Normal Performing Lab:[facility], [address] [place] [id number], Phone - [phone], Director - [place] Notes/Report: WBC 7.4 3.4-10.8 x10E3/uL RBC 4.67 [...] (14) Reviewed date:08/31/2024 11:44:49 AM Interpretation:Abnormal [facility]forming [facility], [address] [place] [id number], Phone - [phone], Director - [facility] Notes/Report: Glucose 102 70-99 mg/dL BUN 21 [...] 0-40 IU/L ALT (SGPT) 20 0-32 IU/L -TSH Rfx on Abnormal to Free T4 Reviewed date:08/31/2024 11:44:33 AM Interpretation:Abnormal Performing Lab:[facility], [address] [place] [id number], Phone - [phone], [facility]Report: TSH 4.800 0.450-4.500 uIU/mL T4,Free (Direct) 1.35 0.82-1.77 ng/dL Spirometry (Not yet reviewed by provider) Interpretation: [...] W/U Status Risk Notes Problem Allergic rhinitis (61096006) Other allergic rhinitis (J30.89) Active confirmed Problem Chronic rhinitis (75838910) Chronic rhinitis (J31.0) Active confirmed Vital Signs Oximetry 100 % 11/07/2024 Blood pressure diastolic 73 mm Hg 11/07/2024 Height 66 in 11/07/2024 Blood pressure systolic 134 mm Hg 11/07/2024 Weight 157.8 lbs 11/07/2024 BMI 25.47 kg/m2 11/07/2024 Encounters Encounter Location Date Provider Diagnosis [facility] [address] [facility] [address] [place] [address] 08/29/2024 Elva Luna Other allergic rhinitis J30.89 ; Dermatitis, unspecified L30.9 and Pruritus, unspecified L29.9 [facility] [address] [place] [address] 10/10/2024 Elva Jeremy Dermatitis, unspecified L30.9 ; Cough, unspecified R05.9 ; Other allergic rhinitis J30.89 and Pruritus, unspecified L29.[address] [address] 11/07/2024 Elva Jeremy Dermatitis, unspecified L30.9 ; Cough, unspecified R05.9 ; Other allergic rhinitis J30.89 and Pruritus, unspecified L29.[address] [place] [address] 08/31/2024 Elva Jeremy [address] [place] [address] 11/08/2024 Elva Jeremy [address] [place] [address] 11/23/2024 Elva Jeremy Cough, unspecified R05.[address] [place] [address] 12/04/2024 Elva Jeremy Cough, unspecified R05.9 Assessments [...] Coverage End Date [employer] [address] [place] [address] [id number] Loren Fernández Self - patient is the insured Medical (General) History Medical History History ICD Code high blood pressure Type II diabetes Macular degeneration Osteoporosis Eczema Surgical History Surgery Date(Month/Year) knee replacement 2022 gastric bypass 1997 lower leg surgery 2019 Hospitalization History Reason Date(Month/Year) See Above
--- NOTE | 2025-04-05 07:00 | ECHO_ITS ---
Patient Info Name: Loren Bryan Age: 75 years : 1950 Gender: Female Ht: 67 in HR: 97 bpm Technical Quality: Fair Exam Date: 04/05/2025 8:05 AM Patient Status: O Admit Date: 04/05/2025 Exam Type: CA echo transesophageal Complete two-dimensional, color flow and Doppler transesophageal study is performed. Exhauster: Doris Corbin Attending Provider: Kareem Alfaro DO Summary 1. Left ventricular chamber dimension is normal. 2. Left ventricular systolic function is normal with an ejection fraction of 60-65% by visual estimation. 3. There is moderate concentric increased left ventricular wall thickness. 4. The left ventricular diastolic function is indeterminate as it was not assessed. 5. Left atrial chamber dimension is severely enlarged. 6. There is severe aortic valve sclerosis. 7. There is critical aortic valve stenosis with valve area of 0.5 cm2 by planimetry. There is turbulent flow through the valve. 8. There is trace aortic valve regurgitation. 9. The mitral valve has mildly calcified leaflets and a severely calcified annulus. 10. There is moderate mitral valve stenosis. There is turbulent flow through the valve. 11. There is mild mitral valve regurgitation. 12. There is trace tricuspid valve regurgitation. Procedure Details Risks/benefits/alternative to NEIL discuss with patient and she agreed to procedure. She was monitored electrocardiographically, vitals and pulse ox. She was in sinus rhythm, HR 70 bpm, BP 150/70 mmHg, pulse ox 100%. Cetacaine spray x 1 to posterior oropharyynx. Versed 2 mg and Fentanyl 25 mcg IV for conscious sedation. NEIL probe advanced into esophagus without incident. Multiple images obtained. Agitated saline injection x 1. NEIL probe withdrawn and no blood noted on probe tip. Patient tolerated procedure well with no complications. Left Ventricle Left ventricular chamber dimension is normal. Left ventricular systolic function is normal with an ejection fraction of 60-65% by visual estimation. There is moderate concentric increased left ventricular wall thickness. The left ventricular diastolic function is indeterminate as it was not assessed. Right Ventricle Right ventricular chamber dimension is normal. Right ventricular systolic function is normal. Left Atria Left atrial chamber dimension is severely enlarged. Right Atria Right atrial chamber dimension is normal. Atrial Septum Intact interatrial septum visualized by 2D, color flow and agitated saline imaging. Agitated saline injection opacified right side cardiac chambers without shunt to left side cardiac chambers. Atrial Appendage There is no thrombus visualized in the left atrial appendage. Aortic Valve The aortic valve is trileaflet. There is severe aortic valve sclerosis. There is critical aortic valve stenosis with valve area of 0.5 cm2 by planimetry. There is turbulent flow through the valve. There is trace aortic valve regurgitation. Pulmonic Valve There is no pulmonic regurgitation. Mitral Valve The mitral valve has mildly calcified leaflets and a severely calcified annulus. There is moderate mitral valve stenosis. There is turbulent flow through the valve. There is mild mitral valve regurgitation. Tricuspid Valve There is trace tricuspid valve regurgitation. Pericardium/Pleural There is no pericardial effusion. Inferior Vena Cava Inferior vena cava is not well visualized. Aorta The aortic root size at the sinus of Valsalva is normal. Aortic Valve Name Value Normal AV 2D/MM AV Area (Planimetry) 0.5 cm2 Report Signatures
[2025-04-05] MEDS: MIDAZOLAM HCL (*CRX) 2 MG/2 ML VIAL IV PUSH (08:11)
[2025-04-05] MEDS: fentaNYL CITRATE INJ (*CRX) 100 MCG/2 ML VIAL (08:11)
[2025-04-05] MEDS: MIDAZOLAM HCL (*CRX) 2 MG/2 ML VIAL (08:11)
[2025-04-05] MEDS: fentaNYL CITRATE INJ (*CRX) 100 MCG/2 ML VIAL 25 MCG IV PUSH (08:11)
== END | disposition home or self-care (01) ==
PROVIDERS: PCP Family Medicine; Visit Provider Internal Medicine Cardiovascular Disease
PROC: (CPT 93312; principal; 2025-04-05 08:00)
DX: I35.0 Nonrheumatic aortic (valve) stenosis (principal); I35.8 Other nonrheumatic aortic valve disorders; I34.81 Nonrheumatic mitral (valve) annulus calcification; I34.0 Nonrheumatic mitral (valve) insufficiency; I10 Essential (primary) hypertension; E78.5 Hyperlipidemia, unspecified; G47.10 Hypersomnia, unspecified; E11.65 Type 2 diabetes mellitus with hyperglycemia; D64.9 Anemia, unspecified; M81.0 Age-related osteoporosis without current pathological fracture; E53.8 Deficiency of other specified B group vitamins; E87.5 Hyperkalemia; R35.0 Frequency of micturition; G25.81 Restless legs syndrome; R01.1 Cardiac murmur, unspecified; M17.0 Bilateral primary osteoarthritis of knee; M47.817 Spondylosis without myelopathy or radiculopathy, lumbosacral region; M96.1 Postlaminectomy syndrome, not elsewhere classified; R05.3 Chronic cough; F12.90 Cannabis use, unspecified, uncomplicated; Z79.84 Long term (current) use of oral hypoglycemic drugs; Z98.890 Other specified postprocedural states; Z98.1 Arthrodesis status; Z90.49 Acquired absence of other specified parts of digestive tract; Z98.51 Tubal ligation status; Z98.84 Bariatric surgery status; Z87.891 Personal history of nicotine dependence
CPT/HCPCS: 93312; 93320; 93325; J2250; J3010; J7040

== ENCOUNTER 2025-04-05 10:25 | Outpatient (CLI) | payer MEDICARE, SELFPAY ==
--- OUTSIDE RECORDS SUMMARY | 2025-04-05 11:06 | XMS_ITS | Encounter Summary ---
Author Organization [facility] Address [address] [place] [address] Care Team Providers Care Stacker Name Role Phone Silvia Quinonez MD Primary Care Provider [phone] Encounter Details Date Type Department Care Team (Late st Contact Info) Description 11/10/2004 Outpatient Historical [facility] Support Services Cardiac 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 Gender Identity Not on file Sexual Orientation Not on file documented as of this encounter Plan of Treatment Upcoming Encounters Date Type Department Care Team (Late st Contact Info) Description 04/18/2025 3:45 PM CDT Office Visit [facility] Oncology and Hematology - [place]ji [address] [place] [address] [facility] [address] [place] [address] [place] [address] [place] [address] [address] [place] [address] documented as of this encounter Visit Diagnoses Not on filedocumented in this encounter Care Teams Stacker Relationship Specialty Start Date End Date Silvia Quinonez MD [address] [place] [phone] PCP - General Family Practice 11/02/24 No DME 09/02/15 documented as of this encounter
--- OUTSIDE RECORDS SUMMARY | 2025-04-05 11:06 | XMS_ITS | Encounter Summary ---
Author Organization [facility] Address [address] [place] [address] Care Team Providers Care Certifier Name Role Phone Silvia Quinonez MD Primary Care Provider [phone] Encounter Details Date Type Department Care Team (Late Contact Info) Description 11/18/2004 Outpatient Historical [facility] [place] [address] [place] [phone] Sam Machado MD 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 Gender Identity Not on file Sexual Orientation Not on file documented as of this encounter Plan of Treatment Upcoming Encounters Date Type Department Care Team (Late st Contact Info) Description 04/18/2025 3:45 PM CDT Office Visit [facility] Oncology and Hematology - Reji [address] [facility] [address] [place] [address] Quique Khalil MD [address] [facility] [address] [place] [address] documented as of this encounter Visit Diagnoses Not on filedocumented in this encounter Care Teams Certifier Relationship Specialty Start Date End Date Silvia Quinonez MD [address] [place] [address] PCP - General Family Practice 11/02/24 No DME 09/02/15 documented as of this encounter
--- OUTSIDE RECORDS SUMMARY | 2025-04-05 11:06 | XMS_ITS | Encounter Summary ---
Author Organization [facility] Address [address] [place] [address] Care Team Providers Care Blood Bank Supervisor Name Role Phone Silvia Quinonez MD Primary Care Provider [phone] Encounter Details Date Type Department Care Team (Late Contact Info) Description 06/10/2006 Outpatient Historical [facility] [place] [address] [place] [phone] Sam Machado MD 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 Gender Identity Not on file Sexual Orientation Not on file documented as of this encounter Plan of Treatment Upcoming Encounters Date Type Department Care Team (Late st Contact Info) Description 04/18/2025 3:45 PM CDT Office Visit [facility] Oncology and Hematology - Reji [address] [facility] [address] [place] [address] Quiqeu Khalil MD [address] [facility] [address] [place] [address] documented as of this encounter Visit Diagnoses Not on filedocumented in this encounter Care Teams Blood Bank Supervisor Relationship Specialty Start Date End Date Silvia Quinonez MD [address] [place] [address] PCP - General Family Practice 11/02/24 No DME 09/02/15 documented as of this encounter
--- OUTSIDE RECORDS SUMMARY | 2025-04-05 11:06 | XMS_ITS | Encounter Summary ---
Author Organization [facility] Address 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 Gender Identity Not on file Sexual Orientation Not on file documented as of this encounter Plan of Treatment Upcoming Encounters Date Type Department Care Team (Late st Contact Info) Description 04/18/2025 3:45 PM CDT Office Visit [facility] Oncology and Hematology - Reji [address] [facility] [address] [place] [address] Quique Khalil MD [address] [facility] [address] [place] [address] documented as of this encounter Visit Diagnoses Diagnosis Persistent postoperative fistula, 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
--- OUTSIDE RECORDS SUMMARY | 2025-04-05 11:06 | XMS_ITS | Encounter Summary ---
Author Organization [facility] Address [address] [place] [address] Care Team Providers Care Rush Seater Name Role Phone Silvia Quinonez MD Primary Care Provider [phone] Encounter Details Date Type Department Care Team (Latest Contact Info) Description 03/03/2007 Outpatient Historical [facility] Sam Machado MD 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 Oncology and Hematology - Reji 2227 [facility] 200 [place] [address] Quique Khalil MD 2227 [facility] [address] [place] [address] documented as of this encounter Visit Diagnoses Diagnosis Other screening mammogram- Primary documented in this encounter Care Teams Rush Seater Relationship Specialty Start Date End Date Silvia Quinonez MD [address] [place] [phone] PCP - General Family Practice 11/02/24 No DME 09/02/15 documented as of this encounter
--- OUTSIDE RECORDS SUMMARY | 2025-04-05 11:06 | XMS_ITS | Encounter Summary ---
Author Organization [facility] Address [address] [place] [address] Care Team Providers Care Product Marketing Director Name Role Phone Silvia Quinonez MD Primary Care Provider [phone] Encounter Details Date Type Department Care Team (Late st Contact Info) Description 03/17/2005 Outpatient Historical [facility] [place] [address] [place] [address] Gunjan Szymanski MD NO ADDRESS ON FILE Social History Tobacco Use Types Packs/Day Years Used Date Smoking Tobacco: Never Assessed Comments Unknown Sex and Gender Information Value Date Recorded Sex Assigned at Not on file 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 Gender Identity Not on file Sexual Orientation Not on file documented as of this encounter Plan of Treatment Upcoming Encounters Date Type Department Care Team (Late st Contact Info) Description 04/18/2025 3:45 PM CDT Office Visit [facility] Oncology and Hematology - Reji [address] [place] [address] [facility] 200 [place] [address] Quique Khalil MD [address] [facility] [address] [place] [address] documented as of this encounter Visit Diagnoses Not on filedocumented in this encounter Care Teams Product Marketing Director Relationship Specialty Start Date End Date Silvia Quinonez MD [address] [place] [phone] PCP - General Family Practice 11/02/24 No DME 09/02/15 documented as of this encounter
--- OUTSIDE RECORDS SUMMARY | 2025-04-05 11:06 | XMS_ITS | Encounter Summary ---
Author Organization [facility] Address [address] [place] [address] Care Team Providers Care Bounty Trapper Name Role Phone Silvia Quinonez MD Primary Care Provider [phone] Encounter Details Date Type Department Care Team (Latest Contact Info) Description 11/18/2004 Inpatient Historical [facility] Sam Machado MD 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 Gender Identity Not on file Sexual Orientation Not on file documented as of this encounter Plan of Treatment Upcoming Encounters Date Type Department Care Team (Late st Contact Info) Description 04/18/2025 3:45 PM CDT [facility] On[facility] and Hematology - Reji [address] [facility] 200 [place] [address] Quique Khalil MD 2227 [facility] [address] [place] [address] documented as of this encounter [...] ORDERABLES Final Re sult Performing Organization Address [facility] Phone Number INTERFACE SYSTEM Refer to clinic/hospital department * POC GLUCOSE (11/18/2004 8:25 AM CDT) GLUCOSE POC 84 65 - 115 mg/dL INTERFACE SYSTEM 11/18/2004 8:25 AM CDT us Sam Machado MD POINT OF CARE TESTING Final Re sult Performing Organization Address [facility] Number INTERFACE SYSTEM Refer to clinic/hospital [...] URINE ORDERABLES Final Result Performing Organization Address [facility] Phone Number INTERFACE SYSTEM Refer to [...] ORDERABLES Final Res ult Performing Organization Address [facility] de Phone Number INTERFACE SYSTEM Refer to [...] ORDERABLES Final Re sult Performing Organization Address [facility] de Phone Number INTERFACE SYSTEM Refer to [...] Primary documented in this encounter Care Teams Bounty Trapper Relationship Specialty Start Date End Date Silvia Quinonez MD [address] [place] [address] PCP - General Family Practice 11/02/24 No DME 09/02/15 documented as of this encounter
--- OUTSIDE RECORDS SUMMARY | 2025-04-05 11:06 | XMS_ITS | Encounter Summary ---
Author Organization [facility] Address [address] [place] [address] Care Team Providers Care Reservoir Engineer Name Role Phone Silvia Quinonez MD Primary Care Provider [phone] Encounter Details Date Type Department Care Team (Late Contact Info) Description 06/10/2006 Outpatient Historical [facility] [place] [address] [place] [address] Sam Machado MD 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 Gender Identity Not on file Sexual Orientation Not on file documented as of this encounter Plan of Treatment Upcoming Encounters Date Type Department Care Team (Late st Contact Info) Description 04/18/2025 3:45 PM CDT Office Visit [facility] Oncology and Hematology - Reji [facility] [facility] 200 [place] [address] Quique Khalil MD 2[address] [facility] [address] [place] [address] documented as of this encounter Visit Diagnoses Not on filedocumented in this encounter Care Teams Reservoir Engineer Relationship Specialty Start Date End Date Silvia Quinonez MD [address] [place] [address] PCP - General Family Practice 11/02/24 No DME 09/02/15 documented as of this encounter
--- OUTSIDE RECORDS SUMMARY | 2025-04-05 11:06 | XMS_ITS | Encounter Summary ---
Author Organization [facility] Address [address] [place] [address] Care Team Providers Care Junction Maker Name Role Phone Silvia Quinonez MD Primary Care Provider [phone] Encounter Details Date Type Department Care Team (Latest Contact Info) Description 02/28/2008 Outpatient Historical [facility] Ora Machado MD 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 Gender Identity Not on file Sexual Orientation Not on file documented as of this encounter Plan of Treatment Upcoming Encounters Date Type Department Care Team (Late st Contact Info) Description 04/18/2025 3:45 PM CDT Office Visit [facility] Oncology and Hematology - Reji 2227 [facility] 200 [place] [address] Quique Khalil MD 2227 [facility] [address] [place] [address] documented as of this encounter Procedures Procedure Name Priority Date/Time Associated Diagnosis Comments MAMMO SCREEN BILAT W OR WO CAD Timed Study 02/28/2008 9:06 AM CDT documented in this encounter Results * MAMMO DIGITAL SCREEN BILAT (02/28/2008 9:06 AM CDT) Anatomical Region Laterality Modality Breast Bilateral Other 02/28/2008 9:06 AM CDT Narrative 03/01/2008 8:15 AM CDT [address] [address] Admit Date: 02/28/2008 TYRONE REID Sex: F Admit Prov: ORA MACHADO Date: 1950 Primary Care Prov: BIB MACHUCA CMRN: [id number] [id number] Ordering Prov: ORA MACHADO Accession Number: [id number] Interpretation BILATERAL SCREENING DIGITAL MAMMOGRAMS WITH COMPUTER [...] Procedure Note Gabino Worthington MD - 03/01/[address] [address] Admit Date: 02/28/2008 TYRONE REID Sex: F Admit Prov: ORA MACHADO Date: 1950 Primary Care Prov: BIB MACHUCA CMRN: [id number] Room: [facility] SSN: [id number] IMAGING SERVICES Ordering Prov: ORA MACHADO Interpretation [...] mammogram documented in this encounter Care Teams Junction Maker Relationship Specialty Start Date End Date Silvia Quinonez MD [address] [place] [phone] PCP - General Family Practice 11/02/24 No DME 09/02/15 documented as of this encounter
--- OUTSIDE RECORDS SUMMARY | 2025-04-05 11:06 | XMS_ITS | Encounter Summary ---
Author Organization [facility] Address [address] [place] [address] Care Team Providers Care Crop Ranch Hand Name Role Phone Silvia Quinonez MD Primary Care Provider [phone] Encounter Details Date Type Department Care Team (Late Contact Info) Description 11/18/2004 Outpatient Historical [facility] [address] [place] [address] Efren Resendez MD [address] [place] [address] [place] [address] Social History Tobacco Use Types Packs/Day Years Used Date Smoking Tobacco: Never Assessed Comments Unknown Sex and Gender Information Value Date Recorded Sex Assigned at Not on file Legal Sex Female 3:05 AM SPECIAL SERVICES DIRECTOR Gender Identity Not on file Sexual Orientation Not on file documented as of this encounter Plan of Treatment Upcoming Encounters Date Type Department Care Team (Late st Contact Info) Description 04/18/2025 3:45 PM CDT Office Visit [facility] Oncology and Hematology - Reji [address] [facility] 200 [place] [address] Quique Khalil MD 2227 [facility] [address] [place] [address] documented as of this encounter Visit Diagnoses Not on filedocumented in this encounter Care Teams Crop Ranch Hand Relationship Specialty Start Date End Date Silvia Quinonez MD [address] [place] [address] PCP - General Family Practice 11/02/24 No DME 09/02/15 documented as of this encounter
--- OUTSIDE RECORDS SUMMARY | 2025-04-05 11:06 | XMS_ITS | Encounter Summary ---
Author Organization [facility] Address [address] [place] [address] Care Team Providers Care Electrical Development Engineer Name Role Phone Silvia Quinonez MD Primary Care Provider [phone] Encounter Details Date Type Department Care Team (Late Contact Info) Description 06/15/2007 Outpatient Historical [facility] [place] [address] [place] [phone] Sam Machado MD 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 Gender Identity Not on file Sexual Orientation Not on file documented as of this encounter Plan of Treatment Upcoming Encounters Date Type Department Care Team (Late st Contact Info) Description 04/18/2025 3:45 PM CDT Office Visit [facility] Oncology and Hematology - Reji [address] [facility] 200 [place] [address] Quique Khalil MD 2[address] [facility] [address] [place] [address] documented as of this encounter Visit Diagnoses Not on filedocumented in this encounter Care Teams Electrical Development Engineer Relationship Specialty Start Date End Date Silvia Quinonez MD [address] [place] [address] PCP - General Family Practice 11/02/24 No DME 09/02/15 documented as of this encounter
--- OUTSIDE RECORDS SUMMARY | 2025-04-05 11:06 | XMS_ITS | Encounter Summary ---
Author Organization [facility] Address [address] [place] [address] Care Team Providers Care Shingle Catcher Name Role Phone Silvia Quinonez MD Primary Care Provider [phone] Encounter Details Date Type Department Care Team (Late Contact Info) Description 11/10/2004 Outpatient Historical [facility] [place] [address] [place] [phone] Sam Machado MD 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 Gender Identity Not on file Sexual Orientation Not on file documented as of this encounter Plan of Treatment Upcoming Encounters Date Type Department Care Team (Late st Contact Info) Description 04/18/2025 3:45 PM CDT Office Visit [facility] Oncology and Hematology - Reji [facility] [facility] 200 [place] [address] Quique Khalil MD 2227 [facility] [address] [place] [address] documented as of this encounter Visit Diagnoses Not on filedocumented in this encounter Care Teams Shingle Catcher Relationship Specialty Start Date End Date Silvia Quinonez MD [address] [place] [address] PCP - General Family Practice 11/02/24 No DME 09/02/15 documented as of this encounter
--- OUTSIDE RECORDS SUMMARY | 2025-04-05 11:06 | XMS_ITS | Encounter Summary ---
Author Organization [facility] Address 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 [address] [place] [address] documented as of this encounter Visit Diagnoses Diagnosis Localized superficial swelling, mass, or lump- Primary documented in this encounter Care Teams Pharmacy Resource Tech Relationship Specialty Start Date End Date Silvia Quinonez MD [address] [place] [address] PCP - General Family Practice 11/02/24 No DME 09/02/15 documented as of this encounter
--- OUTSIDE RECORDS SUMMARY | 2025-04-05 11:06 | XMS_ITS | Encounter Summary ---
Author Organization [facility] Address 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 Gender Identity Not on file Sexual Orientation Not on file documented as of this encounter Plan of Treatment Upcoming Encounters Date Type Department Care Team (Late st Contact Info) Description 04/18/2025 3:45 PM CDT Office Visit [facility] Oncology and Hematology - Reji 2227 [facility] 200 [place] [address] [place] [address] [place] [address] [address] [place] [address] documented as of this encounter Visit Diagnoses Diagnosis Other screening mammogram- Primary documented in this encounter Care Teams Tile Setter Relationship Specialty Start Date End Date Silvia Quinonez MD [address] [place] [phone] PCP - General Family Practice 11/02/24 No DME 09/02/15 documented as of this encounter
--- OUTSIDE RECORDS SUMMARY | 2025-04-05 11:06 | XMS_ITS | Encounter Summary ---
Author Organization [facility] Address [address] [place] [address] Care Team Providers Care Pig Sticker Name Role Phone Silvia Quinonez MD Primary Care Provider Encounter Details Date Type Department Care Team (Latest Contact Info) Description 07/31/2008 Outpatient Historical [facility] DIAChuck-Jayce Dupree MD [address] [facility] [address] [place] [address] Nonspecific Abnormal Unspecified Cardiovascular Function Study Social History Tobacco Use Types Packs/Day Years Used Date Smoking Tobacco: Never Assessed Comments Unknown Sex and Gender Information Value Date Recorded Sex Assigned at Not on file Legal Sex Female 3:05 AM SAFETY SPEC Gender Identity Not on file Sexual Orientation Not on file documented as of this encounter Plan of Treatment Upcoming Encounters Date Type Department Care Team (Late st Contact Info) Description 04/18/2025 3:45 PM CDT Office Visit [facility] Oncology and Hematology - Reji 2227 [facility] 200 [place] [address] Quique Khalil MD 2227 [facility] [address] [place] [address] documented as of this encounter Visit Diagnoses Diagnosis Nonspecific abnormal unspecified cardiovascular function study documented in this encounter Care Teams Pig Sticker Relationship Specialty Start Date End Date Silvia Quinonez MD [address] [place] [phone] PCP - General Family Practice 11/02/24 No DME 09/02/15 documented as of this encounter
--- OUTSIDE RECORDS SUMMARY | 2025-04-05 11:06 | XMS_ITS | Encounter Summary ---
Author Organization [facility] Address [address] [place] [address] Care Team Providers Care Level Vial Sealer Name Role Phone Silvia Quinonez MD Primary Care Provider [phone] Encounter Details Date Type Department Care Team (Late Contact Info) Description 11/28/2004 Outpatient Historical [facility] [place] [address] [place] [phone] Sam Machado MD 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 Gender Identity Not on file Sexual Orientation Not on file documented as of this encounter Plan of Treatment Upcoming Encounters Date Type Department Care Team (Late st Contact Info) Description 04/18/2025 3:45 PM CDT Office Visit [facility] Oncology and Hematology - Reji [address] [facility] 200 [place] [address] Quique Khalil MD 2227 [facility] [address] [place] [address] documented as of this encounter Visit Diagnoses Not on filedocumented in this encounter Care Teams Level Vial Sealer Relationship Specialty Start Date End Date Silvia Quinonez MD [address] [place] [address] PCP - General Family Practice 11/02/24 No DME 09/02/15 documented as of this encounter
--- OUTSIDE RECORDS SUMMARY | 2025-04-05 11:06 | XMS_ITS | Encounter Summary ---
Author Organization [facility] Address [address] [place] [address] Care Team Providers Care Truck Loader Name Role Phone Silvia Quinonez MD Primary Care Provider [phone] Encounter Details Date Type Department Care Team (Late Contact Info) Description 02/21/2003 Outpatient Historical Division of Neurology [address] 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 Gender Identity Not on file Sexual Orientation Not on file documented as of this encounter Plan of Treatment Upcoming Encounters Date Type Department Care Team (Late st Contact Info) Description 04/18/2025 3:45 PM CDT Office Visit [facility] Oncology and Hematology - Reji 2227 [facility] 200 [place] [address] Quique Khalil MD 2227 [facility] [address] [place] [address] documented as of this encounter Visit Diagnoses Not on filedocumented in this encounter Care Teams Truck Loader Relationship Specialty Start Date End Date Silvia Quinonez MD [address] [place] [address] PCP - General Family Practice 11/02/24 No DME 09/02/15 documented as of this encounter
--- OUTSIDE RECORDS SUMMARY | 2025-04-05 11:06 | XMS_ITS | Encounter Summary ---
Author Organization [facility] Address [address] [place] [address] Care Team Providers Care Community Life Director Name Role Phone Silvia Quinonez MD Primary Care Provider Encounter Details Date Type Department Care Team (Late Contact Info) Description 06/15/[address] [facility] [place] [address] [place] [id number] Sam Machado MD 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 Oncology and Hematology - Reji [address] [facility] [address] [place] [address] Quique Khalil MD [address] [facility] [address] [place] [address] documented as of this encounter Visit Diagnoses Not on filedocumented in this encounter Care Teams Community Life Director Relationship Specialty Start Date End Date Silvia Quinonez MD [address] [place] [address] PCP - General Family Practice 11/02/24 No DME 09/02/15 documented as of this encounter
--- OUTSIDE RECORDS SUMMARY | 2025-04-05 11:06 | XMS_ITS | Encounter Summary ---
Author Organization [facility] Address 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 200 [place] [address] Quique Khalil MD [address] [facility] [address] [place] [address] documented as of this encounter Visit Diagnoses Diagnosis Other screening mammogram- Primary documented in this encounter Care Teams Mathematical Statistician Relationship Specialty Start Date End Date Silvia Quinonez MD [address] [place] [phone] PCP - General Family Practice 11/02/24 No DME 09/02/15 documented as of this encounter
--- OUTSIDE RECORDS SUMMARY | 2025-04-05 11:06 | XMS_ITS | Encounter Summary ---
Author Organization [facility] Address [address] [place] [address] Care Team Providers Care Surgery Scheduler Name Role Phone Silvia Quinonez MD Primary Care Provider Encounter Details Date Type Department Care Team (Latest Contact Info) Description 02/18/2006 Outpatient Historical [facility] Sam Machado MD 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 [address] [place] [address] documented as of this encounter Visit Diagnoses Diagnosis Other screening mammogram- Primary documented in this encounter Care Teams Surgery Scheduler Relationship Specialty Start Date End Date Silvia Quinonez MD [address] [place] [phone] PCP - General Family Practice 11/02/24 No DME 09/02/15 documented as of this encounter
--- OUTSIDE RECORDS SUMMARY | 2025-04-05 11:06 | XMS_ITS | Encounter Summary ---
Author Organization [facility] Address [address] [place] [address] Care Team Providers Care Sap Bpc Architect Name Role Phone Silvia Quinonez MD Primary Care Provider [phone] Encounter Details Date Type Department Care Team (Latest Contact Info) Description 07/31/2008 Outpatient Historical [facility] Loco Starr MD [address] [place] [address] [address] [place] [address] Jayce Orellana MD [address] [facility] [address] [place] [address] Other and Unspecified Angina Pectoris Social History Tobacco Use Types Packs/Day Years Used Date Smoking Tobacco: Never Assessed Comments Unknown Sex and Gender Information Value Date Recorded Sex Assigned at Not on file 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 Gender Identity Not on file Sexual Orientation Not on file documented as of this encounter Plan of Treatment Upcoming Encounters Date Type Department Care Team (Late st Contact Info) Description 04/18/2025 3:45 PM CDT Office Visit [facility] Oncology and Hematology - Reji [address] [facility] 200 [place] [address] Quique Khalil MD [address] [facility] [address] [place] [address] documented as of this encounter Visit Diagnoses Diagnosis Other and unspecified angina pectoris documented in this encounter Care Teams Sap Bpc Architect Relationship Specialty Start Date End Date Silvia Quinonez MD [address] [place] [address] PCP - General Family Practice 11/02/24 No DME 09/02/15 documented as of this encounter
--- OUTSIDE RECORDS SUMMARY | 2025-04-05 11:06 | XMS_ITS | Encounter Summary ---
Author Organization [facility] Address 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 Gender Identity Not on file Sexual Orientation Not on file documented as of this encounter Plan of Treatment Upcoming Encounters Date Type Department Care Team (Late st Contact Info) Description 04/18/2025 3:45 PM CDT Office Visit [facility] Oncology and Hematology - Reji [address] [facility] 200 [place] [address] Quique Khalil MD [address] [facility] [address] [place] [address] documented as of this encounter Visit Diagnoses Diagnosis Nonspecific abnormal electromyogram (EMG)- Primary documented in this encounter Care Teams Distribution Driver Relationship Specialty Start Date End Date Silvia Quinonez MD [address] [place] [phone] PCP - General Family Practice 11/02/24 No DME 09/02/15 documented as of this encounter
--- OUTSIDE RECORDS SUMMARY | 2025-04-05 11:07 | XMS_ITS | Encounter Summary ---
Author Organization [facility] Address [address] [place] [address] Care Team Providers Care Mold Filling Operator Name Role Phone Silvia Quinonez MD Primary Care Provider [phone] Encounter Details Date Type Department Care Team (Latest Contact Info) Description 04/23/2003 Outpatient Historical [facility] OS[facility] Marquez, Tiffanie Barrett MD [address] [facility] [address] [place] [address] OTHER MALAISE AND FATIGUE (Primary Dx) Social History Tobacco Use Types Packs/Day Years Used Date Smoking Tobacco: Never Assessed Comments Unknown Sex and Gender Information Value Date Recorded Sex Assigned at Not on file 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 Gender Identity Not on file Sexual Orientation Not on file documented as of this encounter Plan of Treatment Upcoming Encounters Date Type Department Care Team (Late st Contact Info) Description 04/18/2025 3:45 PM CDT Office Visit [facility] Oncology and Hematology - Reji [address] [facility] 200 [place] [address] Quique Khalil MD [address] [facility] [address] [place] [address] documented as of this encounter Visit Diagnoses Diagnosis Other malaise and fatigue- Primary documented in this encounter Care Teams Mold Filling Operator Relationship Specialty Start Date End Date Silvia Quinonez MD [address] [place] [address] PCP - General Family Practice 11/02/24 No DME 09/02/15 documented as of this encounter
--- OUTSIDE RECORDS SUMMARY | 2025-04-05 11:07 | XMS_ITS | Encounter Summary ---
Author Organization [facility] Address [address] [facility] Attn: Epic Prelude ADT [place] [address] Care Team Providers Care Web Press Operator Helper Offset Name Role Phone Silvia Quinonez MD Primary Care Provider [phone] Encounter Details Date Type Department Care Team (Late st Contact Info) Description 09/17/1994 Outpatient Historical Josr Toledo MD NO ADDRESS ON FILE Social History Tobacco Use Types Packs/Day Years Used Date Smoking Tobacco: Never Assessed Comments Unknown Sex and Gender Information Value Date Recorded Sex Assigned at Not on file 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 Gender Identity Not on file Sexual Orientation Not on file documented as of this encounter Plan of Treatment Upcoming Encounters Date Type Department Care Team (Late st Contact Info) Description 04/18/2025 3:45 PM CDT Office Visit [facility] Oncology and Hematology - Reji 2[address] [facility] 200 [place] [address] Quique Khalil MD [address] [facility] [address] [place] [address] documented as of this encounter Visit Diagnoses Not on filedocumented in this encounter Care Teams Web Press Operator Helper Offset Relationship Specialty Start Date End Date Silvia Quinonez MD [address] [place] [address] PCP - General Family Practice 11/02/24 No DME 09/02/15 documented as of this encounter
--- OUTSIDE RECORDS SUMMARY | 2025-04-05 11:07 | XMS_ITS | Encounter Summary ---
Author Organization [facility] Address [address] [facility] Attn: Epic Prelude ADT [place] [address] Care Team Providers Care Vp Cardiovascular Service Line Name Role Phone Silvia Quinonez MD Primary Care Provider [phone] Encounter Details Date Type Department Care Team (Late st Contact Info) Description 02/11/1995 Outpatient Historical Josr Toledo MD NO ADDRESS ON FILE Social History Tobacco Use Types Packs/Day Years Used Date Smoking Tobacco: Never Assessed Comments Unknown Sex and Gender Information Value Date Recorded Sex Assigned at Not on file 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 Gender Identity Not on file Sexual Orientation Not on file documented as of this encounter Plan of Treatment Upcoming Encounters Date Type Department Care Team (Late st Contact Info) Description 04/18/2025 3:45 PM CDT Office Visit [facility] Oncology and Hematology - Reji 2227 [facility] 200 [place] [address] Quique Khalil MD [address] [facility] [address] [place] [address] documented as of this encounter Visit Diagnoses Not on filedocumented in this encounter Care Teams Vp Cardiovascular Service Line Relationship Specialty Start Date End Date Silvia Quinonez MD [address] [place] [address] PCP - General Family Practice 11/02/24 No DME 09/02/15 documented as of this encounter
--- OUTSIDE RECORDS SUMMARY | 2025-04-05 11:07 | XMS_ITS | Encounter Summary ---
Author Organization [facility] Address 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 Gender Identity Not on file Sexual Orientation Not on file documented as of this encounter Plan of Treatment Upcoming Encounters Date Type Department Care Team (Late st Contact Info) Description 04/18/2025 3:45 PM CDT Office Visit [facility] Oncology and Hematology - Reji [address] [facility] 200 [place] [address] [place] [address] [place] [address] [address] [place] [address] documented as of this encounter Visit Diagnoses Diagnosis Other screening mammogram- Primary documented in this encounter Care Teams Fruit Or Nut Grower Relationship Specialty Start Date End Date Silvia Quinonez MD [address] [place] [phone] PCP - General Family Practice 11/02/24 No DME 09/02/15 documented as of this encounter
--- OUTSIDE RECORDS SUMMARY | 2025-04-05 11:07 | XMS_ITS | Encounter Summary ---
Author Organization [facility] Address 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 MEDICAL 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 Gender Identity Not on file Sexual Orientation Not on file documented as of this encounter Plan of Treatment Upcoming Encounters Date Type Department Care Team (Late st Contact Info) Description 04/18/2025 3:45 PM CDT Office Visit [facility] Oncology and Hematology - Reji [address] [facility] 200 [place] [address] Quique Khalil MD [address] [facility] [address] [place] [address] documented as of this encounter Visit Diagnoses Diagnosis Unspecified hemorrhoids without mention of complication- Primary documented in this encounter Care Teams Grape Picker Relationship Specialty Start Date End Date Silvia Quinonez MD [address] [place] [phone] PCP - General Family Practice 11/02/24 No DME 09/02/15 documented as of this encounter
--- OUTSIDE RECORDS SUMMARY | 2025-04-05 11:07 | XMS_ITS | Encounter Summary ---
Author Organization [facility] Address 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 Gender Identity Not on file Sexual Orientation Not on file documented as of this encounter Plan of Treatment Upcoming Encounters Date Type Department Care Team (Late st Contact Info) Description 04/18/2025 3:45 PM CDT Office Visit [facility] Oncology and Hematology - Reji [address] [facility] 200 [place] [address] Quique Khalil MD [address] [facility] [address] [place] [address] documented as of this encounter Visit Diagnoses Diagnosis Cramp of limb- Primary documented in this encounter Care Teams Reading Intervention Teacher Relationship Specialty Start Date End Date Silvia Quinonez MD [address] [place] [phone] PCP - General Family Practice 11/02/24 No DME 09/02/15 documented as of this encounter
--- OUTSIDE RECORDS SUMMARY | 2025-04-05 11:07 | XMS_ITS | Encounter Summary ---
Author Organization [facility] Address [address] [place] [address] Care Team Providers Care Tape Edge Machine Operator Name Role Phone Silvia Quinonez MD Primary Care Provider [phone] Encounter Details Date Type Department Care Team (Late Contact Info) Description 10/16/[address] [facility] [place] [address] [place] [address] Sam Machado MD 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 Oncology and Hematology - Reji [address] [facility] 200 [place] [address] Quique Khalil MD [address] [facility] [address] [place] [address] documented as of this encounter Visit Diagnoses Not on filedocumented in this encounter Care Teams Tape Edge Machine Operator Relationship Specialty Start Date End Date Silvia Quinonez MD [address] [place] [address] PCP - General Family Practice 11/02/24 No DME 09/02/15 documented as of this encounter
--- OUTSIDE RECORDS SUMMARY | 2025-04-05 11:07 | XMS_ITS | Encounter Summary ---
Author Organization [facility] Address [address] [place] [address] Care Team Providers Care Mold Cutting Machine Operator Name Role Phone Silvia Quinonez MD Primary Care Provider [phone] Encounter Details Date Type Department Care Team (Late st Contact Info) Description 08/18/2000 Outpatient Historical [facility] Internal Medicine 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 Gender Identity Not on file Sexual Orientation Not on file documented as of this encounter Plan of Treatment Upcoming Encounters Date Type Department Care Team (Late st Contact Info) Description 04/18/2025 3:45 PM CDT Office Visit [facility] Oncology and Hematology - Reji [address] [email or web address] 200 [place] [address] Quique Khalil MD [address] [facility] [address] [place] [address] documented as of this encounter Visit Diagnoses Not on filedocumented in this encounter Care Teams Mold Cutting Machine Operator Relationship Specialty Start Date End Date Silvia Quinonez MD [address] [place] [address] PCP - General Family Practice 11/02/24 No DME 09/02/15 documented as of this encounter
--- OUTSIDE RECORDS SUMMARY | 2025-04-05 11:07 | XMS_ITS | Encounter Summary ---
Author Organization [facility] Address [address] [facility] Attn: Epic Prelude ADT [place] [address] Care Team Providers Care Case Manager Name Role Phone Silvia Quinonez MD Primary Care Provider [phone] Encounter Details Date Type Department Care Team (Late st Contact Info) Description 08/05/1994 Outpatient Historical Josr Toledo MD NO ADDRESS ON FILE Social History Tobacco Use Types Packs/Day Years Used Date Smoking Tobacco: Never Assessed Comments Unknown Sex and Gender Information Value Date Recorded Sex Assigned at Not on file Legal Sex Female 3:05 AM RN NURSERY Gender Identity Not on file Sexual Orientation Not on file documented as of this encounter Plan of Treatment Upcoming Encounters Date Type Department Care Team (Late st Contact Info) Description 04/18/2025 3:45 PM CDT Office Visit [facility] Oncology and Hematology - Reji [address] [facility] 200 [place] [address] Quique Khalil MD [address] [facility] [address] [place] [address] documented as of this encounter Visit Diagnoses Not on filedocumented in this encounter Care Teams Case Manager Relationship Specialty Start Date End Date Silvia Quinonez MD [address] [place] [address] PCP - General Family Practice 11/02/24 No DME 09/02/15 documented as of this encounter
--- OUTSIDE RECORDS SUMMARY | 2025-04-05 11:07 | XMS_ITS | Encounter Summary ---
Author Organization [facility] Address 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 Gender Identity Not on file Sexual Orientation Not on file documented as of this encounter Plan of Treatment Upcoming Encounters Date Type Department Care Team (Late st Contact Info) Description 04/18/2025 3:45 PM CDT Office Visit [facility] Oncology and Hematology - Reji [address] [place] [address] [facility] 200 [place] [address] Quique Khalil MD [address] [facility] [address] [place] [address] documented as of this encounter Visit Diagnoses Diagnosis Other screening mammogram- Primary documented in this encounter Care Teams Silk Blocker Relationship Specialty Start Date End Date Silvia Quinonez MD [address] [place] [phone] PCP - General Family Practice 11/02/24 No DME 09/02/15 documented as of this encounter
--- OUTSIDE RECORDS SUMMARY | 2025-04-05 11:07 | XMS_ITS | Encounter Summary ---
Author Organization [facility] Address [address] [place] [address] Care Team Providers Care Transport Company Manager Name Role Phone Silvia Quinonez MD Primary Care Provider [phone] Encounter Details Date Type Department Care Team (Late Contact Info) Description 10/08/2004 Outpatient Historical [facility] [place] [address] [place] [id number] Sam Machado MD 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 Gender Identity Not on file Sexual Orientation Not on file documented as of this encounter Plan of Treatment Upcoming Encounters Date Type Department Care Team (Late st Contact Info) Description 04/18/2025 3:45 PM CDT Office Visit [facility] Oncology and Hematology - Reji [address] [facility] [address] [place] [address] Quique Khalil MD [address] [facility] [address] [place] [address] documented as of this encounter Visit Diagnoses Not on filedocumented in this encounter Care Teams Transport Company Manager Relationship Specialty Start Date End Date Silvia Quinonez MD [address] [place] [address] PCP - General Family Practice 11/02/24 No DME 09/02/15 documented as of this encounter
--- OUTSIDE RECORDS SUMMARY | 2025-04-05 11:07 | XMS_ITS | Clinical Summary ---
Author Organization [facility] Address [address] [place] [address] Care Team Providers Care Bulk Plant Agent Name Role Phone Silvia Quinonez MD Primary Care Provider [phone] Source Comments [facility],non-owned Affiliates and Associated Physician Practices is amultiple site organization consisting of ambulatory clinics and hospital sitesin [place], [place], [place] and [place]. This disclosure is being madepursuant to the Care Everywhere program and may not contain all information available regarding this patient. Last updated 18.[facility] Allergies Active Allergy Reactions Criticality Noted Date [...] Active naltrexone (REVIA) 50 MG tablet Active [place]-3 Fatty Acids (FISH OIL DELAYED RELEASE) 1000 [...] on file Legal Sex Female 7:35 AM CONCEPT ARTIST Gender Identity Not on file Sexual Orientation [...] complete this topic Insurance MEDICARE AETNA MEDICARE [facility] Care Teams Bulk Plant Agent Relationship Specialty Start Date End Date Silvia Quinonez MD [address] [place] [address] PCP - General Family Medicine 09/19/21
--- OUTSIDE RECORDS SUMMARY | 2025-04-05 11:07 | XMS_ITS | Encounter Summary ---
Author Organization [facility] Address [address] [place] [address] Care Team Providers Care And Rescue Fire Fighter Crash Fire Name Role Phone Silvia Quinonez MD Primary Care Provider [phone] Encounter Details Date Type Department Care Team (Late Contact Info) Description 04/23/2003 Outpatient Historical Division of Neurology [address] [facility] [place] [address] Tiffanie Marquez MD [address] 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 Gender Identity Not on file Sexual Orientation Not on file documented as of this encounter Plan of Treatment Upcoming Encounters Date Type Department Care Team (Late st Contact Info) Description 04/18/2025 3:45 PM CDT Office Visit [facility] Oncology and Hematology - Reji [address] [facility] [address] [place] [address] Quique Khalil MD [address] [facility] [address] [place] [address] documented as of this encounter Visit Diagnoses Not on filedocumented in this encounter Care Teams And Rescue Fire Fighter Crash Fire Relationship Specialty Start Date End Date Silvia Quinonez MD [address] [place] [address] PCP - General Family Practice 11/02/24 No DME 09/02/15 documented as of this encounter
--- OUTSIDE RECORDS SUMMARY | 2025-04-05 11:07 | XMS_ITS | Clinical Summary ---
Author Organization [facility] Address [address] [place] [address] Care Team Providers Care Coffee Bar Attendant Name Role Phone Silvia Quinonez MD Primary Care Provider Silvia Quinonez MD Unavailable [phone] Allergies Active Allergy Reactions Criticality Noted Date Comments Amlodipine Fatigue Low 03/23/2012 Excessive fatigue Other Unknown 05/22/2009 SURGICAL MESH Medications calcium carbonate (CALCIUM 500 ORAL) Active cholecalciferol (VITAMIN D-3) 07334 unit tablet once a week 3 Active [...] Type Department Care Team Description 04/03/2025 Telephone [facility] Cardiology [address] [place] [address] Joel Azevedo MD [facility] from Last 3 Months Immunizations Immunization Administration [...] Tobacco: Never Tobacco Cessation:Counseling Given: Not Answered [facility] Utilities Answer Date Recorded In the past 12 months has e [employer], [employer], oil, or water App [employer] threatened to shut off services in your [...] week 12/23/2023 How often do you attend [facility] or m[facility]on services? More than 4 times per year [...] and heating? Not hard at all 12/23/2023 [facility] - Occupational Stress [...] on file Legal Sex Female 8:58 PM VP Gender Identity Female 12/16/2020 9:45 PM CDT [...] history exists Medical Devices Implanted Type Area Chainstitch Elastic Attacher Device Identifier Shelf Expiration Date Model / Serial / Lot [employer] Screw Bone 5mm 80mm Lock Strl 2361-5080s - [id number] Implanted:Qty: 1 on 12/23/2023 by Dave Rosas MD at [facility] Screw Left: Femur [employer] [id number] 10/02/2033 5749-6643 S / / [id number] [employer] Screw Bone 5mm 70mm Lock Strl 2361-5070s - [id number] Implanted:Qty: 1 on 12/23/2023 by Dave Rosas MD at [facility] Screw Left: Femur [employer] [id number] 11/01/2033 4000-6366 S / / [id number] [employer] Screw Bone Locking Cannulated Tibial Oversized Thread Black T2 Alpha 5.0x85mm Titanium 2361-5085s - [id number] Implanted:Qty: 1 on 12/23/2023 by Dave Rosas MD at [facility] Screw Left: Femur [employer] [id number] 10/02/2033 6959-9580 S / / [id number] [employer] Screw Bone 5mm 37.5mm T2 Alpha Lock Strl 2360-5037s - [id number] Implanted:Qty: 1 on 12/23/2023 by Dave Rosas MD at [facility] Screw Left: Femur [employer] [id number] 11/01/2033 4797-3648 S / / [id number] [employer] Screw Bone 5mm 40mm T2 Alpha Lock Strl 2360-5040s - [id number] Implanted:Qty: 1 on 12/23/2023 by Dave Rosas MD at [facility] Screw Left: Femur [employer] [id number] 11/01/2033 6233-9232 S / / [id number] [employer] Screw Bone 5mm 42.5mm T2 Alpha Lock Strl 2360-5042s - [id number] Implanted:Qty: 1 on 12/23/2023 by Dave Rosas MD at [facility] Screw Left: Femur [employer] [id number] 10/02/2030 1807-2077 S / / [id number] Synthes Plate Bone Compression Locking Low Profile 18 Hole Left Va Lcp 4.2m451qj Ss 02.124.419s - [id number] Implanted:Qty: 1 on 12/23/2023 by Dave Rosas MD at [facility] Left: Femur Synthes 02.124.41 9S / / [employer] Nail Intramedullary Femoral Retrograde T2 Alpha 65f353oa Titanium 2339-1124s - [id number] Implanted:Qty: 1 on 12/23/2023 by Dave Rosas MD at [facility] Left: Femur [employer] 07/04/2033 1340-2948 S / / [id number] Synthes 5mm 36mm Variable Angle Self Tap Lock Stardrive Condylar T25 02.231.236 - [id number] Implanted:Qty: 1 on 12/23/2023 by Dave Rosas MD at [facility] Left: Femur Synthe[employer] I 02.231.23 6 / / Synthes 4.5mm 8mm 36mm Self Tap Large Hexagonal Socket Cortex Screw Bone 214.836 - [id number] Implanted:Qty: 1 on 12/23/2023 by Dave Rosas MD at [facility] Left: Femur Synthes I 214.836 / / Synthes 5mm 80mm Variable Angle Self Tap Lock [employer] Condylar T25 02.231.280 - [id number] Implanted:Qty: 2 on 12/23/2023 by Dave Rosas MD at [facility] Left: Femur Synthes 02.231.28 0 / / Synthes 5mm 85mm Variable Angle Self Tap Lock [employer] Condylar T25 02.231.285 - [id number] Implanted:Qty: 2 on 12/23/2023 by Dave Rosas MD at [facility] Left: Femur Synthes I 02.231.28 5 / / Synthes 4.5mm 8mm 100mm Self Tap Large Hexagonal Socket Cortical Screw 214.900 - [id number] Implanted:Qty: 1 on 12/23/2023 by Dave Rosas MD at [facility] Left: Femur Synthes I 214.900 / / Synthes 5mm 38mm Variable Angle Self Tap Lock [employer] Condylar T25 02.231.238 - [id number] Implanted:Qty: 1 on 12/23/2023 by Dave Rosas MD at [facility] Left: Femur Synthes I .23 8 / / Synthes 5mm 40mm Variable Angle Self Tap Lock [employer] Condylar T25 231.240 - [id number] Implanted:Qty: 1 on 12/23/2023 by Dave Rosas MD at [facility] Left: Femur Synthes I .24 0 / / Explanted Type Area Chainstitch Elastic Attacher Device Identifier Shelf Expiration Date Model / Serial / Lot [employer] Nail Intramedullary Femoral Retrograde T2 Alpha 88n341ft Titanium [id number] - [id number] Explanted:Qty: 1 on 12/23/2023 by Dave Rosas MD at [facility] Left: Femur [employer] 07/04/2033 4455-1470 S / / [id number] Procedures Procedure Name Priority Date/Time Associated Diagnosis [...] BLOOD ORDERABLES Final Result Performing Organization Address [facility] de Phone Number [facility] [place] [address] * Hemoglobin A1c (12/26/2023 10:39 PM CDT) [facility] Hgb A1C 5.5 4.0 - 5.6 % Estimated Average Glucose 111 mg/dL [facility] Comment: The ADA recommends reporting an [...] BLOOD ORDERABLES Final Result Performing Organization Address [facility] de Phone Number [facility] [place] [address] * BONE MINERAL DENSITY (07/07/2012) Anatomical Region Laterality Modality Radiographic Bonnie ging Narrative 07/07/2012 Ordered by an unspecified provider. Historical Provider IMG DXA PROCEDURES Final Result from Last 3 Months or Most Recently Relevant to Health Maintenance Insurance AETNA MEDICARE GOLD MEDICARE AETNA SENIOR SUPPLEMENT AETNA MEDICARE GOLD Advance Directives For more information, please contact: [phone] * Full Code (Latest Code Status on [...] 1:45 PM 12/23/2023 2:10 PM Care Teams Coffee Bar Attendant Relationship Specialty Start Date End Date Silvia Quinonez MD PCP - General Family Medicine 12/23/23 Silvia Quinonez MD Family Medicine 12/23/23
--- OUTSIDE RECORDS SUMMARY | 2025-04-05 11:07 | XMS_ITS | Encounter Summary ---
Author Organization [facility] Address [address] [place] [address] Care Team Providers Care Push Bench Operator Helper Name Role Phone Silvia Quinonez MD Primary Care Provider [phone] Encounter Details Date Type Department Care Team [...] file Legal Sex Female 3:05 AM PET WALKER Gender Identity Not on file Sexual Orientation Not on file documented as of this encounter Plan of Treatment Upcoming Encounters Date Type Department Care Team (Late st Contact Info) Description 04/18/2025 3:45 PM CDT Office Visit [facility] Oncology and Hematology - Reji [address] [facility] [address] [place] [address] [place] [address] [place] [address] [address] [place] [address] documented as of this encounter Visit Diagnoses Diagnosis Contusion of face, scalp, and neck except eye(s)- Primary documented in this encounter Care Teams Push Bench Operator Helper Relationship Specialty Start Date End Date Silvia Quinonez MD [address] [place] [phone] PCP - General Family Practice 11/02/24 No DME 09/02/15 documented as of this encounter
--- OUTSIDE RECORDS SUMMARY | 2025-04-05 11:07 | XMS_ITS | Encounter Summary ---
Author Organization [facility] Address [address] [place] [address] Care Team Providers Care Electrical Accessories Assembler Name Role Phone Silvia Quinonez MD Primary Care Provider [phone] Encounter Details Date Type Department Care Team (Latest Contact Info) Description 09/21/2002 Outpatient Historical [facility] Loco Ahn MD [address] [facility] [address] [place] [address] ABDOMINAL PAIN RUQ (Primary Dx) Social History Tobacco Use Types Packs/Day Years Used Date Smoking Tobacco: Never Assessed Comments Unknown Sex and Gender Information Value Date Recorded Sex Assigned at Not on file Legal Sex Female 3:05 AM PEST CONTROL TECHNICIAN Gender Identity Not on file Sexual Orientation Not on file documented as of this encounter Plan of Treatment Upcoming Encounters Date Type Department Care Team (Late st Contact Info) Description 04/18/2025 3:45 PM CDT Office Visit [facility] Oncology and Hematology - Reji [address] [facility] [address] [place] [address] Quique Khalil MD [address] [facility] [address] [place] [address] documented as of this encounter Visit Diagnoses Diagnosis Abdominal pain, right upper quadrant- Primary documented in this encounter Care Teams Electrical Accessories Assembler Relationship Specialty Start Date End Date Silvia Quinonez MD [address] [place] [phone] PCP - General Family Practice 11/02/24 No DME 09/02/15 documented as of this encounter
--- OUTSIDE RECORDS SUMMARY | 2025-04-05 11:07 | XMS_ITS | Encounter Summary ---
Author Organization [facility] Address [address] [place] [address] Care Team Providers Care Paper Colorer Name Role Phone Silvia Quinonez MD Primary Care Provider [phone] Encounter Details Date Type Department Care Team (Late Contact Info) Description 05/18/2000 Outpatient Historical [facility] Primary Care Internal Medicine [address] [address] Jens oLra MD [address] [place] [address] Social History Tobacco Use Types Packs/Day Years Used Date Smoking Tobacco: Never Assessed Comments Unknown Sex and Gender Information Value Date Recorded Sex Assigned at Not on file Legal Sex Female 3:05 AM RIDES SUPERVISOR Gender Identity Not on file Sexual Orientation Not on file documented as of this encounter Plan of Treatment Upcoming Encounters Date Type Department Care Team (Late st Contact Info) Description 04/18/2025 3:45 PM CDT Office Visit [facility] Oncology and Hematology - Reji [address] [facility] [address] [place] [address] Quique Khalil MD [address] [facility] [address] [place] [address] documented as of this encounter Visit Diagnoses Not on filedocumented in this encounter Care Teams Paper Colorer Relationship Specialty Start Date End Date Silvia Quinonez MD [address] [place] [address] PCP - General Family Practice 11/02/24 No DME 09/02/15 documented as of this encounter
--- OUTSIDE RECORDS SUMMARY | 2025-04-05 11:07 | XMS_ITS | Encounter Summary ---
Author Organization [facility] Address [address] [place] [address] Care Team Providers Care Mold Cutting Machine Operator Name Role Phone Silvia Quinonez MD Primary Care Provider Encounter Details Date Type Department Care Team (Late st Contact Info) Description 10/18/2015 Chart Note [facility] Therapy Services Lara Andersony [address] [place] [address] Tatiana Spaulding Physical Therapist Social History Tobacco Use Types Packs/Day Years Used Date Smoking Tobacco: Former Cigarettes 1 23 1 - 04/04/1986 Smokeless Tobacco: Never Alcohol Use Standard Drinks/Week Comments Yes 0 (1 standard drink = 0.6 oz pur e alcohol) social Comments No Sex and Gender Information Value Date Recorded Sex Assigned at Not on file Legal Sex Female 3:05 AM CANAL SUPERINTENDENT Gender Identity Not on file Sexual Orientation [...] you for this referral. JOHN Schumacher [facility] [address] [facility], [address] [place] [address] (phone) [phone] (fax) [place] License Number: [id number] documented in this encounter Plan of Treatment Upcoming Encounters Date Type Department Care Team (Late st Contact Info) Description 04/18/2025 3:45 PM CDT Office Visit [facility] Oncology and Hematology - Reji [address] [facility] [address] [place] [address] Quique Khalil MD [address] [facility] [address] [place] [address] documented as of this encounter Visit Diagnoses Not on filedocumented in this encounter Additional Health Concerns Assessment Noted Time PHQ-9 Depression Total Score: 2 09/02/19 16 11:00 AM CANAL SUPERINTENDENT documented as of this encounter Care Teams Mold Cutting Machine Operator Relationship Specialty Start Date End Date Silvia Quinonez MD [address] [place] [phone] PCP - General Family Practice 11/02/24 No DME 09/02/15 documented as of this encounter
--- OUTSIDE RECORDS SUMMARY | 2025-04-05 11:07 | XMS_ITS | Encounter Summary ---
Author Organization [facility] Address [address] [place] [address] Care Team Providers Care Saturator Tender Name Role Phone Silvia Quinonez MD Primary Care Provider [phone] Encounter Details Date Type Department Care Team (Latest Contact Info) Description 12/06/1998 Outpatient Historical [facility] RADIOLOGY Conversion, History Abdominal pain, unspecified site (Primary Dx) Social History Tobacco Use Types Packs/Day Years Used Date Smoking Tobacco: Never Assessed Comments Unknown Sex and Gender Information Value Date Recorded Sex Assigned at Not on file Legal Sex Female 3:05 AM AMBULATORY CARE Gender Identity Not on file Sexual Orientation Not on file documented as of this encounter Plan of Treatment Upcoming Encounters Date Type Department Care Team (Late st Contact Info) Description 04/18/2025 3:45 PM CDT Office Visit [facility] Oncology and Hematology - Reji [address] [facility] 200 [place] [address] Quique Khalil MD [address] [facility] [address] [place] [address] documented as of this encounter Visit Diagnoses Diagnosis Abdominal pain, unspecified site- Primary documented in this encounter Care Teams Saturator Tender Relationship Specialty Start Date End Date Silvia Quinonez MD [address] [place] [address] PCP - General Family Practice 11/02/24 No DME 09/02/15 documented as of this encounter
--- OUTSIDE RECORDS SUMMARY | 2025-04-05 11:07 | XMS_ITS | Clinical Summary ---
Author Organization [facility] Address [address] [place] [address] Phone Care Team Providers Care Belt Repairer Name Role Phone Silvia Quinonez MD Primary Care Provider [phone] Allergies Active Allergy Reactions Criticality Noted Date Comments Amlodipine Other (See Comments) Low 03/23/2012 Excessive fatigue Unclassified Drug Unknown 05/22/2009 SURGICAL MESH Medications vit C-vit H-ycglvx-bvlx OXIDE-lutein (PRESERVISION) 226-90-0.8-5 mg Capsule Take 1 [...] Healthy Daughter Heike Heart Disease Mother [place] x 1 Stroke Mother Christina silent Healthy [...] on file Legal Sex Female 3:05 AM GAS COMPRESSOR TURBINE OPERATOR Gender Identity Not on file Sexual [...] 04/18/2025 3:45 PM CDT Office Visit [facility] Oncology and Hematology - Reji [address] [facility] [address] [place] [address] Quique Khalil MD [address] [facility] [address] [place] [address] Health Maintenance Due Date Last [...] of insulin ([facility]) HEMOGLOBIN A1C Routine 11/30/2019 12:13 PM CDT Type 2 diabetes mellitus with other diabetic kidney complication, without long-term current use of insulin ([facility]) MICROALBUMIN/CREATIN INE RATIO, RANDOM UR Routine 06/14/2018 2:19 AM GAS COMPRESSOR TURBINE OPERATOR Type 2 diabetes mellitus with complication, without long-term current use of insulin ([facility]) XR DEXA BONE DENSITY AXIAL 1 OR MORE SITES Routine 10/01/2015 9:00 AM CDT Menopausal syndrome from Last 3 Months or Most Recently Relevant to Health Maintenance Results * DIABETES EYE EXAM (12/12/2019) us Abstract Provider HEALTH MAINTENANCE Edited Resu lt - Final [facility] - OB & SALES RESEARCH ANALYST CLIA# [id number] [address] [place] [address], [address] [place] [address] * (ABNORMAL) HEMOGLOBIN A1C (11/30/2019 12:13 PM CDT) HEMOGLOBIN A1C 5.9(H) <5.7 % 11/30/2019 4:00 PM CDT [facility] EST. AVG GLUCOSE, A1C 123 mg/dL 11/30/2019 4:00 PM CDT [facility] Blood Venipuncture / Unknown 11/30/2019 12:13 PM CDT 11/30/2019 12:13 PM CDT [facility] - 11/30/2019 4:00 PM CDT HGB A1C INTERPRETATION NORMAL: <5.7% PRE-DIABETES: 5.7 - 6.4% DIABETES: 6.5% OR GREATER Yasmeen Garcia MD CHEMISTRY ORDERABLES Final Res ult [facility]# [id number] [address] [facility] [place] [place] [address] * (ABNORMAL) LIPID PANEL (11/30/2019 12:13 PM CDT) CHOLESTEROL 145 <200 mg/dL 11/30/2019 4:37 PM CDT [facility] TRIGLYCERIDE 76 <150 mg/dL 11/30/2019 4:37 PM CDT [facility] HDL 69(H) 40 - 59 mg/dL 11/30/2019 4:37 PM CDT [facility] LDL CALCULATED 61 <100 mg/dL 11/30/2019 4:37 PM CDT [facility] NON-HDL CHOLESTEROL 76 <130 mg/dL 11/30/2019 4:37 PM CDT [facility] Blood Venipuncture / Unknown 11/30/2019 12:13 PM CDT 11/30/2019 12:13 PM CDT [facility] - 11/30/2019 4:37 PM CDT TOTAL [...] ORDERABLES Final Res ult Performing Organization Address [facility]/ZIP Co de Phone Number [facility] LABORATORY SERVICES [facility]# [id number] [address] [facility] [place] [address] * MICROALBUMIN/CREATININE RATIO, RANDOM UR (06/14/2018 2:19 AM GAS COMPRESSOR TURBINE OPERATOR) Creatinine, Urine 128 20 - 275 mg/dL [facility] MICROALBUMIN, URINE 0.4 See Note: mg/dL [facility] Comment: Reference Range: Reference Range Not established MICROALBUMIN/CREAT RATIO, UR 3 <30 mcg/mg creat [facility] Comment: The ADA defines abnormalities in albumin excretion as follows: Category Result (mcg/mg creatinine) Normal <30 Microalbuminuria 30-299 Clinical albuminuria > OR = 300 The ADA recommends that at least two of three specimens collected within a 3-6 month period be abnormal before considering a patient to be within a diagnostic category. Test Performed at: [facility] [address] [facility] [place] [address] Jens Aguilar D.O., MPH Urine URINE SPECIMEN OBTAINED BY CLEAN CATCH PROCEDURE / Unknown 06/14/2018 2:19 AM GAS COMPRESSOR TURBINE OPERATOR Chary Hardin MD URINE ORDERABLES Edited Result - Final Performing Organization Address City/[facility]/ZIP Co de Phone Number [employer] [facility] [address] [place] [id number] * XR DEXA BONE DENSITY AXIAL 1 [...] Rivera DO DICTATION LOCATION: Location 1 - [facility] 10/01/2015 9:27 AM CDT XR DEXA BONE DENSITY AXIAL 1 OR MORE SITES DATE: 10/01/2015 9:00 AM HISTORY: 65 years old Female with post menopausal symptoms. PROCEDURE: Planar images of the lumbar spine and hip(s) using a Novadiol DEXA scanner for bone mineral density determination (BMD). FINDINGS: Lumbar Spine (L1-L4) 1.171 gm/cm2, T-score: -0.1 Left femoral neck 0.780 gm/cm2, T-score: -1.9 Right femoral neck 0.780 gm/cm2, T-score: -1.9 Comments: None Detailed report placed in Imaging Section of [facility] EMR. Procedure Note Cristhian Rivera DO - 10/01/2015 XR DEXA BONE DENSITY AXIAL 1 OR MORE SITES DATE: 10/01/2015 9:00 AM HISTORY: 65 years old Female with post menopausal symptoms. PROCEDURE: Planar images of the lumbar spine and hip(s) using a Novadiol DEXA scanner for bone mineral density determination (BMD). FINDINGS: Lumbar Spine (L1-L4) 1.171 gm/cm2, T-score: -0.1 Left femoral neck 0.780 gm/cm2, T-score: -1.9 Right femoral neck 0.780 gm/cm2, T-score: -1.9 Comments: None Detailed report placed in Imaging Section of [facility] EMR. IMPRESSION IMPRESSION: Osteopenic BMD. [...] Cristhian Rivera, DICTATION LOCATION: Location 1 - [facility] Patricia Krueger MD DIAGNOSTIC IMAGING ORDERABLES F inal Result from Last 3 Months or Most Recently Relevant to Health Maintenance Insurance MEDICARE PART A AND B [employer] MEDICARE SUPP AESSI AETNA O [facility] Address: [address] [place] [address] Advance Directives For more information, please contact: [phone] Documents on File Type Date Recorded Patient Rate Engineer Expl anation Advance Directive POA 10/03/2014 12:00 [...] 7:06 AM 10/01/2009 2:01 AM Care Teams Belt Repairer Relationship Specialty Start Date End Date Silvia Quinonez MD [address] [place] [address] PCP - General Family Practice 11/02/24 No DME 09/02/15
--- NOTE | 2025-04-30 14:44 | WPDSLEEPSTUD ---
Sleep Study Date of Study: 04/05/25 Ordering Provider: Kareme Alfaro DO Interpreting Physician: Yola Diggs DO Sleep Study Type: Split Polysomnogram Height: 1.7 m Weight: 72.575 kg Body Mass Index: 25.0 Neck Circumference (inches): 15 [place]: 6 Reason for Sleep Study Difficulty staying asleep Sleep History The patient is a 75-year-old female that had a sleep study ordered by her distribution system operator for evaluation of sleep apnea. The patient occasionally awakens from sleep short of breath. She occasionally awakens at night with heartburn, belching or cough. She occasionally snores but is never loud enough that others complain. She rarely has trouble sleeping when she has a cold. She rarely wakes up gasping for air throughout the night. She rarely has breathing problems at night observed by herself or others. She denies sweating excessively at night. She denies having heart palpitations or irregular heartbeats during the night. She rarely falls asleep during the day and never while driving. She denies sleep paralysis, cataplexy and hypnagogic/ hypnopompic hallucinations. She denies having trouble at school or work due to sleepiness. She denies feeling afraid of going to sleep. She rarely has nightmares. She rarely remembers her dreams. She occasionally has thoughts racing through her mind. She rarely feels sad or depressed. She frequently has anxiety. She frequently has muscular tension. She frequently notices parts of her body jerk. She occasionally kicks during the night. She frequently has leg pain during the night. She occasionally grinds her teeth during sleep but never awakens with morning jaw pain. She is frequently bothered by pain during the day and frequently awakened by pain during the night. She frequently wakes up feeling stiff in the morning. She frequently wakes up with sore or achy muscles. She frequently wakes up with pain in the neck, spine and other joints. She goes to bed at 9:00 p.m. every night. It takes her 10 minutes to fall asleep. She wakes up 3-4 times throughout the night to urinate and is able to fall back asleep within 15-20 minutes. She wakes up between 5-6 a.m. every morning. She typically gets 4-5 hours of sleep per night. She does not stay in bed after waking up in the morning. She currently lives with her daughter and grand children. She denies consuming any caffeinated beverages within 2 hours of bedtime. She denies engaging in physical exercise before bedtime. She does not watch television before falling asleep. She rarely takes naps in afternoon or the evening but when she does they are refreshing. She is a former smoker. She consumes alcohol socially with no more than 1 drink per week. She denies recreational drug use. [facility] Past Medical History Medical History Heart murmur Right knee DJD Right knee pain Type 2 diabetes mellitus with hyperglycemia Anemia Constipation Acute pain Fracture of distal end of left femur Decreased libido Vaginal dryness Hyperkalemia Lumbosacral spondylosis Osteoporosis Arthralgia of hip or thigh Dorsalgia Lumbosacral radiculopathy Sacroiliitis Postlaminectomy syndrome Vitamin B12 deficiency Chronic cough Arthritis Urinary frequency Hypertension Wears glasses Vision changes Unintentional weight loss Left knee DJD Left knee pain Right hip pain Small intestinal bacterial overgrowth (SIBO) Restless legs Insomnia Diabetes Essential hypertension Surgical History Surgical History S/P lumbar fusion S/P total knee arthroplasty Hx of carpal tunnel repair S/P Botox injection of bladder History of abdominal hysterectomy History of laparoscopic cholecystectomy History of abdominoplasty History of hernia repair History of Jean Marie-en-Y gastric bypass History of gastric stapling History of tubal ligation Family History Family History Unknown History of stroke Hypertension Father Diabetes mellitus Social History Social History Smoking packs per day: 1.5 Smoking cigarettes per day: 30.0 Years smoked: 30 Smoking pack-years: 45.00 Smoking status: Former smoker Tobacco type: cigarettes Second hand tobacco smoke exposure: No Smoking end date: 07/05/85 Alcohol intake: never Drinks per week: 1 Alcohol use details: socially Substance use: never Substance use type: does not use Other substance usage details: GUMMIES PRN, INSOMNIA Do You Feel Safe in your Home?: Yes Lack of Transportation: No Lack of Food: Never True Current Housing: I Have Housing Concerned About Future Housing: No Difficulty Paying Gas/Electric Bills: No Difficulty Paying for Meds: No Currently Unemployed: No Education: High School Diploma/GED Difficulty w/ Childcare or Family Care: No Living arrangements: with family Gender identity (if verbalized by the patient): Female Sexual Orientation (if Verbalized by the Patient): Straight or Heterosexual Spiritual care concerns: No Agree to blood products: Yes Medications Home Medications ?Medication ?Instructions ?Recorded ?Confirmed ?Type cholecalciferol (vitamin D3) 50 50 mcg PO DAILY 12/29/23 04/27/25 History mcg (2,000 unit) capsule calcium carbonate 600 mg PO BID #30 tabs 04/26/24 04/27/25 Rx triamcinolone acetonide 0.5 % 1 applic topical BID #15 grams 08/25/24 04/27/25 Rx topical cream ropinirole 0.5 mg tablet 0.5 mg PO HS #180 tabs 11/20/24 04/27/25 Rx metformin 1,000 mg tablet 1,000 mg PO BIDWMEAL #180 tabs 01/17/25 04/27/25 Rx amlodipine 10 mg tablet 10 mg PO DAILY #30 tabs 02/08/25 04/27/25 Rx chlorthalidone 25 mg tablet 25 mg PO DAILY #30 tabs 03/29/25 04/27/25 Rx losartan 25 mg tablet 50 mg (2 x 25 mg) PO DAILY #90 tabs 03/29/25 04/27/25 Rx naltrexone 1.5 mg capsule 2.5 mg PO HS 03/29/25 04/27/25 History famotidine 10 mg tablet 40 mg PO DAILY PRN acid reflux 04/04/25 04/27/25 History hyoscyamine sulfate 0.125 mg tablet 0.125 mg PO QID PRN dyspepsia 04/04/25 04/27/25 History trazodone 50 mg tablet 50 mg PO HS PRN sleep 04/04/25 04/27/25 History cyclobenzaprine 10 mg tablet 10 mg PO TID PRN muscle spasm #90 04/08/25 04/27/25 Rx tabs Sleep Procedure A full night split study using the [employer] SleepNimia multi-channel system recorded the standard physiologic parameters including EEG, EOG, submentalis EMG, anterior tibialis EMG, EKG, body position, nasal and oral airflow using nasal pressure sensor and thermistor.? Respiratory parameters of chest and abdominal movements were recorded with Respiratory Inductance Plethysmography belts. Oxygen saturation was recorded by pulse oximetry. Video monitoring was also performed. Sleep stages, periodic limb movements, and EEG arousals were scored in 30 second epochs according to the criteria of the AASM Scoring Manual. The Apnea-Hypopnea Index was calculated using CMS guidelines for definition of hypopnea with 4% O2 desaturations while scoring respiratory events. Sleep Architecture During the diagnostic portion of the study, the total recording time was 171.7 minutes. The total sleep time was 150.0 minutes. Sleep latency was 3.1 minutes.? REM latency was 80.5 minutes. Sleep Efficiency was 87.4%. The patient had 12 awakenings for an awakening index of 4.8. Wake after sleep onset time was 18.5 minutes. The patient spent 13.0 minutes, 8.7% of total sleep time in Stage N1. The patient spent 44.0 minutes, 29.3% in Stage N2. The patient spent 66.0 minutes, 44.0% in Stage N3. The patient spent 27.0 minutes, 18.0% in Stage REM sleep. At 01:49:29 AM the patient was placed on PAP treatment and was titrated at pressures ranging from 5 cm H20 up to 7 cm H20. During the treatment portion of the study, the total recording time was 213.9 minutes.? The total sleep time was 136.5 minutes. Sleep latency was 6.0 minutes. REM sleep was not achieved during this portion of the study. Sleep Efficiency was 63.8%. Wake after Sleep Onset time was 71.0 minutes. The patient spent 9.5 minutes, 7.0% of total sleep time in Stage N1. The patient spent 72.0 minutes, 52.7% in Stage N2. The patient spent 55.0 minutes, 40.3% in Stage N3. The patient spent 0.0 minutes, 0.0% in Stage REM. Respiratory Analysis During the diagnostic portion of the study, the patient had 24 hypopneas and 3 central apneas for an overall Apnea Hypopnea Index of 10.8 events per hour. The REM Apnea Hypopnea Index was 22.2. The NREM Apnea Hypopnea Index was 8.8. The patient had a Central Apnea Hypopnea Index of 1.2. There was no evidence of Tigre-Combs Respirations. During the treatment portion of the study, the patient had 4 hypopneas for an overall Apnea Hypopnea Index of 1.8 events per hour. The REM Apnea Hypopnea Index was 0. The NREM Apnea Hypopnea Index was 1.8. The patient had a Central Apnea Hypopnea Index of 0. There was no evidence of Tigre-Combs Respirations. The patient was started on CPAP 5 cm H2O and titrated to 7 cm H2O due to hypopneas. The patient was able to fall asleep starting on CPAP 5 cm H2O. The patient did not achieve REM during this portion of the study. On CPAP 5 cm H2O, the patient spent 73.5 minutes in NREM with 1 hypopnea, resulting in an AHI of 0.8. On CPAP 6 cm H2O, the patient spent 56 minutes in NREM with 3 hypopneas, resulting in an AHI of 3.2. On CPAP 7 cm H2O, the patient spent 7 minutes in NREM with no respiratory events, resulting in an AHI of 0. The patient had a sleep efficiency of 66.5% on 5 cm H2O, 78.9% on 6 cm H2O and 21.5% on 7 cm H2O. Arousals During the diagnostic portion of the study, there were a total of 25 arousals for an arousal index of 10.0.? There were 2 respiratory arousals for an index of 0.8. There were 0 periodic limb movement arousals for an index of 0.? There were 4 isolated limb movement arousals for an index of 1.6. There were 19 spontaneous arousals for an index of 7.6. During the treatment portion of the study, there were a total of 21 arousals for an index of 9.2.? There were 0 respiratory arousals for an index of 0. There were 0 periodic limb movement arousals for an index of 0.? There were 11 isolated limb movement arousals for an index of 4.8. There were 10 spontaneous arousals for an index of 4.4. Periodic Limb Movements During the diagnostic portion of the study, the patient had 5 isolated limb movements with an index of 2.0. The patient had 0 periodic limb movements with an index of 0. The patient had a total of 5 limb movements with a total limb movement index of 2.0. During the treatment portion of the study, the patient had 11 isolated limb movements with an index of 4.8. The patient had 0 periodic limb movements with an index of 0. The patient had a total of 11 limb movements with a total limb movement index of 4.8. Oximetry Data During the diagnostic portion of the study, the patient had an average oxygen saturation of 94.4% in wake with a minimum oxygen saturation of 88% and a maximum oxygen saturation of 99%. The patient had an average oxygen saturation of 93.6% in sleep with a minimum oxygen saturation of 85.0% and a maximum oxygen saturation of 99.0%. The patient had 30 oxygen desaturations resulting in an Oxygen Desaturation Index of 12.0. The patient spent 2.3 minutes, 1.4% of total sleep time with an oxygen saturation less than 88%. During the treatment portion of the study, the patient had an average oxygen saturation of 95.7% in wake with a minimum oxygen saturation of 87.0% and a maximum oxygen saturation of 100.0%. The patient had an average oxygen saturation of 94.8% in sleep with a minimum oxygen saturation of 92.0% and a maximum oxygen saturation of 100.0%. The patient had 9 oxygen desaturations resulting in an Oxygen Desaturation Index of 4.0. The patient spent 0.1 minutes, 0.1% of total sleep time with an oxygen saturation less than 88%. Snoring Profile Moderate snoring was present intermittently in the baseline portion of the study. The snoring resolved once the patient was titrated to CPAP 6 cm H2O. Cardiac Profile The EKG lead showed normal sinus rhythm. No arrhythmias or premature beats were seen. During the diagnostic portion of the study, the average pulse rate was 79.0 bpm.? The minimum pulse rate was 72.0 bpm. The maximum pulse rate was 95.0 bpm. During the treatment portion of the study, the average pulse rate was 75.0 bpm.? The minimum pulse rate was 67.0 bpm. The maximum pulse rate was 96.0 bpm. EEG Profile No signs of seizure activity seen. Assessment and Plan Assessment and Plan (1) ANGIE (obstructive sleep apnea): Code(s): G47.33 - Obstructive sleep apnea (adult) (pediatric) Status: Acute Assessment and Plan: During the baseline portion, the patient had an overall AHI of 10.8 with desaturation down to 85%. This is consistent with mild sleep apnea. Due to the patient's hypertension, she qualifies for treatment. The patient was started on CPAP 5 cm H2O and titrated to 7 cm H2O due to hypopneas. I recommend that the patient be prescribed CPAP 6 cm H2O, size small Resmed AirTouch F20 full face mask, CPAP filters/tubing and heated humidity. This should be used with all episodes of sleep.? Compliance should be reviewed within 31-90 days of starting therapy for usage greater than 4 hours per night greater than 70% of the nights. The patient should be asked about symptoms such as?excessive daytime sleepiness, quality of sleep, decreased nocturia, increased?mental functioning such as memory, mood, and concentration. The patient's sleep history is somewhat suggestive of Restless Leg Syndrome. I recommend that the patient have a serum ferritin drawn for evaluation of iron deficiency anemia. If the patient has a serum ferritin less than 75 ng/mL, I recommend starting a daily iron supplement and a Vitamin C supplement for better absorption. If the serum ferritin is greater than 75 ng/mL, I recommend starting a dopamine agonist and titrating the dose until symptoms resolve. There are nonpharmacological methods to treat limb movements including daily exercise, stretching calf muscles before bed, avoiding excessive amounts of caffeine and alcohol, vitamin B supplementation, magnesium lotion massaged into legs before bed, and use of a weighted blanket. Data The data obtained during this sleep study is adequate for interpretation. Certification This sleep study has been reviewed by a board certified sleep medicine physician.
[2025-05-01 12:15] VITALS: BMI 25.0
== END 2025-04-06 06:33 | disposition home or self-care (01) ==
LOC: ANHCSM 10:33
PROVIDERS: PCP Family Medicine; Visit Provider Internal Medicine Cardiovascular Disease
DX: G47.33 Obstructive sleep apnea (adult) (pediatric) (principal); G47.10 Hypersomnia, unspecified
CPT/HCPCS: 95811

== ENCOUNTER 2025-04-30 00:53 | Day surgery (SDC) | payer MEDICARE, SELFPAY ==
[2025-04-27 15:05] VITALS: BMI 25.1
[2025-04-30] VITALS (17 sets, daily range): BP systolic 89–155; BP diastolic 46–97; PULSE 60–93; RESP 12–18; TEMP 36.3; O2SAT 92–100; BMI 25.6
--- OUTSIDE RECORDS SUMMARY | 2025-04-30 00:56 | XMS_ITS | Encounter Summary ---
Author Organization [facility] Address [address] [place] [address] Care Team Providers Care Government Clerk Name Role Phone Silvia Quinonez MD Primary Care Provider [phone] Encounter Details Date Type Department Care Team (Late st Contact Info) Description 03/17/[address] [facility] [place] [address] [place] [address] Gunjan Szymanski MD NO ADDRESS ON FILE Social History Tobacco Use Types Packs/Day Years Used Date Smoking Tobacco: Never Assessed Comments Unknown Sex and Gender Information Value Date Recorded Sex Assigned at Not on file Legal Sex Female 3:05 AM CARBON COATING MACHINE OPERATOR Gender Identity Not on file Sexual Orientation Not on file documented as of this encounter Plan of Treatment Upcoming Encounters Date Type Department Care Team (Late st Contact Info) Description 07/16/2025 10:00 AM CARBON COATING MACHINE OPERATOR Office Visit [facility] Oncology and Hematology - Reji [address] [facility] [address] [place] [address] Quique Khalil MD [address] [facility] [address] [place] [address] documented as of this encounter Visit Diagnoses Not on filedocumented in this encounter Care Teams Government Clerk Relationship Specialty Start Date End Date Silvia Quinonez MD [address] [place] [phone] PCP - General Family Practice 11/02/24 No DME 09/02/15 documented as of this encounter
--- OUTSIDE RECORDS SUMMARY | 2025-04-30 00:56 | XMS_ITS | Encounter Summary ---
Author Organization [facility] Address [address] [place] [address] Care Team Providers Care Outpatient Coder Name Role Phone Silvia Quinonez MD Primary Care Provider [phone] Encounter Details Date Type Department Care Team (Late Contact Info) Description 06/10/2006 Outpatient Historical [facility] [place] [address] [place] [id number] Sam Machado MD [address] [place] [address] Social History Tobacco Use Types Packs/Day Years Used Date Smoking Tobacco: Never Assessed Comments Unknown Sex and Gender Information Value Date Recorded Sex Assigned at Not on file Legal Sex Female 3:05 AM PALEONTOLOGY TEACHER Gender Identity Not on file Sexual Orientation Not on file documented as of this encounter Plan of Treatment Upcoming Encounters Date Type Department Care Team (Late Contact Info) Description 07/16/2025 10:00 AM PALEONTOLOGY TEACHER Office Visit [facility] Oncology and Hematology - Reji [address] [facility] [address] [place] [address] Quique Khalil MD [address] [facility] [address] [place] [address] documented as of this encounter Visit Diagnoses Not on filedocumented in this encounter Care Teams Outpatient Coder Relationship Specialty Start Date End Date Silvia Quinonez MD [address] [place] [address] PCP - General Family Practice 5/1/25 No DME 09/02/15 documented as of this encounter
--- OUTSIDE RECORDS SUMMARY | 2025-04-30 00:56 | XMS_ITS | Encounter Summary ---
Author Organization [facility] Address [address] [place] [address] Care Team Providers Care Nitroglycerin Distributor Name Role Phone Silvia Quinonez MD Primary Care Provider [phone] Encounter Details Date Type Department Care Team (Latest Contact Info) Description 02/18/2005 Outpatient Historical [facility] Jocy Espinal MD NO ADDRESS ON FILE SCREENING MAMM-MAILG NEOPL-OTHER (Primary Dx) Social History Tobacco Use Types Packs/Day Years Used Date Smoking Tobacco: Never Assessed Comments Unknown Sex and Gender Information Value Date Recorded Sex Assigned at Not on file Legal Sex Female 3:05 AM BLEACH CHLORINATOR Gender Identity Not on file Sexual Orientation Not on file documented as of this encounter Plan of Treatment Upcoming Encounters Date Type Department Care Team (Late st Contact Info) Description 07/16/2025 10:00 AM BLEACH CHLORINATOR Office Visit [facility] Oncology and Hematology - [place] [address] [place] [address] [facility] [address] [place] [address] Quique Khalil MD [address] [facility] [address] [place] [address] documented as of this encounter Visit Diagnoses Diagnosis Other screening mammogram- Primary documented in this encounter Care Teams Nitroglycerin Distributor Relationship Specialty Start Date End Date Silvia Quinonez MD [address] [place] [phone] PCP - General Family Practice 11/02/24 No DME 09/02/15 documented as of this encounter
--- OUTSIDE RECORDS SUMMARY | 2025-04-30 00:56 | XMS_ITS | Encounter Summary ---
Author Organization [facility] Address [address] [place] [address] Care Team Providers Care Vp Director Of Finance Name Role Phone Silvia Quinonez MD Primary Care Provider [phone] Encounter Details Date Type Department Care Team (Late Contact Info) Description 06/15/2007 Outpatient Historical [facility] [place] [address] [place] [address] Sam Machado MD [address] [place] [address] Social History Tobacco Use Types Packs/Day Years Used Date Smoking Tobacco: Never Assessed Comments Unknown Sex and Gender Information Value Date Recorded Sex Assigned at Not on file Legal Sex Female 3:05 AM WATCH REPAIRER Gender Identity Not on file Sexual Orientation Not on file documented as of this encounter Plan of Treatment Upcoming Encounters Date Type Department Care Team (Late Contact Info) Description 07/16/2025 10:00 AM WATCH REPAIRER Office Visit [facility] Oncology and Hematology - Reji [address] [facility] [address] [place] [address] Quique Khalil MD [address] [facility] [address] [place] [address] documented as of this encounter Visit Diagnoses Not on filedocumented in this encounter Care Teams Vp Director Of Finance Relationship Specialty Start Date End Date Silvia Quinonez MD [address] [place] [address] PCP - General Family Practice 5/1/25 No DME 09/02/15 documented as of this encounter
--- OUTSIDE RECORDS SUMMARY | 2025-04-30 00:56 | XMS_ITS | Encounter Summary ---
Author Organization [facility] Address [address] [place] [address] Care Team Providers Care Hide Cleaner Name Role Phone Silvia Quinonez MD Primary Care Provider [phone] Encounter Details Date Type Department Care Team (Late Contact Info) Description 06/10/2006 Outpatient Historical [facility] [place] [address] [place] [address] Sam Machado MD [address] [place] [address] Social History Tobacco Use Types Packs/Day Years Used Date Smoking Tobacco: Never Assessed Comments Unknown Sex and Gender Information Value Date Recorded Sex Assigned at Not on file Legal Sex Female 3:05 AM EMBOSSER OPERATOR Gender Identity Not on file Sexual Orientation Not on file documented as of this encounter Plan of Treatment Upcoming Encounters Date Type Department Care Team (Late Contact Info) Description 07/16/2025 10:00 AM EMBOSSER OPERATOR Office Visit [facility] Oncology and Hematology - [place] [address] [facility] [address] [place] [address] Quique Khalil MD [address] [facility] [address] [place] [address] documented as of this encounter Visit Diagnoses Not on filedocumented in this encounter Care Teams Hide Cleaner Relationship Specialty Start Date End Date Silvia Quinonez MD [address] [place] [address] PCP - General Family Practice 5/1/25 No DME 09/02/15 documented as of this encounter
--- OUTSIDE RECORDS SUMMARY | 2025-04-30 00:56 | XMS_ITS | Encounter Summary ---
Author Organization [facility] Address [address] [place] [address] Care Team Providers Care Track Repairer Name Role Phone Silvia Quinonez MD Primary Care Provider Encounter Details Date Type Department Care Team (Latest Contact Info) Description 02/28/2008 Outpatient Historical [facility] Ora Machado MD [address] [place] [address] Other Screening Mammogram Social History Tobacco Use Types Packs/Day Years Used Date Smoking Tobacco: Never Assessed Comments Unknown Sex and Gender Information Value Date Recorded Sex Assigned at Not on file Legal Sex Female 3:05 AM DIRECTOR INTERNAL COMMUNICATIONS Gender Identity Not on file Sexual Orientation Not on file documented as of this encounter Plan of Treatment Upcoming Encounters Date Type Department Care Team (Late st Contact Info) Description 07/16/2025 10:00 AM DIRECTOR INTERNAL COMMUNICATIONS Office Visit [facility] Oncology and Hematology - Reji 2[address] [facility] [address] [place] [phone] Quique Khalil MD [address] [facility] [address] [place] [address] documented as of this encounter Procedures Procedure Name Priority Date/Time Associated Diagnosis Comments MAMMO SCREEN BILAT W OR WO CAD Timed Study 02/28/2008 9:06 AM CDT documented in this encounter Results * MAMMO DIGITAL SCREEN BILAT (02/28/2008 9:06 AM CDT) Anatomical Region Laterality Modality Breast Bilateral Other 02/28/2008 9:06 AM CDT Narrative 03/01/2008 8:15 AM CDT [address] [address] Admit Date: 02/28/2008 TYRONE REID Sex: F Admit Prov: ORA MACHADO Date: 1950 Primary Care Prov: BIB MACHUCA CMRN: [id number] [id number] Ordering Prov: ORA MACHADO Accession Number: [id number] Interpretation BILATERAL SCREENING DIGITAL MAMMOGRAMS WITH COMPUTER [...] Note Gabino Worthington MD - 03/01/[address] [address] Admit Date: 02/28/2008 TYRONE REID Sex: F Admit Prov: ORA MACHADO Date: 1950 Primary Care Prov: BIB MACHUCA CMRN: [id number] [id number] IMAGING SERVICES Ordering Prov: ORA MACHADO Interpretation [...] mammogram documented in this encounter Care Teams Track Repairer Relationship Specialty Start Date End Date Silvia Quinonez MD [address] [place] [address] PCP - General Family Practice 11/02/24 No DME 09/02/15 documented as of this encounter
--- OUTSIDE RECORDS SUMMARY | 2025-04-30 00:56 | XMS_ITS | Encounter Summary ---
Author Organization [facility] Address [address] [place] [address] Care Team Providers Care Sack Sewer Machine Name Role Phone Silvia Quinonez MD Primary Care Provider [phone] Encounter Details Date Type Department Care Team (Latest Contact Info) Description 03/17/2005 Outpatient Historical [facility] Gunjan Szymanski MD NO ADDRESS ON FILE ABNORM ELECTROMYOGRAM (Primary Dx) Social History Tobacco Use Types Packs/Day Years Used Date Smoking Tobacco: Never Assessed Comments Unknown Sex and Gender Information Value Date Recorded Sex Assigned at Not on file Legal Sex Female 3:05 AM JAVA SWING DEVELOPER Gender Identity Not on file Sexual Orientation Not on file documented as of this encounter Plan of Treatment Upcoming Encounters Date Type Department Care Team (Late st Contact Info) Description 07/16/2025 10:00 AM JAVA SWING DEVELOPER Office Visit [facility] Oncology and Hematology - Reji [address] [facility] 200 [place] [address] Quique Khalil MD [address] [facility] [address] [place] [address] documented as of this encounter Visit Diagnoses Diagnosis Nonspecific abnormal electromyogram (EMG)- Primary documented in this encounter Care Teams Sack Sewer Machine Relationship Specialty Start Date End Date Silvia Quinonez MD [address] [place] [phone] PCP - General Family Practice 11/02/24 No DME 09/02/15 documented as of this encounter
--- OUTSIDE RECORDS SUMMARY | 2025-04-30 00:56 | XMS_ITS | Encounter Summary ---
Author Organization [facility] Address [address] [place] [address] Care Team Providers Care Deposition Operator Name Role Phone Silvia Quinonez MD Primary Care Provider [phone] Encounter Details Date Type Department Care Team (Latest Contact Info) Description 02/18/2006 Outpatient Historical [facility] Sam Machado MD [address] [place] [address] Other Screening Mammogram (Primary Dx) Social History Tobacco Use Types Packs/Day Years Used Date Smoking Tobacco: Never Assessed Comments Unknown Sex and Gender Information Value Date Recorded Sex Assigned at Not on file Legal Sex Female 3:05 AM BRAND PLANNER Gender Identity Not on file Sexual Orientation Not on file documented as of this encounter Plan of Treatment Upcoming Encounters Date Type Department Care Team (Late st Contact Info) Description 07/16/2025 10:00 AM BRAND PLANNER Office Visit [facility] Oncology and Hematology - Reji [address] [facility] [address] [place] [address] Quique Khalil MD 2[address] [facility] [address] [place] [address] documented as of this encounter Visit Diagnoses Diagnosis Other screening mammogram- Primary documented in this encounter Care Teams Deposition Operator Relationship Specialty Start Date End Date Silvia Quinonez MD [address] [place] [phone] PCP - General Family Practice 11/02/24 No DME 09/02/15 documented as of this encounter
--- OUTSIDE RECORDS SUMMARY | 2025-04-30 00:56 | XMS_ITS | Encounter Summary ---
Author Organization [facility] Address [address] [place] [address] Care Team Providers Care Extract Puller Name Role Phone Silvia Quinonez MD Primary Care Provider [phone] Encounter Details Date Type Department Care Team (Latest Contact Info) Description 02/07/2004 Outpatient Historical [facility] Jocy Espinal MD NO ADDRESS ON FILE SCREENING MAMM-MAILG NEOPL-OTHER (Primary Dx) Social History Tobacco Use Types Packs/Day Years Used Date Smoking Tobacco: Never Assessed Comments Unknown Sex and Gender Information Value Date Recorded Sex Assigned at Not on file Legal Sex Female 3:05 AM FILTER PLANT SUPERVISOR Gender Identity Not on file Sexual Orientation Not on file documented as of this encounter Plan of Treatment Upcoming Encounters Date Type Department Care Team (Late st Contact Info) Description 07/16/2025 10:00 AM FILTER PLANT SUPERVISOR Office Visit [facility] Oncology and Hematology - [place] [address] [place] [address] [facility] 200 [place] [address] Quique Khalil MD [address] [facility] [address] [place] [address] documented as of this encounter Visit Diagnoses Diagnosis Other screening mammogram- Primary documented in this encounter Care Teams Extract Puller Relationship Specialty Start Date End Date Silvia Quinonez MD [address] [place] [phone] PCP - General Family Practice 11/02/24 No DME 09/02/15 documented as of this encounter
--- OUTSIDE RECORDS SUMMARY | 2025-04-30 00:56 | XMS_ITS | Encounter Summary ---
Author Organization [facility] Address [address] [place] [address] Care Team Providers Care Diagnostic Assistant Name Role Phone Silvia Quinonez MD Primary Care Provider [phone] Encounter Details Date Type Department Care Team (Late Contact Info) Description 06/15/2007 Outpatient Historical [facility] [place] [address] [place] [address] Sam Machado MD [address] [place] [address] Social History Tobacco Use Types Packs/Day Years Used Date Smoking Tobacco: Never Assessed Comments Unknown Sex and Gender Information Value Date Recorded Sex Assigned at Not on file Legal Sex Female 3:05 AM PERSONNEL ARBITRATOR Gender Identity Not on file Sexual Orientation Not on file documented as of this encounter Plan of Treatment Upcoming Encounters Date Type Department Care Team (Late Contact Info) Description 07/16/2025 10:00 AM PERSONNEL ARBITRATOR Office Visit [facility] Oncology and Hematology - Reji [address] [facility] 200 [place] [address] Quique Khalil MD [address] [facility] [address] [place] [address] documented as of this encounter Visit Diagnoses Not on filedocumented in this encounter Care Teams Diagnostic Assistant Relationship Specialty Start Date End Date Silvia Quinonez MD [address] [place] [address] PCP - General Family Practice 5/1/25 No DME 09/02/15 documented as of this encounter
--- OUTSIDE RECORDS SUMMARY | 2025-04-30 00:56 | XMS_ITS | Encounter Summary ---
Author Organization [facility] Address [address] [place] [address] Care Team Providers Care Drum Barker Operator Name Role Phone Silvia Quinonez MD Primary Care Provider [phone] Encounter Details Date Type Department Care Team (Late Contact Info) Description 10/08/2004 Outpatient Historical [facility] [place] [address] [place] [address] Sam Machado MD [address] [place] [address] Social History Tobacco Use Types Packs/Day Years Used Date Smoking Tobacco: Never Assessed Comments Unknown Sex and Gender Information Value Date Recorded Sex Assigned at Not on file Legal Sex Female 3:05 AM STRUCTURES ASSEMBLER Gender Identity Not on file Sexual Orientation Not on file documented as of this encounter Plan of Treatment Upcoming Encounters Date Type Department Care Team (Late st Contact Info) Description 07/16/2025 10:00 AM STRUCTURES ASSEMBLER Office Visit [facility] Oncology and Hematology - Reji [address] [facility] [address] [place] [address] Quique Khalil MD [address] [facility] [address] [place] [address] documented as of this encounter Visit Diagnoses Not on filedocumented in this encounter Care Teams Drum Barker Operator Relationship Specialty Start Date End Date Silvia Quinonez MD [address] [place] [address] PCP - General Family Practice 5/1/25 No DME 09/02/15 documented as of this encounter
--- OUTSIDE RECORDS SUMMARY | 2025-04-30 00:56 | XMS_ITS | Encounter Summary ---
Author Organization [facility] Address [address] [place] [address] Care Team Providers Care Hand Woven Carpet And Rug Mender Name Role Phone Silvia Quinonez MD Primary Care Provider Encounter Details Date Type Department Care Team (Late st Contact Info) Description 03/24/2006 Outpatient Historical [facility] Latonia Scott MD [address] [place] [address] Localized Superficial Swelling, Mass, or Lump (Primary Dx) Social History Tobacco Use Types Packs/Day Years Used Date Smoking Tobacco: Never Assessed Comments Unknown Sex and Gender Information Value Date Recorded Sex Assigned at Not on file Legal Sex Female 3:05 AM SHARPLES MACHINE OPERATOR Gender Identity Not on file Sexual Orientation Not on file documented as of this encounter Plan of Treatment Upcoming Encounters Date Type Department Care Team (Late st Contact Info) Description 07/16/2025 10:00 AM SHARPLES MACHINE OPERATOR Office Visit [facility] Oncology and Hematology - Reji [address] [facility] [address] [place] [address] Quique Khalil MD [address] [facility] [address] [place] [address] documented as of this encounter Visit Diagnoses Diagnosis Localized superficial swelling, mass, or lump- Primary documented in this encounter Care Teams Hand Woven Carpet And Rug Mender Relationship Specialty Start Date End Date Silvia Quinonez MD [address] [place] [address] PCP - General Family Practice 11/02/24 No DME 09/02/15 documented as of this encounter
--- OUTSIDE RECORDS SUMMARY | 2025-04-30 00:56 | XMS_ITS | Encounter Summary ---
Author Organization [facility] Address [address] [place] [address] Care Team Providers Care Extrusion Engineer Name Role Phone Silvia Quinonez MD Primary Care Provider [phone] Encounter Details Date Type Department Care Team (Latest Contact Info) Description 03/03/2007 Outpatient Historical [facility] Sam Machado MD [address] [place] [address] Other Screening Mammogram (Primary Dx) Social History Tobacco Use Types Packs/Day Years Used Date Smoking Tobacco: Never Assessed Comments Unknown Sex and Gender Information Value Date Recorded Sex Assigned at Not on file Legal Sex Female 3:05 AM GENERAL INTERNAL MEDICINE DOCTOR Gender Identity Not on file Sexual Orientation Not on file documented as of this encounter Plan of Treatment Upcoming Encounters Date Type Department Care Team (Late st Contact Info) Description 07/16/2025 10:00 AM GENERAL INTERNAL MEDICINE DOCTOR Office Visit [facility] Oncology and Hematology - Reji [address] [facility] [address] [place] [address] Quique Khalil MD [address] [facility] [address] [place] [address] documented as of this encounter Visit Diagnoses Diagnosis Other screening mammogram- Primary documented in this encounter Care Teams Extrusion Engineer Relationship Specialty Start Date End Date Silvia Quinonez MD [address] [place] [phone] PCP - General Family Practice 11/02/24 No DME 09/02/15 documented as of this encounter
--- OUTSIDE RECORDS SUMMARY | 2025-04-30 00:56 | XMS_ITS | Encounter Summary ---
Author Organization [facility] Address [address] [place] [address] Care Team Providers Care Rock Cutter Name Role Phone Silvia Quinonez MD Primary Care Provider [phone] Encounter Details Date Type Department Care Team (Latest Contact Info) Description 07/31/2008 Outpatient Historical [facility] Loco Starr MD [address] [place] [address] [address] [place] [address] Jayce Orellana MD [address] [facility] [address] [place] [address] Other and Unspecified Angina Pectoris Social History Tobacco Use Types Packs/Day Years Used Date Smoking Tobacco: Never Assessed Comments Unknown Sex and Gender Information Value Date Recorded Sex Assigned at Not on file Legal Sex Female 3:05 AM FUNERAL HOME LOCATION MANAGER Gender Identity Not on file Sexual Orientation Not on file documented as of this encounter Plan of Treatment Upcoming Encounters Date Type Department Care Team (Late st Contact Info) Description 07/16/2025 10:00 AM FUNERAL HOME LOCATION MANAGER Office Visit [facility] Oncology and Hematology - Reji [address] [facility] 200 [place] [address] Quique Khalil MD [address] [facility] [address] [place] [address] documented as of this encounter Visit Diagnoses Diagnosis Other and unspecified angina pectoris documented in this encounter Care Teams Rock Cutter Relationship Specialty Start Date End Date Silvia Quinonez MD [address] [place] [address] PCP - General Family Practice 11/02/24 No DME 09/02/15 documented as of this encounter
--- OUTSIDE RECORDS SUMMARY | 2025-04-30 00:56 | XMS_ITS | Clinical Summary ---
Author Organization [facility] Address [address] [place] [address] Care Team Providers Care Beef Skinner Name Role Phone Silvia Quinonez MD Primary Care Provider [phone] Source Comments [facility],non-owned Affiliates and Associated Physician Practices is amultiple site organization consisting of ambulatory clinics and hospital sitesin [place], [place], [place] and [place]. This disclosure is being madepursuant to the Care Everywhere program and may not contain all information available regarding this patient. Last updated 18.[facility] Allergies Active Allergy Reactions Criticality Noted Date [...] Active naltrexone (REVIA) 50 MG tablet Active Sutton-3 Fatty Acids (FISH OIL DELAYED RELEASE) 1000 [...] on file Legal Sex Female 7:35 AM EMBOSSING CLERK Gender Identity Not on file Sexual [...] complete this topic Insurance MEDICARE [employer] MEDICARE [facility] Care Teams Beef Skinner Relationship Specialty Start Date End Date Silvia Quinonez MD [address] [place] [address] PCP - General Family Medicine 09/19/21
--- OUTSIDE RECORDS SUMMARY | 2025-04-30 00:57 | XMS_ITS | Encounter Summary ---
Author Organization [facility] Address [address] [place] [address] Care Team Providers Care Auto Claim Representative Name Role Phone Silvia Quinonez MD Primary Care Provider [phone] Encounter Details Date Type Department Care Team (Late Contact Info) Description 10/16/2004 Outpatient Historical [facility] [place] [address] [place] [id number] Sam Machado MD [address] [place] [address] Social History Tobacco Use Types Packs/Day Years Used Date Smoking Tobacco: Never Assessed Comments Unknown Sex and Gender Information Value Date Recorded Sex Assigned at Not on file Legal Sex Female 3:05 AM JOB HONER Gender Identity Not on file Sexual Orientation Not on file documented as of this encounter Plan of Treatment Upcoming Encounters Date Type Department Care Team (Late st Contact Info) Description 07/16/2025 10:00 AM JOB HONER Office Visit [facility] Oncology and Hematology - Reji [address] [facility] [address] [place] [address] Quique Khalil MD [address] [facility] [address] [place] [address] documented as of this encounter Visit Diagnoses Not on filedocumented in this encounter Care Teams Auto Claim Representative Relationship Specialty Start Date End Date Silvia Quinonez MD [address] [place] [address] PCP - General Family Practice 5/1/25 No DME 09/02/15 documented as of this encounter
--- OUTSIDE RECORDS SUMMARY | 2025-04-30 00:57 | XMS_ITS | Encounter Summary ---
Author Organization [facility] Address [address] [place] [address] Care Team Providers Care Hog Killer Name Role Phone Silvia Quinonez MD Primary Care Provider [phone] Encounter Details Date Type Department Care Team (Latest Contact Info) Description 04/23/2003 Outpatient Historical [facility] Marquez, Tiffanie Barrett MD [address] [facility] [address] [address] OTHER MALAISE AND FATIGUE (Primary Dx) Social History Tobacco Use Types Packs/Day Years Used Date Smoking Tobacco: Never Assessed Comments Unknown Sex and Gender Information Value Date Recorded Sex Assigned at Not on file Legal Sex Female 3:05 AM GOVERNMENT AFFAIRS SPECIALIST Gender Identity Not on file Sexual Orientation Not on file documented as of this encounter Plan of Treatment Upcoming Encounters Date Type Department Care Team (Late st Contact Info) Description 07/16/2025 10:00 AM GOVERNMENT AFFAIRS SPECIALIST Office Visit [facility] Oncology and Hematology - Reji [address] [facility] [address] [place] [address] Quique Khalil MD [address] [facility] [address] [place] [address] documented as of this encounter Visit Diagnoses Diagnosis Other malaise and fatigue- Primary documented in this encounter Care Teams Hog Killer Relationship Specialty Start Date End Date Silvia Quinonez MD [address] [place] [address] PCP - General Family Practice 11/02/24 No DME 09/02/15 documented as of this encounter
--- OUTSIDE RECORDS SUMMARY | 2025-04-30 00:57 | XMS_ITS | Encounter Summary ---
Author Organization [facility] Address [address] [place] [address] Care Team Providers Care Supervisor Stave Cutting Name Role Phone Silvia Quinonez MD Primary Care Provider [phone] Encounter Details Date Type Department Care Team (Latest Contact Info) Description 07/31/2008 Outpatient Historical [facility] DIAChuck-Jayce Dupree MD [address] [facility] [address] [place] [address] Nonspecific Abnormal Unspecified Cardiovascular Function Study Social History Tobacco Use Types Packs/Day Years Used Date Smoking Tobacco: Never Assessed Comments Unknown Sex and Gender Information Value Date Recorded Sex Assigned at Not on file Legal Sex Female 3:05 AM COUTIERIER Gender Identity Not on file Sexual Orientation Not on file documented as of this encounter Plan of Treatment Upcoming Encounters Date Type Department Care Team (Late st Contact Info) Description 07/16/2025 10:00 AM COUTIERIER Office Visit [facility] Oncology and Hematology - Reji [address] [facility] [address] [place] [address] Quique Khalil MD [address] [facility] [address] [place] [address] documented as of this encounter Visit Diagnoses Diagnosis Nonspecific abnormal unspecified cardiovascular function study documented in this encounter Care Teams Supervisor Stave Cutting Relationship Specialty Start Date End Date Silvia Quinonez MD [address] [place] [address] PCP - General Family Practice 11/02/24 No DME 09/02/15 documented as of this encounter
--- OUTSIDE RECORDS SUMMARY | 2025-04-30 00:57 | XMS_ITS | Encounter Summary ---
Author Organization [facility] Address [address] [place] [address] Care Team Providers Care Cdl Flatbed Truck Driver Name Role Phone Silvia Quinonez MD Primary Care Provider [phone] Encounter Details Date Type Department Care Team (Late st Contact Info) Description 08/18/2000 Outpatient [facility] Internal Medicine [address] [facility] [address] [place] [address] Jens Lora MD NO ADDRESS ON FILE Social History Tobacco Use Types Packs/Day Years Used Date Smoking Tobacco: Never Assessed Comments Unknown Sex and Gender Information Value Date Recorded Sex Assigned at Not on file Legal Sex Female 3:05 AM BOBBIN PAINTER Gender Identity Not on file Sexual Orientation Not on file documented as of this encounter Plan of Treatment Upcoming Encounters Date Type Department Care Team (Late st Contact Info) Description 07/16/2025 10:00 AM BOBBIN PAINTER Office Visit [facility] Oncology and Hematology - Reji [address] [facility] [address] [place] [address] Quique Khalil MD [address] [facility] [address] [place] [address] documented as of this encounter Visit Diagnoses Not on filedocumented in this encounter Care Teams Cdl Flatbed Truck Driver Relationship Specialty Start Date End Date Silvia Quinonez MD [address] [place] [phone] PCP - General Family Practice 11/02/24 No DME 09/02/15 documented as of this encounter
--- OUTSIDE RECORDS SUMMARY | 2025-04-30 00:57 | XMS_ITS | Encounter Summary ---
Author Organization [facility] Address [address] [place] [address] Care Team Providers Care Scientific Affairs Manager Name Role Phone Silvia Quinonez MD Primary Care Provider Encounter Details Date Type Department Care Team (Late st Contact Info) Description 05/18/2000 Outpatient [facility] Internal Medicine 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 Gender Identity Not on file Sexual Orientation Not on file documented as of this encounter Plan of Treatment Upcoming Encounters Date Type Department Care Team (Late st Contact Info) Description 07/16/2025 10:00 AM MATZO FORMING MACHINE OPERATOR Office Visit [facility] Oncology and Hematology - Reji [address] [facility] [address] [place] [address] Quique Khalil MD [address] [facility] [address] [place] [address] documented as of this encounter Visit Diagnoses Not on filedocumented in this encounter Care Teams Scientific Affairs Manager Relationship Specialty Start Date End Date Silvia Quinonez MD [address] [place] [phone] PCP - General Family Practice 11/02/24 No DME 09/02/15 documented as of this encounter
--- OUTSIDE RECORDS SUMMARY | 2025-04-30 00:57 | XMS_ITS | Encounter Summary ---
Author Organization [facility] Address [address] [place] [address] Care Team Providers Care Fisher Lampara Net Name Role Phone Silvia Quinonez MD Primary Care Provider [phone] Encounter Details Date Type Department Care Team (Late Contact Info) Description 11/28/2004 Outpatient Historical [facility] [place] [address] [place] [address] Sam Machado MD 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 Gender Identity Not on file Sexual Orientation Not on file documented as of this encounter Plan of Treatment Upcoming Encounters Date Type Department Care Team (Late Contact Info) Description 07/16/2025 10:00 AM CHILD LIFE SPECIALIST Office Visit [facility] Oncology and Hematology - Reji [address] [facility] [address] [place] [address] Quique Khalil MD [address] [facility] [address] [place] [address] documented as of this encounter Visit Diagnoses Not on filedocumented in this encounter Care Teams Fisher Lampara Net Relationship Specialty Start Date End Date Silvia Quinonez MD [address] [place] [address] PCP - General Family Practice 5/1/25 No DME 09/02/15 documented as of this encounter
--- OUTSIDE RECORDS SUMMARY | 2025-04-30 00:57 | XMS_ITS | Clinical Summary ---
Author Organization [facility] Address [address] [place] [address] Care Team Providers [employer] L[employer] Name Role Phone Silvia Quinonez MD Primary Care Provider [phone] Silvia Quinonez MD Unavailable Allergies Active Allergy Reactions Criticality Noted Date Comments Amlodipine Fatigue Low 03/23/2012 Excessive fatigue Other Unknown 05/22/2009 SURGICAL MESH Medications calcium carbonate (CALCIUM 500 ORAL) Active cholecalcifero l (VITAMIN D-3) 00110 unit tablet once a week 07/07/19 13 Active naltrexone HCl (NALTREXONE ORAL) Take by mouth Active alendronate (FOSAMAX) 70 mg tablet Take 70 mg by mouth once a week 02/09/20 20 Active chlorthalidone 25 mg tablet Take 25 mg by mouth daily 12/11/19 21 Active cyclobenzaprin e (FLEXERIL) 5 mg tablet Take 10 mg by mouth once Active fesoterodine ER (TOVIAZ) 4 mg tablet extended release 24 hr Take 4 mg by mouth daily Active metFORMIN (GLUCOPHAGE) 1,000 mg tablet Take 1,000 mg by mouth 2 (two) times a day 12/11/19 21 Active rOPINIRole (REQUIP) 1 mg tablet Active triamcinolone (KENALOG) 0.1 % lotion APPLY LOTION TOPICALLY TO AFFECTED AREA TWICE DAILY 11/25/19 21 Active calcium carbonate (OS-KANWAL) 1,500 mg (600 mg elemental) tablet Take 1 tablet (1,500 mg total) by mouth 2 (two) times a day 11/23/19 24 Active metFORMIN (GLUCOPHAGE) 1,000 mg tablet Take 1 tablet (1,000 mg total) by mouth 2 (two) times a day with meals 10/20/19 24 Active pramipexole (MIRAPEX) 0.25 mg tablet Take 1 tablet (0.25 mg total) by mouth 3 (three) times a day as needed (restless leg syndrome) 11/09/19 24 Active cholecalcifero l (VITAMIN D-3) 2000 unit capsule Take 1 capsule (2,000 Units total) by mouth daily Active rOPINIRole (REQUIP) 0.5 mg tablet Take 1 tablet (0.5 mg total) by mouth nightly Active traZODone (DESYREL) 50 mg tablet Take 1 tablet (50 mg total) by mouth nightly Active acetaminophen 500 mg capsuleIndicat ions:Pain Take 2 capsules (1,000 mg total) by mouth every 6 (six) hours as needed for pain 12/29/19 24 Active polyethylene glycol (MIRALAX) 17 gram packetIndicati ons:constipati on Take 1 packet (17 g total) by mouth daily 12/29/19 24 Active Eliquis 5 mg tablet Take 1 tablet (5 mg total) by mouth every 12 (twelve) hours 01/09/20 24 Active diclofenac sodium (VOLTAREN) 1 % gel APPLY 4G TOPICALLY FOUR TIMES DAILY TO SINGLE KNEE, ANKLE, FOOT (INCLUDING SOLES, TOES, TOP OF FOOT) 01/19/20 24 Active gabapentin (NEURONTIN) 100 mg capsule Take 100 mg by mouth 3 (three) times a day 12/01/19 025 Discontinued ibandronate (BONIVA) 150 mg tablet TAKE 1 TABLET ONCE MONTHLY WITH 8 TO 10 OUNCES OF WATER. STAY UPRIGHT AND DO NOT EAT OR DRINK FOR 1 HOUR. 11/02/19 12 025 Discontinued(Th erapy completed) levothyroxine (SYNTHROID) 75 mcg tablet TAKE 1 & 1 2 (ONE & ONE HALF) TABLETS BY MOUTH FIRST IN THE MORNING ON AN EMPTY STOMACH. 06/17/20 025 Discontinued( erapy completed) lisinopriL (PRINIVIL,ZEST RIL) 40 mg tablet Take 40 mg by mouth daily 09/24/19 21 025 Discontinued(Th erapy completed) pramipexole (MIRAPEX) 0.25 mg tablet 12/20/19 21 025 Discontinued(Du plicate order) pravastatin (PRAVACHOL) 40 mg tablet Take 40 mg by mouth daily 01/15/20 20 025 Discontinued traMADoL (ULTRAM) 50 mg tablet 025 Discontinued traZODone (DESYREL) 50 mg tablet Take 50 mg by mouth nightly 11/01/19 21 025 Discontinued(Du plicate order) trospium (SANCTURA) 20 mg tablet Take 20 mg by mouth 2 (two) times a day 09/16/19 025 Discontinued hydrOXYzine (ATARAX) 25 mg tablet Take 1 tablet (25 mg total) by mouth 2 (two) times a day as needed for itching 11/28/19 24 025 Discontinued( erapy completed) mirabegron ER (MYRBETRIQ) 25 mg tablet extended release 24 hr Take 1 tablet (25 mg total) by mouth 025 Discontinued gabapentin (NEURONTIN) 300 mg capsule Take 1 capsule (300 mg total) by mouth 3 (three) times a day 12/29/19 24 025 Discontinued lidocaine (ASPERCREME) 4 % adhesive patch,medicate d Place 1 patch on the skin daily 12/29/19 24 025 Discontinued( erapy completed) methocarbamoL (ROBAXIN) 500 mg tablet Take 1 tablet (500 mg total) by mouth 3 (three) times a day 12/29/[address] (PROTONIX) 40 mg EC tablet Take 1 tablet (40 mg total) by mouth every morning 01/09/20 24 025 Discontinued Active Problems Problem Noted Date Diagnosed Date Osteoporosis without current pathological fractu re 04/26/2025 Overview (04/26/2025): Bone Health Program 2024 T-score fn= -3.0 (right hip so no comparison) Had periprosthetic fracture left Minimal and remote BP use Assessment & Plan (04/26/2025 8:46 AM CDT): Will check studies to r/o oversupression and secondary causes. F/u 1 yr Anemia 12/24/2023 Assessment & Plan (12/29/2023 8:46 [...] IRF. Periprosthetic distal femur fracture, Left 12/22 Overview (04/26/2025): Bone Health Evaluation 2024 This probably was not an AFF but to be safe, we will check a film of the right femur She did have ZOL 2023 and 03/2025 Assessment & Plan (12/29/2023 8:43 AM CDT): [...] controlled diet - Hgb A1C 5.5 - 6/24: BG 488-Pt endorsed eating a lot of [...] Encounters Date Type Department Care Team Description 04/26/2025 10:15 AM CDT Lab [facility] [address] [place] [phone] Closed nondisplaced articular fracture of head of left femur, sequela; Age-related osteoporosis without current pathological fracture 04/26/2025 9:55 AM CDT - 04/26/2025 11:59 PM CDT Hospital Encounter [facility] [address] [place] [address] Closed nondisplaced articular fracture of head of left femur, sequela; Age-related osteoporosis without current pathological fracture Discharge Disposition: Discharge to home or self care 04/26/2025 8:40 AM CDT Office Visit [address] [place] [address] [place] [address] Ezekiel Frank MD Closed nondisplaced articular fracture of head of left femur, sequela (Primary Dx); Age-related osteoporosis without current pathological fracture 04/26/2025 8:10 AM CDT Clinical Support [address] [place] [address] [place] [address] Osteopenia of left hip (Primary Dx); Closed nondisplaced articular fracture of head of left femur, sequela 04/26/2025 Results Follow-Up [address] [place] [address] [place] [address] Ezekiel Frank MD XR Femur Right 2 or More Views 04/26/[address] [place] [address] [place] [address] Ezekiel Frank MD 04/03/2025 Telephone [facility] [address] [facility] [address] [place] [phone] Jeol Azevedo MD [facility] from Last 3 Months Immunizations Immunization [...] by TW Conv) Type 2 diabetes mellitus Hypertension Family History Medical History Relation Name Comments Broken bones Neg Hx Hip fracture Neg Hx Kyphosis Neg Hx Osteoporosis Neg Hx Scoliosis Neg Hx Social History Tobacco Use Types Packs/Day Years Used Date Smoking Tobacco: Former Cigarettes Smokeless Tobacco: Never Tobacco Cessation:Counseling Given: Not Answered Fosub[employer]ities Answer Date Recorded In the past 12 months has e [employer], oil, or water [facility] threatened to shut off services in your [...] often do you attend chur ch or episcopal services? More than 4 times per year 12/23/2023 Do you belong to any clubs o r organizations such as hindu groups, unions, fraternal or athletic groups, or [...] and heating? Not hard at all 12/23/2023 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 Gender Identity Female 12/16/2020 9:45 PM CDT [...] Zoster Vaccine (2 of 3) 08/30/2014 07/05/2014 Pneumococcal vaccine 65+ (3 of 3 - PCV20 or PCV21) 10/04/2019 10/03/2014, 09/16/2011 Lipid Panel 11/29/2020 11/30/2019 DTaP/Tdap/Td Vaccine (2 - Td or Tdap) 10/20/2021 10/21/2011 Hemoglobin A1C 06/27/2024 12/27/2023, 12/04, 11/30/2019, Additional history exists Fall Risk Assessment 12/28/2024 12/29/2023 Covid-19 Vaccine (3 - 2024-2 6 season) 2025 10/28/2020, 10/08/2020 Influenza Vaccine (#1) 2025 , 04/27/2020, 04/29/2018, Additional history exists eGFR 04/26/2026 04/26/2025, 12/04, 12/28/2023, Additional history exists Osteoporosis Screening-Bone Density Scan 04/26/2027 04/26/2025, 10/01/2015, 10/01/2015, Additional history exists Medical Devices Implanted Type Area In Flight Refueling Operator Device Identifier Shelf Expiration Date Model / Serial / Lot [employer] Screw Bone 5mm 80mm Lock Strl 2361-5080s - [id number] Implanted:Qty: 1 on 12/23/2023 by Dave Rosas MD at [facility] Screw Left: Femur [employer] [id number] 10/02/2033 0458-2320 S / / [id number] [employer] Screw Bone 5mm 70mm Lock Strl 2361-5070s - [id number] Implanted:Qty: 1 on 12/23/2023 by Dave Rosas MD at [facility] Screw Left: Femur [employer] [id number] 11/01/2033 1247-6572 S / / [id number] [employer] Screw Bone Locking Cannulated Tibial Oversized Thread Black T2 Alpha 5.0x85mm Titanium 2361-5085s - [id number] Implanted:Qty: 1 on 12/23/2023 by Dave Rosas MD at [facility] Screw Left: Femur [employer] [id number] 10/02/2033 3552-2763 S / / [id number] [employer] Screw Bone 5mm 37.5mm T2 Alpha Lock Strl 2360-5037s - [id number] Implanted:Qty: 1 on 12/23/2023 by Dave Rosas MD at [facility] Screw Left: Femur [employer] [id number] 11/01/2033 3905-7013 S / / [id number] [employer] Screw Bone 5mm 40mm T2 Alpha Lock Strl 2360-5040s - [id number] Implanted:Qty: 1 on 12/23/2023 by Dave Rosas MD at [facility] Screw Left: Femur [employer] [id number] 11/01/2033 1859-1280 S / / [id number] [employer] Screw Bone 5mm 42.5mm T2 Alpha Lock Strl 2360-5042s - [id number] Implanted:Qty: 1 on 12/23/2023 by Dave Rosas MD at [facility] Screw Left: Femur [employer] [id number] 10/02/2030 5751-5941 S / / [id number] Synthes Plate Bone Compression Locking Low Profile 18 Hole Left Va Lcp 4.0k146ew Ss 02.124.419s - [id number] Implanted:Qty: 1 on 12/23/2023 by Dave Rosas MD at [facility] Left: Femur [employer] 02.124.41 9S / / [employer] Nail Intramedullary Femoral Retrograde T2 Alpha [id number] Titanium 2339-1124s - [id number] Implanted:Qty: 1 on 12/23/2023 by Dave Rosas MD at [facility] Left: Femur [employer] 07/04/2033 9781-0005 S / / [id number] [employer]ynthes 5mm 36mm Variable Angle Self Tap Lock Stardrive Condylar T25 02.231.236 - [id number] Implanted:Qty: 1 on 12/23/2023 by Dave Rosas MD at [facility] Left: Femur [employer] I 02.231.23 6 / / Synthes 4.5mm 8mm 36mm Self Tap Large Hexagonal Socket Cortex Screw Bone 214.836 - [id number] Implanted:Qty: 1 on 12/23/2023 by Dave Rosas MD at [facility] Left: Femur [employer] I 214.836 / / Synthes 5mm 80mm Variable Angle Self Tap Lock [employer] Condylar T25 02.231.280 - [id number] Implanted:Qty: 2 on 12/23/2023 by Dave Rosas MD at [facility] Left: Femur [employer] 02.231.28 0 / / Synthes 5mm 85mm Variable Angle Self Tap Lock [employer] Condylar T25 02.231.285 - [id number] Implanted:Qty: 2 on 12/23/2023 by Dave Rosas MD at [facility] Left: Femur [employer] I 02.231.28 5 / / Synthes 4.5mm 8mm 100mm Self Tap Large Hexagonal Socket Cortical Screw 214.900 - [id number] Implanted:Qty: 1 on 12/23/2023 by Dave Rosas MD at [facility] Left: Femur [employer] I 214.900 / / Synthes 5mm 38mm Variable Angle Self Tap Lock [employer] Condylar T25 02.231.238 - [id number] Implanted:Qty: 1 on 12/23/2023 by Dave Rosas MD at [facility] Left: Femur [employer] I 02.231.23 8 / / Synthes 5mm 40mm Variable Angle Self Tap Lock [employer] Condylar T25 02.231.240 - [id number] Implanted:Qty: 1 on 12/23/2023 by Dave Rosas MD at [facility] Left: Femur [employer] I 02.231.24 0 / / Explanted Type Area In Flight Refueling Operator Device Identifier Shelf Expiration Date Model / Serial / Lot [employer] Nail Intramedullary Femoral Retrograde T2 Alpha [id number] Titanium [id number] - [id number] Explanted:Qty: 1 on 12/23/2023 by Dave Rosas MD at [facility] Left: Femur [employer] 07/04/2033 3038-6457 S / / [id number] Procedures Procedure Name Priority Date/Time Associated Diagnosis Comments XR FEMUR RIGHT 2 OR MORE VIEWS Schedule Routine, Read Routine (OP Routine) 04/26/2025 10:10 AM CDT Closed nondisplaced articular fracture of head of left femur, sequela Age-related osteoporosis without current pathological fracture EGFR Routine 04/26/2025 9:45 AM CDT Closed nondisplaced articular fracture of head of left femur, sequela Age-related osteoporosis without current pathological fracture PROTEIN ELECTROPHORESIS, WITH REFLEX, SERUM Routine 04/26/2025 9:45 AM CDT Closed nondisplaced articular fracture of head of left femur, sequela Age-related osteoporosis without current pathological fracture PTH Routine 04/26/2025 9:45 AM CDT Closed nondisplaced articular fracture of head of left femur, sequela Age-related osteoporosis without current pathological fracture PHOSPHORUS Routine 04/26/2025 9:45 AM CDT Closed nondisplaced articular fracture of head of left femur, sequela Age-related osteoporosis without current pathological fracture VITAMIN D 25 HYDROXY Routine 04/26/2025 9:45 AM CDT Closed nondisplaced articular fracture of head of left femur, sequela Age-related osteoporosis without current pathological fracture COMPREHENSIVE METABOLIC PANEL Routine 04/26/2025 9:45 AM CDT Closed nondisplaced articular fracture of head of left femur, sequela Age-related osteoporosis without current pathological fracture DEXA TBS AXIAL SKELETON BONE DENSITY 1 OR MORE SITES Schedule Routine, Read Routine (OP Routine) 04/26/2025 8:15 AM CDT Osteopenia of left hip HEMOGLOBIN A1C Routine 12/26/2023 10:39 PM CDT from Last 3 Months or Most Recently Relevant to Health Maintenance Results * XR Femur Right 2 or More Views (04/26/2025 10:10 AM CDT) Anatomical Region Laterality Modality Lower Extremities, Thigh, Femur Right Computed Radiography 04/26/2025 10:5 1 AM CDT Impressions 04/26/2025 11:00 AM CDT 1. No evidence of atypical right femur fracture Dictated by: Narinder Richards M.D. The radiology attending physician has personally reviewed this study, and had reviewed and/or edited this written report and agrees with it. Electronically signed by: Miguel Vasquez M.D. Narrative 04/26/2025 11:00 AM CDT EXAMINATION: XR FEMUR RIGHT 2 OR MORE VIEWS HISTORY: Prior left periprosthetic distal femur fracture. Evaluate for atypical right femur fracture. FINDINGS: 4 views of the right femur are submitted with comparison made to pelvic radiograph from 12/23/2023. No acute fracture or dislocation. No evidence of atypical right femur fracture. Mild right hip osteoarthritis. Vascular calcifications are noted. Partially imaged posterior instrumented spinal fusion. Procedure Note Miguel Vasquez MD - 04/26/2025 EXAMINATION: XR FEMUR RIGHT 2 OR MORE VIEWS HISTORY: Prior left periprosthetic distal femur fracture. Evaluate for atypical right femur fracture. FINDINGS: 4 views of the right femur are submitted with comparison made to pelvic radiograph from 12/23/2023. No acute fracture or dislocation. No evidence of atypical right femur fracture. Mild right hip osteoarthritis. Vascular calcifications are noted. Partially imaged posterior instrumented spinal fusion. IMPRESSION: 1. No evidence of atypical right femur fracture Dictated by: Narinder Richards M.D. The radiology attending physician has personally reviewed this study, and had reviewed and/or edited this written report and agrees with it. Electronically signed by: Miguel Vasquez M.D. Ezekiel Frank MD IMG XR PROCEDURES Final Result * (ABNORMAL) eGFR (04/26/2025 9:45 AM CDT) eGFR 43(L) >=60 mL/min/1. 73 m2 Comment: Interpretive Data [...] interpretive data was last reviewed 2021. Blood 04/26/2025 9:45 AM CDT 04/26/2025 10:13 AM CDT Ezekiel Frank MD LAB BLOOD ORDERABLES Final Res ult Performing Organization Address City/[facility] Co de Phone Number [facility] [place] [address] * Vitamin D 25 hydroxy (04/26/2025 9:45 AM CDT) Pathologist [facility] Vitamin D 25-OH 58 30 - 80 ng/mL Blood 04/26/2025 9:45 AM CDT 04/26/2025 10:10 AM CDT Ezekiel Frank MD LAB BLOOD ORDERABLES Final Res ult Performing Organization Address City/[facility] Co de Phone Number [facility] [place] [address] * Protein electrophoresis with reflex, serum with interpretation (04/26/2025 9:45 AM CDT) Pathologist [facility] Protein, sr 7.2 6.2 - 8.2 g/dL Albumin 4.3 3.2 - 5.0 g/dL [facility] Alpha-1 globulin 0.2 0.2 - 0.4 g/dL [facility] Alpha-2 globulin 1.0 0.5 - 1.0 g/dL [facility] Beta-1 globulin 0.4 0.3 - 0.6 g/dL [facility] Beta-2 globulin 0.4 0.2 - 0.6 g/dL [facility] Gamma globulin 0.9 0.5 - 1.7 g/dL [facility] SPEP interp Please see comment [facility] Comment: No apparent monoclonal peak Reviewed and signed by Sylvia Arevalo MD, PhD 04/27/2025 Blood 04/26/2025 9:45 AM CDT 04/26/2025 10:10 AM CDT Ezekiel Frank MD LAB BLOOD ORDERABLES Final Res ult Performing Organization Address City/[facility] Co de Phone Number [facility] [place] [address] * Phosphorus (04/26/2025 9:45 AM CDT) Phosphorus, pl 3.9 2.3 - 4.5 mg/dL Blood 04/26/2025 9:45 AM CDT 04/26/2025 10:10 AM CDT Ezekiel Frank MD LAB BLOOD ORDERABLES Final Res ult Performing Organization Address City/[facility] Co de Phone Number [facility] [place] [address] * PTH (04/26/2025 9:45 AM CDT) PTH 42 18 - 59 pg/mL Blood 04/26/2025 9:45 AM CDT 04/26/2025 10:08 AM CDT Ezekiel Frank MD LAB BLOOD ORDERABLES Final Res ult Performing Organization Address City/[facility]/ZIP Co de Phone Number [facility] [place] [address] * (ABNORMAL) Comprehensive metabolic panel (04/26/2025 9:45 AM CDT) Sodium 138 135 - 145 mmol/L Potassium, pl 4.6 3.3 - 4.9 mmol/L [facility] Chloride 97 97 - 110 mmol/L [facility] CO2 32 22 - 32 mmol/L [facility] Anion gap 9 2 - 15 mmol/L [facility] BUN 25 6 - 25 mg/dL [facility] Creatinine 1.30(H) 0.60 - 1.10 mg/dL [facility] Glucose 116 70 - 199 mg/dL [facility] Comment: Interpretive Data Fasting glucose >/= 126 mg/dl is diagnostic for diabetes. Fasting is defined as no caloric intake for at least 8 hours. Fasting glucose between 100 mg/dl to 125 mg/dl is diagnostic of prediabetes. In a patient with classic symptoms of hyperglycemia or hyperglycemic crisis, a random glucose >/= 200 mg/dl is diagnostic for diabetes. In the absence of unequivocal hyperglycemia, results should be confirmed by repeat testing. The classification and Diagnosis of Diabetes Diabetes Care 202; 46: S19-S40. Current interpretive data was last revised 2022. Calcium 10.1 8.5 - 10.3 mg/dL [facility] Bilirubin, total 0.4 0.1 - 1.2 mg/dL [facility] Protein, pl 7.6 6.5 - 8.5 g/dL [facility] Albumin 4.4 3.5 - 5.0 g/dL [facility] Alk phos 65 40 - 130 Units/L [facility] ALT 25 7 - 45 Units/L [facility] AST 24 10 - 45 Units/L [facility] Blood 04/26/2025 9:45 AM CDT 04/26/2025 10:10 AM CDT us Ezekiel Frank MD LAB BLOOD ORDERABLES Final Res ult [facility] [place] [address] * Dexa TBS Axial Skeleton Bone Density 1 or more sites (04/26/2025 8:15 AM CDT) Anatomical Region Laterality Modality Wrist, Body N/A Radiographic Bonnie ging Narrative 04/26/2025 8:19 AM CDT Patient Name: Loren Bryan Date of : 1950 Date of scan: 04/26/2025 Bone mineral density was performed on a HoloInsideTrack Discovery Densitometer. Based on machine cross-calibration and precision studies the least significant changes of this densitometer is 0.024 g/cm2 at the spine, 0.020 g/cm2 at the total proximal femur, and 0.014g/cm2 at the forearm. HISTORY: This is a 75 y.o. postmenopausal female with a history of bariatric surgery and low bone mass. She reports that she has never smoked. She has never used smokeless tobacco. Currently on treatment with calcium, zoledronic acid (Reclast), and diuretics, previously treated with alendronate (Fosamax), ibandronate (Boniva), and thyroid hormone, and current complaint of arm pain, back pain, neck pain, and leg pain. INDICATIONS: Menopause status, treatment monitoring, history of prior hip fracture, and history of low bone mass. FINDINGS: BONE MINERAL DENSITY OF THE LUMBAR SPINE Bone Mineral Density (BMD) of the lumbar spine was measured from L1-L2 and the average density was calculated to be 1.034 gm/cm2. This corresponds to a T-score (standard deviations from the mean of young adults) of 0.5. When compared to the previous study of 07/07/2012 there has been a 0.031 gm/cm (3.1%) increase in bone density that is considered significant. BONE MINERAL DENSITY OF THE PROXIMAL FEMUR Bone Mineral Density (BMD) of the right hip total was found to be 0.587 gm/cm2. This corresponds to a T-score standard deviations from the mean of young adults of -2.9. Femoral neck is 0.513 gm/cm2 with a T-score (standard deviations from the mean of young adults) of -3.0. There is no previous study available for comparison. BONE MINERAL DENSITY OF THE FOREARM Bone Mineral density (BMD) of the left proximal 1/3 of the radius measures 0.482 gm/cm2. This corresponds to a T-score (standard deviations from the mean of young adults) of -3.5. There is no previous study available for comparison. A forearm bone density study was performed in addition to the routine study due to presence of surgical hardware and severe degenerative disease. SUMMARY: Bone mineral density shows evidence of osteoporosis and marked increase risk of fracture. There has been a significant increase in bone density since previous measurement. There is an artifact in the lumbar spine scan that cannot be corrected and may affect estimation of bone density. L3-L4 excluded from bone mineral density analysis of the lumbar spine due to the presence of surgical hardware.Please note that the previous lumbar spine scan has been reanalyzed to also exclude L3-L4. The lumbar spine Trabecular Bone Score is 1.367 which suggests normal bone microarchitecture, compared to the general population. Final decisions regarding diagnostic or therapeutic recommendations should include BMD, TBS, additional clinical risk factors as well the clinical context of the patient. Please see attached TBS results for further details. ADDITIONAL COMMENTS: Postmenopausal Women and Men Over 50: Diagnostic criteria: Osteoporosis: BMD at or below -2.5 T-score; Osteopenia (low bone mass): BMD between -1.0 and -2.5 T-score. If the patient has a history of a fragility fracture, a fracture that occurred with trauma equivalent to a fall from a standing position or less, then the diagnosis is osteoporosis regardless of bone density. The history and data sections of the bone mineral density scan were prepared by Jena Malave) LITO who is accredited by the International Society of Clinical Densitometry. The overall patient assessment and scan interpretation were performed by Ezekiel Frank M.D. who is certified by the International Society of Clinical Densitometry. [id number] us Ezekiel Frank MD IM DXA PROCEDURES Final Resul t * Hemoglobin A1c (12/26/2023 10:39 PM CDT) [facility] Hgb A1C 5.5 4.0 - 5.6 % Estimated Average Glucose 111 mg/dL [facility] Comment: The ADA recommends reporting an estimated Average Glucose (eAG) with all Hemoglobin A1c results using the equation derived from a study of 507 normal and diabetic adults. Minority populations were underrepresented and children were not included. (Diabetes Care 2020; 43(S1): S66-S76). The eAG is not equivalent to a fasting glucose. Blood 12/26/2023 10:3 9 PM CDT 12/26/2023 11:40 PM CDT us Rama Johnson MD LAB BLOOD ORDERABLES Final Result [facility] [place] [address] from Last 3 Months or Most Recently Relevant to Health Maintenance Insurance TNA MEDICARE GOLD MEDICARE AET [facility] AET MEDICARE GOLD AETNA MEDICARE GOLD AETNA MEDICARE GOLD Advance Directives For more information, please contact: [phone] * Full Code (Latest Code Status on [...] 1:45 PM 12/23/2023 2:10 PM Care Teams [employer] Librarian Relationship Specialty Start Date End Date Silvia Quinonez MD PCP - General Family Medicine 12/23/23 Silvia Quinonez MD Family Medicine 12/23/23
--- OUTSIDE RECORDS SUMMARY | 2025-04-30 00:57 | XMS_ITS | Encounter Summary ---
Author Organization [facility] Address [address] [place] [address] Care Team Providers Care Plastic Parts Fabricator Name Role Phone Silvia Quinonez MD Primary Care Provider [phone] Encounter Details Date Type Department Care Team (Late Contact Info) Description 11/18/2004 Outpatient Historical [facility] [place] [address] [place] [id number] Sam Machado MD [address] [place] [address] Social History Tobacco Use Types Packs/Day Years Used Date Smoking Tobacco: Never Assessed Comments Unknown Sex and Gender Information Value Date Recorded Sex Assigned at Not on file Legal Sex Female 3:05 AM SHOP HAND Gender Identity Not on file Sexual Orientation Not on file documented as of this encounter Plan of Treatment Upcoming Encounters Date Type Department Care Team (Late Contact Info) Description 07/16/2025 10:00 AM SHOP HAND Office Visit [facility] Oncology and Hematology - [place] [address] [facility] [address] [place] [address] Quique Khalil MD [address] [facility] [address] [place] [address] documented as of this encounter Visit Diagnoses Not on filedocumented in this encounter Care Teams Plastic Parts Fabricator Relationship Specialty Start Date End Date Silvia Quinonez MD [address] [place] [address] PCP - General Family Practice 5/1/25 No DME 09/02/15 documented as of this encounter
--- OUTSIDE RECORDS SUMMARY | 2025-04-30 00:57 | XMS_ITS | Encounter Summary ---
Author Organization [facility] Address [address] [place] [address] Care Team Providers Care Nurse Specialist Name Role Phone Silvia Quinonez MD Primary Care Provider [phone] Encounter Details Date Type Department Care Team (Late Contact Info) Description 02/21/2003 Outpatient Historical Division of Neurology [address] [facility] [address] [place], [place] [id number] Tiffanie Marquez MD [address] [facility] [address] [place] [address] Social History Tobacco Use Types Packs/Day Years Used Date Smoking Tobacco: Never Assessed Comments Unknown Sex and Gender Information Value Date Recorded Sex Assigned at Not on file Legal Sex Female 3:05 AM INSIDE STEWARD/STEWARDESS Gender Identity Not on file Sexual Orientation Not on file documented as of this encounter Plan of Treatment Upcoming Encounters Date Type Department Care Team (Late st Contact Info) Description 07/16/2025 10:00 AM INSIDE STEWARD/STEWARDESS Office Visit [facility] Oncology and Hematology - Reji [address] [facility] 200 [place] [address] Quique Khalil MD [address] [facility] [address] [place] [address] documented as of this encounter Visit Diagnoses Not on filedocumented in this encounter Care Teams Nurse Specialist Relationship Specialty Start Date End Date Silvia Quinonez MD [address] [place] [address] PCP - General Family Practice 11/02/24 No DME 09/02/15 documented as of this encounter
--- OUTSIDE RECORDS SUMMARY | 2025-04-30 00:57 | XMS_ITS | Encounter Summary ---
Author Organization [facility] Address [address] [place] [address] Care Team Providers Care Mimeograph Operator Name Role Phone Silvia Quinonez MD Primary Care Provider [phone] Encounter Details Date Type Department Care Team (Latest Contact Info) Description 02/22/2003 Outpatient Historical [facility] Jocy Espinal MD NO ADDRESS ON FILE SCREENING MAMM-MAILG NEOPL-OTHER (Primary Dx) Social History Tobacco Use Types Packs/Day Years Used Date Smoking Tobacco: Never Assessed Comments Unknown Sex and Gender Information Value Date Recorded Sex Assigned at Not on file Legal Sex Female 3:05 AM GENERAL DISTILLERY WORKER Gender Identity Not on file Sexual Orientation Not on file documented as of this encounter Plan of Treatment Upcoming Encounters Date Type Department Care Team (Late st Contact Info) Description 07/16/2025 10:00 AM GENERAL DISTILLERY WORKER Office Visit [facility] Oncology and Hematology - [place] [address] [place] [address] [facility] 200 [place] [address] Quique Khalil MD [address] [facility] [address] [place] [address] documented as of this encounter Visit Diagnoses Diagnosis Other screening mammogram- Primary documented in this encounter Care Teams Mimeograph Operator Relationship Specialty Start Date End Date Silvia Quinonez MD [address] [place] [phone] PCP - General Family Practice 11/02/24 No DME 09/02/15 documented as of this encounter
--- OUTSIDE RECORDS SUMMARY | 2025-04-30 00:57 | XMS_ITS | Encounter Summary ---
Author Organization [facility] Address [address] [place] [address] Care Team Providers Care Java J2Ee Software Engineer Name Role Phone Silvia Quinonez MD Primary Care Provider [phone] Encounter Details Date Type Department Care Team (Late st Contact Info) Description 06/10/2001 Emergency [facility] Duc Goncalves MD [address] [place] [address] [place] [address] CRAMP IN LIMB (Primary Dx) Social History Tobacco Use Types Packs/Day Years Used Date Smoking Tobacco: Never Assessed Comments Unknown Sex and Gender Information Value Date Recorded Sex Assigned at Not on file Legal Sex Female 3:05 AM SAFETY AND SECURITY OFFICER Gender Identity Not on file Sexual Orientation Not on file documented as of this encounter Plan of Treatment Upcoming Encounters Date Type Department Care Team (Late st Contact Info) Description 07/16/2025 10:00 AM SAFETY AND SECURITY OFFICER Office Visit [facility] Oncology and Hematology - Reji [address] [facility] [address] [place] [address] Quique Khalil MD [address] [facility] [address] [place] [address] documented as of this encounter Visit Diagnoses Diagnosis Cramp of limb- Primary documented in this encounter Care Teams Java J2Ee Software Engineer Relationship Specialty Start Date End Date Silvia Quinonez MD [address] [place] [phone] PCP - General Family Practice 11/02/24 No DME 09/02/15 documented as of this encounter
--- OUTSIDE RECORDS SUMMARY | 2025-04-30 00:57 | XMS_ITS | Patient Health Record ---
Author Organization [facility] [employer] ([address]) Address [address] [place] [address] Care Team Providers Care Steam Pressure Chamber Operator Name Role Phone Silvia Quinonez Primary Care Provider Elva Whiteside Unavailable [phone] Allergies No Known Allergies Results Component Value Reference Range Notes -CBC With Differential/Plate let Reviewed date:08/31/2024 11:47:08 AM Interpretation:Normal Performing Lab:[facility], [address] [place] [id number], Phone - [phone], Director - Ga Notes/Report: WBC 7.4 3.4-10.8 [...] (14) Reviewed date:08/31/2024 11:44:49 AM Interpretation:Abnormal Performing Lab:[facility], [address] [place] [id number], Phone - [phone], [facility] Notes/Report: Glucose 102 70-99 mg/dL BUN 21 [...] T4 Reviewed date:08/31/2024 11:44:33 AM Interpretation:Abnormal Performing Lab:[facility], [address] [place] [id number], Phone - [phone], [facility] Notes/Report: TSH 4.800 0.450-4.500 uIU/mL T4,Free (Direct) 1.35 0.82-1.77 ng/dL Spirometry Reviewed date: Interpretation: Performing Lab: Notes/Report: SpiroPreBronchodilator_FVC 2.89 SpiroPostBronchodilator_FEF25_75 [...] has it been since you last smoked? Grea ter than 10 years Problems Problem Type SNOMED Code ICD Code Onset Dates Problem Status W/U Status Risk Notes Problem Allergic rhinitis (47750358) Other allergic rhinitis (J30.89) Active confirmed Problem Chronic rhinitis (82849068) Chronic rhinitis (J31.0) Active confirmed Vital Signs Oximetry 100 % 11/07/2024 Blood pressure diastolic 73 mm Hg 11/07/2024 Height 66 in 11/07/2024 Blood pressure systolic 134 mm Hg 11/07/2024 Weight 157.8 lbs 11/07/2024 BMI 25.47 kg/m2 11/07/2024 Encounters Encounter Location Date Provider Diagnosis [facility] [address] [facility] [address] [place] [address] 10/10/2024 Elva Luna Dermatitis, unspecified L30.9 ; Cough, unspecified R05.9 ; Other allergic rhinitis J30.89 and Pruritus, unspecified L29.9 [facility] [address] [place] [address] 11/07/2024 Elva Jeremy Dermatitis, unspecified L30.9 ; Cough, unspecified R05.9 ; Other allergic rhinitis J30.89 and Pruritus, unspecified L29.9 [facility] [address] [place] [address] 08/29/2024 Elva Jeremy Other allergic rhinitis J30.89 ; Dermatitis, unspecified L30.9 and Pruritus, unspecified L29.[address] [place] [address] 11/08/2024 Elva Jeremy [facility] [address] [place] [address] 08/31/2024 Elva Jeremy [address] [place] [address] 12/04/2024 Elva Jeremy Cough, unspecified R05.[address] [place] [address] 11/23/2024 Elva Jeremy Cough, unspecified R05.9 Assessments Encounter [...] Vaseline after bathing and prn Eucerin 11/07/2024 Other 08/29/2024 Other 10/10/2024 Other Plan Of Treatment Pending Test Test Name Order Date X ray : Chest 11/07/2024 Insurance Providers Payer Name Payer Address Payer Phone Subscriber Number Group Number Insured Name Patient Relationship to Insured Coverage Start Date Coverage End Date [employer] Medicare [address] [place] [address] [id number] L Loren Bryan Self - patient is the insured 5 Medical (General) History Medical History History ICD Code high blood pressure Type II diabetes Macular degeneration Osteoporosis Eczema Surgical History Surgery Date(Month/Year) knee replacement 2022 gastric bypass 1997 lower leg surgery 2019 Hospitalization History Reason Date(Month/Year) See Above
--- OUTSIDE RECORDS SUMMARY | 2025-04-30 00:57 | XMS_ITS | Encounter Summary ---
Author Organization [facility] Address [address] [place] [address] Care Team Providers Care Email Marketing Intern Name Role Phone Silvia Quinonez MD Primary Care Provider [phone] Encounter Details Date Type Department Care Team (Latest Contact Info) Description 12/06/1998 Outpatient Historical [facility] Conversion, History Abdominal pain, unspecified site (Primary Dx) Social History Tobacco Use Types Packs/Day Years Used Date Smoking Tobacco: Never Assessed Comments Unknown Sex and Gender Information Value Date Recorded Sex Assigned at Not on file Legal Sex Female 3:05 AM TROUBLE DISPATCHER Gender Identity Not on file Sexual Orientation Not on file documented as of this encounter Plan of Treatment Upcoming Encounters Date Type Department Care Team (Late st Contact Info) Description 07/16/2025 10:00 AM TROUBLE DISPATCHER Office Visit [facility] Oncology and Hematology - Reji [address] [facility] 200 [place] [address] Quique Khalil MD [address] [facility] [address] [place] [address] documented as of this encounter Visit Diagnoses Diagnosis Abdominal pain, unspecified site- Primary documented in this encounter Care Teams Email Marketing Intern Relationship Specialty Start Date End Date Silvia Quinonez MD [address] [place] [address] PCP - General Family Practice 11/02/24 No DME 09/02/15 documented as of this encounter
--- OUTSIDE RECORDS SUMMARY | 2025-04-30 00:57 | XMS_ITS | Encounter Summary ---
Author Organization [facility] Address [address] [place] [address] Care Team Providers Care Organisation And Methods Analyst Name Role Phone Silvia Quinonez MD Primary Care Provider [phone] Encounter Details Date Type Department Care Team (Latest Contact Info) Description 09/21/2002 Outpatient Historical [facility] Loco Ahn MD [address] [place] [address] ABDOMINAL PAIN RUQ (Primary Dx) Social History Tobacco Use Types Packs/Day Years Used Date Smoking Tobacco: Never Assessed Comments Unknown Sex and Gender Information Value Date Recorded Sex Assigned at Not on file Legal Sex Female 3:05 AM CSR Gender Identity Not on file Sexual Orientation Not on file documented as of this encounter Plan of Treatment Upcoming Encounters Date Type Department Care Team (Late st Contact Info) Description 07/16/2025 10:00 AM CSR Office Visit [facility] Oncology and Hematology - Reji [address] [facility] 200 [place] [address] Quique Khalil MD [address] [facility] [address] [place] [address] documented as of this encounter Visit Diagnoses Diagnosis Abdominal pain, right upper quadrant- Primary documented in this encounter Care Teams Organisation And Methods Analyst Relationship Specialty Start Date End Date Silvia Quinonez MD [address] [place] [phone] PCP - General Family Practice 11/02/24 No DME 09/02/15 documented as of this encounter
--- OUTSIDE RECORDS SUMMARY | 2025-04-30 00:57 | XMS_ITS | Encounter Summary ---
Author Organization [facility] Address [address] [facility] Attn: Epic Prelude ADT [place] [address] Care Team Providers Care Clicker Operator Name Role Phone Silvia Quinonez MD Primary Care Provider [phone] Encounter Details Date Type Department Care Team (Late st Contact Info) Description 09/17/1994 Outpatient Historical Josr Toledo MD NO ADDRESS ON FILE Social History Tobacco Use Types Packs/Day Years Used Date Smoking Tobacco: Never Assessed Comments Unknown Sex and Gender Information Value Date Recorded Sex Assigned at Not on file Legal Sex Female 3:05 AM ANALYSIS ANALYST Gender Identity Not on file Sexual Orientation Not on file documented as of this encounter Plan of Treatment Upcoming Encounters Date Type Department Care Team (Late st Contact Info) Description 07/16/2025 10:00 AM ANALYSIS ANALYST Office Visit [facility] Oncology and Hematology - Reji [address] [facility] [address] [place] [address] Quique Khalil MD [address] [facility] [address] [place] [address] documented as of this encounter Visit Diagnoses Not on filedocumented in this encounter Care Teams Clicker Operator Relationship Specialty Start Date End Date Silvia Quinonez MD [address] [place] [address] PCP - General Family Practice 11/02/24 No DME 09/02/15 documented as of this encounter
--- OUTSIDE RECORDS SUMMARY | 2025-04-30 00:57 | XMS_ITS | Encounter Summary ---
Author Organization [facility] Address [address] [place] [address] Care Team Providers Care Manufacturing Process Engineer Name Role Phone Silvia Quinonez MD Primary Care Provider [phone] Encounter Details Date Type Department Care Team (Late st Contact Info) Description 11/10/2004 Outpatient Historical [facility] Support Services Cardiac [address] [place] [address] Padilla Christie MD Social History Tobacco Use Types Packs/Day Years Used Date Smoking Tobacco: Never Assessed Comments Unknown Sex and Gender Information Value Date Recorded Sex Assigned at Not on file Legal Sex Female 3:05 AM GENETIC SUPERVISOR Gender Identity Not on file Sexual Orientation Not on file documented as of this encounter Plan of Treatment Upcoming Encounters Date Type Department Care Team (Late st Contact Info) Description 07/16/2025 10:00 AM GENETIC SUPERVISOR Office Visit [facility] Oncology and Hematology - [place] [address] [place] [address] [facility] 200 [place] [address] [place] [address] [place] [address] [address] [place] [address] documented as of this encounter Visit Diagnoses Not on filedocumented in this encounter Care Teams Manufacturing Process Engineer Relationship Specialty Start Date End Date Silvia Quinonez MD [address] [place] [phone] PCP - General Family Practice 11/02/24 No DME 09/02/15 documented as of this encounter
--- OUTSIDE RECORDS SUMMARY | 2025-04-30 00:57 | XMS_ITS | Encounter Summary ---
Author Organization [facility] Address [address] [facility] Attn: Epic Prelude ADT [place] [address] Care Team Providers Care Green Feed Attendant Name Role Phone Silvia Quinonez MD Primary Care Provider [phone] Encounter Details Date Type Department Care Team (Late st Contact Info) Description 08/05/1994 Outpatient Historical Josr Toledo MD NO ADDRESS ON FILE Social History Tobacco Use Types Packs/Day Years Used Date Smoking Tobacco: Never Assessed Comments Unknown Sex and Gender Information Value Date Recorded Sex Assigned at Not on file Legal Sex Female 3:05 AM COMPRESSED AIR PILE DRIVER OPERATOR Gender Identity Not on file Sexual Orientation Not on file documented as of this encounter Plan of Treatment Upcoming Encounters Date Type Department Care Team (Late st Contact Info) Description 07/16/2025 10:00 AM COMPRESSED AIR PILE DRIVER OPERATOR Office Visit [facility] Oncology and Hematology - Reji 2[address] [facility] 200 [place] [address] Quique Khalil MD [address] [facility] [address] [place] [address] documented as of this encounter Visit Diagnoses Not on filedocumented in this encounter Care Teams Green Feed Attendant Relationship Specialty Start Date End Date Silvia Quinonez MD [address] [place] [address] PCP - General Family Practice 11/02/24 No DME 09/02/15 documented as of this encounter
--- OUTSIDE RECORDS SUMMARY | 2025-04-30 00:57 | XMS_ITS | Encounter Summary ---
Author Organization [facility] Address [address] [place] [address] Care Team Providers Care Platform Architect Name Role Phone Silvia Quinonez MD Primary Care Provider [phone] Encounter Details Date Type Department Care Team (Latest Contact Info) Description 11/16/2001 Outpatient Historical [facility] Jocy Espinal MD NO ADDRESS ON FILE SCREENING MAMM-MAILG NEOPL-OTHER (Primary Dx) Social History Tobacco Use Types Packs/Day Years Used Date Smoking Tobacco: Never Assessed Comments Unknown Sex and Gender Information Value Date Recorded Sex Assigned at Not on file Legal Sex Female 3:05 AM PROTECTIVE SIGNAL INSTALLER Gender Identity Not on file Sexual Orientation Not on file documented as of this encounter Plan of Treatment Upcoming Encounters Date Type Department Care Team (Late st Contact Info) Description 07/16/2025 10:00 AM PROTECTIVE SIGNAL INSTALLER Office Visit [facility] Oncology and Hematology - Reji [address] [facility] [address] [place] [address] [place] [address] [place] [address] [address] [place] [address] documented as of this encounter Visit Diagnoses Diagnosis Other screening mammogram- Primary documented in this encounter Care Teams Platform Architect Relationship Specialty Start Date End Date Silvia Quinonez MD [address] [place] [phone] PCP - General Family Practice 11/02/24 No DME 09/02/15 documented as of this encounter
--- OUTSIDE RECORDS SUMMARY | 2025-04-30 00:57 | XMS_ITS | Encounter Summary ---
Author Organization [facility] Address [address] [facility] Attn: Epic Prelude ADT [place] [address] Care Team Providers Care Applied Psychology Chair Name Role Phone Silvia Quinonez MD Primary Care Provider [phone] Encounter Details Date Type Department Care Team (Late st Contact Info) Description 02/11/1995 Outpatient Historical Josr Toledo MD NO ADDRESS ON FILE Social History Tobacco Use Types Packs/Day Years Used Date Smoking Tobacco: Never Assessed Comments Unknown Sex and Gender Information Value Date Recorded Sex Assigned at Not on file Legal Sex Female 3:05 AM CIVIL CELEBRANT Gender Identity Not on file Sexual Orientation Not on file documented as of this encounter Plan of Treatment Upcoming Encounters Date Type Department Care Team (Late st Contact Info) Description 07/16/2025 10:00 AM CIVIL CELEBRANT Office Visit [facility] Oncology and Hematology - Reji [address] [facility] 200 [place] [address] Quique Khalil MD [address] [facility] [address] [place] [address] documented as of this encounter Visit Diagnoses Not on filedocumented in this encounter Care Teams Applied Psychology Chair Relationship Specialty Start Date End Date Silvia Quinonez MD [address] [place] [address] PCP - General Family Practice 11/02/24 No DME 09/02/15 documented as of this encounter
--- OUTSIDE RECORDS SUMMARY | 2025-04-30 00:57 | XMS_ITS | Encounter Summary ---
Author Organization [facility] Address [address] [place] [address] Care Team Providers Care Ordnance Truck Installation Supervisor Name Role Phone Silvia Quinonez MD Primary Care Provider [phone] Encounter Details Date Type Department Care Team (Latest Contact Info) Description 11/18/2004 Inpatient Historical [facility] INPATIENT IN BED Sam Machado MD [address] [place], [place] [id number] UTEROVAG PROLAPS-INCOMPL (Primary Dx) Social History Tobacco Use Types Packs/Day Years Used Date Smoking Tobacco: Never Assessed Comments Unknown Sex and Gender Information Value Date Recorded Sex Assigned at Not on file Legal Sex Female 3:05 AM DIGITAL SOLUTIONS ARCHITECT Gender Identity Not on file Sexual Orientation Not on file documented as of this encounter Plan of Treatment Upcoming Encounters Date Type Department Care Team (Late st Contact Info) Description 07/16/2025 10:00 AM DIGITAL SOLUTIONS ARCHITECT Office Visit [facility] Oncology and Hematology - Reji [address] [facility] [address] [place] [address] Quique Khalil MD [address] [facility] [address] [place] [address] documented as of this encounter [...] ORDERABLES Final Re sult Performing Organization Address [facility] Phone Number INTERFACE SYSTEM Refer to clinic/hospital department * POC GLUCOSE (11/18/2004 8:25 AM CDT) GLUCOSE POC 84 65 - 115 mg/dL INTERFACE SYSTEM 11/18/2004 8:25 AM CDT us Sam Machado MD POINT OF CARE TESTING Final Re sult Performing Organization Address [facility] Number INTERFACE SYSTEM Refer to [...] URINE ORDERABLES Final Result Performing Organization Address [facility] Phone Number INTERFACE SYSTEM Refer [...] ORDERABLES Final Res ult Performing Organization Address [facility] de Phone Number INTERFACE SYSTEM Refer [...] ORDERABLES Final Re sult Performing Organization Address [facility] de Phone Number INTERFACE SYSTEM Refer [...] Primary documented in this encounter Care Teams Ordnance Truck Installation Supervisor Relationship Specialty Start Date End Date Silvia Quinonez MD [address] [place] [address] PCP - General Family Practice 11/02/24 No DME 09/02/15 documented as of this encounter
--- OUTSIDE RECORDS SUMMARY | 2025-04-30 00:57 | XMS_ITS | Encounter Summary ---
Author Organization [facility] Address [address] [place] [address] Care Team Providers Care Adjunct Professor Of English Name Role Phone Silvia Quinonez MD Primary Care Provider [phone] Encounter Details Date Type Department Care Team (Late Contact Info) Description 04/23/2003 Outpatient Historical Division of Neurology [address] [place], [place] [id number] Tiffanie Marquez MD [address] [facility] [address] [place] [address] Social History Tobacco Use Types Packs/Day Years Used Date Smoking Tobacco: Never Assessed Comments Unknown Sex and Gender Information Value Date Recorded Sex Assigned at Not on file Legal Sex Female 3:05 AM RETORT CONDENSER ATTENDANT Gender Identity Not on file Sexual Orientation Not on file documented as of this encounter Plan of Treatment Upcoming Encounters Date Type Department Care Team (Late st Contact Info) Description 07/16/2025 10:00 AM RETORT CONDENSER ATTENDANT Office Visit [facility] Oncology and Hematology - Reji [address] [facility] [address] [place] [address] Quique Khalil MD [address] [facility] [address] [place] [address] documented as of this encounter Visit Diagnoses Not on filedocumented in this encounter Care Teams Adjunct Professor Of English Relationship Specialty Start Date End Date Silvia Quinonez MD [address] [place] [address] PCP - General Family Practice 11/02/24 No DME 09/02/15 documented as of this encounter
--- OUTSIDE RECORDS SUMMARY | 2025-04-30 00:57 | XMS_ITS | Encounter Summary ---
Author Organization [facility] Address [address] [place] [address] Care Team Providers Care Consulting Engineer Name Role Phone Silvia Quinonez MD Primary Care Provider [phone] Encounter Details Date Type Department Care Team (Latest Contact Info) Description 01/24/2003 Outpatient Historical [facility] Latonia Scott MD [address] [place], [place] [id number] PERSIST POSTOP FISTULA (Primary Dx) Social History Tobacco Use Types Packs/Day Years Used Date Smoking Tobacco: Never Assessed Comments Unknown Sex and Gender Information Value Date Recorded Sex Assigned at Not on file Legal Sex Female 3:05 AM NEWS AGENT Gender Identity Not on file Sexual Orientation Not on file documented as of this encounter Plan of Treatment Upcoming Encounters Date Type Department Care Team (Late st Contact Info) Description 07/16/2025 10:00 AM NEWS AGENT Office Visit [facility] Oncology and Hematology - Reji [address] [facility] [address] [address] Quique Khalil MD [address] [facility] [address] [place] [address] documented as of this encounter Visit Diagnoses Diagnosis Persistent postoperative fistula, 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
--- OUTSIDE RECORDS SUMMARY | 2025-04-30 00:57 | XMS_ITS | Encounter Summary ---
Author Organization [facility] Address [address] [place] [address] Care Team Providers Care Cyber Workforce Developer And Manager Name Role Phone Silvia Quinonez MD Primary Care Provider [phone] Encounter Details Date Type Department Care Team (Late Contact Info) Description 11/10/2004 Outpatient Historical [facility] [place] [address] [place] [id number] Sam Machado MD [address] [place] [address] Social History Tobacco Use Types Packs/Day Years Used Date Smoking Tobacco: Never Assessed Comments Unknown Sex and Gender Information Value Date Recorded Sex Assigned at Not on file Legal Sex Female 3:05 AM DIVORCE MEDIATOR Gender Identity Not on file Sexual Orientation Not on file documented as of this encounter Plan of Treatment Upcoming Encounters Date Type Department Care Team (Late st Contact Info) Description 07/16/2025 10:00 AM DIVORCE MEDIATOR Office Visit [facility] Oncology and Hematology - Reji [address] [facility] [address] [place] [address] Quique Khalil MD [address] [facility] [address] [place] [address] documented as of this encounter Visit Diagnoses Not on filedocumented in this encounter Care Teams Cyber Workforce Developer And Manager Relationship Specialty Start Date End Date Silvia Quinonez MD [address] [place] [address] PCP - General Family Practice 5/1/25 No DME 09/02/15 documented as of this encounter
--- OUTSIDE RECORDS SUMMARY | 2025-04-30 00:57 | XMS_ITS | Encounter Summary ---
Author Organization [facility] Address [address] [place] [address] Care Team Providers Care Worm Grower Name Role Phone Silvia Quinonez MD Primary Care Provider [phone] Encounter Details Date Type Department Care Team (Late Contact Info) Description 11/18/2004 Outpatient Historical [facility] [address] [place] [address] Efren Resendez MD [address] [place] [address] [place] [address] Social History Tobacco Use Types Packs/Day Years Used Date Smoking Tobacco: Never Assessed Comments Unknown Sex and Gender Information Value Date Recorded Sex Assigned at Not on file Legal Sex Female 3:05 AM SURVEY RESEARCHER Gender Identity Not on file Sexual Orientation Not on file documented as of this encounter Plan of Treatment Upcoming Encounters Date Type Department Care Team (Late Contact Info) Description 07/16/2025 10:00 AM SURVEY RESEARCHER Office Visit [facility] Oncology and Hematology - Reji [address] [facility] [address] [place] [address] Quique Khalil MD [address] [facility] [address] [place] [address] documented as of this encounter Visit Diagnoses Not on filedocumented in this encounter Care Teams Worm Grower Relationship Specialty Start Date End Date Silvia Quinonez MD [address] [place] [address] PCP - General Family Practice 11/02/24 No DME 09/02/15 documented as of this encounter
--- OUTSIDE RECORDS SUMMARY | 2025-04-30 00:57 | XMS_ITS | Encounter Summary ---
Author Organization [facility] Address [address] [place] [address] Care Team Providers Care Parking Meter Attendant Name Role Phone Silvia Quinonez MD Primary Care Provider [phone] Encounter Details Date Type Department Care Team (Late st Contact Info) Description 10/28/2001 Outpatient Historical [facility] Mary Carmen Cline MD [address] [facility] [address] [place] [address] HEMORRHOIDS NOS (Primary Dx) Social History Tobacco Use Types Packs/Day Years Used Date Smoking Tobacco: Never Assessed Comments Unknown Sex and Gender Information Value Date Recorded Sex Assigned at Not on file Legal Sex Female 3:05 AM RN TEACHER Gender Identity Not on file Sexual Orientation Not on file documented as of this encounter Plan of Treatment Upcoming Encounters Date Type Department Care Team (Late st Contact Info) Description 07/16/2025 10:00 AM RN TEACHER Office Visit [facility] Oncology and Hematology - Reji 2[address] [facility] [address] [place] [address] Quique Khalil MD [address] [facility] [address] [place] [address] documented as of this encounter Visit Diagnoses Diagnosis Unspecified hemorrhoids without mention of complication- Primary documented in this encounter Care Teams Parking Meter Attendant Relationship Specialty Start Date End Date Silvia Quinonez MD [address] [place] [address] PCP - General Family Practice 11/02/24 No DME 09/02/15 documented as of this encounter
--- OUTSIDE RECORDS SUMMARY | 2025-04-30 00:57 | XMS_ITS | Encounter Summary ---
Author Organization [facility] Address [address] [place] [address] Care Team Providers Care General Lithographic Worker Name Role Phone Silvia Quinonez MD Primary Care Provider [phone] Encounter Details Date Type Department Care Team [...] on file Legal Sex Female 3:05 AM INFORMATION TECHNOLOGY OFFICER Gender Identity Not on file Sexual Orientation Not on file documented as of this encounter Plan of Treatment Upcoming Encounters Date Type Department Care Team (Late st Contact Info) Description 07/16/2025 10:00 AM INFORMATION TECHNOLOGY OFFICER Office Visit [facility] Oncology and Hematology - Reji [address] [address] [place] [address] [place] [address] [address] [place] [address] documented as of this encounter Visit Diagnoses Diagnosis Contusion of face, scalp, and neck except eye(s)- Primary documented in this encounter Care Teams General Lithographic Worker Relationship Specialty Start Date End Date Silvia Quinonez MD [address] [place] [phone] PCP - General Family Practice 11/02/24 No DME 09/02/15 documented as of this encounter
--- OUTSIDE RECORDS SUMMARY | 2025-04-30 00:58 | XMS_ITS | Clinical Summary ---
Author Organization [facility] Address [address] [place] [address] Phone Care Team Providers Care Special Services Director Name Role Phone Silvia Quinonez MD Primary Care Provider [phone] Allergies Active Allergy Reactions Criticality Noted Date Comments Amlodipine Other (See Comments) Low 03/23/2012 Excessive fatigue Unclassified Drug Unknown 05/22/2009 SURGICAL MESH Medications vit C-vit G-jxarhd-pkos OXIDE-lutein (PRESERVISION) 226-90-0.8-5 mg Capsule Take 1 Capsule by mouth daily. Active metFORMIN (GLUCOPHAGE) 1,000 mg tablet Take 1,000 mg by mouth 2 times daily. 10/20/19 24 Active levocetirizine (XYZAL) 5 mg tablet Take [...] tablet Take 1 Tablet by mouth daily. 08/29/19 25 Active calcium as CARBONATE (CALTRATE) 1,500 mg (600 mg elemental) Tablet Take 1,500 mg by mouth 2 times daily. 11/23/19 24 Active biotin 1,000 mcg Tablet, Chewable Take 1,000 mcg by mouth daily. Active OMEGA-3 FATTY ACIDS ORAL Take 720 mg by mouth 2 times daily. 09/20/19 22 Active pramipexole (MIRAPEX) 0.25 mg tablet Take 0.25 mg by mouth daily at bedtime. 2 tablets by mouth daily at bedtime 11/09/19 24 Active B-complex with vitamin C (SUPER B COMPLEX + C ORAL) Take by mouth daily. Active zoledronic acid-mannitoL- water (RECLAST) 5 mg/100 mL Piggyback Inject 5 mg by intravenous injection one time only. Active losartan (COZAAR) 25 mg tablet Take 1 Tablet by mouth daily. 03/08/20 25 Active cyanocobalamin (VITAMIN B-12) 1,000 mcg/mL SolutionIndica tions:Chronic anemia Inject 1 mL (1,000 mcg) by intramuscular injection every 30 days. 3 mL 3 04/18/20 25 Active Syringe with Needle,Disp, Tray (Monoject Allergy Tray) 1 mL 28 x 1/2 TrayIndication s:Chronic anemia USE WITH B12 INJECTIONS 3 Each 3 04/18/20 25 Active cyanocobalamin (VITAMIN B-12) 1,000 mcg/mL SolutionIndica tions:Chronic anemia Inject 1 mL (1,000 mcg) by intramuscular injection every 30 days. 3 mL 1 12/06/19 25 025 Discontin ued(Reord er) Syringe with Needle,Disp, Tray (Monoject Allergy Tray) 1 mL 28 x 1/2 TrayIndication s:Chronic anemia USE WITH B12 INJECTIONS 3 Each 1 12/06/19 25 025 Discontin ued(Reord er) Active Problems Problem Noted Date Diagnosed Date [...] Encounters Date Type Department Care Team Description 04/18/2025 3:45 PM CDT Office Visit [facility] Oncology and Hematology - Reji [address] [place] [address] Quique Khalil MD Chronic anemia 04/18/2025 Orders Only [facility] Oncology and Hematology - Reji [address] [place] [address] Quique Khalil MD from Last 3 Months Immunizations Immunization Administration [...] Healthy Daughter Heike Heart Disease Mother Christina [place] x 1 Stroke Mother Christina silent Healthy [...] on file Legal Sex Female 3:05 AM SISAL PICKER Gender Identity Not on file Sexual Orientation Not on file Occupation Industry Job Start Date Job End Date Not on file Not on file Not on file Not on file Last Filed Vital Signs Vital Sign Reading Time Taken Comments Blood Pressure 137/74 04/18/2025 3:43 PM CDT Pulse 93 04/18/2025 3:41 PM CDT Temperature 36.8 C (98.2 F) 04/18/2025 3:41 PM CDT Respiratory Rate 16 04/18/2025 3:41 PM CDT Oxygen Saturation 94% 04/18/2025 3:41 PM CDT Inhaled Oxygen Concentration - - Weight 74.6 kg (164 lb 6.4 oz) 04/18/2025 3:41 P M CDT Height 170.2 cm (5' 7) 11/02/2024 11:10 AM CDT Body Mass Index 25.75 11/02/2024 11:10 AM CDT Plan of Treatment Upcoming Encounters Date Type Department Care Team (Late st Contact Info) Description 07/16/2025 10:00 AM SISAL PICKER Office Visit [facility] Oncology and Hematology - Reji [address] [facility] [address] [place] [address] Quique Khalil MD [address] [facility] [address] [place] [address] Health Maintenance Due Date Last [...] Procedure Name Priority Date/Time Associated Diagnosis Comments VITAMIN B12 LEVEL Routine 04/12/2025 12: 53 PM CDT HM DIABETES EYE EXAM Routine 12/12/2019 LIPID PANEL Routine 11/30/2019 12:13 PM CDT Type 2 diabetes mellitus with other diabetic kidney complication, without long-term current use of insulin ([facility]) HEMOGLOBIN A1C Routine 11/30/2019 12:13 PM CDT Type 2 diabetes mellitus with other diabetic kidney complication, without long-term current use of insulin ([facility]) MICROALBUMIN/CREATIN INE RATIO, RANDOM UR Routine 06/14/2018 2:19 AM SISAL PICKER Type 2 diabetes mellitus with complication, without long-term current use of insulin ([facility]) XR DEXA BONE DENSITY AXIAL 1 OR MORE SITES Routine 10/01/2015 9:00 AM CDT Menopausal syndrome from Last 3 Months or Most Recently Relevant to Health Maintenance Results * VITAMIN B12 LEVEL (04/12/2025 12:53 PM CDT) Blood us Quique Khalil MD CHEMISTRY ORDERABLES Final Resu lt * HM DIABETES EYE EXAM (12/12/2019) us Abstract Provider HEALTH MAINTENANCE Edited Resu lt - Final [facility] - OB & DIRECT SERVICE PROVIDER CLIA# [id number] [address] [facility], [address] [place] [address] * (ABNORMAL) HEMOGLOBIN A1C (11/30/2019 12:13 PM CDT) HEMOGLOBIN A1C 5.9(H) <5.7 % 11/30/2019 4:00 PM CDT [facility] EST. AVG GLUCOSE, A1C 123 mg/dL 11/30/2019 4:00 PM CDT [facility] Blood Venipuncture / Unknown 11/30/2019 12:13 PM CDT 11/30/2019 12:13 PM CDT Narrative [facility] - 11/30/2019 4:00 PM CDT HGB A1C INTERPRETATION NORMAL: <5.7% PRE-DIABETES: 5.7 - 6.4% DIABETES: 6.5% OR GREATER us Yasmeen Garcia MD CHEMISTRY ORDERABLES Final Res ult [facility] CLIA# [id number] [address] [facility] [place] [address] * (ABNORMAL) LIPID PANEL (11/30/2019 12:13 PM CDT) [facility] CHOLESTEROL 145 <200 mg/dL 11/30/2019 4:37 PM T [facility] TRIGLYCERIDE 76 <150 mg/dL 11/30/2019 4:37 PM T [facility] HDL 69(H) 40 - 59 mg/dL 11/30/2019 4:37 PM T [facility] LDL CALCULATED 61 <100 mg/dL 11/30/2019 4:37 PM T [facility] NON-HDL CHOLESTEROL 76 <130 mg/dL 11/30/2019 4:37 PM T [facility] Blood Venipuncture / Unknown 11/30/2019 12:13 PM CDT 11/30/2019 12:13 PM CDT Narrative [facility] - 11/30/2019 4:37 PM CDT TOTAL [...] Reference Ranges for Lipid Panels (NCEP/AMA) . us Yasmeen Garcia MD CHEMISTRY ORDERABLES Final Res ult [id number] [address] [facility] [place] [address] * MICROALBUMIN/CREATININE RATIO, RANDOM UR (06/14/2018 2:19 AM SISAL PICKER) Creatinine, Urine 128 20 - 275 mg/dL [facility] MICROALBUMIN, URINE 0.4 See Note: mg/dL [facility] Comment: Reference Range: Reference Range Not established MICROALBUMIN/CREAT RATIO, UR 3 <30 mcg/mg creat [facility] Comment: The ADA defines abnormalities in albumin excretion as follows: Category Result (mcg/mg creatinine) Normal <30 Microalbuminuria 30-299 Clinical albuminuria > OR = 300 The ADA recommends that at least two of three specimens collected within a 3-6 month period be abnormal before considering a patient to be within a diagnostic category. Test Performed at: [facility] [address] [place] [address] Jens Aguilar D.O., MPH Urine URINE SPECIMEN OBTAINED BY CLEAN CATCH PROCEDURE / Unknown 06/14/2018 2:19 AM SISAL PICKER us Chary Hardin MD URINE ORDERABLES Edited Result - Final [facility] [address] [place] [address] * XR DEXA BONE DENSITY AXIAL 1 [...] Rivera DO DICTATION LOCATION: Location 1 - [facility] Narrative 10/01/2015 9:27 AM CDT XR DEXA BONE [...] Detailed report placed in Imaging Section of [facility]. Procedure Note Cristhian Rivera DO - 10/01/2015 [...] Detailed report placed in Imaging Section of [facility]. IMPRESSION IMPRESSION: Osteopenic BMD. Lumbar Spine [...] DICTATION LOCATION: Location 1 - [facility] Patricia Krueger MD DIAGNOSTIC IMAGING ORDERABLES F inal Result from Last 3 Months or Most Recently Relevant to Health Maintenance Insurance MEDICARE PART A AND [place] [address] [facility] Address: [address] [place] [address] Advance Directives For more information, please contact: [phone] Documents on File Type Date Recorded Patient Dietary Aide Teacher Expl anation Advance Directive POA 10/03/2014 12:00 [...] 7:06 AM 10/01/2009 2:01 AM Care Teams Special Services Director Relationship Specialty Start Date End Date Silvia Quinonez MD [address] [place] [address] PCP - General Family Practice 11/02/24 No DME 09/02/15
--- OUTSIDE RECORDS SUMMARY | 2025-04-30 00:58 | XMS_ITS | Encounter Summary ---
Author Organization [facility] Address [address] [place] [address] Phone Care Team Providers Care Archeology Faculty Member Name Role Phone Silvia Quinonez MD Primary Care Provider [phone] Silvia Quinonez MD Unavailable Encounter Details Date Type Department Care Team (Late st Contact Info) Description 04/26/2025 Results Follow-Up [facility] [address] [facility] Advanced Medicine 13th [place] [address] [place] [address] Ezekiel Frank MD [address] [address] XR Femur Right 2 or More Views Social History Tobacco Use Types Packs/Day Years Used Date Smoking Tobacco: Former Cigarettes Smokeless Tobacco: Never [facility] Utilities Answer Date Recorded In the past 12 months has [employer] electric, gas, oil, or water company threatened to shut off services in your [...] How often do you attend chur or mormon services? More than 4 times per year 12/23/2023 Do you belong to any clubs o r organizations such as hinduism groups, unions, fraternal or athletic groups, or [...] and heating? Not hard at all 12/23/2023 [facility] [place] [facility] ional [facility] - Occupational Stress [...] on file Legal Sex Female 8:58 PM COMBINE DRIVER Gender Identity Female 12/16/2020 9:45 PM CDT Sexual Orientation Not on file documented as of this encounter Miscellaneous Notes * Result Encounter Note - Ezekiel Frank MD - 04/26/2025 1:20 PM CDT The right leg looks fine documented in this encounter Plan of Treatment Not on file documented as of this encounter Visit Diagnoses Not on filedocumented in this encounter Care Teams Archeology Faculty Member Relationship Specialty Start Date End Date Silvia Quinonez MD PCP - General Family Medicine 12/23/23 Silvia Quinonez MD Family Medicine 12/23/23 documented as of this encounter
[2025-04-30 10:42] LABS: Hematocrit 40.0 % (37.0-47.0); Hemoglobin 12.4 g/dL (12.0-15.0); Immature Granulocyte Percent A 0.3 % (0-0.5); Lymphocytes Absolute Auto 1.53 K/mm3 (0.9-3.2); Mean Corpuscular HGB Conc 31.0 g/dl (32-36); Mean Corpuscular Hemoglobin 26.3 pg (26-34); Mean Corpuscular Volume 84.7 fl (80-100); Nucleated Red Blood Cells Absolute Auto 0.000 K/mm3 (0.0-0.012); Nucleated Red Blood Cells Perc 0.0 % (0.0-0.2); Platelet Count Result 319 k/mm3 (150-375); Red Blood Count 4.72 M/mm3 (4.2-5.4); White Blood Count 6.0 K/mm3 (4.5-10.0)
[2025-04-30 10:52] LABS: Anion Gap 7 mmol/L (4-12); Blood Urea Nitrogen 24 mg/dL (7-17); Calcium 9.5 mg/dL (8.4-10.2); Carbon Dioxide 32 mmol/L (22-30); Chloride 98 mmol/L (98-107); Estimated CRCL calculation 37 ml/min; Estimated Glomerular Filt Rate 47; Glucose 144 mg/dL (65-110); Potassium 4.0 mmol/L (3.4-5.0); Sodium 137 mmol/L (137-145)
--- NOTE | 2025-04-30 11:17 | PM.IMHP ---
H&P: HPI History of Present Illness Date/Time: 04/30/25 11:17 Chief Complaint: Severe aortic stenosis Narrative: 75-year-old woman with severe aortic stenosis, diabetes, hypertension, and hyperlipidemia was found to have severe aortic stenosis for which right and left heart catheterization has been recommended as per her aortic valve replacement workup. Review of Systems Cardiovascular: Cardiovascular: Reports as per HPI Respiratory: Respiratory: Reports as per HPI [facility] Past Medical History Medical History Heart murmur Right knee DJD Right knee pain Type 2 diabetes mellitus with hyperglycemia Anemia Constipation Acute pain Fracture of distal end of left femur Decreased libido Vaginal dryness Hyperkalemia Lumbosacral spondylosis Osteoporosis Arthralgia of hip or thigh Dorsalgia Lumbosacral radiculopathy Sacroiliitis Postlaminectomy syndrome Vitamin B12 deficiency Chronic cough Arthritis Urinary frequency Hypertension Wears glasses Vision changes Unintentional weight loss Left knee DJD Left knee pain Right hip pain Small intestinal bacterial overgrowth (SIBO) Restless legs Insomnia Diabetes Essential hypertension Surgical History Surgical History S/P lumbar fusion S/P total knee arthroplasty Hx of carpal tunnel repair S/P Botox injection of bladder History of abdominal hysterectomy History of laparoscopic cholecystectomy History of abdominoplasty History of hernia repair History of Jean Marie-en-Y gastric bypass History of gastric stapling History of tubal ligation Family History Family History Unknown History of stroke Hypertension Father Diabetes mellitus Social History Social History Smoking packs per day: 1.5 Smoking cigarettes per day: 30.0 Years smoked: 30 Smoking pack-years: 45.00 Smoking status: Former smoker Tobacco type: cigarettes Second hand tobacco smoke exposure: No Smoking end date: 07/05/85 Alcohol intake: never Drinks per week: 1 Alcohol use details: socially Substance use: never Substance use type: does not use Other substance usage details: GUMMIES PRN, INSOMNIA Do You Feel Safe in your Home?: Yes Lack of Transportation: No Lack of Food: Never True Current Housing: I Have Housing Concerned About Future Housing: No Difficulty Paying Gas/Electric Bills: No Difficulty Paying for Meds: No Currently Unemployed: No Education: High School Diploma/GED Difficulty w/ Childcare or Family Care: No Living arrangements: with family Gender identity (if verbalized by the patient): Female Sexual Orientation (if Verbalized by the Patient): Straight or Heterosexual Spiritual care concerns: No Agree to blood products: Yes Meds Home Medications and Allergies Home Medications ?Medication ?Instructions ?Recorded ?Confirmed ?Type cholecalciferol (vitamin D3) 50 50 mcg PO DAILY 12/29/23 04/27/25 History mcg (2,000 unit) capsule calcium carbonate 600 mg PO BID #30 tabs 04/26/24 04/27/25 Rx triamcinolone acetonide 0.5 % 1 applic topical BID #15 grams 08/25/24 04/27/25 Rx topical cream ropinirole 0.5 mg tablet 0.5 mg PO HS #180 tabs 11/20/24 04/27/25 Rx metformin 1,000 mg tablet 1,000 mg PO BIDWMEAL #180 tabs 01/17/25 04/27/25 Rx amlodipine 10 mg tablet 10 mg PO DAILY #30 tabs 02/08/25 04/27/25 Rx chlorthalidone 25 mg tablet 25 mg PO DAILY #30 tabs 03/29/25 04/27/25 Rx losartan 25 mg tablet 50 mg (2 x 25 mg) PO DAILY #90 tabs 03/29/25 04/27/25 Rx naltrexone 1.5 mg capsule 2.5 mg PO HS 03/29/25 04/27/25 History famotidine 10 mg tablet 40 mg PO DAILY PRN acid reflux 04/04/25 04/27/25 History hyoscyamine sulfate 0.125 mg tablet 0.125 mg PO QID PRN dyspepsia 04/04/25 04/27/25 History trazodone 50 mg tablet 50 mg PO HS PRN sleep 04/04/25 04/27/25 History cyclobenzaprine 10 mg tablet 10 mg PO TID PRN muscle spasm #90 04/08/25 04/27/25 Rx tabs Allergies Allergy/AdvReac Type Severity Reaction Status Date / Time No Known Allergies Allergy Verified 04/27/25 15:04 Vital Signs Vital Signs - 24 hr 04/30/25 10:27 Temperature 36.3 C L Pulse Rate 79 Respiratory Rate 15 Blood Pressure 142/76 H Pulse Oximetry 100 Oxygen Delivery Room Air Exam Const: General: comfortable HENMT: Mouth: Yes moist mucous membranes Eyes: EOM: EOMs intact bilaterally Neck: Neck: no JVD Resp: Effort & Inspection: normal respiratory effort Cardio: Rate: regular rate Heart sounds: Murmur heart sound present Neuro: Speech: normal speech H&P: Results Labs Labs: Short CBC 04/30/25 Range/Units 10:34 WBC 6.0 (4.5-10.0) K/mm3 Hgb 12.4 (12.0-15.0) g/dL Hct 40.0 (37.0-47.0) % Plt Count 319 (150-375) k/mm3 BMP 04/30/25 10:34 Sodium 137 Potassium 4.0 Chloride 98 Carbon Dioxide 32 H BUN 24 H Creatinine 1.12 H Glucose 144 H Calcium 9.5 Assessment and Plan Assessment and plan (1) Aortic stenosis, severe: Code(s): I35.0 - Nonrheumatic aortic (valve) stenosis Status: Acute Plan 75-year-old woman with severe aortic stenosis, diabetes, hypertension, and hyperlipidemia was found to have severe aortic stenosis for which right and left heart catheterization has been recommended as per her aortic valve replacement workup. After discussing right and left heart cardiac catheterization procedure in detail, along with its risks, benefits, alternatives, patient expressed understanding and agreed to proceed for with the procedures
--- NOTE | 2025-04-30 11:19 | WPDMODSED ---
Moderate Sedation Note-Pt Data Patient Data Allergies Allergy/AdvReac Type Severity Reaction Status Date / Time No Known Allergies Allergy Verified 04/27/25 15:04 Home Medications ?Medication ?Instructions ?Recorded ?Confirmed ?Type cholecalciferol (vitamin D3) 50 50 mcg PO DAILY 12/29/23 04/27/25 History mcg (2,000 unit) capsule calcium carbonate 600 mg PO BID #30 tabs 04/26/24 04/27/25 Rx triamcinolone acetonide 0.5 % 1 applic topical BID #15 grams 08/25/24 04/27/25 Rx topical cream ropinirole 0.5 mg tablet 0.5 mg PO HS #180 tabs 11/20/24 04/27/25 Rx metformin 1,000 mg tablet 1,000 mg PO BIDWMEAL #180 tabs 01/17/25 04/27/25 Rx amlodipine 10 mg tablet 10 mg PO DAILY #30 tabs 02/08/25 04/27/25 Rx chlorthalidone 25 mg tablet 25 mg PO DAILY #30 tabs 03/29/25 04/27/25 Rx losartan 25 mg tablet 50 mg (2 x 25 mg) PO DAILY #90 tabs 03/29/25 04/27/25 Rx naltrexone 1.5 mg capsule 2.5 mg PO HS 03/29/25 04/27/25 History famotidine 10 mg tablet 40 mg PO DAILY PRN acid reflux 04/04/25 04/27/25 History hyoscyamine sulfate 0.125 mg tablet 0.125 mg PO QID PRN dyspepsia 04/04/25 04/27/25 History trazodone 50 mg tablet 50 mg PO HS PRN sleep 04/04/25 04/27/25 History cyclobenzaprine 10 mg tablet 10 mg PO TID PRN muscle spasm #90 04/08/25 04/27/25 Rx tabs Sedation/Anesthesia: No previous sedation/anesthesia problems (including family history). [facility] Past Medical History Medical History Heart murmur Right knee DJD Right knee pain Type 2 diabetes mellitus with hyperglycemia Anemia Constipation Acute pain Fracture of distal end of left femur Decreased libido Vaginal dryness Hyperkalemia Lumbosacral spondylosis Osteoporosis Arthralgia of hip or thigh Dorsalgia Lumbosacral radiculopathy Sacroiliitis Postlaminectomy syndrome Vitamin B12 deficiency Chronic cough Arthritis Urinary frequency Hypertension Wears glasses Vision changes Unintentional weight loss Left knee DJD Left knee pain Right hip pain Small intestinal bacterial overgrowth (SIBO) Restless legs Insomnia Diabetes Essential hypertension Surgical History Surgical History S/P lumbar fusion S/P total knee arthroplasty Hx of carpal tunnel repair S/P Botox injection of bladder History of abdominal hysterectomy History of laparoscopic cholecystectomy History of abdominoplasty History of hernia repair History of Jean Marie-en-Y gastric bypass History of gastric stapling History of tubal ligation Family History Family History Unknown History of stroke Hypertension Father Diabetes mellitus Social History Social History Smoking packs per day: 1.5 Smoking cigarettes per day: 30.0 Years smoked: 30 Smoking pack-years: 45.00 Smoking status: Former smoker Tobacco type: cigarettes Second hand tobacco smoke exposure: No Smoking end date: 07/05/85 Alcohol intake: never Drinks per week: 1 Alcohol use details: socially Substance use: never Substance use type: does not use Other substance usage details: GUMMIES PRN, INSOMNIA Do You Feel Safe in your Home?: Yes Lack of Transportation: No Lack of Food: Never True Current Housing: I Have Housing Concerned About Future Housing: No Difficulty Paying Gas/Electric Bills: No Difficulty Paying for Meds: No Currently Unemployed: No Education: High School Diploma/GED Difficulty w/ Childcare or Family Care: No Living arrangements: with family Gender identity (if verbalized by the patient): Female Sexual Orientation (if Verbalized by the Patient): Straight or Heterosexual Spiritual care concerns: No Agree to blood products: Yes Mod Sed Physical Exam Physical Exam Pre Procedural Exam: Normal: Lungs, Heart Size, Heart Rate and Heart Rhythm Hours since solid foods: 12 Hours since liquid intake: 6 Mallampati Classification: class II Internal Medicine - PN: Obj Da Vital Signs Vital Signs: Vital Signs - 24 hr 04/30/25 10:27 Temperature 36.3 C L Pulse Rate 79 Respiratory Rate 15 Blood Pressure 142/76 H Pulse Oximetry 100 Oxygen Delivery Room Air Labs 04/30/25 10:34 04/30/25 10:34 Labs: Laboratory Results - last 24 hr 04/30/25 10:34 WBC 6.0 RBC 4.72 Hgb 12.4 Hct 40.0 MCV 84.7 MCH 26.3 MCHC 31.0 L RDW 14.6 H Plt Count 319 MPV 9.5 Immature Gran % (Auto) 0.3 Neut % (Auto) 61.2 Lymph % (Auto) 25.5 Blanco % (Auto) 7.2 Eos % (Auto) 4.8 H Baso % (Auto) 1.0 Lymph # (Auto) 1.53 Blanco # (Auto) 0.4 Eos # (Auto) 0.3 Baso # (Auto) 0.1 Abs Immat Gran (auto) 0.02 Absolute Neuts (auto) 3.7 Absolute Nucleated RBC 0.000 Nucleated RBC % 0.0 Sodium 137 Potassium 4.0 Chloride 98 Carbon Dioxide 32 H Anion Gap 7 BUN 24 H Creatinine 1.12 H Estim Creat Clear Calc 37 Estimated GFR 47 L Glucose 144 H Calcium 9.5 ASA Classification/Sedation ASA Classification/Sedation ASA Class: III Emergent: No Risks: Risks, benefits and alternatives explained and patient/family accepted plan for sedation. Patient re-evaluated immediately prior to sedation.
--- NOTE | 2025-04-30 12:06 | WPDCARDPROC ---
Cardiac Cath Procedure Note Date of procedure:: 04/30/25 Performing physician:: CATHETERIZATION LABORATORY REPORT Procedure Date: 04/30/2025 Referring Physician: Dr. Alfaro Anesthesia: Versed and Fentanyl were ordered and given in my presence at 1124, procedure ended at 1152. Supervision of nurse, Sahil Cesar monitored moderate sedation with 2mg Versed and 100mcg Fentanyl was provided for 28 minutes. Pre-op Diagnosis: Severe aortic stenosis Post-op Diagnosis: Severe aortic stenosis Procedure(s): Left heart catheterization with coronary angiography Access Site: Right radial artery Right brachial vein Brief History and Clinical Indications: 75-year-old woman with severe aortic stenosis, diabetes, hypertension, and hyperlipidemia was found to have severe aortic stenosis for which right and left heart catheterization has been recommended as per her aortic valve replacement workup All risks, benefits and alternatives to left heart catheterization with or without percutaneous coronary intervention was discussed at length with the patient. Risk of complications including but not limited to bleeding, infection, arrhythmia, stroke, worsening kidney function, blood loss, groin hematoma, limb loss, emergency coronary artery bypass grafting, and even were discussed with the patient and all questions were answered. The patient understood and wished to proceed. Time out called, patient name, date of , medical record number, allergies, procedure performed, identify Ssds Mk 2 Advanced Operator, patient and staff member concurred with accurate data, procedure carried on. Findings: LEFT HEART CATHETERIZATION FINDINGS: 1. Left main: The left main coronary artery is widely patent without any significant obstructive disease. 2. Left anterior descending: The LAD and the diagonal branches have diffuse 10-20% stenosis in its proximal to mid body. The distal LAD becomes a small caliber vessel with focal areas of myocardial bridging. 3. Left circumflex: The left circumflex artery gives off 4 OM branches. OM1 has an area of severe myocardial bridging with 90% stenosis in its mid body. OM2 is small. OM3 has an area of 90% stenosis in it's proximal body. OM4 is a small caliber vessel with diffuse 80% stenosis in it's mid body. 4. Right coronary artery: The RCA is a large dominant vessel with 10% stenosis in its midbody. The RPDA and PL branches have diffuse 10% stenosis. 5. Left ventricle:not performed due to known severe aortic stenosis 6. Opening AO pressure 144/81 and closing AO pressure 139/86 RIGHT HEART CATHETERIZATION FINDINGS: Pressures (mmHg): RA: 16 RV: 52/14 PA: 48/22 (35) PCWP: 26 (v 29) Saturations (%): PA: 68.2 Arterial: 89.4 CO/CI: Tu: 6.5/3.5 Description of Procedure: Informed consent signed and placed in the chart. Patient transferred to warehouse laborer room. Prepped and draped in usual sterile fashion. 2% lidocaine injected subcutaneously in right brachial area. Right brachial vein was accessed using micropuncture technique under ultrasound. 7F sheath placed into right brachial vein. 22-gauge venipuncture accessed the right radial artery with the modified Seldinger technique under ultrasound and 6F sheath placed into right radial artery. Heparin 5000U and Verapamil 2.5mg was delivered. 7F Linden-Diana catheter was advanced through the 7F brachial sheath into the right side of the heart chambers and pressures were measured. Hemostasis was achieved by manual pressure. J wire advanced under fluoroscopy. 5F Ultra diagnostic catheter engaged Left Main Coronary Artery. 5F Ultra diagnostic catheter engaged Right Coronary Artery Multiple orthogonal angiogram obtained and reviewed Hemostasis was achieved by application of TR band. 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 Continue aggressive medical therapy and risk factor modification. Continue severe workup Joel Azevedo Interventional Cardiology
[2025-04-30] MEDS: SODIUM CHLORIDE 0.9% IV 1,000 ML 100 ML IV CONT (13:00)
== END 2025-04-30 16:38 | disposition home or self-care (01) ==
PROVIDERS: PCP Family Medicine; Visit Provider Internal Medicine
PROC: 4A023N8 Measurement of Cardiac Sampling and Pressure, Bilateral, Percutaneous Approach (ICD-10-PCS; CPT 93453; principal; 2025-04-30 11:30)
DX: I35.0 Nonrheumatic aortic (valve) stenosis (principal); I25.10 Atherosclerotic heart disease of native coronary artery without angina pectoris; I10 Essential (primary) hypertension; E78.5 Hyperlipidemia, unspecified; E11.65 Type 2 diabetes mellitus with hyperglycemia; D64.9 Anemia, unspecified; M81.0 Age-related osteoporosis without current pathological fracture; E53.8 Deficiency of other specified B group vitamins; R35.0 Frequency of micturition; G25.81 Restless legs syndrome; R01.1 Cardiac murmur, unspecified; M17.0 Bilateral primary osteoarthritis of knee; E87.5 Hyperkalemia; R05.3 Chronic cough; G47.00 Insomnia, unspecified; M43.07 Spondylolysis, lumbosacral region; F12.90 Cannabis use, unspecified, uncomplicated; Z79.84 Long term (current) use of oral hypoglycemic drugs; Z98.890 Other specified postprocedural states; Z98.1 Arthrodesis status; Z90.49 Acquired absence of other specified parts of digestive tract; Z98.84 Bariatric surgery status; Z98.51 Tubal ligation status; Z87.891 Personal history of nicotine dependence; Z82.49 Family history of ischemic heart disease and other diseases of the circulatory system
CPT/HCPCS: 36415; 80048; 85025; 93460; C1769; C1887; C1894; J1644; J2003; J7030; J7040

== ENCOUNTER 2025-05-15 13:03 | Outpatient (CLI) | payer MEDICARE, SELFPAY ==
--- NOTE | ~2025-05-15 | XR_ITS ---
EXAMINATION: XR wrist RT w scaphoid, 05/15/2025 13:20 HYDRAULIC LIFT DRIVER HISTORY: M25.531 - Pain in right wrist X 1 MONTH, PAIN ANTERIOR COMPARISON: No comparisons available. Findings: No acute fracture or malalignment. No significant degenerative changes. Soft tissues unremarkable. Impression: No acute fracture or malalignment. Reviewed, dictated and finalized at location P. AULIC LIFT DRIVER Impression: No acute fracture or malalignment.
--- OUTSIDE RECORDS SUMMARY | 2025-05-15 13:08 | XMS_ITS | Encounter Summary ---
Author Organization [facility] Address [address] [place] [address] Care Team Providers Care Territory Sales Manager Medical Name Role Phone Silvia Quinonez MD Primary Care Provider [phone] Encounter Details Date Type Department Care Team (Late Contact Info) Description 11/18/2004 Outpatient Historical [facility] [address] [place] [id number] Efren Resendez MD [address] [place] [address] [place] [id number] Social History Tobacco Use Types Packs/Day Years Used Date Smoking Tobacco: Never Assessed Comments Unknown Sex and Gender Information Value Date Recorded Sex Assigned at Not on file Legal Sex Female 3:05 AM INVESTIGATOR INTERNAL REVENUE Gender Identity Not on file Sexual Orientation Not on file documented as of this encounter Plan of Treatment Upcoming Encounters Date Type Department Care Team (Late Contact Info) Description 07/16/2025 10:00 AM INVESTIGATOR INTERNAL REVENUE Office Visit [facility] Oncology and Hematology - [place] [address] [facility] [address] [place] [address] Quique Khalil MD [address] [facility] [address] [place] [address] documented as of this encounter Visit Diagnoses Not on filedocumented in this encounter Care Teams Territory Sales Manager Medical Relationship Specialty Start Date End Date Silvia Quionnez MD [address] [place] [address] PCP - General Family Practice 11/02/24 No DME 09/02/15 documented as of this encounter
--- OUTSIDE RECORDS SUMMARY | 2025-05-15 13:08 | XMS_ITS | Encounter Summary ---
Author Organization [facility] Address 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 Gender Identity Not on file Sexual Orientation Not on file documented as of this encounter Plan of Treatment Upcoming Encounters Date Type Department Care Team (Late st Contact Info) Description 07/16/2025 10:00 AM LIGHTNING ROD INSTALLER Office Visit [facility] Oncology and Hematology - [place] [address] [facility] [address] [place] [address] [place] [address] [place] [address] [address] [place] [address] documented as of this encounter Visit Diagnoses Diagnosis Other screening mammogram- Primary documented in this encounter Care Teams Senior Education Specialist Relationship Specialty Start Date End Date Silvia Quinonez MD [address] [place] [phone] PCP - General Family Practice 11/02/24 No DME 09/02/15 documented as of this encounter
--- OUTSIDE RECORDS SUMMARY | 2025-05-15 13:08 | XMS_ITS | Encounter Summary ---
Author Organization [facility] Address [address] [place] [address] Care Team Providers Care Watch Caser Name Role Phone Silvia Quinonez MD Primary Care Provider [phone] Encounter Details Date Type Department Care Team (Latest Contact Info) Description 03/03/2007 Outpatient Historical [facility] Sam Machado MD [address] [place] [address] Other Screening Mammogram (Primary Dx) Social History Tobacco Use Types Packs/Day Years Used Date Smoking Tobacco: Never Assessed Comments Unknown Sex and Gender Information Value Date Recorded Sex Assigned at Not on file Legal Sex Female 3:05 AM AEROPLANE PILOT Gender Identity Not on file Sexual Orientation Not on file documented as of this encounter Plan of Treatment Upcoming Encounters Date Type Department Care Team (Late st Contact Info) Description 07/16/2025 10:00 AM AEROPLANE PILOT Office Visit [facility] Oncology and Hematology - [place] [address] [facility] [address] [place] [address] Quique Khalil MD [address] [facility] [address] [place] [address] documented as of this encounter Visit Diagnoses Diagnosis Other screening mammogram- Primary documented in this encounter Care Teams Watch Caser Relationship Specialty Start Date End Date Silvia Quinonez MD [address] [place] [phone] PCP - General Family Practice 11/02/24 No DME 09/02/15 documented as of this encounter
--- OUTSIDE RECORDS SUMMARY | 2025-05-15 13:08 | XMS_ITS | Encounter Summary ---
Author Organization [facility] Address [address] [place] [address] Care Team Providers Care Services Rep Name Role Phone Silvia Quinonez MD Primary Care Provider [phone] Encounter Details Date Type Department Care Team (Late st Contact Info) Description 03/17/2005 Outpatient Historical [facility] [place] [address] [place] [address] Gunjan Szymanski MD NO ADDRESS ON FILE Social History Tobacco Use Types Packs/Day Years Used Date Smoking Tobacco: Never Assessed Comments Unknown Sex and Gender Information Value Date Recorded Sex Assigned at Not on file Legal Sex Female 3:05 AM REACTOR KETTLE OPERATOR Gender Identity Not on file Sexual Orientation Not on file documented as of this encounter Plan of Treatment Upcoming Encounters Date Type Department Care Team (Late st Contact Info) Description 07/16/2025 10:00 AM REACTOR KETTLE OPERATOR Office Visit [facility] Oncology and Hematology - [place] [address] [facility] [address] [place] [address] Quique Khalil MD [address] [facility] [address] [place] [address] documented as of this encounter Visit Diagnoses Not on filedocumented in this encounter Care Teams Services Rep Relationship Specialty Start Date End Date Silvia Quinonez MD [address] [place] [phone] PCP - General Family Practice 11/02/24 No DME 09/02/15 documented as of this encounter
--- OUTSIDE RECORDS SUMMARY | 2025-05-15 13:08 | XMS_ITS | Encounter Summary ---
Author Organization [facility] Address [address] [place] [address] Care Team Providers Care External Relations Director Name Role Phone Silvia Quinonez MD Primary Care Provider [phone] Encounter Details Date Type Department Care Team [...] on file Legal Sex Female 3:05 AM DE IONIZER OPERATOR Gender Identity Not on file Sexual Orientation Not on file documented as of this encounter Plan of Treatment Upcoming Encounters Date Type Department Care Team (Late st Contact Info) Description 07/16/2025 10:00 AM DE IONIZER OPERATOR Office Visit [facility] Oncology and Hematology - [place] [address] [address] [place] [address] [place] [address] [address] [place] [address] documented as of this encounter Visit Diagnoses Diagnosis Contusion of face, scalp, and neck except eye(s)- Primary documented in this encounter Care Teams External Relations Director Relationship Specialty Start Date End Date Silvia Quinonez MD [address] [place] [phone] PCP - General Family Practice 11/02/24 No DME 09/02/15 documented as of this encounter
--- OUTSIDE RECORDS SUMMARY | 2025-05-15 13:08 | XMS_ITS | Encounter Summary ---
Author Organization [facility] Address [address] [place] [address] Care Team Providers Care Camouflage Specialist Name Role Phone Silvia Quinonez MD Primary Care Provider [phone] Encounter Details Date Type Department Care Team (Late st Contact Info) Description 10/28/2001 Outpatient Historical [facility] Mary Carmen Cline MD [address] [facility] [address] [place] [address] HEMORRHOIDS NOS (Primary Dx) Social History Tobacco Use Types Packs/Day Years Used Date Smoking Tobacco: Never Assessed Comments Unknown Sex and Gender Information Value Date Recorded Sex Assigned at Not on file Legal Sex Female 3:05 AM HOUSING OFFICER Gender Identity Not on file Sexual Orientation Not on file documented as of this encounter Plan of Treatment Upcoming Encounters Date Type Department Care Team (Late st Contact Info) Description 07/16/2025 10:00 AM HOUSING OFFICER Office Visit [facility] Oncology and Hematology - [place] [address] [facility] [address] [place] [address] Quique Khalil MD [address] [facility] [address] [place] [address] documented as of this encounter Visit Diagnoses Diagnosis Unspecified hemorrhoids without mention of complication- Primary documented in this encounter Care Teams Camouflage Specialist Relationship Specialty Start Date End Date Silvia Quinonez MD [address] [place] [phone] PCP - General Family Practice 11/02/24 No DME 09/02/15 documented as of this encounter
--- OUTSIDE RECORDS SUMMARY | 2025-05-15 13:08 | XMS_ITS | Encounter Summary ---
Author Organization [facility] Address [address] [place] [address] Care Team Providers Care Rf Manager Name Role Phone Silvia Quinonez MD Primary Care Provider [phone] Encounter Details Date Type Department Care Team (Latest Contact Info) Description 07/31/2008 Outpatient Historical HIS TF DIAChuck-Jayce Dupree MD [address] [facility] [address] [place] [address] Nonspecific Abnormal Unspecified Cardiovascular Function Study Social History Tobacco Use Types Packs/Day Years Used Date Smoking Tobacco: Never Assessed Comments Unknown Sex and Gender Information Value Date Recorded Sex Assigned at Not on file Legal Sex Female 3:05 AM PROFESSIONAL SYSTEM ADMINISTRATOR Gender Identity Not on file Sexual Orientation Not on file documented as of this encounter Plan of Treatment Upcoming Encounters Date Type Department Care Team (Late st Contact Info) Description 07/16/2025 10:00 AM PROFESSIONAL SYSTEM ADMINISTRATOR Office Visit [facility] Oncology and Hematology - Reji [address] [facility] [address] [place] [address] Quique Khalil MD [address] [facility] [address] [place] [address] documented as of this encounter Visit Diagnoses Diagnosis Nonspecific abnormal unspecified cardiovascular function study documented in this encounter Care Teams Rf Manager Relationship Specialty Start Date End Date Silvia Quinonez MD [address] [place] [phone] PCP - General Family Practice 11/02/24 No DME 09/02/15 documented as of this encounter
--- OUTSIDE RECORDS SUMMARY | 2025-05-15 13:08 | XMS_ITS | Encounter Summary ---
Author Organization [facility] Address [address] [place] [address] Care Team Providers Care Ammonium Nitrate Crystallizer Name Role Phone Silvia Quinonez MD Primary Care Provider [phone] Encounter Details Date Type Department Care Team (Latest Contact Info) Description 11/18/2004 Inpatient Historical HIS INPATIENT IN BED Sam Machado MD [address] [place], [place] [id number] UTEROVAG PROLAPS-INCOMPL (Primary Dx) Social History Tobacco Use Types Packs/Day Years Used Date Smoking Tobacco: Never Assessed Comments Unknown Sex and Gender Information Value Date Recorded Sex Assigned at Not on file Legal Sex Female 3:05 AM CIRCULATING PROCESS INSPECTOR Gender Identity Not on file Sexual Orientation Not on file documented as of this encounter Plan of Treatment Upcoming Encounters Date Type Department Care Team (Late st Contact Info) Description 07/16/2025 10:00 AM CIRCULATING PROCESS INSPECTOR Office Visit [facility] Oncology and Hematology - Reji [address] [facility] [address] [place] [address] Quique Khalil MD [address] [facility] [address] [place] [address] documented as of this encounter [...] ORDERABLES Final Re sult Performing Organization Address [facility] Phone Number INTERFACE SYSTEM Refer to clinic/hospital department * POC GLUCOSE (11/18/2004 8:25 AM CDT) GLUCOSE POC 84 65 - 115 mg/dL INTERFACE SYSTEM 11/18/2004 8:25 AM CDT us Sam Machado MD POINT OF CARE TESTING Final Re sult Performing Organization Address [facility] Number INTERFACE SYSTEM Refer to clinic/hospital department [...] URINE ORDERABLES Final Result Performing Organization Address [facility] Phone Number INTERFACE SYSTEM Refer [...] ORDERABLES Final Res ult Performing Organization Address [facility] de Phone Number INTERFACE SYSTEM [...] ORDERABLES Final Re sult Performing Organization Address [facility] de Phone Number INTERFACE SYSTEM [...] Primary documented in this encounter Care Teams Ammonium Nitrate Crystallizer Relationship Specialty Start Date End Date Silvia Quinonez MD [address] [place] [address] PCP - General Family Practice 11/02/24 No DME 09/02/15 documented as of this encounter
--- OUTSIDE RECORDS SUMMARY | 2025-05-15 13:08 | XMS_ITS | Encounter Summary ---
Author Organization [employer] [facility] Address [address] [place] [address] Care Team Providers Care Night Shift Manager Name Role Phone Silvia Quinonez MD Primary Care Provider [phone] Encounter Details Date Type Department Care Team (Late st Contact Info) Description 10/18/2015 Chart Note [facility] Therapy Services Lara Andersony [address] [place] [phone] Tatiana Spaulding Physical Therapist Social History Tobacco Use Types Packs/Day Years Used Date Smoking Tobacco: Former Cigarettes 1 23 1 - 04/04/1986 Smokeless Tobacco: Never Alcohol Use Standard Drinks/Week Comments Yes 0 (1 standard drink = 0.6 oz pur e alcohol) social Comments No Sex and Gender Information Value Date Recorded Sex Assigned at Not on file Legal Sex Female 3:05 AM CATHODE RAY TUBE ASSEMBLER Gender Identity Not on file Sexual [...] Thank you for this referral. JOHN Schumacher [facility] [address] [facility], [address] [place] [address] (phone) [phone] (fax) [place] License Number: [id number] documented in this encounter Plan of Treatment Upcoming Encounters Date Type Department Care Team (Late st Contact Info) Description 07/16/2025 10:00 AM CATHODE RAY TUBE ASSEMBLER Office Visit [facility] Oncology and Hematology - Reji [address] [facility] [address] [place] [address] Quique Khalil MD [address] [facility] [address] [place] [address] documented as of this encounter Visit Diagnoses Not on filedocumented in this encounter Additional Health Concerns Assessment Noted Time PHQ-9 Depression Total Score: 2 09/02/19 16 11:00 AM CATHODE RAY TUBE ASSEMBLER documented as of this encounter Care Teams Night Shift Manager Relationship Specialty Start Date End Date Silvia Quinonez MD [address] [place] [phone] PCP - General Family Practice 11/02/24 No DME 09/02/15 documented as of this encounter
--- OUTSIDE RECORDS SUMMARY | 2025-05-15 13:08 | XMS_ITS | Clinical Summary ---
Author Organization [facility] Address [address] [place] [address] Care Team Providers Care Poultry Packer Name Role Phone Silvia Quinonez MD Primary Care Provider [phone] Silvia Quinonez MD Unavailable [phone] Allergies Active Allergy Reactions Criticality Noted Date Comments Amlodipine Fatigue Low 03/23/2012 Excessive fatigue Other Unknown 05/22/2009 SURGICAL MESH Medications calcium carbonate (CALCIUM 500 ORAL) Active cholecalcifero l (VITAMIN D-3) 05195 unit tablet once a week 07/07/19 13 [...] Encounters Date Type Department Care Team Description 05/02/2025 Orders Only [facility] Cardiology [address] [place] [address] Joel Azevedo MD 04/26/2025 10:15 AM CDT Lab [facility] [address] [place] [address] Closed nondisplaced articular fracture of head of left femur, sequela; Age-related osteoporosis without current pathological fracture 04/26/2025 9:55 AM CDT - 04/26/2025 11:59 PM CDT Hospital Encounter [facility] [address] [place] [address] Closed nondisplaced articular fracture of head of left femur, sequela; Age-related osteoporosis without current pathological fracture Discharge Disposition: Discharge to home or self care 04/26/2025 8:40 AM CDT Office Visit [address] [place] [address] [place] [address] Eezkiel Frank MD Closed nondisplaced articular fracture of head of left femur, sequela (Primary Dx); Age-related osteoporosis without current pathological fracture 04/26/2025 8:10 AM CDT Clinical Support [address] [place] [address] [place] [address] Osteopenia of left hip (Primary Dx); Closed nondisplaced articular fracture of head of left femur, sequela 04/26/2025 Results Follow-Up [address] [place] [address] [place] [address] Ezekiel Frank MD XR Femur Right 2 or More Views, Comprehensive metabolic panel, Vitamin D 25 hydroxy, Additional followed-up results: 4 04/26/[address] [place] [address] [place] [address] Ezekiel Frank MD 04/03/2025 Telephone [facility] Cardiology [address] [place] [address] [facility] from Last 3 Months Immunizations Immunization [...] Tobacco: Never Tobacco Cessation:Counseling Given: Not Answered [facility] Utilities Answer Date Recorded In the past 12 months has th e [employer] gas, oil, or water [employer] threatened to shut off services in your [...] often do you attend chur ch or yazdanism services? More than 4 times per year 12/23/2023 Do you belong to any clubs o r organizations such as adventism groups, unions, fraternal or athletic groups, or [...] and heating? Not hard at all 12/23/2023 [facility] [place] of Occupat ional Health - Occupational Stress [...] on file Legal Sex Female 8:58 PM CURRICULUM AND ASSESSMENT DIRECTOR Gender Identity Female 12/16/2020 9:45 PM CDT [...] history exists Medical Devices Implanted Type Area Adjunct Instructor In Economics Device Identifier Shelf Expiration Date Model / Serial / Lot [employer] Screw Bone 5mm 80mm Lock Strl 3712-7180s - [id number] Implanted:Qty: 1 on 12/23/2023 by Dave Rosas MD at [facility] Screw Left: Femur [employer] [id number] 10/02/2033 4076-3991 S / / [id number] [employer] Screw Bone 5mm 70mm Lock Strl 2361-0070s - [id number] Implanted:Qty: 1 on 12/23/2023 by Dave Rosas MD at [facility] Screw Left: Femur [employer] [id number] 11/01/2033 4990-0495 S / / [id number] [employer] Screw Bone Locking Cannulated Tibial Oversized Thread Black T2 Alpha 5.0x85mm Titanium 2361-2688s - [id number] Implanted:Qty: 1 on 12/23/2023 by Dave Rosas MD at [facility] Screw Left: Femur [employer] [id number] 10/02/2033 8776-3993 S / / [id number] [employer] Screw Bone 5mm 37.5mm T2 Alpha Lock Strl 2360-5037s - [id number] Implanted:Qty: 1 on 12/23/2023 by Dave Rosas MD at [facility] Screw Left: Femur [employer] [id number] 11/01/2033 7175-6079 S / / [id number] [employer] Screw Bone 5mm 40mm T2 Alpha Lock Strl 2360-5040s - [id number] Implanted:Qty: 1 on 12/23/2023 by Dave Rosas MD at [facility] Screw Left: Femur [employer] [id number] 11/01/2033 9950-0721 S / / [id number] [employer] Screw Bone 5mm 42.5mm T2 Alpha Lock Strl 2360-5042s - [id number] Implanted:Qty: 1 on 12/23/2023 by Dave Rosas MD at [facility] Screw Left: Femur [employer] [id number] 10/02/2030 3807-2352 S / / [id number] Synthes Plate Bone Compression Locking Low Profile 18 Hole Left Va Lcp 4.6b874kp Ss 02.124.419s - [id number] Implanted:Qty: 1 on 12/23/2023 by Dave Rosas MD at [facility] Left: Femur Synthes 02.124.41 9S / / [employer] Nail Intramedullary Femoral Retrograde T2 Alpha [id number] Titanium 2339-1124s - [id number] Implanted:Qty: 1 on 12/23/2023 by Dave Rosas MD at [facility] Left: Femur [employer] 07/04/2033 0036-0781 S / / [id number] Synthes 5mm 36mm Variable Angle Self Tap Lock Stardrive Condylar T25 02.231.236 - [id number] Implanted:Qty: 1 on 12/23/2023 by Dave Rosas MD at [facility] Left: Femur [employer]ynthes I 02.231.23 6 / / Synthes 4.5mm 8mm 36mm Self Tap Large Hexagonal Socket Cortex Screw Bone 214.836 - [id number] Implanted:Qty: 1 on 12/23/2023 by Dave Rosas MD at [facility] Left: Femur Synthes I 214.836 / / Synthes 5mm 80mm Variable Angle Self Tap Lock [employer] Condylar T25 02.231.280 - [id number] Implanted:Qty: 2 on 12/23/2023 by Dave Rosas MD at [facility] Left: Femur Synthes 02.231.28 0 / / Synthes 5mm 85mm Variable Angle Self Tap Lock [employer] Condylar T25 02.231.285 - [id number] Implanted:Qty: 2 on 12/23/2023 by Dave Rosas MD at [facility] Left: Femur Synthes I 02.231.28 5 / / Synthes 4.5mm 8mm 100mm Self Tap Large Hexagonal Socket Cortical Screw 214.900 - [id number] Implanted:Qty: 1 on 12/23/2023 by Dave Rosas MD at [facility] Left: Femur Synthes I 214.900 / / Synthes 5mm 38mm Variable Angle Self Tap Lock [employer] Condylar T25 02.231.238 - [id number] Implanted:Qty: 1 on 12/23/2023 by Dave Rosas MD at [facility] Left: Femur Synthes I 02.231.23 8 / / Synthes 5mm 40mm Variable Angle Self Tap Lock [employer] Condylar T25 02.231.240 - [id number] Implanted:Qty: 1 on 12/23/2023 by Dave Rosas MD at [facility] Left: Femur Synthes I 02.231.24 0 / / Explanted Type Area Adjunct Instructor In Economics Device Identifier Shelf Expiration Date Model / Serial / Lot [employer] Nail Intramedullary Femoral Retrograde T2 Alpha [id number] Titanium 2339-1122s - [id number] Explanted:Qty: 1 on 12/23/2023 by Dave Rosas MD at [facility] Left: Femur [employer] 07/04/2033 5528-3035 S / / [id number] Procedures Procedure Name Priority Date/Time Associated Diagnosis Comments CARDIOLOGY DOCUMENT SCAN Routine 04/30/2025 10:07 AM CDT XR FEMUR RIGHT 2 OR MORE VIEWS [...] Recently Relevant to Health Maintenance Results * Cardiology Document Scan (04/30/2025 10:07 AM CDT) Anatomical Region Laterality Modality Other us Jole Azevedo MD CV CARDIAC SERVICES PROCEDURES F inal Result * XR Femur Right 2 or More [...] ORDERABLES Final Res ult Performing Organization Address City/[facility]/ZIP Co de Phone Number [facility] Department [place] [address] * Vitamin D 25 hydroxy (04/26/2025 9:45 AM CDT) Vitamin D 25-OH 58 30 - 80 ng/mL Blood 04/26/2025 9:45 AM CDT 04/26/2025 10:10 AM CDT Ezekiel Frank MD LAB BLOOD ORDERABLES [place] [address] * Protein electrophoresis with reflex, serum with interpretation (04/26/2025 9:45 AM CDT) [facility] Protein, sr 7.2 6.2 - 8.2 g/dL Albumin 4.3 3.2 - 5.0 g/dL [facility] Alpha-1 globulin 0.2 0.2 - 0.4 g/dL [facility] Alpha-2 globulin 1.0 0.5 - 1.0 g/dL [facility] Beta-1 globulin 0.4 0.3 - 0.6 g/dL [facility] Beta-2 globulin 0.4 0.2 - 0.6 g/dL [facility] Gamma globulin 0.9 0.5 - 1.7 g/dL [facility] SPEP interp Please see comment [facility] Comment: No apparent monoclonal peak Reviewed and signed by Sylvia Arevalo MD, PhD 04/27/2025 Blood 04/26/2025 9:45 AM CDT 04/26/2025 10:10 AM CDT Ezekiel Frank MD LAB BLOOD ORDERABLES Final Res ult Performing Organization Address [facility] [place] [address] * Phosphorus (04/26/2025 9:45 AM CDT) [facility] Phosphorus, pl 3.9 2.3 - 4.5 mg/dL Blood 04/26/2025 9:45 AM CDT 04/26/2025 10:10 AM CDT Ezekiel Frank MD LAB BLOOD ORDERABLES Final Res ult Performing Organization Address [facility]/ZIP Co de Phone Number [facility] [place] [address] * PTH (04/26/2025 9:45 AM CDT) PTH 42 18 - 59 pg/mL Blood 04/26/2025 9:45 AM CDT 04/26/2025 10:08 AM CDT us Ezekiel Frank MD LAB BLOOD ORDERABLES Final Res ult [facility] Department [place] [address] * (ABNORMAL) Comprehensive metabolic panel (04/26/2025 9:45 AM CDT) Pathologist [facility] Sodium 138 135 - 145 mmol/L Potassium, pl 4.6 3.3 - 4.9 mmol/L [facility] Chloride 97 97 - 110 mmol/L [facility] CO2 32 22 - 32 mmol/L [facility] Anion gap 9 2 - 15 mmol/L [facility] BUN 25 6 - 25 mg/dL [facility] Creatinine 1.30(H) 0.60 - 1.10 mg/dL [facility] Glucose 116 70 - 199 mg/dL [facility] Comment: Interpretive Data Fasting glucose >/= 126 [...] 2022. Calcium 10.1 8.5 - 10.3 mg/dL [facility] Bilirubin, total 0.4 0.1 - 1.2 mg/dL [facility] Protein, pl 7.6 6.5 - 8.5 g/dL [facility] Albumin 4.4 3.5 - 5.0 g/dL [facility] Alk phos 65 40 - 130 Units/L [facility] ALT 25 7 - 45 Units/L [facility] AST 24 10 - 45 Units/L [facility] Blood 04/26/2025 9:45 AM CDT 04/26/2025 10:10 AM CDT us Ezekiel Frank MD LAB BLOOD ORDERABLES Final Res ult [facility] Department [place] [address] * Dexa TBS Axial Skeleton Bone Density 1 or more sites (04/26/2025 8:15 AM CDT) Anatomical Region Laterality Modality Wrist, Body N/A Radiographic Bonnie ging Narrative 04/26/2025 8:19 AM CDT Patient Name: Loren Bryan Date of : 1950 Date of scan: 04/26/2025 Bone mineral density was performed on a HoloAdStack Discovery Densitometer. Based on machine cross-calibration and [...] by the International Society of Clinical Densitometry. [id number] us Ezekiel Frank MD IMG DXA PROCEDURES Final Resul t * Hemoglobin A1c (12/26/2023 10:39 PM CDT) Hgb A1C 5.5 4.0 - 5.6 % Estimated Average Glucose 111 mg/dL [facility] Comment: The ADA recommends reporting an estimated [...] Johnson MD LAB BLOOD ORDERABLES Final Result [facility] Department [place] [address] from Last 3 Months or Most Recently Relevant to Health Maintenance Insurance [employer] MEDICARE GOLD MEDICARE AET SENIOR SUPPLEMENT [employer] MEDICARE GOLD TNA MEDICARE GOLD [employer] MEDICARE GOLD Advance Directives For more information, please contact: [phone] * Full Code (Latest Code Status on [...] 1:45 PM 12/23/2023 2:10 PM Care Teams Poultry Packer Relationship Specialty Start Date End Date Silvia Quinonez MD PCP - General Family Medicine 12/23/23 Silvia Quinonez MD Family Medicine 12/23/23
--- OUTSIDE RECORDS SUMMARY | 2025-05-15 13:08 | XMS_ITS | Encounter Summary ---
Author Organization [facility] Address [address] [place] [address] Care Team Providers Care Military Lawyer Name Role Phone Silvia Quinonez MD Primary Care Provider [phone] Encounter Details Date Type Department Care Team (Late st Contact Info) Description 11/10/2004 Outpatient Historical [facility] Support Services Cardiac [address] [place] [address] Padilla Christie MD Social History Tobacco Use Types Packs/Day Years Used Date Smoking Tobacco: Never Assessed Comments Unknown Sex and Gender Information Value Date Recorded Sex Assigned at Not on file Legal Sex Female 3:05 AM BLOCKER AUTOMATIC Gender Identity Not on file Sexual Orientation Not on file documented as of this encounter Plan of Treatment Upcoming Encounters Date Type Department Care Team (Late st Contact Info) Description 07/16/2025 10:00 AM BLOCKER AUTOMATIC Office Visit [facility] Oncology and Hematology - Reji [address] [place] [address] [facility] [address] [place] [address] [place] [address] [place] [address] [address] [place] [address] documented as of this encounter Visit Diagnoses Not on filedocumented in this encounter Care Teams Military Lawyer Relationship Specialty Start Date End Date Silvia Quinonez MD [address] [place] [phone] PCP - General Family Practice 11/02/24 No DME 09/02/15 documented as of this encounter
--- OUTSIDE RECORDS SUMMARY | 2025-05-15 13:08 | XMS_ITS | Encounter Summary ---
Author Organization [facility] Address [address] [place] [address] Care Team Providers Care Inspector Fabric Name Role Phone Silvia Quinonez MD Primary Care Provider [phone] Encounter Details Date Type Department Care Team (Latest Contact Info) Description 02/18/2006 Outpatient Historical [facility] Sam Machado MD [address] [place] [address] Other Screening Mammogram (Primary Dx) Social History Tobacco Use Types Packs/Day Years Used Date Smoking Tobacco: Never Assessed Comments Unknown Sex and Gender Information Value Date Recorded Sex Assigned at Not on file Legal Sex Female 3:05 AM TOP POLISHER Gender Identity Not on file Sexual Orientation Not on file documented as of this encounter Plan of Treatment Upcoming Encounters Date Type Department Care Team (Late st Contact Info) Description 07/16/2025 10:00 AM TOP POLISHER Office Visit [facility] Oncology and Hematology - Reji [address] [facility] [address] [place] [address] Quique Khalil MD [address] [facility] [address] [place] [address] documented as of this encounter Visit Diagnoses Diagnosis Other screening mammogram- Primary documented in this encounter Care Teams Inspector Fabric Relationship Specialty Start Date End Date Silvia Quinonez MD [address] [place] [phone] PCP - General Family Practice 11/02/24 No DME 09/02/15 documented as of this encounter
--- OUTSIDE RECORDS SUMMARY | 2025-05-15 13:08 | XMS_ITS | Encounter Summary ---
Author Organization [facility] Address [address] [place] [address] Care Team Providers Care Wheel Polisher Name Role Phone Silvia Quinonez MD Primary Care Provider [phone] Encounter Details Date Type Department Care Team (Late Contact Info) Description 06/15/2007 Outpatient Historical [facility] [address] [place] [address] Sam Machado MD [address] [place] [address] Social History Tobacco Use Types Packs/Day Years Used Date Smoking Tobacco: Never Assessed Comments Unknown Sex and Gender Information Value Date Recorded Sex Assigned at Not on file Legal Sex Female 3:05 AM SUSTAINABILITY SPECIALIST Gender Identity Not on file Sexual Orientation Not on file documented as of this encounter Plan of Treatment Upcoming Encounters Date Type Department Care Team (Late Contact Info) Description 07/16/2025 10:00 AM SUSTAINABILITY SPECIALIST Office Visit [facility] Oncology and Hematology - Reji [address] [facility] [address] [place] [address] Quique Khalil MD [address] [facility] [address] [place] [address] documented as of this encounter Visit Diagnoses Not on filedocumented in this encounter Care Teams Wheel Polisher Relationship Specialty Start Date End Date Silvia Quinonez MD [address] [place] [address] PCP - General Family Practice 5/1/25 No DME 09/02/15 documented as of this encounter
--- OUTSIDE RECORDS SUMMARY | 2025-05-15 13:08 | XMS_ITS | Encounter Summary ---
Author Organization [facility] Address [address] [place] [address] Care Team Providers Care News Anchor Name Role Phone Silvia Quinonez MD Primary Care Provider [phone] Encounter Details Date Type Department Care Team (Late Contact Info) Description 11/18/2004 Outpatient Historical [facility] [place] [facility] [place] [address] [place] [phone] Sam Machado MD [address] [place] [address] Social History Tobacco Use Types Packs/Day Years Used Date Smoking Tobacco: Never Assessed Comments Unknown Sex and Gender Information Value Date Recorded Sex Assigned at Not on file Legal Sex Female 3:05 AM STOKER INSTALLATION MECHANIC Gender Identity Not on file Sexual Orientation Not on file documented as of this encounter Plan of Treatment Upcoming Encounters Date Type Department Care Team (Late Contact Info) Description 07/16/2025 10:00 AM STOKER INSTALLATION MECHANIC Office Visit [facility] [place] Oncology and Hematology - Reji [address] [facility] 200 [place] [address] Quique Khalil MD 2[address] [facility] [address] [place] [address] documented as of this encounter Visit Diagnoses Not on filedocumented in this encounter Care Teams News Anchor Relationship Specialty Start Date End Date Silvia Quinonez MD [address] [place] [address] PCP - General Family Practice 5/1/25 No DME 09/02/15 documented as of this encounter
--- OUTSIDE RECORDS SUMMARY | 2025-05-15 13:08 | XMS_ITS | Encounter Summary ---
Author Organization [facility] Address [address] [place] [address] Care Team Providers Care Cmm Programmer Name Role Phone Silvia Quinonez MD Primary Care Provider [phone] Encounter Details Date Type Department Care Team (Late st Contact Info) Description 06/10/2001 Emergency [facility] Duc Goncalves MD [address] [place] [address] [place] [address] CRAMP IN LIMB (Primary Dx) Social History Tobacco Use Types Packs/Day Years Used Date Smoking Tobacco: Never Assessed Comments Unknown Sex and Gender Information Value Date Recorded Sex Assigned at Not on file Legal Sex Female 3:05 AM OUT OF TOWN COLLECTION CLERK Gender Identity Not on file Sexual Orientation Not on file documented as of this encounter Plan of Treatment Upcoming Encounters Date Type Department Care Team (Late st Contact Info) Description 07/16/2025 10:00 AM OUT OF TOWN COLLECTION CLERK Office Visit [facility] Oncology and Hematology - Reji 2227 [facility] 200 [place] [address] Quique Khalil MD [address] [facility] [address] [place] [address] documented as of this encounter Visit Diagnoses Diagnosis Cramp of limb- Primary documented in this encounter Care Teams Cmm Programmer Relationship Specialty Start Date End Date Silvia Quinonez MD [address] [place] [phone] PCP - General Family Practice 11/02/24 No DME 09/02/15 documented as of this encounter
--- OUTSIDE RECORDS SUMMARY | 2025-05-15 13:08 | XMS_ITS | Encounter Summary ---
Author Organization [facility] Address [address] [place] [address] Care Team Providers Care Assistant Product Manager Name Role Phone Silvia Quinonez MD Primary Care Provider [phone] Encounter Details Date Type Department Care Team (Late Contact Info) Description 06/10/2006 Outpatient Historical [facility] [place] [address] [place] [phone] Sam Machado MD [address] [place] [address] Social History Tobacco Use Types Packs/Day Years Used Date Smoking Tobacco: Never Assessed Comments Unknown Sex and Gender Information Value Date Recorded Sex Assigned at Not on file Legal Sex Female 3:05 AM TUMBLER MACHINE OPERATOR HELPER Gender Identity Not on file Sexual Orientation Not on file documented as of this encounter Plan of Treatment Upcoming Encounters Date Type Department Care Team (Late Contact Info) Description 07/16/2025 10:00 AM TUMBLER MACHINE OPERATOR HELPER Office Visit [facility] Oncology and Hematology - Reji [address] [facility] 200 [place] [address] Quique Khalil MD 2227 [facility] [address] [place] [address] documented as of this encounter Visit Diagnoses Not on filedocumented in this encounter Care Teams Assistant Product Manager Relationship Specialty Start Date End Date Silvia Quinonez MD [address] [place] [address] PCP - General Family Practice 5/1/25 No DME 09/02/15 documented as of this encounter
--- OUTSIDE RECORDS SUMMARY | 2025-05-15 13:08 | XMS_ITS | Encounter Summary ---
Author Organization [facility] Address [address] [place] [address] Care Team Providers Care Burr Bench Operator Name Role Phone Silvia Quinonez MD Primary Care Provider [phone] Encounter Details Date Type Department Care Team (Latest Contact Info) Description 02/07/2004 Outpatient Historical [facility] Jocy Espinal MD NO ADDRESS ON FILE SCREENING MAMM-MAILG NEOPL-OTHER (Primary Dx) Social History Tobacco Use Types Packs/Day Years Used Date Smoking Tobacco: Never Assessed Comments Unknown Sex and Gender Information Value Date Recorded Sex Assigned at Not on file Legal Sex Female 3:05 AM AUTOMATION ARCHITECT Gender Identity Not on file Sexual Orientation Not on file documented as of this encounter Plan of Treatment Upcoming Encounters Date Type Department Care Team (Late st Contact Info) Description 07/16/2025 10:00 AM AUTOMATION ARCHITECT Office Visit [facility] Oncology and Hematology - Reji [address] [place] [address] [facility] 200 [place] [address] Quique Khalil MD [address] [facility] [address] [place] [address] documented as of this encounter Visit Diagnoses Diagnosis Other screening mammogram- Primary documented in this encounter Care Teams Burr Bench Operator Relationship Specialty Start Date End Date Silvia Quinonez MD [address] [place] [phone] PCP - General Family Practice 11/02/24 No DME 09/02/15 documented as of this encounter
--- OUTSIDE RECORDS SUMMARY | 2025-05-15 13:08 | XMS_ITS | Encounter Summary ---
Author Organization [facility] Address [address] [place] [address] Care Team Providers Care Administrative Office Manager Name Role Phone Silvia Quinonez MD Primary Care Provider [phone] Encounter Details Date Type Department Care Team (Late Contact Info) Description 06/15/2007 Outpatient Historical [facility] [place] [address] [place] [address] Sam Machado MD [address] [place] [address] Social History Tobacco Use Types Packs/Day Years Used Date Smoking Tobacco: Never Assessed Comments Unknown Sex and Gender Information Value Date Recorded Sex Assigned at Not on file Legal Sex Female 3:05 AM HYDRAULIC MINER Gender Identity Not on file Sexual Orientation Not on file documented as of this encounter Plan of Treatment Upcoming Encounters Date Type Department Care Team (Late Contact Info) Description 07/16/2025 10:00 AM HYDRAULIC MINER Office Visit [facility] Oncology and Hematology - Reji [address] [facility] 200 [place] [address] Quique Khalil MD 2227 [facility] [address] [place] [address] documented as of this encounter Visit Diagnoses Not on filedocumented in this encounter Care Teams Administrative Office Manager Relationship Specialty Start Date End Date Silvia Quinonez MD [address] [place] [address] PCP - General Family Practice 5/1/25 No DME 09/02/15 documented as of this encounter
--- OUTSIDE RECORDS SUMMARY | 2025-05-15 13:08 | XMS_ITS | Encounter Summary ---
Author Organization [facility] Address [address] [place] [address] Care Team Providers Care Special Forces Specialist Name Role Phone Silvia Quinonez MD Primary Care Provider [phone] Encounter Details Date Type Department Care Team (Latest Contact Info) Description 02/28/2008 Outpatient Historical [facility] Ora Machado MD [address] [place] [address] Other Screening Mammogram Social History Tobacco Use Types Packs/Day Years Used Date Smoking Tobacco: Never Assessed Comments Unknown Sex and Gender Information Value Date Recorded Sex Assigned at Not on file Legal Sex Female 3:05 AM DREDGE PUMP OPERATOR Gender Identity Not on file Sexual Orientation Not on file documented as of this encounter Plan of Treatment Upcoming Encounters Date Type Department Care Team (Late st Contact Info) Description 07/16/2025 10:00 AM DREDGE PUMP OPERATOR Office Visit [facility] Oncology and Hematology - Reji 2[address] [facility] 200 [place] [phone] Quique Khalil MD 2227 [facility] [address] [place] [address] documented as of this encounter Procedures Procedure Name Priority Date/Time Associated Diagnosis Comments MAMMO SCREEN BILAT W OR WO CAD Timed Study 02/28/2008 9:06 AM CDT documented in this encounter Results * MAMMO DIGITAL SCREEN BILAT (02/28/2008 9:06 AM CDT) Anatomical Region Laterality Modality Breast Bilateral Other 02/28/2008 9:06 AM CDT Narrative 03/01/2008 8:15 AM CDT [address] [address] Admit Date: 02/28/2008 TYRONE REID Sex: F Admit Prov: ORA MACHADO Date: 1950 Primary Care Prov: BIB MACHUCA CMRN: [id number] [id number] Ordering Prov: ORA MACHADO Accession Number: [id number] Interpretation BILATERAL SCREENING DIGITAL MAMMOGRAMS WITH COMPUTER [...] Procedure Note Gabino Worthington MD - 03/01/[address] [address] Admit Date: 02/28/2008 TYRONE REID Sex: F Admit Prov: ORA MACHADO Date: 1950 Primary Care Prov: BIB MACHUCA CMRN: [id number] [id number] [facility] Ordering Prov: ORA MACHADO Interpretation [...] mammogram documented in this encounter Care Teams Special Forces Specialist Relationship Specialty Start Date End Date Silvia Quinonez MD [address] [place] [phone] PCP - General Family Practice 11/02/24 No DME 09/02/15 documented as of this encounter
--- OUTSIDE RECORDS SUMMARY | 2025-05-15 13:08 | XMS_ITS | Encounter Summary ---
Author Organization [facility] Address [address] [place] [address] Care Team Providers Care Inorganic Chemistry Professor Name Role Phone Silvia Quinonez MD Primary Care Provider [phone] Encounter Details Date Type Department Care Team (Late st Contact Info) Description 05/18/2000 Outpatient Historical [facility] Internal Medicine [address] [facility] [address] [place] [address] Jens Lora MD NO ADDRESS ON FILE Social History Tobacco Use Types Packs/Day Years Used Date Smoking Tobacco: Never Assessed Comments Unknown Sex and Gender Information Value Date Recorded Sex Assigned at Not on file Legal Sex Female 3:05 AM THIRD HELPER Gender Identity Not on file Sexual Orientation Not on file documented as of this encounter Plan of Treatment Upcoming Encounters Date Type Department Care Team (Late st Contact Info) Description 07/16/2025 10:00 AM THIRD HELPER Office Visit [facility] Oncology and Hematology - Reji [address] [facility] 200 [place] [address] Quique Khalil MD 2227 [facility] [address] [place] [address] documented as of this encounter Visit Diagnoses Not on filedocumented in this encounter Care Teams Inorganic Chemistry Professor Relationship Specialty Start Date End Date Silvia Quinonez MD [address] [place] [phone] PCP - General Family Practice 11/02/24 No DME 09/02/15 documented as of this encounter
--- OUTSIDE RECORDS SUMMARY | 2025-05-15 13:08 | XMS_ITS | Encounter Summary ---
Author Organization [facility] Address [address] [place] [address] Care Team Providers Care In Shop Service Technician Name Role Phone Silvia Quinonez MD Primary Care Provider [phone] Encounter Details Date Type Department Care Team (Late Contact Info) Description 11/28/2004 Outpatient Historical [facility] [place] [address] [place] [address] Sam Machado MD [address] [place] [address] Social History Tobacco Use Types Packs/Day Years Used Date Smoking Tobacco: Never Assessed Comments Unknown Sex and Gender Information Value Date Recorded Sex Assigned at Not on file Legal Sex Female 3:05 AM ROUTE SERVICE REPRESENTATIVE Gender Identity Not on file Sexual Orientation Not on file documented as of this encounter Plan of Treatment Upcoming Encounters Date Type Department Care Team (Late st Contact Info) Description 07/16/2025 10:00 AM ROUTE SERVICE REPRESENTATIVE Office Visit [facility] Oncology and Hematology - Reji [address] [facility] 200 [place] [address] Quique Khalil MD 2[address] [facility] [address] [place] [address] documented as of this encounter Visit Diagnoses Not on filedocumented in this encounter Care Teams In Shop Service Technician Relationship Specialty Start Date End Date Silvia Quinonez MD [address] [place] [address] PCP - General Family Practice 5/1/25 No DME 09/02/15 documented as of this encounter
--- OUTSIDE RECORDS SUMMARY | 2025-05-15 13:08 | XMS_ITS | Encounter Summary ---
Author Organization [facility] Address [address] [place] [address] Care Team Providers Care Horse Stud Worker Name Role Phone Silvia Quinonez MD Primary Care Provider [phone] Encounter Details Date Type Department Care Team (Late Contact Info) Description 10/16/2004 Outpatient Historical [facility] [place] [address] [place] [phone] aSm Machado MD [address] [place] [address] Social History Tobacco Use Types Packs/Day Years Used Date Smoking Tobacco: Never Assessed Comments Unknown Sex and Gender Information Value Date Recorded Sex Assigned at Not on file Legal Sex Female 3:05 AM ECG TECHNICIAN Gender Identity Not on file Sexual Orientation Not on file documented as of this encounter Plan of Treatment Upcoming Encounters Date Type Department Care Team (Late st Contact Info) Description 07/16/2025 10:00 AM ECG TECHNICIAN Office Visit [facility] Oncology and Hematology - Reji [address] [facility] 200 [place] [address] Quique Khalil MD 2[address] [facility] [address] [place] [address] documented as of this encounter Visit Diagnoses Not on filedocumented in this encounter Care Teams Horse Stud Worker Relationship Specialty Start Date End Date Silvia Quinonez MD [address] [place] [address] PCP - General Family Practice 5/1/25 No DME 09/02/15 documented as of this encounter
--- OUTSIDE RECORDS SUMMARY | 2025-05-15 13:08 | XMS_ITS | Encounter Summary ---
Author Organization [facility] Address [address] [place] [address] Care Team Providers Care Film Spooler Name Role Phone Silvia Quinonez MD Primary Care Provider [phone] Encounter Details Date Type Department Care Team (Late Contact Info) Description 06/10/2006 Outpatient Historical [facility] [place] [address] [place] [phone] Sam Machado MD [address] [place] [address] Social History Tobacco Use Types Packs/Day Years Used Date Smoking Tobacco: Never Assessed Comments Unknown Sex and Gender Information Value Date Recorded Sex Assigned at Not on file Legal Sex Female 3:05 AM CRUSHER LOADER OPERATOR Gender Identity Not on file Sexual Orientation Not on file documented as of this encounter Plan of Treatment Upcoming Encounters Date Type Department Care Team (Late Contact Info) Description 07/16/2025 10:00 AM CRUSHER LOADER OPERATOR Office Visit [facility] Oncology and Hematology - Reji [address] [facility] 200 [place] [address] Quique Khalil MD 2227 [facility] [address] [place] [address] documented as of this encounter Visit Diagnoses Not on filedocumented in this encounter Care Teams Film Spooler Relationship Specialty Start Date End Date Silvia Quinonez MD [address] [place] [address] PCP - General Family Practice 5/1/25 No DME 09/02/15 documented as of this encounter
--- OUTSIDE RECORDS SUMMARY | 2025-05-15 13:08 | XMS_ITS | Encounter Summary ---
Author Organization [facility] Address [address] [place] [address] Care Team Providers Care Molecular Biology Scientist Name Role Phone Silvia Quinonez MD Primary Care Provider [phone] Encounter Details Date Type Department Care Team (Late Contact Info) Description 10/08/2004 Outpatient Historical [facility] [place] [address] [place] [address] Sam Machado MD [address] [place] [address] Social History Tobacco Use Types Packs/Day Years Used Date Smoking Tobacco: Never Assessed Comments Unknown Sex and Gender Information Value Date Recorded Sex Assigned at Not on file Legal Sex Female 3:05 AM AVP Gender Identity Not on file Sexual Orientation Not on file documented as of this encounter Plan of Treatment Upcoming Encounters Date Type Department Care Team (Late st Contact Info) Description 07/16/2025 10:00 AM AVP Office Visit [facility] Oncology and Hematology - Reji [address] [facility] 200 [place] [address] Quique Khalil MD 2227 [facility] [address] [place] [address] documented as of this encounter Visit Diagnoses Not on filedocumented in this encounter Care Teams Molecular Biology Scientist Relationship Specialty Start Date End Date Silvia Quinonez MD [address] [place] [address] PCP - General Family Practice 5/1/25 No DME 09/02/15 documented as of this encounter
--- OUTSIDE RECORDS SUMMARY | 2025-05-15 13:08 | XMS_ITS | Encounter Summary ---
Author Organization [facility] Address [address] [place] [address] Care Team Providers Care Slip Operator Name Role Phone Silvia Quinonez MD Primary Care Provider [phone] Encounter Details Date Type Department Care Team (Late st Contact Info) Description 08/18/2000 Outpatient Historical [facility] Primary [facility] Internal Medicine [address] [facility] [address] [place] [address] Jens Lora MD NO ADDRESS ON FILE Social History Tobacco Use Types Packs/Day Years Used Date Smoking Tobacco: Never Assessed Comments Unknown Sex and Gender Information Value Date Recorded Sex Assigned at Not on file Legal Sex Female 3:05 AM FUR COMBER Gender Identity Not on file Sexual Orientation Not on file documented as of this encounter Plan of Treatment Upcoming Encounters Date Type Department Care Team (Late st Contact Info) Description 07/16/2025 10:00 AM FUR COMBER Office Visit [facility] Oncology and Hematology - Reji [address] [facility] 200 [place] [address] Quique Khalil MD [address] [facility] [address] [place] [address] documented as of this encounter Visit Diagnoses Not on filedocumented in this encounter Care Teams Slip Operator Relationship Specialty Start Date End Date Silvia Quinonez MD [address] [place] [phone] PCP - General Family Practice 11/02/24 No DME 09/02/15 documented as of this encounter
--- OUTSIDE RECORDS SUMMARY | 2025-05-15 13:08 | XMS_ITS | Clinical Summary ---
Author Organization [facility] Address [address] [place] [address] Care Team Providers Care Fisher Trot Line Name Role Phone Silvia Quinonez MD Primary Care Provider [phone] Source Comments [facility],non-owned Affiliates and Associated Physician Practices is amultiple site organization consisting of ambulatory clinics and hospital sitesin [place], [place], [place] and [place]. This disclosure is being madepursuant to the Care Everywhere program and may not contain all information available regarding this patient. Last updated 18.[facility] Allergies Active Allergy Reactions Criticality Noted Date [...] Active naltrexone (REVIA) 50 MG tablet Active [place]-3 Fatty Acids (FISH OIL DELAYED RELEASE) 1000 [...] on file Legal Sex Female 7:35 AM PARASITOLOGIST Gender Identity Not on file Sexual Orientation [...] complete this topic Insurance MEDICARE [employer]ET[employer] MEDICARE [facility] Care Teams Fisher Trot Line Relationship Specialty Start Date End Date Silvia Quinonez MD [address] [place] [address] PCP - General Family Medicine 09/19/21
--- OUTSIDE RECORDS SUMMARY | 2025-05-15 13:08 | XMS_ITS | Encounter Summary ---
Author Organization [facility] Address [address] [place] [address] Care Team Providers Care Eligibility Supervisor Name Role Phone Silvia Quinonez MD Primary Care Provider [phone] Encounter Details Date Type Department Care Team (Latest Contact Info) Description 02/18/2005 Outpatient Historical [facility] Jocy Espinal MD NO ADDRESS ON FILE SCREENING MAMM-MAILG NEOPL-OTHER (Primary Dx) Social History Tobacco Use Types Packs/Day Years Used Date Smoking Tobacco: Never Assessed Comments Unknown Sex and Gender Information Value Date Recorded Sex Assigned at Not on file Legal Sex Female 3:05 AM MANAGED CARE DIRECTOR Gender Identity Not on file Sexual Orientation Not on file documented as of this encounter Plan of Treatment Upcoming Encounters Date Type Department Care Team (Late st Contact Info) Description 07/16/2025 10:00 AM MANAGED CARE DIRECTOR Office Visit [facility] Oncology and Hematology - Reji [address] [place] [address] [facility] 200 [place] [address] Quique Khalil MD [address] [facility] [address] [place] [address] documented as of this encounter Visit Diagnoses Diagnosis Other screening mammogram- Primary documented in this encounter Care Teams Eligibility Supervisor Relationship Specialty Start Date End Date Silvia Quinonez MD [address] [place] [phone] PCP - General Family Practice 11/02/24 No DME 09/02/15 documented as of this encounter
--- OUTSIDE RECORDS SUMMARY | 2025-05-15 13:08 | XMS_ITS | Encounter Summary ---
Author Organization [facility] Address [address] [place] [address] Care Team Providers Care Manager Training Name Role Phone Silvia Quinonez MD Primary Care Provider [phone] Encounter Details Date Type Department Care Team (Latest Contact Info) Description 03/17/2005 Outpatient Historical [facility] Gunjan Szymanski MD NO ADDRESS ON FILE ABNORM ELECTROMYOGRAM (Primary Dx) Social History Tobacco Use Types Packs/Day Years Used Date Smoking Tobacco: Never Assessed Comments Unknown Sex and Gender Information Value Date Recorded Sex Assigned at Not on file Legal Sex Female 3:05 AM MANUFACTURING PLANT MANAGER Gender Identity Not on file Sexual Orientation Not on file documented as of this encounter Plan of Treatment Upcoming Encounters Date Type Department Care Team (Late st Contact Info) Description 07/16/2025 10:00 AM MANUFACTURING PLANT MANAGER Office Visit [facility] Oncology and Hematology - Reji [address] [facility] [address] [place] [address] Quique Khalil MD [address] [facility] [address] [place] [address] documented as of this encounter Visit Diagnoses Diagnosis Nonspecific abnormal electromyogram (EMG)- Primary documented in this encounter Care Teams Manager Training Relationship Specialty Start Date End Date Silvia Quinonez MD [address] [place] [address] PCP - General Family Practice 11/02/24 No DME 09/02/15 documented as of this encounter
--- OUTSIDE RECORDS SUMMARY | 2025-05-15 13:08 | XMS_ITS | Encounter Summary ---
Author Organization [facility] Address [address] [place] [address] Care Team Providers Care Fish Trapper Name Role Phone Silvia Quinonez MD Primary Care Provider [phone] Encounter Details Date Type Department Care Team (Latest Contact Info) Description 07/31/2008 Outpatient Historical [facility] Loco Starr MD [address] [place] [address] [address] [place] [address] Jayce Orellana MD [address] [facility] [address] [place] [address] Other and Unspecified Angina Pectoris Social History Tobacco Use Types Packs/Day Years Used Date Smoking Tobacco: Never Assessed Comments Unknown Sex and Gender Information Value Date Recorded Sex Assigned at Not on file Legal Sex Female 3:05 AM PLATING AND POINT ASSEMBLY SUPERVISOR Gender Identity Not on file Sexual Orientation Not on file documented as of this encounter Plan of Treatment Upcoming Encounters Date Type Department Care Team (Late st Contact Info) Description 07/16/2025 10:00 AM PLATING AND POINT ASSEMBLY SUPERVISOR Office Visit [facility] Oncology and Hematology - Reji [address] [facility] [address] [place] [address] Quique Khalil MD [address] [facility] [address] [place] [address] documented as of this encounter Visit Diagnoses Diagnosis Other and unspecified angina pectoris documented in this encounter Care Teams Fish Trapper Relationship Specialty Start Date End Date Silvia Quinonez MD [address] [place] [address] PCP - General Family Practice 11/02/24 No DME 09/02/15 documented as of this encounter
--- OUTSIDE RECORDS SUMMARY | 2025-05-15 13:08 | XMS_ITS | Encounter Summary ---
Author Organization [facility] Address [address] [place] [address] Care Team Providers Care Patient Care Specialist Name Role Phone Silvia Quinonez MD Primary Care Provider [phone] Encounter Details Date Type Department Care Team (Late Contact Info) Description 11/10/2004 Outpatient Historical [facility] [place] [address] [place] [address] Sam Machado MD [address] [place] [address] Social History Tobacco Use Types Packs/Day Years Used Date Smoking Tobacco: Never Assessed Comments Unknown Sex and Gender Information Value Date Recorded Sex Assigned at Not on file Legal Sex Female 3:[address]CHNOLOGIST Gender Identity Not on file Sexual Orientation Not on file documented as of this encounter Plan of Treatment Upcoming Encounters Date Type Department Care Team (Late st Contact Info) Description 07/16/2025 10:[address] TECHNOLOGIST Office Visit [facility] Oncology and Hematology - Reji [address] [facility] [address] [place] [address] Quique Khalil MD [address] [facility] [address] [place] [address] documented as of this encounter Visit Diagnoses Not on filedocumented in this encounter Care Teams Patient Care Specialist Relationship Specialty Start Date End Date Silvia Quinonez MD [address] [place] [address] PCP - General Family Practice 5/1/25 No DME 09/02/15 documented as of this encounter
--- OUTSIDE RECORDS SUMMARY | 2025-05-15 13:08 | XMS_ITS | Encounter Summary ---
Author Organization [facility] Address [address] [place] [address] Care Team Providers Care Signal Operator Name Role Phone Silvia Quinonez MD Primary Care Provider [phone] Encounter Details Date Type Department Care Team (Late st Contact Info) Description 03/24/2006 Outpatient Historical [facility] Latonia Scott MD [address] [place] [address] Localized Superficial Swelling, Mass, or Lump (Primary Dx) Social History Tobacco Use Types Packs/Day Years Used Date Smoking Tobacco: Never Assessed Comments Unknown Sex and Gender Information Value Date Recorded Sex Assigned at Not on file Legal Sex Female 3:05 AM CLIP BOLTER AND WRAPPER Gender Identity Not on file Sexual Orientation Not on file documented as of this encounter Plan of Treatment Upcoming Encounters Date Type Department Care Team (Late st Contact Info) Description 07/16/2025 10:00 AM CLIP BOLTER AND WRAPPER Office Visit [facility] Oncology and Hematology - Reji [address] [facility] [address] [place] [address] Quique Khalil MD [address] [facility] [address] [place] [address] documented as of this encounter Visit Diagnoses Diagnosis Localized superficial swelling, mass, or lump- Primary documented in this encounter Care Teams Signal Operator Relationship Specialty Start Date End Date Silvia Quinonez MD [address] [place] [address] PCP - General Family Practice 11/02/24 No DME 09/02/15 documented as of this encounter
--- OUTSIDE RECORDS SUMMARY | 2025-05-15 13:08 | XMS_ITS | Patient Health Record ---
Author Organization [facility] [employer] [facility] ([address]) Address [address] [place] [address] Care Team Providers Care Medical Records Library Professor Name Role Phone Silvia Quinonez Primary Care Provider Elva Whiteside Unavailable [phone] Allergies No Known Allergies Results Component Value Reference Range Notes Spirometry Reviewed date: Interpretation:Normal Performing Lab: Notes/Report: Normal SpiroPreBronchodilator_FVC 2.53 SpiroPostBronchodilator_FEF25_75 0 SpiroPreBronchodilator_FEF25_75 2.17 SpiroPreBronchodilator_FEV1 2.03 SpiroPrecentPredictionPost_FEF25_75 0 SpiroPrecentPredictionPost_FEV1 0 SpiroPrecentPredictionPost_FEV1_OVER_FVC 0 SpiroPrecentPredictionPost_FVC 0 SpiroPrecentPredictionPre_FEF25_75 119.9 SpiroPrecentPredictionPre_FEV1 90.6 SpiroPrecentPredictionPre_FEV1_OVER_FVC 108.6 SpiroPrecentPredictionPre_FVC 83.8 SpiroPredicted_FEF25_75 1.81 SpiroPreBronchodilator_FEV1_OVER_FVC 80.18 SpiroPreBronchodilator_PEF 3.21 SpiroPostBronchodilator_FVC 0 SpiroPostBronchodilator_FEV1 0 SpiroPostBronchodilator_FEV1_OVER_FVC 0 SpiroPostBronchodilator_PEF 0 SpiroPredicted_FVC 3.02 SpiroPredicted_FEV1 2.24 SpiroPredicted_FEV1_OVER_FVC 73.82 SpiroPredicted_PEF 5.6 -TSH Rfx on Abnormal to Free T4 Reviewed date:08/31/2024 11:44:33 AM Interpretation:Abnormal Performing Lab:[address] [id number], Phone - [phone], Director - [facility] Notes/Report: TSH 4.800 0.450-4.500 uIU/mL T4,Free (Direct) 1.35 0.82-1.77 ng/dL -CMP (14) Reviewed date:08/31/2024 11:44:49 AM Interpretation:Abnormal [facility]forming [facility] [address] [place] [id number], Phone - [phone], Director - [facility] Notes/Report: Glucose 102 70-99 mg/dL BUN [...] 0-40 IU/L ALT (SGPT) 20 0-32 IU/L -CBC With Differential/Plate let Reviewed date:08/31/2024 11:47:08 AM Interpretation:Normal Performing Lab:[facility], [address] [place] [id number], Phone - [phone], Director - [facility] Notes/Report: WBC 7.4 3.4-10.8 x10E3/uL RBC 4.67 [...] % Immature Grans (Abs) 0.0 0.0-0.1 x10E3/uL Spirometry Reviewed date: Interpretation: Performing Lab: Notes/Report: [...] W/U Status Risk Notes Problem Allergic rhinitis (03442098) Other allergic rhinitis (J30.89) Active confirmed Problem Chronic rhinitis (15309906) Chronic rhinitis (J31.0) Active confirmed Vital Signs Blood pressure diastolic 73 mm Hg 11/07/2024 Oximetry 100 % 11/07/2024 Height 66 in 11/07/2024 Blood pressure systolic 134 mm Hg 11/07/2024 Weight 157.8 lbs 11/07/2024 BMI 25.47 kg/m2 11/07/2024 Encounters Encounter Location Date Provider Diagnosis [facility] [address] [facility] [address] [place] [address] 10/10/2024 Elva Luna Dermatitis, unspecified L30.9 ; Cough, unspecified R05.9 ; Other allergic rhinitis J30.89 and Pruritus, unspecified L29.9 [facility] [address] [place] [address] 11/07/2024 Elva Jeremy Dermatitis, unspecified L30.9 ; Cough, unspecified R05.9 ; Other allergic rhinitis J30.89 and Pruritus, unspecified L29.9 [facility] [address] [place] [address] 08/29/2024 Elva Jeremy Other allergic rhinitis J30.89 ; Dermatitis, unspecified L30.9 and Pruritus, unspecified L29.[address] [place] [address] 11/08/2024 Elva Jeremy [facility] [address] [place] [address] 08/31/2024 Elva Jeremy [address] [place] [address] 12/04/2024 Elva Jeremy Cough, unspecified R05.[address] [place] [address] 11/23/2024 Elva Jeremy Cough, unspecified R05.9 Assessments [...] Coverage End Date [employer] [address] [place] [address] [id number] L Loren Bryan Self - patient is the insured 5 Medical (General) History Medical History History ICD Code high blood pressure Type II diabetes Macular degeneration Osteoporosis Eczema Surgical History Surgery Date(Month/Year) knee replacement 2022 gastric bypass 1997 lower leg surgery 2019 Hospitalization History Reason Date(Month/Year) See Above
--- OUTSIDE RECORDS SUMMARY | 2025-05-15 13:09 | XMS_ITS | Encounter Summary ---
Author Organization [facility] Address [address] [facility] Attn: Epic Prelude ADT [place] [address] Care Team Providers Care Measurement And Verification Engineer Name Role Phone Silvia Quinonez MD Primary Care Provider [phone] Encounter Details Date Type Department Care Team (Late st Contact Info) Description 09/17/1994 Outpatient Historical Josr Toledo MD NO ADDRESS ON FILE Social History Tobacco Use Types Packs/Day Years Used Date Smoking Tobacco: Never Assessed Comments Unknown Sex and Gender Information Value Date Recorded Sex Assigned at Not on file Legal Sex Female 3:05 AM TREE FRUIT AND NUT CROPS FARMER Gender Identity Not on file Sexual Orientation Not on file documented as of this encounter Plan of Treatment Upcoming Encounters Date Type Department Care Team (Late st Contact Info) Description 07/16/2025 10:00 AM TREE FRUIT AND NUT CROPS FARMER Office Visit [facility] Oncology and Hematology - Reji [address] [facility] [address] [place] [address] Quique Khalil MD [address] [facility] [address] [place] [address] documented as of this encounter Visit Diagnoses Not on filedocumented in this encounter Care Teams Measurement And Verification Engineer Relationship Specialty Start Date End Date Silvia Quinonez MD [address] [place] [address] PCP - General Family Practice 11/02/24 No DME 09/02/15 documented as of this encounter
--- OUTSIDE RECORDS SUMMARY | 2025-05-15 13:09 | XMS_ITS | Encounter Summary ---
Author Organization [facility] Address [address] [place] [address] Care Team Providers Care Gyroscopic Instrument Mechanic Name Role Phone Silvia Quinonez MD Primary Care Provider [phone] Encounter Details Date Type Department Care Team (Latest Contact Info) Description 09/21/2002 Outpatient Historical [facility] Loco Ahn MD [address] [place] [address] ABDOMINAL PAIN RUQ (Primary Dx) Social History Tobacco Use Types Packs/Day Years Used Date Smoking Tobacco: Never Assessed Comments Unknown Sex and Gender Information Value Date Recorded Sex Assigned at Not on file Legal Sex Female 3:05 AM GREEN INSPECTOR Gender Identity Not on file Sexual Orientation Not on file documented as of this encounter Plan of Treatment Upcoming Encounters Date Type Department Care Team (Late st Contact Info) Description 07/16/2025 10:00 AM GREEN INSPECTOR Office Visit [facility] Oncology and Hematology - Reji [address] [facility] [address] [place] [address] Quique Khalil MD [address] [facility] [address] [place] [address] documented as of this encounter Visit Diagnoses Diagnosis Abdominal pain, right upper quadrant- Primary documented in this encounter Care Teams Gyroscopic Instrument Mechanic Relationship Specialty Start Date End Date Silvia Quinonez MD [address] [place] [address] PCP - General Family Practice 11/02/24 No DME 09/02/15 documented as of this encounter
--- OUTSIDE RECORDS SUMMARY | 2025-05-15 13:09 | XMS_ITS | Encounter Summary ---
Author Organization [facility] Address [address] [place] [address] Care Team Providers Care Help Desk Internship Name Role Phone Silvia Quinonez MD Primary Care Provider [phone] Encounter Details Date Type Department Care Team (Latest Contact Info) Description 04/23/[address] [facility] Marquez, Tiffanie Barrett MD [address] [facility] [address] [place] [address] OTHER MALAISE AND FATIGUE (Primary Dx) Social History Tobacco Use Types Packs/Day Years Used Date Smoking Tobacco: Never Assessed Comments Unknown Sex and Gender Information Value Date Recorded Sex Assigned at Not on file Legal Sex Female 3:05 AM DEMAND PLANNING ANALYST Gender Identity Not on file Sexual Orientation Not on file documented as of this encounter Plan of Treatment Upcoming Encounters Date Type Department Care Team (Late st Contact Info) Description 07/16/2025 10:00 AM DEMAND PLANNING ANALYST Office Visit [facility] Oncology and Hematology - Reji [address] [facility] [address] [place] [address] Quique Khalil MD [address] [facility] [address] [place] [address] documented as of this encounter Visit Diagnoses Diagnosis Other malaise and fatigue- Primary documented in this encounter Care Teams Help Desk Internship Relationship Specialty Start Date End Date Silvia uQinonez MD [address] [place] [address] PCP - General Family Practice 11/02/24 No DME 09/02/15 documented as of this encounter
--- OUTSIDE RECORDS SUMMARY | 2025-05-15 13:09 | XMS_ITS | Encounter Summary ---
Author Organization [facility] Address [address] [place] [address] Phone Care Team Providers Care Inspector Name Role Phone Silvia Quinonez MD Primary Care Provider [phone] Silvia Quinonez MD Unavailable [phone] Encounter Details Date Type Department Care Team (Late st Contact Info) Description 04/26/2025 Results Follow-Up [facility] [address] [facility] 13th [place] [address] [place] [address] Ezekiel Frank MD [address] [address] XR Femur Right 2 or More Views, Comprehensive metabolic panel, Vitamin D 25 hydroxy, Additional followed-up results: 4 Social History Tobacco Use Types Packs/Day Years Used Date Smoking Tobacco: Former Cigarettes Smokeless Tobacco: Never [facility] Utilities Answer Date Recorded In the past 12 months has e electric, gas, oil, or water company threatened [...] week 12/23/2023 How often do you attend [facility] or mu-ism services? More than 4 times per year 12/23/2023 Do you belong to any clubs o r organizations such as jehovah's witness groups, unions, fraternal or athletic groups, or [...] and heating? Not hard at all 12/23/2023 [facility] [place] [facility] - Occupational Stress [...] on file Legal Sex Female 8:58 PM ADDICTION SOCIAL WORKER Gender Identity Female 12/16/2020 9:45 PM CDT Sexual Orientation Not on file documented as of this encounter Miscellaneous Notes * Result Encounter Note - Ezekiel Frank MD - 04/30/2025 4:00 PM CDT Good news this test looking for bone marrow problems is NEGATIVE. * Result Encounter Note - Ezekiel Frank MD - 04/26/2025 1:20 PM CDT The right leg looks fine documented in this encounter Plan of Treatment Not on file documented as of this encounter Visit Diagnoses Not on filedocumented in this encounter Care Teams Inspector Relationship Specialty Start Date End Date Silvia Quinonez MD PCP - General Family Medicine 12/23/23 Silvia Quinonez MD Family Medicine 12/23/23 documented as of this encounter
--- OUTSIDE RECORDS SUMMARY | 2025-05-15 13:09 | XMS_ITS | Clinical Summary ---
Author Organization [facility] Address [address] [place] [address] Phone Care Team Providers Care Brand Sales Consultant Name Role Phone Silvia Quinonez MD Primary Care Provider [phone] Allergies Active Allergy Reactions Criticality Noted Date Comments Unclassified Drug Unknown 05/22/2009 SURGICAL MESH Medications vit C-vit F-iqgkfo-cgnc OXIDE-lutein (PRESERVISION) 226-90-0.8-5 mg Capsule Take 1 [...] Take by mouth 2 times daily. Active docusate sodium (COLACE) 100 mg [...] INJECTIONS 3 Each 3 04/18/20 25 Active amLODIPine (NORVASC) 10 mg tablet Take 1 Tablet by mouth daily. 02/09/20 25 Active NALTREXONE, BULK, MISC Take 2.5 mg by mouth daily. 03/02/20 25 Active traZODone (DESYREL) 50 mg tablet Take 50 mg by mouth daily at bedtime. Active atorvastatin (LIPITOR) 10 mg tablet Take 1 Tablet by mouth daily. 05/04/20 25 Active Cholecalcifero l, Vitamin D3, 50 mcg (2,000 unit) Capsule Take 2,000 Units by mouth daily. Active famotidine (PEPCID) 40 mg tablet Take 1 Tablet by mouth 2 times daily. 01/19/20 25 Active Magnesium Citrate Powder by Misc.(Non-Drug; Combo Route) route. 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 (Primary Dx); Aortic valve stenosis, etiology of cardiac valve disease unspecified 04/18/2025 3:45 PM CDT Office Visit [facility] Oncology and Hematology - [place] [address] [place] [address] Quique Khalil MD Chronic anemia 04/18/2025 Orders Only [facility] Oncology and Hematology - [place] [address] [place] [address] Quique Khalil MD from Last 3 Months [...] Healthy Daughter Heike Heart Disease Mother Christina [place] x 1 Stroke Mother Christina silent Healthy [...] on file Legal Sex Female 3:05 AM BOOKING AGENT Gender Identity Not on file Sexual Orientation Not on file Occupation Industry Job Start Date Job End Date Not on file Not on file Not on file Not on file Last Filed Vital Signs Vital Sign Reading Time Taken Comments Blood Pressure 114/68 05/10/2025 10:24 AM BOOKING AGENT Pulse 86 05/10/2025 10:24 AM BOOKING AGENT Temperature 36.8 C (98.2 F) 04/18/2025 3:41 PM CDT Respiratory Rate 16 04/18/2025 3:41 PM CDT Oxygen Saturation 94% 05/10/2025 10:24 AM BOOKING AGENT Inhaled Oxygen Concentration - - Weight 72.1 kg (159 lb) 05/10/2025 10:24 AM BOOKING AGENT Height 167.6 cm (5' 6) 05/10/2025 10:24 AM BOOKING AGENT Body Mass Index 25.66 05/10/2025 10:24 AM BOOKING AGENT Plan of Treatment Upcoming Encounters Date Type Department Care Team (Late st Contact Info) Description 07/16/2025 10:00 AM BOOKING AGENT Office Visit [facility] Oncology and Hematology - [place] [address] [facility] [address] [place] [address] Quique Khalil MD [address] [facility] [address] [place] [address] Health Maintenance Due Date Last Done Comments DIABETES ANNUAL FOOT EXAM 1968 ZOSTER VACCINE (2 of 3) 08/30/2014 07/05/2014 DIABETES MICROALBUMIN ANNUAL SCREEN 06/14/2019 06/14/2018, 09/18/2016, 03/20/2016, Additional history exists PNEUMOCOCCAL VACCINE 50+ YEA RS (3 of 3 - PCV20 or PCV21) 10/04/2019 10/03/2014, 09/16/2011 LDL CHOLESTEROL ANNUAL 11/29/2020 0, 06/14/2018, 09/18/2016, [...] - 2024-2 6 season) 2025 10/28/2020, 10/08/2020 OSTEOPOROSIS SCREENING 04/26/2030 5, 04/26/2025, 10/01/2015, Additional history exists COLORECTAL SCREENING Discontinued 12/27/2019, [...] complication, without long-term current use of insulin ([facility]) HEMOGLOBIN A1C Routine 11/30/2019 12:13 PM CDT Type 2 diabetes mellitus with other diabetic kidney complication, without long-term current use of insulin ([facility]) MICROALBUMIN/CREATIN INE RATIO, RANDOM UR Routine 06/14/2018 2:19 AM BOOKING AGENT Type 2 diabetes mellitus with complication, without long-term current use of insulin ([facility]) XR DEXA BONE DENSITY AXIAL 1 OR MORE SITES Routine 10/01/2015 9:00 AM CDT Menopausal syndrome from Last 3 Months or Most Recently Relevant to Health Maintenance Results * VITAMIN B12 LEVEL (04/12/2025 12:53 PM CDT) Blood us Quique Khalil MD CHEMISTRY ORDERABLES Final Resu lt * HM DIABETES EYE EXAM (12/12/2019) us Abstract Provider HEALTH MAINTENANCE Edited Resu lt - Final [facility] - OB & SHORTAGE WORKER CLIA# [id number] [address] [place] [address] * (ABNORMAL) HEMOGLOBIN A1C (11/30/2019 12:13 PM CDT) HEMOGLOBIN A1C 5.9(H) <5.7 % 11/30/2019 4:00 PM CDT [facility] [employer] [facility] EST. AVG GLUCOSE, A1C 123 mg/dL 11/30/2019 4:00 PM CDT [facility] [employer] [facility] Blood Venipuncture / Unknown 11/30/2019 12:13 PM CDT 11/30/2019 12:13 PM CDT [facility] [employer] [facility] - 11/30/2019 4:00 PM CDT HGB A1C INTERPRETATION NORMAL: <5.7% PRE-DIABETES: 5.7 - 6.4% DIABETES: 6.5% OR GREATER us Yasmeen Garcia MD CHEMISTRY ORDERABLES Final Res ult [facility] [employer] [facility]# [id number] [address] [place] [address] * (ABNORMAL) LIPID PANEL (11/30/2019 12:13 PM CDT) CHOLESTEROL 145 <200 mg/dL 11/30/2019 4:37 PM CDT [facility] [employer] [facility] TRIGLYCERIDE 76 <150 mg/dL 11/30/2019 4:37 PM CDT [facility] [employer] [facility] HDL 69(H) 40 - 59 mg/dL 11/30/2019 4:37 PM CDT [facility] [employer] [facility] LDL CALCULATED 61 <100 mg/dL 11/30/2019 4:37 PM CDT [facility] [employer] [facility] NON-HDL CHOLESTEROL 76 <130 mg/dL 11/30/2019 4:37 PM CDT [facility] [employer] [facility] Blood Venipuncture / Unknown 11/30/2019 12:13 PM CDT 11/30/2019 12:13 PM CDT [facility] [employer] [facility] - 11/30/2019 4:37 PM CDT [...] Garcia MD CHEMISTRY ORDERABLES Final Res ult [facility] LABORATORY SERVICES [facility]# [id number] [address] [place] [address] * MICROALBUMIN/CREATININE RATIO, RANDOM UR (06/14/2018 2:19 AM BOOKING AGENT) Creatinine, Urine 128 20 - 275 mg/dL Plated [facility] MICROALBUMIN, URINE 0.4 See Note: mg/dL [facility] Comment: Reference Range: Reference Range Not established MICROALBUMIN/CREAT RATIO, UR 3 <30 mcg/mg creat [facility] Comment: The ADA defines abnormalities in albumin excretion as follows: Category Result (mcg/mg creatinine) Normal <30 Microalbuminuria 30-299 Clinical albuminuria > OR = 300 The ADA recommends that at least two of three specimens collected within a 3-6 month period be abnormal before considering a patient to be within a diagnostic category. Test Performed at: [facility] [address] [place] [address] Jens Aguilar D.O., MPH Urine URINE SPECIMEN OBTAINED BY CLEAN CATCH PROCEDURE / Unknown 06/14/2018 2:19 AM BOOKING AGENT Chary Hardin MD URINE ORDERABLES Edited Result - Final Plated [facility] [address] [place] [address] from Last 3 Months or Most Recently Relevant to Health Maintenance Insurance [facility] Advance Directives For more information, please contact: [phone] Documents on File Type Date Recorded Patient Disability Coordinator Expl anation Advance Directive POA 10/03/2014 12:00 [...] 7:06 AM 10/01/2009 2:01 AM Care Teams Brand Sales Consultant Relationship Specialty Start Date End Date Silvia Quinonez MD [address] [place] [phone] PCP - General Family Practice 11/02/24 No DME 09/02/15
--- OUTSIDE RECORDS SUMMARY | 2025-05-15 13:09 | XMS_ITS | Encounter Summary ---
Author Organization [facility] Address [address] [facility] Attn: Epic Prelude ADT [place] [address] Care Team Providers Care Commercial Administrator Name Role Phone Silvia Quinonez MD Primary Care Provider [phone] Encounter Details Date Type Department Care Team (Late st Contact Info) Description 02/11/1995 Outpatient Historical Josr Toledo MD NO ADDRESS ON FILE Social History Tobacco Use Types Packs/Day Years Used Date Smoking Tobacco: Never Assessed Comments Unknown Sex and Gender Information Value Date Recorded Sex Assigned at Not on file Legal Sex Female 3:05 AM MILL WORKER Gender Identity Not on file Sexual Orientation Not on file documented as of this encounter Plan of Treatment Upcoming Encounters Date Type Department Care Team (Late st Contact Info) Description 07/16/2025 10:00 AM MILL WORKER Office Visit [facility] Oncology and Hematology - [place] [address] [facility] [address] [place] [address] Quique Khalil MD [address] [facility] [address] [place] [address] documented as of this encounter Visit Diagnoses Not on filedocumented in this encounter Care Teams Commercial Administrator Relationship Specialty Start Date End Date Silvia Quinonez MD [address] [place] [address] PCP - General Family Practice 11/02/24 No DME 09/02/15 documented as of this encounter
--- OUTSIDE RECORDS SUMMARY | 2025-05-15 13:09 | XMS_ITS | Encounter Summary ---
Author Organization [facility] Address [address] [place] [address] Care Team Providers Care Coal Chemist Name Role Phone Silvia Quinonez MD Primary Care Provider [phone] Encounter Details Date Type Department Care Team (Latest Contact Info) Description 02/22/2003 Outpatient Historical [facility] Jocy Espinal MD NO ADDRESS ON FILE SCREENING MAMM-MAILG NEOPL-OTHER (Primary Dx) Social History Tobacco Use Types Packs/Day Years Used Date Smoking Tobacco: Never Assessed Comments Unknown Sex and Gender Information Value Date Recorded Sex Assigned at Not on file Legal Sex Female 3:05 AM DATABASE ADMINISTRATOR Gender Identity Not on file Sexual Orientation Not on file documented as of this encounter Plan of Treatment Upcoming Encounters Date Type Department Care Team (Late st Contact Info) Description 07/16/2025 10:00 AM DATABASE ADMINISTRATOR Office Visit [facility] Oncology and Hematology - [place] [address] [place] [address] [facility] [address] [place] [address] Quique Khalil MD [address] [facility] [address] [place] [address] documented as of this encounter Visit Diagnoses Diagnosis Other screening mammogram- Primary documented in this encounter Care Teams Coal Chemist Relationship Specialty Start Date End Date Silvia Quinonez MD [address] [place] [phone] PCP - General Family Practice 11/02/24 No DME 09/02/15 documented as of this encounter
--- OUTSIDE RECORDS SUMMARY | 2025-05-15 13:09 | XMS_ITS | Encounter Summary ---
Author Organization [facility] Address [address] [place] [address] Care Team Providers Care Flooring Installer Name Role Phone Silvia Quinonez MD [...] on file Legal Sex Female 3:05 AM RETAIL RESET MERCHANDISER Gender Identity Not on file Sexual Orientation Not on file documented as of this encounter Plan of Treatment Upcoming Encounters Date Type Department Care Team (Late st Contact Info) Description 07/16/2025 10:00 AM RETAIL RESET MERCHANDISER Office Visit [facility] Oncology and Hematology - [place] [address] [facility] [address] [place] [address] Quqiue Khalil MD [address] [facility] [address] [place] [address] documented as of this encounter Visit Diagnoses Diagnosis Abdominal pain, unspecified site- Primary documented in this encounter Care Teams Flooring Installer Relationship Specialty Start Date End Date Silvia Quinonez MD [address] [place] [address] PCP - General Family Practice 11/02/24 No DME 09/02/15 documented as of this encounter
--- OUTSIDE RECORDS SUMMARY | 2025-05-15 13:09 | XMS_ITS | Encounter Summary ---
Author Organization [facility] Address [address] [place] [address] Care Team Providers Care Manager Implementation Name Role Phone Silvia Quinonez MD Primary Care Provider Encounter Details Date Type Department Care Team (Latest Contact Info) Description 01/24/2003 Outpatient Historical [facility] Latonia Scott MD [address] [place], [place] [id number] PERSIST POSTOP FISTULA (Primary Dx) Social History Tobacco Use Types Packs/Day Years Used Date Smoking Tobacco: Never Assessed Comments Unknown Sex and Gender Information Value Date Recorded Sex Assigned at Not on file Legal Sex Female 3:05 AM ELECTRICAL MAINTENANCE ENGINEER Gender Identity Not on file Sexual Orientation Not on file documented as of this encounter Plan of Treatment Upcoming Encounters Date Type Department Care Team (Late st Contact Info) Description 07/16/2025 10:00 AM ELECTRICAL MAINTENANCE ENGINEER Office Visit [facility] Oncology and Hematology - [place] [address] [facility] [address] [address] Quique Khalil MD [address] [facility] [address] [place] [address] documented as of this encounter Visit Diagnoses Diagnosis Persistent postoperative fistula, 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
--- OUTSIDE RECORDS SUMMARY | 2025-05-15 13:09 | XMS_ITS | Encounter Summary ---
Author Organization [facility] Address [address] [place] [address] Care Team Providers Care Anesthesiology Physician Name Role Phone Silvia Quinonez MD Primary Care Provider [phone] Encounter Details Date Type Department Care Team (Late Contact Info) Description 04/23/2003 Outpatient Historical Division of Neurology [address] [facility] [place], [place] [id number] Tiffanie Marquez MD [address] [facility] [address] [place] [address] Social History Tobacco Use Types Packs/Day Years Used Date Smoking Tobacco: Never Assessed Comments Unknown Sex and Gender Information Value Date Recorded Sex Assigned at Not on file Legal Sex Female 3:05 AM IT BUSINESS SYSTEMS ANALYST Gender Identity Not on file Sexual Orientation Not on file documented as of this encounter Plan of Treatment Upcoming Encounters Date Type Department Care Team (Late st Contact Info) Description 07/16/2025 10:00 AM IT BUSINESS SYSTEMS ANALYST Office Visit [facility] Oncology and Hematology - [place] [address] [facility] [address] [place] [address] Quique Khalil MD [address] [facility] [address] [place] [address] documented as of this encounter Visit Diagnoses Not on filedocumented in this encounter Care Teams Anesthesiology Physician Relationship Specialty Start Date End Date Silvia Quinonez MD [address] [place] [address] PCP - General Family Practice 11/02/24 No DME 09/02/15 documented as of this encounter
--- OUTSIDE RECORDS SUMMARY | 2025-05-15 13:09 | XMS_ITS | Encounter Summary ---
Author Organization [facility] Address [address] [place] [address] Care Team Providers Care Electrical And Instrument Engineer Name Role Phone Silvia Quinonez MD Primary Care Provider [phone] Encounter Details Date Type Department Care Team (Late Contact Info) Description 02/21/2003 Outpatient Historical Division of Neurology [address] [facility] [place] [address] Tiffanie Marquez MD [address] [facility] [address] [place] [address] Social History Tobacco Use Types Packs/Day Years Used Date Smoking Tobacco: Never Assessed Comments Unknown Sex and Gender Information Value Date Recorded Sex Assigned at Not on file Legal Sex Female 3:05 AM AVIATION SAFETY INSPECTOR Gender Identity Not on file Sexual Orientation Not on file documented as of this encounter Plan of Treatment Upcoming Encounters Date Type Department Care Team (Late st Contact Info) Description 07/16/2025 10:00 AM AVIATION SAFETY INSPECTOR Office Visit [facility] Oncology and Hematology - [place] [address] [facility] [address] [place] [address] Quique Khalil MD [address] [facility] [address] [place] [address] documented as of this encounter Visit Diagnoses Not on filedocumented in this encounter Care Teams Electrical And Instrument Engineer Relationship Specialty Start Date End Date Silvia Quinonez MD [address] [place] [address] PCP - General Family Practice 11/02/24 No DME 09/02/15 documented as of this encounter
--- OUTSIDE RECORDS SUMMARY | 2025-05-15 13:09 | XMS_ITS | Encounter Summary ---
Author Organization [facility] Address [address] [facility] Attn: Epic Prelude ADT [place] [address] Care Team Providers Care Mechanical Test Technician Name Role Phone Silvia Quinonez MD Primary Care Provider [phone] Encounter Details Date Type Department Care Team (Late st Contact Info) Description 08/05/1994 Outpatient Historical Josr Toledo MD NO ADDRESS ON FILE Social History Tobacco Use Types Packs/Day Years Used Date Smoking Tobacco: Never Assessed Comments Unknown Sex and Gender Information Value Date Recorded Sex Assigned at Not on file Legal Sex Female 3:05 AM CORRECTIONAL SUPPLY SUPERVISOR Gender Identity Not on file Sexual Orientation Not on file documented as of this encounter Plan of Treatment Upcoming Encounters Date Type Department Care Team (Late st Contact Info) Description 07/16/2025 10:00 AM CORRECTIONAL SUPPLY SUPERVISOR Office Visit [facility] Oncology and Hematology - [place] [address] [facility] [address] [place] [address] Quique Khalil MD [address] [facility] [address] [place] [address] documented as of this encounter Visit Diagnoses Not on filedocumented in this encounter Care Teams Mechanical Test Technician Relationship Specialty Start Date End Date Silvia Quinonez MD [address] [place] [address] PCP - General Family Practice 11/02/24 No DME 09/02/15 documented as of this encounter
== END 2025-05-15 13:04 | disposition home or self-care (01) ==
PROVIDERS: PCP Student in an Organized Health Care Education/Training Program; Visit Provider Student in an Organized Health Care Education/Training Program
DX: M25.531 Pain in right wrist (principal)
CPT/HCPCS: 73110

== ENCOUNTER 2025-06-20 09:59 | Outpatient (CLI) | payer MEDICARE, SELFPAY ==
--- NOTE | ~2025-06-20 | MM_ITS ---
EXAMINATION: MM screening samantha BI w viktoria HISTORY: Screening TECHNIQUE: Craniocaudal and mediolateral oblique 3-D tomosynthesis images were obtained and synthetic 2-D images were generated. CAD analysis was submitted and interpreted. COMPARISON: Comparison to multiple prior studies sequentially, with oldest reviewed study dated , 01/30/2021 BREAST PARENCHYMAL COMPOSITION: Not Dense: The breasts are almost entirely fatty. FINDINGS: There is no evidence of suspicious mass, calcification, or architectural distortion to suggest malignancy in either breast. IMPRESSION: 1. No mammographic evidence of malignancy. 2. Recommend routine screening mammography in one year. BI-RADS Category 1: Negative Reviewed, dictated and finalized at location [facility]. [employer]
--- OUTSIDE RECORDS SUMMARY | 2025-06-20 11:32 | XMS_ITS | Encounter Summary ---
Author Organization [facility] Address [address] [place] [address] Care Team Providers Care Aircraft Machinist Name Role Phone Silvia Quinonez MD Primary Care Provider [phone] Encounter Details Date Type Department Care Team (Late st Contact Info) Description 06/10/2006 Outpatient Historical [facility] [place] [address] [place] [address] Sam Machado MD [address] [place] [address] Social History Tobacco Use Types Packs/Day Years Used Date Smoking Tobacco: Never Assessed Comments Unknown Sex and Gender Information Value Date Recorded Sex Assigned at Not on file Legal Sex Female 3:05 AM AIRCRAFT ENGINE TECHNICIAN Gender Identity Not on file Sexual Orientation Not on file documented as of this encounter Plan of Treatment Upcoming Encounters Date Type Department Care Team (Late Contact Info) Description 07/09/2025 9:00 AM AIRCRAFT ENGINE TECHNICIAN Office Visit [facility] Cardiovas and Thor Surg at [facility] [address] [facility] [address] [place] [address] Miranda Ceballos MD [address] [facility] [address] [place] [address] 07/09/2025 10:00 AM AIRCRAFT ENGINE TECHNICIAN Appointment [facility] [address] [place] [address] 07/16/2025 10:00 AM AIRCRAFT ENGINE TECHNICIAN Office Visit [facility] Oncology and Hematology - [place] [address] [facility] [address] [place] [address] Quique Khalil MD [address] [facility] [address] [place] [address] documented as of this encounter Visit Diagnoses Not on filedocumented in this encounter Care Teams Aircraft Machinist Relationship Specialty Start Date End Date Silvia Quinonez MD [address] [place] [address] PCP - General Family Practice 11/02/24 No DME 09/02/15 documented as of this encounter
--- OUTSIDE RECORDS SUMMARY | 2025-06-20 11:32 | XMS_ITS | Encounter Summary ---
Demographics Address [address] [place] [address] Mobile Phone Email Address [email or web address] Email Address Preferred Language Unknown Marital Status Baptist Affiliation Unknown Race White Ethnic Group Not or Lati no Author Organization [facility] Address [address] [place] [address] Care Team Providers Care Embroidery Specialist Name Role Phone Silvia Quinonez MD Primary Care Provider [phone] Encounter Details Date Type Department Care Team (Late st Contact Info) Description 06/15/2007 Outpatient Historical [facility] [place] [address] [place] [phone] Sam Machado MD [address] [place] [address] Social History Tobacco Use Types Packs/Day Years Used Date Smoking Tobacco: Never Assessed Comments Unknown Sex and Gender Information Value Date Recorded Sex Assigned at Not on file Legal Sex Female 3:05 AM JEEP MECHANIC Gender Identity Not on file Sexual Orientation Not on file documented as of this encounter Plan of Treatment Upcoming Encounters Date Type Department Care Team (Late Contact Info) Description 07/09/2025 9:00 AM JEEP MECHANIC Office Visit [facility] Cardiovas and Thor Surg at [facility] [address] [facility] [address] [place] [address] Miranda Ceballos MD [address] [facility] [address] [place] [address] 07/09/2025 10:00 AM JEEP MECHANIC Appointment [facility] [address] [place] [address] 07/16/2025 10:00 AM JEEP MECHANIC Office Visit [facility] Oncology and Hematology - [place] [address] [facility] [address] [place] [address] Quique Khalil MD [address] [facility] [address] [place] [address] documented as of this encounter Visit Diagnoses Not on filedocumented in this encounter Care Teams Embroidery Specialist Relationship Specialty Start Date End Date Silvia Quinonez MD [address] [place] [address] PCP - General Family Practice 11/02/24 No DME 09/02/15 documented as of this encounter
--- OUTSIDE RECORDS SUMMARY | 2025-06-20 11:32 | XMS_ITS | Encounter Summary ---
Author Organization [facility] Address [address] [place] [address] Care Team Providers Care Stopper Setter Name Role Phone Silvia Quinonez MD Primary Care Provider [phone] Encounter Details Date Type Department Care Team (Late st Contact Info) Description 03/17/2005 Outpatient Historical [address] [place] [address] Gunjan Szymanski MD NO ADDRESS ON FILE Social History Tobacco Use Types Packs/Day Years Used Date Smoking Tobacco: Never Assessed Comments Unknown Sex and Gender Information Value Date Recorded Sex Assigned at Not on file Legal Sex Female 3:05 AM THERMITE WELDER Gender Identity Not on file Sexual Orientation Not on file documented as of this encounter Plan of Treatment Upcoming Encounters Date Type Department Care Team (Late st Contact Info) Description 07/09/2025 9:00 AM THERMITE WELDER Office Visit [facility] Cardiovas and Thor Surg at [facility] [address] [facility] [address] [place] [address] Miranda Ceballos MD [address] [facility] [address] [place] [address] 07/09/2025 10:00 AM THERMITE WELDER Appointment [facility] [address] [place] [address] 07/16/2025 10:00 AM THERMITE WELDER Office Visit [facility] Oncology and Hematology - Reji [address] [place] [address] Quique Khalil MD [address] [facility] [address] [place] [address] documented as of this encounter Visit Diagnoses Not on filedocumented in this encounter Care Teams Stopper Setter Relationship Specialty Start Date End Date Silvia Quinonez MD [address] [place] [address] PCP - General Family Practice 11/02/24 No DME 09/02/15 documented as of this encounter
--- OUTSIDE RECORDS SUMMARY | 2025-06-20 11:32 | XMS_ITS | Encounter Summary ---
Author Organization [facility] Address [address] [place] [address] Care Team Providers Care Natural Resource Economist Name Role Phone Silvia Quinonez MD Primary Care Provider [phone] Encounter Details Date Type Department Care Team (Late st Contact Info) Description 11/18/2004 Outpatient Historical [facility] [place] [address] [place] [id number] Sam Machado MD [address] [place] [address] Social History Tobacco Use Types Packs/Day Years Used Date Smoking Tobacco: Never Assessed Comments Unknown Sex and Gender Information Value Date Recorded Sex Assigned at Not on file Legal Sex Female 3:05 AM ENVELOPE PRESS OPERATOR Gender Identity Not on file Sexual Orientation Not on file documented as of this encounter Plan of Treatment Upcoming Encounters Date Type Department Care Team (Late Contact Info) Description 07/09/2025 9:00 AM ENVELOPE PRESS OPERATOR Office Visit [facility] Cardiovas and Thor Surg at [facility] [address] [facility] [facility] [address] [place] [address] Miranda Ceballos MD [address] [facility] [address] [place] [address] 07/09/2025 10:00 AM ENVELOPE PRESS OPERATOR Appointment [facility] S [facility] [address] [place] [address] 07/16/2025 10:00 AM ENVELOPE PRESS OPERATOR Office Visit [facility] Oncology and Hematology - Reji [address] [facility] [address] [place] [address] Quique Khalil MD [address] [facility] [address] [place] [address] documented as of this encounter Visit Diagnoses Not on filedocumented in this encounter Care Teams Natural Resource Economist Relationship Specialty Start Date End Date Silvia Quinonez MD [address] [place] [address] PCP - General Family Practice 11/02/24 No DME 09/02/15 documented as of this encounter
--- OUTSIDE RECORDS SUMMARY | 2025-06-20 11:32 | XMS_ITS | Encounter Summary ---
Author Organization [facility] Address [address] [place] [address] Care Team Providers Care Equipment Operat0R Name Role Phone Silvia Quinonez MD Primary Care Provider [phone] Encounter Details Date Type Department Care Team (Latest Contact Info) Description 02/18/2006 Outpatient Historical [facility] Sam Machado MD [address] [place] [address] Other Screening Mammogram (Primary Dx) Social History Tobacco Use Types Packs/Day Years Used Date Smoking Tobacco: Never Assessed Comments Unknown Sex and Gender Information Value Date Recorded Sex Assigned at Not on file Legal Sex Female 3:05 AM PROFESSOR OF OCEANOGRAPHY Gender Identity Not on file Sexual Orientation Not on file documented as of this encounter Plan of Treatment Upcoming Encounters Date Type Department Care Team (Late st Contact Info) Description 07/09/2025 9:00 AM PROFESSOR OF OCEANOGRAPHY Office Visit [facility] Cardiovas and Thor Surg at [facility] Heart Hosp [address] [facility] [address] [place] [address] Miranda Ceballos MD [address] [facility] [address] [place] [address] 07/09/2025 10:00 AM PROFESSOR OF OCEANOGRAPHY Appointment [facility] S [facility] [address] [place] [address] 07/16/2025 10:00 AM PROFESSOR OF OCEANOGRAPHY Office Visit [facility]3] Oncology and Hematology - Reji [address] [place] [address] Quique Khalil MD [address] [facility] [address] [place] [address] documented as of this encounter Visit Diagnoses Diagnosis Other screening mammogram- Primary documented in this encounter Care Teams Equipment Operat0R Relationship Specialty Start Date End Date Silvia Quinonez MD [address] [place] [address] PCP - General Family Practice 11/02/24 No DME 09/02/15 documented as of this encounter
--- OUTSIDE RECORDS SUMMARY | 2025-06-20 11:32 | XMS_ITS | Encounter Summary ---
Author Organization [facility] Address [address] [place] [address] Care Team Providers Care Bag Mender Name Role Phone Silvia Quinonez MD Primary Care Provider [phone] Encounter Details Date Type Department Care Team (Late st Contact Info) Description 11/10/2004 Outpatient Historical [facility] [place] [address] [place] [address] Sam Machado MD [address] [place] [address] Social History Tobacco Use Types Packs/Day Years Used Date Smoking Tobacco: Never Assessed Comments Unknown Sex and Gender Information Value Date Recorded Sex Assigned at Not on file Legal Sex Female 3:05 AM SLEEPING ROOM CLEANER Gender Identity Not on file Sexual Orientation Not on file documented as of this encounter Plan of Treatment Upcoming Encounters Date Type Department Care Team (Late Contact Info) Description 07/09/2025 9:00 AM SLEEPING ROOM CLEANER Office Visit [facility] Cardiovas and Thor Surg at [facility] Heart Hosp [address] [facility] [address] [place] [address] Miranda Ceballos MD [address] [facility] [address] [place] [address] 07/09/2025 10:00 AM SLEEPING ROOM CLEANER Appointment [facility] [address] [place] [address] 07/16/2025 10:00 AM SLEEPING ROOM CLEANER Office Visit [facility] Oncology and Hematology - Reji [address] [facility] [address] [place] [address] Quique Khalil MD [address] [facility] [address] [place] [address] documented as of this encounter Visit Diagnoses Not on filedocumented in this encounter Care Teams Bag Mender Relationship Specialty Start Date End Date Silvia Quinonez MD [address] [place] [address] PCP - General Family Practice 11/02/24 No DME 09/02/15 documented as of this encounter
--- OUTSIDE RECORDS SUMMARY | 2025-06-20 11:32 | XMS_ITS | Encounter Summary ---
Author Organization [facility] Address [address] [place] [address] Care Team Providers Care Latin Teacher Name Role Phone Silvia Quinonez MD Primary Care Provider [phone] Encounter Details Date Type Department Care Team (Late st Contact Info) Description 10/18/2015 Chart Note [facility] Therapy Services Lara Sol[address] [place] [address] Tatiana Spaulding Physical Therapist Social History Tobacco Use Types Packs/Day Years Used Date Smoking Tobacco: Former Cigarettes 1 23 1 - 04/04/1986 Smokeless Tobacco: Never Alcohol Use Standard Drinks/Week Comments Yes 0 (1 standard drink = 0.6 oz pur e alcohol) social Comments No Sex and Gender Information Value Date Recorded Sex Assigned at Not on file Legal Sex Female 3:05 AM FLAKER OPERATOR Gender Identity Not on file Sexual Orientation Not on file Occupation Industry Job Start Date Job End Date Not on file Not on file Not on file Not on file documented as of this encounter Miscellaneous Notes * Therapy Evaluation - Tatiana Spaulding, Physical Therapist - 10/18/2015 8:15 AM CDT [...] for this referral. JOHN Schumacher [facility] [address] [facility], [address] [place] [address] (phone) [phone] (fax) [place] License Number: [id number] documented in this encounter Plan of Treatment Upcoming Encounters Date Type Department Care Team (Late st Contact Info) Description 07/09/2025 9:00 AM FLAKER OPERATOR Office Visit [facility] Cardiovas and Thor Surg at [facility] [address] [facility] [address] [place] [address] Miranda Ceballos MD [address] [facility] [address] [place] [address] 07/09/2025 10:00 AM FLAKER OPERATOR Appointment [facility] S [facility] [address] [place] [address] 07/16/2025 10:00 AM FLAKER OPERATOR Office Visit [facility] Oncology and Hematology - Reji [address] [facility] [address] [place] [address] Quique Khalil MD [address] [facility] [address] [place] [address] documented as of this encounter Visit Diagnoses Not on filedocumented in this encounter Additional Health Concerns Assessment Noted Time PHQ-9 Depression Total Score: 2 09/02/19 16 11:00 AM FLAKER OPERATOR documented as of this encounter Care Teams Latin Teacher Relationship Specialty Start Date End Date Silvia Quinonez MD [address] [place] [address] PCP - General Family Practice 11/02/24 No DME 09/02/15 documented as of this encounter
--- OUTSIDE RECORDS SUMMARY | 2025-06-20 11:32 | XMS_ITS | Encounter Summary ---
Author Organization [facility] Address [address] [place] [address] Care Team Providers Care Audit Tech Name Role Phone Silvia Quinonez MD Primary Care Provider Encounter Details Date Type Department Care Team (Late st Contact Info) Description 06/15/2007 Outpatient Historical [facility] [place] [address] [place] [address] Sam Machado MD [address] [place] [address] Social History Tobacco Use Types Packs/Day Years Used Date Smoking Tobacco: Never Assessed Comments Unknown Sex and Gender Information Value Date Recorded Sex Assigned at Not on file Legal Sex Female 3:05 AM DESTINATION SPECIALIST Gender Identity Not on file Sexual Orientation Not on file documented as of this encounter Plan of Treatment Upcoming Encounters Date Type Department Care Team (Late Contact Info) Description 07/09/2025 9:00 AM DESTINATION SPECIALIST Office Visit [facility] Cardiovas and Thor Surg at [facility] Heart Hosp [address] [facility] [address] [place] [address] Miranda Ceballos MD [address] [facility] [address] [place] [address] 07/09/2025 10:00 AM DESTINATION SPECIALIST Appointment [facility] [address] [place] [address] 07/16/2025 10:00 AM DESTINATION SPECIALIST Office Visit [facility] Oncology and Hematology - Reji [address] [facility] [address] [place] [address] Quique Khalil MD [address] [facility] [address] [place] [address] documented as of this encounter Visit Diagnoses Not on filedocumented in this encounter Care Teams Audit Tech Relationship Specialty Start Date End Date Silvia Quinonez MD [address] [place] [address] PCP - General Family Practice 11/02/24 No DME 09/02/15 documented as of this encounter
--- OUTSIDE RECORDS SUMMARY | 2025-06-20 11:32 | XMS_ITS | Encounter Summary ---
Author Organization [facility] Address [address] [place] [address] Care Team Providers Care Beach Attendant Name Role Phone Silvia Quinonez MD Primary Care Provider [phone] Encounter Details Date Type Department Care Team (Latest Contact Info) Description 02/07/2004 Outpatient Historical [facility] Jocy Espinal MD NO ADDRESS ON FILE SCREENING MAMM-MAILG NEOPL-OTHER (Primary Dx) Social History Tobacco Use Types Packs/Day Years Used Date Smoking Tobacco: Never Assessed Comments Unknown Sex and Gender Information Value Date Recorded Sex Assigned at Not on file Legal Sex Female 3:05 AM PIPING DESIGNER Gender Identity Not on file Sexual Orientation Not on file documented as of this encounter Plan of Treatment Upcoming Encounters Date Type Department Care Team (Late st Contact Info) Description 07/09/2025 9:00 AM PIPING DESIGNER Office Visit [facility] Cardiovas and Thor Surg at [facility] Heart Hosp [address] [address] Miranda Ceballos MD [address] [facility] [place] [address] 07/09/2025 10:00 AM PIPING DESIGNER Appointment [facility] [address] [place] [address] 07/16/2025 10:00 AM PIPING DESIGNER Office Visit [facility] Oncology and Hematology - Reji [address] [facility] [address] [place] [address] Quique Khalil MD [address] [facility] [address] [place] [address] documented as of this encounter Visit Diagnoses Diagnosis Other screening mammogram- Primary documented in this encounter Care Teams Beach Attendant Relationship Specialty Start Date End Date Silvia Quinonez MD [address] [place] [address] PCP - General Family Practice 11/02/24 No DME 09/02/15 documented as of this encounter
--- OUTSIDE RECORDS SUMMARY | 2025-06-20 11:32 | XMS_ITS | Encounter Summary ---
Author Organization [facility] Address [address] [place] [address] Care Team Providers Care Compression Molding Machine Setter Name Role Phone Silvia Quinonez MD Primary Care Provider [phone] Encounter Details Date Type Department Care Team (Late st Contact Info) Description 03/24/2006 Outpatient Historical [facility] Latonia Scott MD [address] [place] [address] Localized Superficial Swelling, Mass, or Lump (Primary Dx) Social History Tobacco Use Types Packs/Day Years Used Date Smoking Tobacco: Never Assessed Comments Unknown Sex and Gender Information Value Date Recorded Sex Assigned at Not on file Legal Sex Female 3:05 AM IMMIGRATION GUARD Gender Identity Not on file Sexual Orientation Not on file documented as of this encounter Plan of Treatment Upcoming Encounters Date Type Department Care Team (Late st Contact Info) Description 07/09/2025 9:00 AM IMMIGRATION GUARD Office Visit [facility] Cardiovas and Thor Surg at [facility] Heart Hosp [address] [facility] [address] [place] [address] Miranda Ceballos MD [address] [facility] [address] [place] [address] 07/09/2025 10:00 AM IMMIGRATION GUARD Appointment [facility] [address] [place] [address] 07/16/2025 10:00 AM IMMIGRATION GUARD Office Visit [facility] Oncology and Hematology - Reji [address] [place] [address] Quique Khalil MD [address] [facility] [address] [place] [address] documented as of this encounter Visit Diagnoses Diagnosis Localized superficial swelling, mass, or lump- Primary documented in this encounter Care Teams Compression Molding Machine Setter Relationship Specialty Start Date End Date Silvia Quinonez MD [address] [place] [address] PCP - General Family Practice 11/02/24 No DME 09/02/15 documented as of this encounter
--- OUTSIDE RECORDS SUMMARY | 2025-06-20 11:32 | XMS_ITS | Encounter Summary ---
Author Organization [facility] Address [address] [place] [address] Care Team Providers Care Railroad Commissioner Name Role Phone Silvia Quinonez MD Primary Care Provider [phone] Encounter Details Date Type Department Care Team (Late st Contact Info) Description 10/16/2004 Outpatient Historical [facility] [place] [address] [place] [address] Sam Machado MD [address] [place] [address] Social History Tobacco Use Types Packs/Day Years Used Date Smoking Tobacco: Never Assessed Comments Unknown Sex and Gender Information Value Date Recorded Sex Assigned at Not on file Legal Sex Female 3:05 AM LOBSTERMAN Gender Identity Not on file Sexual Orientation Not on file documented as of this encounter Plan of Treatment Upcoming Encounters Date Type Department Care Team (Late st Contact Info) Description 07/09/2025 9:00 AM LOBSTERMAN Office Visit [facility] Cardiovas and Thor Surg at [facility] [address] [facility] [address] [place] [address] Miranda Ceballos MD [address] [facility] [address] [place] [address] 07/09/2025 10:00 AM LOBSTERMAN Appointment [facility] S [facility] [address] [place] [address] 07/16/2025 10:00 AM LOBSTERMAN Office Visit [facility] Oncology and Hematology - Reji [address] [facility] [address] [place] [address] Quique Khalil MD [address] [facility] [address] [place] [address] documented as of this encounter Visit Diagnoses Not on filedocumented in this encounter Care Teams Railroad Commissioner Relationship Specialty Start Date End Date Silvia Quinonez MD [address] [place] [address] PCP - General Family Practice 11/02/24 No DME 09/02/15 documented as of this encounter
--- OUTSIDE RECORDS SUMMARY | 2025-06-20 11:32 | XMS_ITS | Encounter Summary ---
Author Organization [facility] Address [address] [place] [address] Care Team Providers Care Valve Assembler Name Role Phone Silvia Quinonez MD Primary Care Provider [phone] Encounter Details Date Type Department Care Team (Latest Contact Info) Description 03/03/2007 Outpatient Historical [facility] Sam Machado MD [address] [place] [address] Other Screening Mammogram (Primary Dx) Social History Tobacco Use Types Packs/Day Years Used Date Smoking Tobacco: Never Assessed Comments Unknown Sex and Gender Information Value Date Recorded Sex Assigned at Not on file Legal Sex Female 3:05 AM MEDICAL RECORDS RECEPTIONIST Gender Identity Not on file Sexual Orientation Not on file documented as of this encounter Plan of Treatment Upcoming Encounters Date Type Department Care Team (Late st Contact Info) Description 07/09/2025 9:00 AM MEDICAL RECORDS RECEPTIONIST Office Visit [facility] Cardiovas and Thor Surg at [facility] Heart Hosp [address] [facility] [address] [place] [address] Miranda Ceballos MD [address] [facility] [address] [place] [address] 07/09/2025 10:00 AM MEDICAL RECORDS RECEPTIONIST Appointment [facility] S [facility] [address] [place] [address] 07/16/2025 10:00 AM MEDICAL RECORDS RECEPTIONIST Office Visit [facility] Oncology and Hematology - Reji [address] [place] [address] Quique Khalil MD [address] [facility] [address] [place] [address] documented as of this encounter Visit Diagnoses Diagnosis Other screening mammogram- Primary documented in this encounter Care Teams Valve Assembler Relationship Specialty Start Date End Date Silvia Quinonez MD [address] [place] [address] PCP - General Family Practice 11/02/24 No DME 09/02/15 documented as of this encounter
--- OUTSIDE RECORDS SUMMARY | 2025-06-20 11:32 | XMS_ITS | Encounter Summary ---
Author Organization [facility] Address [address] [place] [address] Care Team Providers Care Prosthetic Technician Name Role Phone Silvia Quinonez MD Primary Care Provider [phone] Encounter Details Date Type Department Care Team (Late st Contact Info) Description 10/08/2004 Outpatient Historical [facility] [place] [address] [place] [id number] aSm Machado MD [address] [place] [address] Social History Tobacco Use Types Packs/Day Years Used Date Smoking Tobacco: Never Assessed Comments Unknown Sex and Gender Information Value Date Recorded Sex Assigned at Not on file Legal Sex Female 3:05 AM DIGITAL SALES REPRESENTATIVE Gender Identity Not on file Sexual Orientation Not on file documented as of this encounter Plan of Treatment Upcoming Encounters Date Type Department Care Team (Late st Contact Info) Description 07/09/2025 9:00 AM DIGITAL SALES REPRESENTATIVE Office Visit [facility] Cardiovas and Thor Surg at [facility] Heart Hosp [address] [facility] [address] [place] [address] Miranda Ceballos MD [address] [facility] [address] [place] [address] 07/09/2025 10:00 AM DIGITAL SALES REPRESENTATIVE Appointment [facility] S [facility] [address] [place] [address] 07/16/2025 10:00 AM DIGITAL SALES REPRESENTATIVE Office Visit [facility] Oncology and Hematology - Reji [address] [place] [address] Quique Khalil MD [address] [facility] [address] [place] [address] documented as of this encounter Visit Diagnoses Not on filedocumented in this encounter Care Teams Prosthetic Technician Relationship Specialty Start Date End Date Silvia Quinonez MD [address] [place] [address] PCP - General Family Practice 11/02/24 No DME 09/02/15 documented as of this encounter
--- OUTSIDE RECORDS SUMMARY | 2025-06-20 11:32 | XMS_ITS | Clinical Summary ---
Author Organization [facility] Address [address] [place] [address] Care Team Providers Care Aix Administrator Name Role Phone Silvia Quinonez MD Primary Care Provider [phone] Source Comments [facility],non-owned Affiliates and Associated Physician Practices is amultiple site organization consisting of ambulatory clinics and hospital sitesin [place], [place], [place] and [place]. This disclosure is being madepursuant to the Care Everywhere program and may not contain all information available regarding this patient. Last updated 18.[facility] Allergies Active Allergy Reactions Criticality Noted Date [...] Active naltrexone (REVIA) 50 MG tablet Active [place]-3 Fatty Acids (FISH OIL DELAYED RELEASE) 1000 [...] on file Legal Sex Female 7:35 AM JANITORIAL MAINTENANCE WORKER Gender Identity Not on file Sexual [...] complete this topic Insurance MEDICARE AETNA MEDICARE [facility] Care Teams Aix Administrator Relationship Specialty Start Date End Date Silvia Quinonez MD [address] [place] [address] PCP - General Family Medicine 09/19/21
--- OUTSIDE RECORDS SUMMARY | 2025-06-20 11:32 | XMS_ITS | Encounter Summary ---
Author Organization [facility] Address [address] [place] [address] Care Team Providers Care Net Wpf Developer Name Role Phone Silvia Quinonez MD Primary Care Provider Encounter Details Date Type Department Care Team (Latest Contact Info) Description 07/31/2008 Outpatient Historical [facility] V[facility]NA-Loco Naik MD [address] [place] [address] [address] [place] [address] Jayce Orellana MD [address] [facility] [address] [place] [address] Other and Unspecified Angina Pectoris Social History Tobacco Use Types Packs/Day Years Used Date Smoking Tobacco: Never Assessed Comments Unknown Sex and Gender Information Value Date Recorded Sex Assigned at Not on file Legal Sex Female 3:05 AM ADZ WORKER Gender Identity Not on file Sexual Orientation Not on file documented as of this encounter Plan of Treatment Upcoming Encounters Date Type Department Care Team (Late st Contact Info) Description 07/09/2025 9:00 AM ADZ WORKER Office Visit [facility] Cardiovas and Thor Surg at [facility] [address] [facility] [address] [place] [address] Miranda Ceballos MD [address] [facility] [address] [place] [address] 07/09/2025 10:00 AM ADZ WORKER Appointment [facility] [address] [place] [address] 07/16/2025 10:00 AM ADZ WORKER Office Visit [facility] Oncology and Hematology - [place] [address] [facility] [address] [place] [address] Quique Khalil MD [address] [facility] [address] [place] [address] documented as of this encounter Visit Diagnoses Diagnosis Other and unspecified angina pectoris documented in this encounter Care Teams Net Wpf Developer Relationship Specialty Start Date End Date Silvia Quinonez MD [address] [place] [address] PCP - General Family Practice 11/02/24 No DME 09/02/15 documented as of this encounter
--- OUTSIDE RECORDS SUMMARY | 2025-06-20 11:32 | XMS_ITS | Encounter Summary ---
Author Organization [facility] Address [address] [place] [address] Care Team Providers Care Sap Treasury Consultant Name Role Phone Silvia Quinonez MD Primary Care Provider [phone] Encounter Details Date Type Department Care Team (Late st Contact Info) Description 06/10/2006 Outpatient Historical [facility] [place] [address] [place] [address] Sam Machado MD [address] [place] [address] Social History Tobacco Use Types Packs/Day Years Used Date Smoking Tobacco: Never Assessed Comments Unknown Sex and Gender Information Value Date Recorded Sex Assigned at Not on file Legal Sex Female 3:05 AM COLLECTIONS ANALYST Gender Identity Not on file Sexual Orientation Not on file documented as of this encounter Plan of Treatment Upcoming Encounters Date Type Department Care Team (Late Contact Info) Description 07/09/2025 9:00 AM COLLECTIONS ANALYST Office Visit [facility] Cardiovas and Thor Surg at [facility] [address] [facility] [address] [place] [address] Miranda Ceballos MD [address] [facility] [facility] [address] [place] [address] 07/09/2025 10:00 AM COLLECTIONS ANALYST Appointment [facility] [address] [place] [address] 07/16/2025 10:00 AM COLLECTIONS ANALYST Office Visit [facility] Oncology and Hematology - [place] [address] [facility] [address] [place] [address] [place] [address] Quique Khalil MD [address] [facility] [address] [place] [address] documented as of this encounter Visit Diagnoses Not on filedocumented in this encounter Care Teams Sap Treasury Consultant Relationship Specialty Start Date End Date Silvia Quinonez MD [address] [place] [address] PCP - General Family Practice 11/02/24 No DME 09/02/15 documented as of this encounter
--- OUTSIDE RECORDS SUMMARY | 2025-06-20 11:32 | XMS_ITS | Encounter Summary ---
Author Organization [facility] Address [address] [place] [address] Care Team Providers Care Barkeep Name Role Phone Silvia Quinonez MD Primary Care Provider [phone] Encounter Details Date Type Department Care Team (Latest Contact Info) Description 03/17/2005 Outpatient Historical [facility] Gunjan Szymanski MD NO ADDRESS ON FILE ABNORM ELECTROMYOGRAM (Primary Dx) Social History Tobacco Use Types Packs/Day Years Used Date Smoking Tobacco: Never Assessed Comments Unknown Sex and Gender Information Value Date Recorded Sex Assigned at Not on file Legal Sex Female 3:05 AM EQUIPMENT HIRE MANAGER Gender Identity Not on file Sexual Orientation Not on file documented as of this encounter Plan of Treatment Upcoming Encounters Date Type Department Care Team (Late st Contact Info) Description 07/09/2025 9:00 AM EQUIPMENT HIRE MANAGER Office Visit [facility] Cardiovas and Thor Surg at [facility]osp [address] [address] Miranda Ceballos MD [address] [facility] [place] [address] 07/09/2025 10:00 AM EQUIPMENT HIRE MANAGER Appointment [facility] [address] [place] [address] 07/16/2025 10:00 AM EQUIPMENT HIRE MANAGER Office Visit [facility] Oncology and Hematology - [place] [address] [facility] [address] [place] [address] Quique Khalil MD [address] [facility] [address] [place] [address] documented as of this encounter Visit Diagnoses Diagnosis Nonspecific abnormal electromyogram (EMG)- Primary documented in this encounter Care Teams Barkeep Relationship Specialty Start Date End Date Silvia Quinonez MD [address] [place] [address] PCP - General Family Practice 11/02/24 No DME 09/02/15 documented as of this encounter
--- OUTSIDE RECORDS SUMMARY | 2025-06-20 11:32 | XMS_ITS | Encounter Summary ---
Author Organization [facility] Address [address] [place] [address] Care Team Providers Care Change Control Coordinator Name Role Phone Silvia Quinonez MD Primary Care Provider [phone] Encounter Details Date Type Department Care Team (Latest Contact Info) Description 02/28/2008 Outpatient Historical [facility] Ora Machado MD [address] [place] [address] Other Screening Mammogram Social History Tobacco Use Types Packs/Day Years Used Date Smoking Tobacco: Never Assessed Comments Unknown Sex and Gender Information Value Date Recorded Sex Assigned at Not on file Legal Sex Female 3:05 AM CARRIER LOADER Gender Identity Not on file Sexual Orientation Not on file documented as of this encounter Plan of Treatment Upcoming Encounters Date Type Department Care Team (Late st Contact Info) Description 07/09/2025 9:00 AM CARRIER LOADER Office Visit [facility] Cardiovas and Thor Surg at [facility] [address] [facility] [address] [place] [address] Miranda Ceballos MD [address] [facility] [address] [place] [address] 07/09/2025 10:00 AM CARRIER LOADER Appointment [facility] S [facility] [address] [place] [address] 07/16/2025 10:00 AM CARRIER LOADER Office Visit [facility] Oncology and Hematology - [place] [address] [place] [address] Quique Khalil MD [address] [facility] [address] [place] [address] documented as of this encounter Procedures Procedure Name Priority Date/Time Associated Diagnosis Comments MAMMO SCREEN BILAT W OR WO CAD Timed Study 02/28/2008 9:06 AM CDT documented in this encounter Results * MAMMO DIGITAL SCREEN BILAT (02/28/2008 9:06 AM CDT) Anatomical Region Laterality Modality Breast Bilateral Other 02/28/2008 9:06 AM CDT Narrative 03/01/2008 8:15 AM CDT [address] [address] Admit Date: 02/28/2008 TYRONE REID Sex: F Admit Prov: ORA MACHADO Date: 1950 Primary Care Prov: BIB MACHUCA CMRN: [id number] Room: [facility] SSN: [id number] IMAGING SERVICES Ordering Prov: ORA MACHADO Accession Number: [id number] Interpretation BILATERAL SCREENING DIGITAL MAMMOGRAMS WITH COMPUTER [...] Procedure Note Gabino Worthington MD - 03/01/[address] [address] Admit Date: 02/28/2008 TYRONE REID Sex: F Admit Prov: ORA MACHADO Date: 1950 Primary Care Prov: BIB MACHUCA CMRN: [id number] Room: [facility] SSN: [id number] IMAGING SERVICES Ordering Prov: ORA MACHADO Interpretation [...] [place] 03/01/2008 08:15 Transcribed: 02/29/2008 17:09 DKT Ora Machado MD MAMMO ORDERABLES Final Result documented in this encounter Visit Diagnoses Diagnosis Other screening mammogram documented in this encounter Care Teams Change Control Coordinator Relationship Specialty Start Date End Date Silvia Quinonez MD [address] [place] [phone] PCP - General Family Practice 11/02/24 No DME 09/02/15 documented as of this encounter
--- OUTSIDE RECORDS SUMMARY | 2025-06-20 11:32 | XMS_ITS | Encounter Summary ---
Author Organization [facility] Address [address] [place] [address] Care Team Providers Care Tie Puller Name Role Phone Silvia Quinonez MD Primary Care Provider [phone] Encounter Details Date Type Department Care Team (Latest Contact Info) Description 02/18/2005 Outpatient Historical [facility] Jocy Espinal MD NO ADDRESS ON FILE SCREENING MAMM-MAILG NEOPL-OTHER (Primary Dx) Social History Tobacco Use Types Packs/Day Years Used Date Smoking Tobacco: Never Assessed Comments Unknown Sex and Gender Information Value Date Recorded Sex Assigned at Not on file Legal Sex Female 3:05 AM REHABILITATION THERAPY TECHNICIAN Gender Identity Not on file Sexual Orientation Not on file documented as of this encounter Plan of Treatment Upcoming Encounters Date Type Department Care Team (Late st Contact Info) Description 07/09/2025 9:00 AM REHABILITATION THERAPY TECHNICIAN Office Visit [facility] Cardiovas and Thor Surg at [facility] Heart Hosp [address] [address] Miranda Ceballos MD [address] [facility] [place] [address] 07/09/2025 10:00 AM REHABILITATION THERAPY TECHNICIAN Appointment [facility] [address] [place] [address] 07/16/2025 10:00 AM REHABILITATION THERAPY TECHNICIAN Office Visit [facility] Oncology and Hematology - [place] [address] [facility] [address] [place] [address] Quique Khalil MD [address] [facility] [address] [place] [address] documented as of this encounter Visit Diagnoses Diagnosis Other screening mammogram- Primary documented in this encounter Care Teams Tie Puller Relationship Specialty Start Date End Date Silvia Quinonez MD [address] [place] [address] PCP - General Family Practice 11/02/24 No DME 09/02/15 documented as of this encounter
--- OUTSIDE RECORDS SUMMARY | 2025-06-20 11:32 | XMS_ITS | Encounter Summary ---
Author Organization [facility] Address [address] [place] [address] Care Team Providers Care Manga Artist Name Role Phone Silvia Quinonez MD Primary Care Provider [phone] Encounter Details Date Type Department Care Team (Late st Contact Info) Description 11/10/2004 Outpatient Historical [facility] Support Services Cardiac E [address] [place] [address] Padilla Christie MD Social History Tobacco Use Types Packs/Day Years Used Date Smoking Tobacco: Never Assessed Comments Unknown Sex and Gender Information Value Date Recorded Sex Assigned at Not on file Legal Sex Female 3:05 AM ACID MAKER Gender Identity Not on file Sexual Orientation Not on file documented as of this encounter Plan of Treatment Upcoming Encounters Date Type Department Care Team (Late st Contact Info) Description 07/09/2025 9:00 AM ACID MAKER Office Visit [facility] Cardiovas and Thor Surg at [facility] Hosp [address] [address] Miranda Ceballos MD [address] [facility] [place] [address] 07/09/2025 10:00 AM ACID MAKER Appointment [facility] [address] [place] [address] 07/16/2025 10:00 AM ACID MAKER Office Visit [facility] Oncology and Hematology - [place] [address] [facility] 200 [place] [address] Quique Khalil MD [address] [facility] [address] [place] [address] documented as of this encounter Visit Diagnoses Not on filedocumented in this encounter Care Teams Manga Artist Relationship Specialty Start Date End Date Silvia Quinonez MD [address] [place] [address] PCP - General Family Practice 11/02/24 No DME 09/02/15 documented as of this encounter
--- OUTSIDE RECORDS SUMMARY | 2025-06-20 11:33 | XMS_ITS | Encounter Summary ---
Author Organization [facility] Address [address] [facility] Attn: [place] [address] Care Team Providers Care Pharmaceutical Process Engineer Name Role Phone Silvia Quinonez MD Primary Care Provider [phone] Encounter Details Date Type Department Care Team (Late st Contact Info) Description 02/11/1995 Outpatient Historical Josr Toledo MD NO ADDRESS ON FILE Social History Tobacco Use Types Packs/Day Years Used Date Smoking Tobacco: Never Assessed Comments Unknown Sex and Gender Information Value Date Recorded Sex Assigned at Not on file Legal Sex Female 3:05 AM CASTING HOUSE LABORER Gender Identity Not on file Sexual Orientation Not on file documented as of this encounter Plan of Treatment Upcoming Encounters Date Type Department Care Team (Late st Contact Info) Description 07/09/2025 9:00 AM CASTING HOUSE LABORER Office Visit [facility] Cardiovas and Thor Surg at [facility] Heart Hosp [address] [address] Miranda Ceballos MD [address] [facility] [place] [address] 07/09/2025 10:00 AM CASTING HOUSE LABORER Appointment [facility] [address] [place] [address] 07/16/2025 10:00 AM CASTING HOUSE LABORER Office Visit [facility] Oncology and Hematology - [place] [address] [facility] [address] [place] [address] Quique Khalil MD [address] [facility] [address] [place] [address] documented as of this encounter Visit Diagnoses Not on filedocumented in this encounter Care Teams Pharmaceutical Process Engineer Relationship Specialty Start Date End Date Silvia Quinonez MD [address] [place] [phone] PCP - General Family Practice 11/02/24 No DME 09/02/15 documented as of this encounter
--- OUTSIDE RECORDS SUMMARY | 2025-06-20 11:33 | XMS_ITS | Encounter Summary ---
Author Organization [facility] Address [address] [place] [address] Care Team Providers Care Chef De Cuisine Name Role Phone Silvia Quinonez MD Primary Care Provider [phone] Encounter Details Date Type Department Care Team (Latest Contact Info) Description 07/31/2008 Outpatient Historical [facility] TF VANNA-Jayce Dupree MD [facility] S [facility] [address] [place] [address] Nonspecific Abnormal Unspecified Cardiovascular Function Study Social History Tobacco Use Types Packs/Day Years Used Date Smoking Tobacco: Never Assessed Comments Unknown Sex and Gender Information Value Date Recorded Sex Assigned at Not on file Legal Sex Female 3:05 AM FABRICATOR SPECIAL ITEMS Gender Identity Not on file Sexual Orientation Not on file documented as of this encounter Plan of Treatment Upcoming Encounters Date Type Department Care Team (Late st Contact Info) Description 07/09/2025 9:00 AM FABRICATOR SPECIAL ITEMS Office Visit [facility] Cardiovas and Thor Surg at [facility]osp [address] [facility] [place] [address] Miranda Ceballos MD [address] [facility] [address] [place] [address] 07/09/2025 10:00 AM FABRICATOR SPECIAL ITEMS Appointment [facility] [address] [place] [address] 07/16/2025 10:00 AM FABRICATOR SPECIAL ITEMS Office Visit [facility] Oncology and Hematology - [place] [address] [place] [address] Quique Khalil MD [address] [facility] [address] [place] [address] documented as of this encounter Visit Diagnoses Diagnosis Nonspecific abnormal unspecified cardiovascular function study documented in this encounter Care Teams Chef De Cuisine Relationship Specialty Start Date End Date Silvia Quinonez MD [address] [place] [address] PCP - General Family Practice 11/02/24 No DME 09/02/15 documented as of this encounter
--- OUTSIDE RECORDS SUMMARY | 2025-06-20 11:33 | XMS_ITS | Clinical Summary ---
Author Organization [facility] Address [address] [place] [address] Care Team Providers Care Produce Department Supervisor Name Role Phone Silvia Quinonez MD Primary Care Provider [phone] Silvia Quinonez MD Unavailable [phone] Allergies Active Allergy Reactions Criticality Noted Date Comments Amlodipine Fatigue Low 03/23/2012 Excessive fatigue Other Unknown 05/22/2009 SURGICAL MESH Medications calcium carbonate (CALCIUM 500 ORAL) Active cholecalciferol (VITAMIN D-3) 58469 unit tablet once a week 3 Active [...] 2 (two) times a day 1 Active rOPINIRole (REQUIP) 1 mg tablet Active triamcinolone (KENALOG) 0.1 % lotion APPLY LOTION TOPICALLY TO AFFECTED AREA TWICE DAILY 1 Active calcium carbonate (OS-KANWAL) 1,500 mg [...] as needed (restless leg syndrome) 4 Active cholecalciferol (VITAMIN D-3) 2000 unit capsule [...] hours as needed for pain 4 Active polyethylene glycol (MIRALAX) 17 gram packetIndicatio ns:constipation Take 1 packet (17 g total) by mouth daily 4 Active Eliquis 5 mg tablet Take 1 tablet (5 mg total) by mouth every 12 (twelve) hours 4 Active diclofenac sodium (VOLTAREN) 1 % gel APPLY 4G TOPICALLY FOUR TIMES DAILY TO SINGLE KNEE, ANKLE, FOOT (INCLUDING SOLES, TOES, TOP OF FOOT) 4 Active Active Problems Problem Noted Date [...] controlled diet - Hgb A1C 5.5 - 12/26: BG 488-Pt endorsed eating a lot of [...] Department Care Team Description 05/02/2025 Orders Only [facility] Cardiology [address] [place] [address] Joel Azevedo MD 04/26/2025 10:15 AM CDT Lab [facility] Advanced Medicine [facility] Advanced Medicine ([facility]) [address] [place] [address] Closed nondisplaced articular fracture of head of left femur, sequela; Age-related osteoporosis without current pathological fracture 04/26/2025 9:55 AM CDT - 04/26/2025 11:59 PM CDT Hospital Encounter [facility] [address] [place] [address] Closed nondisplaced articular fracture of head of left femur, sequela; Age-related osteoporosis without current pathological fracture Discharge Disposition: Discharge to home or self care 04/26/2025 8:40 AM CDT Office Visit [address] [place] [address] [place] [address] Ezekiel Frank MD Closed nondisplaced articular fracture of head of left femur, sequela (Primary Dx); Age-related osteoporosis without current pathological fracture 04/26/2025 8:10 AM CDT Clinical Support [address] [place] [address] [place] [address] Osteopenia of left hip (Primary Dx); Closed nondisplaced articular fracture of head of left femur, sequela 04/26/2025 Results Follow-Up [address] [place] [address] [place] [address] Ezekiel Frank MD XR Femur Right 2 or More Views, Comprehensive metabolic panel, Vitamin D 25 hydroxy, Additional followed-up results: 4 04/26/[address] [place] [address] [place] [address] Ezekiel Frank MD 04/03/2025 Telephone [facility] Cardiology [address] [facility] [address] [place] [address] Joel Azevedo MD [facility] from Last 3 Months Immunizations [...] Tobacco: Never Tobacco Cessation:Counseling Given: Not Answered [facility] Utilities Answer Date Recorded In the past 12 months has e [employer], [employer], or water [employer] threatened to shut off [...] week 12/23/2023 How often do you attend [facility] or orthodoxy services? More than 4 times per year 12/23/2023 Do you belong to any clubs o r organizations such as protestant groups, unions, fraternal or athletic groups, or [...] and heating? 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 Gender Identity Female 12/16/2020 9:45 PM CDT [...] Fall Risk Assessment 12/28/2024 12/29/2023 Covid-19 Vaccine (2024-2 6 season) 2025 10/28/2020, 10/08/2020 Influenza Vaccine (#1) 2025 , 04/27/2020, 04/29/2018, Additional history exists eGFR 04/26/2026 04/26/2025, 12/04, 12/28/2023, Additional history exists Osteoporosis Screening-Bone Density Scan 04/26/2027 04/26/2025, 10/01/2015, 10/01/2015, Additional history exists Medical Devices Implanted Type Area Bond Runner Device Identifier Shelf Expiration Date Model / Serial / Lot [employer] Screw Bone 5mm 80mm Lock Strl [id number] - [id number] Implanted:Qty: 1 on 12/23/2023 by Dave Rosas MD at [facility] Screw Left: Femur [employer] [id number] 10/02/2033 0525-5697 S / / [id number] [employer] Screw Bone 5mm 70mm Lock Strl 2361-5070s - [id number] Implanted:Qty: 1 on 12/23/2023 by Dave Rosas MD at [facility] Screw Left: Femur [employer] [id number] 11/01/2033 8445-6412 S / / [id number] [employer] Screw Bone Locking Cannulated Tibial Oversized Thread Black T2 Alpha 5.0x85mm Titanium [id number] - [id number] Implanted:Qty: 1 on 12/23/2023 by Dave Rosas MD at [facility] Screw Left: Femur [employer] [id number] 10/02/2033 2103-4775 S / / [id number] [employer] Screw Bone 5mm 37.5mm T2 Alpha Lock Strl 2360-0677s - [id number] Implanted:Qty: 1 on 12/23/2023 by Dave Rosas MD at [facility] Screw Left: Femur [employer] [id number] 11/01/2033 3381-6581 S / / [id number] [employer] Screw Bone 5mm 40mm T2 Alpha Lock Strl 2360-5040s - [id number] Implanted:Qty: 1 on 12/23/2023 by Dave Rosas MD at [facility] Screw Left: Femur [employer] [id number] 11/01/2033 2706-8256 S / / [id number] [employer] Screw Bone 5mm 42.5mm T2 Alpha Lock Strl 2360-5042s - [id number] Implanted:Qty: 1 on 12/23/2023 by Dave Rosas MD at [facility] Screw Left: Femur [employer] [id number] 10/02/2030 0766-2838 S / / [id number] Synthes Plate Bone Compression Locking Low Profile 18 Hole Left Va Lcp 4.7w099wu Ss 02.124.419s - [id number] Implanted:Qty: 1 on 12/23/2023 by Dave Rosas MD at [facility] Left: Femur Synthes 02.124.41 9S / / [employer] Nail Intramedullary Femoral Retrograde T2 Alpha [id number] Titanium 2339-1124s - [id number] Implanted:Qty: 1 on 12/23/2023 by Dave Rosas MD at [facility] Left: Femur [employer] 07/04/2033 3258-9577 S / / [id number] Synthes 5mm 36mm Variable Angle Self Tap Lock Stardrive Condylar T25 02.231.236 - [id number] Implanted:Qty: 1 on 12/23/2023 by Dave Rosas MD at [facility] Left: Femur Synthes I 02.231.23 6 / / Synthes 4.5mm 8mm 36mm Self Tap Large Hexagonal Socket Cortex Screw Bone 214.836 - [id number] Implanted:Qty: 1 on 12/23/2023 by Dave Rosas MD at [facility] Left: Femur Synthes I 214.836 / / Synthes 5mm 80mm Variable Angle Self Tap Lock [employer] Condylar T25 02.231.280 - [id number] Implanted:Qty: 2 on 12/23/2023 by Dave Rosas MD at [facility] Left: Femur Synthes 02.231.28 0 / / Synthes 5mm 85mm Variable Angle Self Tap Lock [employer] Condylar T25 02.231.285 - [id number] Implanted:Qty: 2 on 12/23/2023 by Dave Rosas MD at [facility] Left: Femur Synthes I 02.231.28 5 / / Synthes 4.5mm 8mm 100mm Self Tap Large Hexagonal Socket Cortical Screw 214.900 - [id number] Implanted:Qty: 1 on 12/23/2023 by Dave Rosas MD at [facility] Left: Femur Synthes I 214.900 / / Synthes 5mm 38mm Variable Angle Self Tap Lock [employer] Condylar T25 02.231.238 - [id number] Implanted:Qty: 1 on 12/23/2023 by Dave Rosas MD at [facility] Left: Femur Synthes I 02.231.23 8 / / Synthes 5mm 40mm Variable Angle Self Tap Lock [employer] Condylar T25 02.231.240 - [id number] Implanted:Qty: 1 on 12/23/2023 by Dave Rosas MD at [facility] Left: Femur Synthes I 02.231.24 0 / / Explanted Type Area Bond Runner Device Identifier Shelf Expiration Date Model / Serial / Lot [employer] Nail Intramedullary Femoral Retrograde T2 Alpha [id number] Titanium 2339-1122s - [id number] Explanted:Qty: 1 on 12/23/2023 by Dave Rosas MD at [facility] Left: Femur [employer] 07/04/2033 8774-9860 S / / [id number] Procedures Procedure Name Priority Date/Time Associated Diagnosis [...] CDT) Anatomical Region Laterality Modality Other us Joel Azevedo MD CV CARDIAC SERVICES PROCEDURES F [...] ORDERABLES Final Res ult Performing Organization Address City/[facility]/ZIP Co de Phone Number [facility] [place] [address] * Vitamin D 25 hydroxy (04/26/2025 9:45 AM CDT) Vitamin D 25-OH 58 30 - 80 ng/mL Blood 04/26/2025 9:45 AM CDT 04/26/2025 10:10 AM CDT Ezekiel Frank MD LAB BLOOD ORDERABLES Final Res ult Performing Organization Address City/State/[place] Co de Phone Number [facility] [place] [address] * Protein electrophoresis with reflex, serum with interpretation (04/26/2025 9:45 AM CDT) Protein, sr 7.2 6.2 - 8.2 g/dL Albumin 4.3 3.2 - 5.0 g/dL [facility] Alpha-1 globulin 0.2 0.2 - 0.4 g/dL [facility] Alpha-2 globulin 1.0 0.5 - 1.0 g/dL [facility] Beta-1 globulin 0.4 0.3 - 0.6 g/dL [facility] Beta-2 globulin 0.4 0.2 - 0.6 g/dL [facility] Gamma globulin 0.9 0.5 - 1.7 g/dL [facility] SPEP interp Please see comment [facility] Comment: No apparent monoclonal peak Reviewed and signed by Sylvia Arevalo MD, PhD 04/27/2025 Blood 04/26/2025 9:45 AM CDT 04/26/2025 10:10 AM CDT Ezekiel Frank MD LAB BLOOD ORDERABLES Final Res ult [facility] Department [place] [address] * Phosphorus (04/26/2025 9:45 AM CDT) Phosphorus, pl 3.9 2.3 - 4.5 mg/dL Blood 04/26/2025 9:45 AM CDT 04/26/2025 10:10 AM CDT Ezekiel Frank MD LAB BLOOD ORDERABLES Final Res ult [facility] [place] [address] * PTH (04/26/2025 9:45 AM CDT) PTH 42 18 - 59 pg/mL Blood 04/26/2025 9:45 AM CDT 04/26/2025 10:08 AM CDT Ezekiel Frank MD LAB BLOOD ORDERABLES Final Res ult [facility] [place] [address] * (ABNORMAL) Comprehensive metabolic panel (04/26/2025 9:45 AM CDT) Sodium 138 135 - 145 mmol/L Potassium, pl 4.6 3.3 - 4.9 mmol/L [facility] Chloride 97 97 - 110 mmol/L [facility] CO2 32 22 - 32 mmol/L [facility] Anion gap 9 2 - 15 mmol/L [facility] BUN 25 6 - 25 mg/dL [facility] Creatinine 1.30(H) 0.60 - 1.10 mg/dL [facility] Glucose 116 70 - 199 mg/dL [facility] Comment: Interpretive Data Fasting glucose >/= 126 [...] 2022. Calcium 10.1 8.5 - 10.3 mg/dL [facility] Bilirubin, total 0.4 0.1 - 1.2 mg/dL [facility] Protein, pl 7.6 6.5 - 8.5 g/dL [facility] Albumin 4.4 3.5 - 5.0 g/dL [facility] Alk phos 65 40 - 130 Units/L [facility] ALT 25 7 - 45 Units/L [facility] AST 24 10 - 45 Units/L [facility] Blood 04/26/2025 9:45 AM CDT 04/26/2025 10:10 AM CDT Ezekiel Frank MD LAB BLOOD ORDERABLES Final Res ult [facility] [place] [address] * Dexa TBS Axial Skeleton Bone Density 1 or more sites (04/26/2025 8:15 AM CDT) Anatomical Region Laterality Modality Wrist, Body N/A Radiographic Bonnie ging Narrative 04/26/2025 8:19 AM CDT Patient Name: Loren Bryan Date of : 1950 Date of scan: 04/26/2025 Bone mineral density was performed on a HoloProMed Discovery Densitometer. Based on machine cross-calibration and [...] by the International Society of Clinical Densitometry. [id number] us Ezekiel Frank MD [facility] DXA PROCEDURES Final Resul t * Hemoglobin A1c (12/26/2023 10:39 PM CDT) Hgb A1C 5.5 4.0 - 5.6 % Estimated Average Glucose 111 mg/dL [facility] Comment: The ADA recommends reporting an estimated [...] Johnson MD LAB BLOOD ORDERABLES Final Result [facility] [place] [address] from Last 3 Months or Most Recently Relevant to Health Maintenance Insurance [employer] MEDICARE GOLD MEDICARE AET SENIOR SUPPLEMENT AETNA MEDICARE GOLD AETNA MEDICARE GOLD AETNA MEDICARE GOLD Advance Directives For more information, please contact: [phone] * Full Code (Latest Code Status on [...] 1:45 PM 12/23/2023 2:10 PM Care Teams Produce Department Supervisor Relationship Specialty Start Date End Date Silvia Quinonez MD PCP - General Family Medicine 12/23/23 Silvia Quinonez MD Family Medicine 12/23/23
--- OUTSIDE RECORDS SUMMARY | 2025-06-20 11:33 | XMS_ITS | Encounter Summary ---
Author Organization [facility] Address [address] [place] [address] Care Team Providers Care Collections Attorney Name Role Phone Silvia Quinonez MD Primary Care Provider [phone] Encounter Details Date Type Department Care Team (Latest Contact Info) Description 11/18/2004 Inpatient Historical [facility] INPATIENT IN BED Sam Machado MD 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 Gender Identity Not on file Sexual Orientation Not on file documented as of this encounter Plan of Treatment Upcoming Encounters Date Type Department Care Team (Late st Contact Info) Description 07/09/2025 9:00 AM REAL TIME OPERATOR Office Visit [facility]3] Cardiovas and Thor Surg at [facility] [address] [facility] [address] [place] [address] Miranda Ceballos MD [address] [facility] [address] [place] [address] 07/09/2025 10:00 AM REAL TIME OPERATOR Appointment [facility] [address] [place] [address] 07/16/2025 10:00 AM REAL TIME OPERATOR Office Visit [facility]3] Oncology and Hematology - [facility] [address] [place] [address] Quique Khalil MD [address] [facility] [address] [place] [address] documented as of this encounter [...] fL INTERFACE SYSTEM 11/19/2004 5:15 AM CDT Sam Machado MD HEMATOLOGY ORDERABLES Final Re sult Performing Organization Address [facility] Phone Number INTERFACE SYSTEM Refer to clinic/hospital department * POC GLUCOSE (11/18/2004 8:25 AM CDT) GLUCOSE POC 84 65 - 115 mg/dL INTERFACE SYSTEM 11/18/2004 8:25 AM CDT Sam Machado MD POINT OF CARE TESTING Final Re sult Performing Organization Address [facility] Phone Number INTERFACE SYSTEM Refer [...] INTERFACE SYSTEM 11/10/2004 10:3 8 AM CDT Sam Machado MD URINE ORDERABLES Final Result Performing Organization Address [facility] Phone Number INTERFACE SYSTEM Refer [...] ORDERABLES Final Res ult Performing Organization Address [facility] Phone Number INTERFACE SYSTEM Refer [...] ORDERABLES Final Re sult Performing Organization Address [facility] de Phone Number INTERFACE SYSTEM [...] Primary documented in this encounter Care Teams Collections Attorney Relationship Specialty Start Date End Date Silvia Quinonez MD [address] [place] [address] PCP - General Family Practice 11/02/24 No DME 09/02/15 documented as of this encounter
--- OUTSIDE RECORDS SUMMARY | 2025-06-20 11:33 | XMS_ITS | Encounter Summary ---
Author Organization [facility] Address [address] [place] [address] Care Team Providers Care Candy Counter Clerk Name Role Phone Silvia Quinonez MD Primary Care Provider [phone] Encounter Details Date Type Department Care Team (Late st Contact Info) Description 08/18/2000 Outpatient Historical [facility] Primary Care Internal Medicine [address] [address] Jens Lora MD NO ADDRESS ON FILE Social History Tobacco Use Types Packs/Day Years Used Date Smoking Tobacco: Never Assessed Comments Unknown Sex and Gender Information Value Date Recorded Sex Assigned at Not on file Legal Sex Female 3:05 AM MANAGER CARE MANAGEMENT Gender Identity Not on file Sexual Orientation Not on file documented as of this encounter Plan of Treatment Upcoming Encounters Date Type Department Care Team (Late st Contact Info) Description 07/09/2025 9:00 AM MANAGER CARE MANAGEMENT Office Visit [facility] Cardiovas and Thor Surg at [facility] [address] [facility] [address] [place] [address] Miranda Ceballos MD [address] [facility] [address] [place] [address] 07/09/2025 10:00 AM MANAGER CARE MANAGEMENT Appointment [facility] [address] [place] [address] 07/16/2025 10:00 AM MANAGER CARE MANAGEMENT Office Visit [facility] Oncology and Hematology - [facility] [address] [place] [address] Quique Khalil MD [address] [facility] [address] [place] [address] documented as of this encounter Visit Diagnoses Not on filedocumented in this encounter Care Teams Candy Counter Clerk Relationship Specialty Start Date End Date Silvia Quinonez MD [address] [place] [address] PCP - General Family Practice 11/02/24 No DME 09/02/15 documented as of this encounter
--- OUTSIDE RECORDS SUMMARY | 2025-06-20 11:33 | XMS_ITS | Encounter Summary ---
Author Organization [facility] Address [address] [place] [address] Care Team Providers Care Marine Engineering Consultant Name Role Phone Silvia Quinonez MD Primary Care Provider [phone] Encounter Details Date Type Department Care Team (Late st Contact Info) Description 11/18/[address] 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 Cardiovas and Thor Surg at [facility] [address] [facility] [place] [address] Miranda Ceballos MD [address] [facility] [address] [place] [address] 07/09/2025 10:00 AM MASH FILTER OPERATOR Appointment [facility] [address] [facility] [address] [place] [address] 07/16/2025 10:00 AM MASH FILTER OPERATOR Office Visit [facility] Oncology and Hematology - [facility] [address] [facility] [address] [place] [address] Quique Khalil MD [address] [facility] [address] [place] [address] documented as of this encounter Visit Diagnoses Not on filedocumented in this encounter Care Teams Marine Engineering Consultant Relationship Specialty Start Date End Date Silvia Quinonez MD [address] [place] [address] PCP - General Family Practice 11/02/24 No DME 09/02/15 documented as of this encounter
--- OUTSIDE RECORDS SUMMARY | 2025-06-20 11:33 | XMS_ITS | Encounter Summary ---
Author Organization [facility] Address [address] [place] [address] Care Team Providers Care Lining Marker Name Role Phone Silvia Quinonez MD Primary Care Provider [phone] Encounter Details Date Type Department Care Team (Late Contact Info) Description 02/21/2003 Outpatient Historical Division of Neurology [address] [facility], [address] [address] Tiffanie Marquez MD [address] [facility] [address] [place] [address] Social History Tobacco Use Types Packs/Day Years Used Date Smoking Tobacco: Never Assessed Comments Unknown Sex and Gender Information Value Date Recorded Sex Assigned at Not on file Legal Sex Female 3:05 AM CIGAR MAKER Gender Identity Not on file Sexual Orientation Not on file documented as of this encounter Plan of Treatment Upcoming Encounters Date Type Department Care Team (Late Contact Info) Description 07/09/2025 9:00 AM CIGAR MAKER Office Visit [facility] Cardiovas and Thor Surg at [facility] [address] [facility] [address] [place] [address] Miranda Ceballos MD [address] [facility] [address] [place] [address] 07/09/2025 10:00 AM CIGAR MAKER Appointment [facility] [address] [place] [address] 07/16/2025 10:00 AM CIGAR MAKER Office Visit [facility] Oncology and Hematology - [facility] [address] [facility] [address] [place] [address] Quique Khalil MD [address] [facility] [address] [place] [address] documented as of this encounter Visit Diagnoses Not on filedocumented in this encounter Care Teams Lining Marker Relationship Specialty Start Date End Date Silvia Quinonez MD [address] [place] [address] PCP - General Family Practice 11/02/24 No DME 09/02/15 documented as of this encounter
--- OUTSIDE RECORDS SUMMARY | 2025-06-20 11:33 | XMS_ITS | Encounter Summary ---
Author Organization [facility] Address [address] [place] [address] Care Team Providers Care Order Packer Name Role Phone Silvia Quinonez MD Primary Care Provider [phone] Encounter Details Date Type Department Care Team (Latest Contact Info) Description 01/24/2003 Outpatient Historical [facility] Latonia Scott MD [address] [place], [place] [id number] PERSIST POSTOP FISTULA (Primary Dx) Social History Tobacco Use Types Packs/Day Years Used Date Smoking Tobacco: Never Assessed Comments Unknown Sex and Gender Information Value Date Recorded Sex Assigned at Not on file Legal Sex Female 3:05 AM BONER MEAT Gender Identity Not on file Sexual Orientation Not on file documented as of this encounter Plan of Treatment Upcoming Encounters Date Type Department Care Team (Late st Contact Info) Description 07/09/2025 9:00 AM BONER MEAT Office Visit [facility] Cardiovas and Thor Surg at [facility] [address] [facility] [address] [place] [address] Miranda Ceballos MD [address] [facility] [address] [place] [address] 07/09/2025 10:00 AM BONER MEAT Appointment [facility] [address] [place] [address] 07/16/2025 10:00 AM BONER MEAT Office Visit [facility] Oncology and Hematology - Reji [address] [place] [address] Quique Khalil MD [address] [facility] [address] [place] [address] documented as of this encounter Visit Diagnoses Diagnosis Persistent postoperative fistula, 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
--- OUTSIDE RECORDS SUMMARY | 2025-06-20 11:33 | XMS_ITS | Encounter Summary ---
Author Organization [facility] Address [address] [place] [address] Care Team Providers Care Ends Breakage Clerk Name Role Phone Silvia Quinonez MD Primary Care Provider [phone] Encounter Details Date Type Department Care Team (Latest Contact Info) Description 02/22/2003 Outpatient Historical [facility] Jocy Espinal MD NO ADDRESS ON FILE SCREENING MAMM-MAILG NEOPL-OTHER (Primary Dx) Social History Tobacco Use Types Packs/Day Years Used Date Smoking Tobacco: Never Assessed Comments Unknown Sex and Gender Information Value Date Recorded Sex Assigned at Not on file Legal Sex Female 3:05 AM WOOD DRILL OPERATOR Gender Identity Not on file Sexual Orientation Not on file documented as of this encounter Plan of Treatment Upcoming Encounters Date Type Department Care Team (Late st Contact Info) Description 07/09/2025 9:00 AM WOOD DRILL OPERATOR Office Visit [facility] Cardiovas and Thor Surg at [facility] [address] [address] Miranda Ceballos MD [address] [facility] [place] [address] 07/09/2025 10:00 AM WOOD DRILL OPERATOR Appointment [facility] [address] [place] [address] 07/16/2025 10:00 AM WOOD DRILL OPERATOR Office Visit [facility] Oncology and Hematology - Reji [address] [facility] [address] [place] [address] Quique Khalil MD [address] [facility] [address] [place] [address] documented as of this encounter Visit Diagnoses Diagnosis Other screening mammogram- Primary documented in this encounter Care Teams Ends Breakage Clerk Relationship Specialty Start Date End Date Silvia Quinonez MD [address] [place] [address] PCP - General Family Practice 11/02/24 No DME 09/02/15 documented as of this encounter
--- OUTSIDE RECORDS SUMMARY | 2025-06-20 11:33 | XMS_ITS | Patient Health Record ---
Author Organization [facility] [employer] [facility] ([address]) Address [address] [place] [address] Care Team Providers Care Recreation Attendant Supervisor Name Role Phone Silvia Quinonez Primary Care Provider Elva Whiteside Unavailable [phone] Allergies No Known Allergies Results Component Value Reference Range Notes -CBC With Differential/Plate let Reviewed date:08/31/2024 11:47:08 AM Interpretation:Normal Performing Lab:[facility], [address] [place] [id number], Phone - [phone], Director - Ga Notes/Report: WBC 7.4 3.4-10.8 [...] (14) Reviewed date:08/31/2024 11:44:49 AM Interpretation:Abnormal [facility]forming [facility], [address] [place] [id number], Phone - [phone], [facility] Notes/Report: Glucose 102 70-99 mg/dL [...] T4 Reviewed date:08/31/2024 11:44:33 AM Interpretation:Abnormal Performing Lab:[facility], [address] [place] [address] [id number], Phone - [phone], [facility] Notes/Report: TSH 4.800 0.450-4.500 uIU/mL [...] W/U Status Risk Notes Problem Allergic rhinitis (77800869) Other allergic rhinitis (J30.89) Active confirmed Problem Chronic rhinitis (66073282) Chronic rhinitis (J31.0) Active confirmed Vital Signs Oximetry 100 % 11/07/2024 Blood pressure diastolic 73 mm Hg 11/07/2024 Height 66 in 11/07/2024 Blood pressure systolic 134 mm Hg 11/07/2024 Weight 157.8 lbs 11/07/2024 BMI 25.47 kg/m2 11/07/2024 Encounters Encounter Location Date Provider Diagnosis [facility] [address] [facility] [address] [place] [address] 10/10/2024 Elva Luna Dermatitis, unspecified L30.9 ; Cough, unspecified R05.9 ; Other allergic rhinitis J30.89 and Pruritus, unspecified L29.9 [facility] [address] [place] [address] 11/07/2024 Elva Jeremy Dermatitis, unspecified L30.9 ; Cough, unspecified R05.9 ; Other allergic rhinitis J30.89 and Pruritus, unspecified L29.9 [facility] [address] [place] [address] 08/29/2024 Elva Jeremy Other allergic rhinitis J30.89 ; Dermatitis, unspecified L30.9 and Pruritus, unspecified L29.[address] [place] [address] 11/08/2024 Elva Jeremy [facility] [address] [place] [address] 08/31/2024 Elva Jeremy [address] [place] [address] 12/04/2024 Elva Jeremy Cough, unspecified R05.[address] [place] [address] 11/23/2024 Elva Jeremy Cough, unspecified R05.9 Assessments [...] Coverage End Date [employer] [address] [place] [address] [id number] L Loren Bryan Self - patient is the insured 5 Medical (General) History Medical History History ICD Code high blood pressure Type II diabetes Macular degeneration Osteoporosis Eczema Surgical History Surgery Date(Month/Year) knee replacement 2022 gastric bypass 1997 lower leg surgery 2019 Hospitalization History Reason Date(Month/Year) See Above
--- OUTSIDE RECORDS SUMMARY | 2025-06-20 11:33 | XMS_ITS | Encounter Summary ---
Author Organization [facility] Address [address] [place] [address] Care Team Providers Care Medicare Specialist Name Role Phone Silvia Quinonez MD Primary Care Provider [phone] Encounter Details Date Type Department Care Team (Late st Contact Info) Description 06/10/2001 Emergency [facility] Duc Goncalves MD [address] [place] [address] [place] [address] CRAMP IN LIMB (Primary Dx) Social History Tobacco Use Types Packs/Day Years Used Date Smoking Tobacco: Never Assessed Comments Unknown Sex and Gender Information Value Date Recorded Sex Assigned at Not on file Legal Sex Female 3:05 AM SECURITY SYSTEM INSTALLER Gender Identity Not on file Sexual Orientation Not on file documented as of this encounter Plan of Treatment Upcoming Encounters Date Type Department Care Team (Late st Contact Info) Description 07/09/2025 9:00 AM SECURITY SYSTEM INSTALLER Office Visit [facility] Cardiovas and Thor Surg at [facility] [address] [facility] [address] [place] [address] Miranda Ceballos MD [address] [facility] [address] [place] [address] 07/09/2025 10:00 AM SECURITY SYSTEM INSTALLER Appointment [facility] [address] [place] [address] 07/16/2025 10:00 AM SECURITY SYSTEM INSTALLER Office Visit [facility] Oncology and Hematology - Reji [address] [place] [address] Quique Khalil MD [address] [facility] [address] [place] [address] documented as of this encounter Visit Diagnoses Diagnosis Cramp of limb- Primary documented in this encounter Care Teams Medicare Specialist Relationship Specialty Start Date End Date Silvia Quinonez MD [address] [place] [address] PCP - General Family Practice 11/02/24 No DME 09/02/15 documented as of this encounter
--- OUTSIDE RECORDS SUMMARY | 2025-06-20 11:33 | XMS_ITS | Encounter Summary ---
Author Organization [facility] Address [address] [place] [address] Care Team Providers Care Keel Press Operator Name Role Phone Silvia Quinonez MD Primary Care Provider [phone] Encounter Details Date Type Department Care Team (Late st Contact Info) Description 10/28/2001 Outpatient Historical [facility] Mary Carmen Cline MD [address] [facility] [address] [place] [address] HEMORRHOIDS NOS (Primary Dx) Social History Tobacco Use Types Packs/Day Years Used Date Smoking Tobacco: Never Assessed Comments Unknown Sex and Gender Information Value Date Recorded Sex Assigned at Not on file Legal Sex Female 3:05 AM SUPERVISOR DRYING AND WINDING Gender Identity Not on file Sexual Orientation Not on file documented as of this encounter Plan of Treatment Upcoming Encounters Date Type Department Care Team (Late st Contact Info) Description 07/09/2025 9:00 AM SUPERVISOR DRYING AND WINDING Office Visit [facility] Cardiovas and Thor Surg at [facility] [address] [facility] [address] [place] [address] Miranda Ceballos MD [address] [facility]Note [facility] [address] [place] [address] 07/09/2025 10:00 AM SUPERVISOR DRYING AND WINDING Appoint[facility] [address] [place] [address] 07/16/2025 10:00 AM SUPERVISOR DRYING AND WINDING Office Visit [facility]3] Oncology and Hematology - [facility] [address] [place] [address] Quique Khalil MD [address] [facility] [address] [place] [address] documented as of this encounter Visit Diagnoses Diagnosis Unspecified hemorrhoids without mention of complication- Primary documented in this encounter Care Teams Keel Press Operator Relationship Specialty Start Date End Date Silvia Quinonez MD [address] [place] [address] PCP - General Family Practice 11/02/24 No DME 09/02/15 documented as of this encounter
--- OUTSIDE RECORDS SUMMARY | 2025-06-20 11:33 | XMS_ITS | Encounter Summary ---
Author Organization [facility] Address [address] [place] [address] Care Team Providers Care Landscape Drafter Name Role Phone Silvia Quinonez MD Primary Care Provider [phone] Encounter Details Date Type Department Care Team [...] on file Legal Sex Female 3:05 AM SPINNERET CLEANER Gender Identity Not on file Sexual Orientation Not on file documented as of this encounter Plan of Treatment Upcoming Encounters Date Type Department Care Team (Late st Contact Info) Description 07/09/2025 9:00 AM SPINNERET CLEANER Office Visit [facility] Cardiovas and Thor Surg at [facility] [address] [facility] [place] [address] Miranda Ceballos MD [address] [facility] [address] [place] [address] 07/09/2025 10:00 AM SPINNERET CLEANER Appointment [facility] [address] [place] [address] 07/16/2025 10:00 AM SPINNERET CLEANER Office Visit [facility] Oncology and Hematology - Reji [address] [place] [address] [facility] [address] [place] [address] Quique Khalil MD [address] [facility] [address] [place] [address] documented as of this encounter Visit Diagnoses Diagnosis Contusion of face, scalp, and neck except eye(s)- Primary documented in this encounter Care Teams Landscape Drafter Relationship Specialty Start Date End Date Silvia Quinonez MD [address] [place] [address] PCP - General Family Practice 11/02/24 No DME 09/02/15 documented as of this encounter
--- OUTSIDE RECORDS SUMMARY | 2025-06-20 11:33 | XMS_ITS | Encounter Summary ---
Author Organization [facility] Address [address] [place] [address] Care Team Providers Care Automatic Pilot Mechanic Name Role Phone Silvia Quinonez MD Primary Care Provider [phone] Encounter Details Date Type Department Care Team (Latest Contact Info) Description 09/21/2002 Outpatient Historical [facility] B RADIOLOGY Loco Ahn MD [address] [place] [address] [address] [place] [address] ABDOMINAL PAIN RUQ (Primary Dx) Social History Tobacco Use Types Packs/Day Years Used Date Smoking Tobacco: Never Assessed Comments Unknown Sex and Gender Information Value Date Recorded Sex Assigned at Not on file Legal Sex Female 3:05 AM ADMINISTRATION DEAN Gender Identity Not on file Sexual Orientation Not on file documented as of this encounter Plan of Treatment Upcoming Encounters Date Type Department Care Team (Late st Contact Info) Description 07/09/2025 9:00 AM ADMINISTRATION DEAN Office Visit [facility] Cardiovas and Thor Surg at [facility] [address] [facility] [address] [place] [address] Miranda Ceballos MD [address] [facility] [address] [place] [address] 07/09/2025 10:00 AM ADMINISTRATION DEAN Appointment [facility] [address] [place] [address] 07/16/2025 10:00 AM ADMINISTRATION DEAN Office Visit [facility] Oncology and Hematology - Reji [address] [place] [address] Quique Khalil MD [address] [facility] [address] [place] [address] documented as of this encounter Visit Diagnoses Diagnosis Abdominal pain, right upper quadrant- Primary documented in this encounter Care Teams Automatic Pilot Mechanic Relationship Specialty Start Date End Date Silvia Quinonez MD [address] [place] [address] PCP - General Family Practice 11/02/24 No DME 09/02/15 documented as of this encounter
--- OUTSIDE RECORDS SUMMARY | 2025-06-20 11:33 | XMS_ITS | Encounter Summary ---
Author Organization [facility] Address [address] [facility] Attn: [place] [address] Care Team Providers Care Microsoft Dynamics Consultant Name Role Phone Silvia Quinonez MD Primary Care Provider [phone] Encounter Details Date Type Department Care Team (Late st Contact Info) Description 09/17/1994 Outpatient Historical Josr Toledo MD NO ADDRESS ON FILE Social History Tobacco Use Types Packs/Day Years Used Date Smoking Tobacco: Never Assessed Comments Unknown Sex and Gender Information Value Date Recorded Sex Assigned at Not on file Legal Sex Female 3:05 AM EAR SPECIALIST Gender Identity Not on file Sexual Orientation Not on file documented as of this encounter Plan of Treatment Upcoming Encounters Date Type Department Care Team (Late st Contact Info) Description 07/09/2025 9:00 AM EAR SPECIALIST Office Visit [facility] Cardiovas and Thor Surg at [facility]osp [address] [address] Miranda Ceballos MD [address] [facility] [address] [place] [address] 07/09/2025 10:00 AM EAR SPECIALIST Appointment [facility] [address] [place] [address] 07/16/2025 10:00 AM EAR SPECIALIST Office Visit [facility] Oncology and Hematology - Reji [address] [place] [address] Quique Khalil MD [address] [facility] [address] [place] [address] documented as of this encounter Visit Diagnoses Not on filedocumented in this encounter Care Teams Microsoft Dynamics Consultant Relationship Specialty Start Date End Date Silvia Quinonez MD [address] [place] [address] PCP - General Family Practice 11/02/24 No DME 09/02/15 documented as of this encounter
--- OUTSIDE RECORDS SUMMARY | 2025-06-20 11:33 | XMS_ITS | Encounter Summary ---
Author Organization [facility] Address [address] [place] [address] Care Team Providers Care Breaker Layer Name Role Phone Silvia Quinonez MD Primary Care Provider Encounter Details Date Type Department Care Team (Late st Contact Info) Description 11/28/2004 Outpatient Historical [facility] [address] [place] [address] Sam Machado MD [address] [place] [address] Social History Tobacco Use Types Packs/Day Years Used Date Smoking Tobacco: Never Assessed Comments Unknown Sex and Gender Information Value Date Recorded Sex Assigned at Not on file Legal Sex Female 3:05 AM TEAMCENTER CONSULTANT Gender Identity Not on file Sexual Orientation Not on file documented as of this encounter Plan of Treatment Upcoming Encounters Date Type Department Care Team (Late Contact Info) Description 07/09/2025 9:00 AM TEAMCENTER CONSULTANT Office Visit [facility] Cardiovas and Thor Surg at [facility] [address] [facility] [address] [place] [address] Miranda Ceballos MD [address] [facility] [address] [place] [address] 07/09/2025 10:00 AM TEAMCENTER CONSULTANT Appointment [facility] S [facility] [address] [place] [address] 07/16/2025 10:00 AM TEAMCENTER CONSULTANT Office Visit [facility] Oncology and Hematology - Reji [address] [facility] [address] [place] [address] Quique Khalil MD [address] [facility] [address] [place] [address] documented as of this encounter Visit Diagnoses Not on filedocumented in this encounter Care Teams Breaker Layer Relationship Specialty Start Date End Date Silvia Quinonez MD [address] [place] [address] PCP - General Family Practice 11/02/24 No DME 09/02/15 documented as of this encounter
--- OUTSIDE RECORDS SUMMARY | 2025-06-20 11:33 | XMS_ITS | Encounter Summary ---
Author Organization [facility] Address [address] [place] [address] Care Team Providers Care Physician Advisor Name Role Phone Silvia Quinonez MD Primary Care Provider [phone] Encounter Details Date Type Department Care Team (Late st Contact Info) Description 05/18/[address] [facility] Primary Care Internal Medicine [address] [address] Jens Lora MD NO ADDRESS ON FILE Social History Tobacco Use Types Packs/Day Years Used Date Smoking Tobacco: Never Assessed Comments Unknown Sex and Gender Information Value Date Recorded Sex Assigned at Not on file Legal Sex Female 3:05 AM BATTERY CONTAINER TESTER ALUMINUM Gender Identity Not on file Sexual Orientation Not on file documented as of this encounter Plan of Treatment Upcoming Encounters Date Type Department Care Team (Late st Contact Info) Description 07/09/2025 9:00 AM BATTERY CONTAINER TESTER ALUMINUM Office Visit [facility] Cardiovas and Thor Surg at [facility] [address] [facility] [address] [place] [address] Miranda Ceballos MD [address] [facility] [address] [place] [address] 07/09/2025 10:00 AM BATTERY CONTAINER TESTER ALUMINUM Appointment [facility] [address] [place] [address] 07/16/2025 10:00 AM BATTERY CONTAINER TESTER ALUMINUM Office Visit [facility] Oncology and Hematology - Reji [address] [place] [address] Quique Khalil MD [address] [facility] [address] [place] [address] documented as of this encounter Visit Diagnoses Not on filedocumented in this encounter Care Teams Physician Advisor Relationship Specialty Start Date End Date Silvia Quinonez MD [address] [place] [address] PCP - General Family Practice 11/02/24 No DME 09/02/15 documented as of this encounter
--- OUTSIDE RECORDS SUMMARY | 2025-06-20 11:33 | XMS_ITS | Encounter Summary ---
Author Organization [facility] Address [address] [place] [address] Care Team Providers Care Seafood Process Worker Name Role Phone Silvia Quinonez MD Primary Care Provider [phone] Encounter Details Date Type Department Care Team (Latest Contact Info) Description 12/06/1998 Outpatient Historical [facility] RADIOLOGY Conversion, History Abdominal pain, unspecified site (Primary Dx) Social History Tobacco Use Types Packs/Day Years Used Date Smoking Tobacco: Never Assessed Comments Unknown Sex and Gender Information Value Date Recorded Sex Assigned at Not on file Legal Sex Female 3:05 AM ELECTROCARDIOGRAPH REPAIRER Gender Identity Not on file Sexual Orientation Not on file documented as of this encounter Plan of Treatment Upcoming Encounters Date Type Department Care Team (Late st Contact Info) Description 07/09/2025 9:00 AM ELECTROCARDIOGRAPH REPAIRER Office Visit [facility] Cardiovas and Thor Surg at [facility] [address] [address] Miranda Ceballos MD [address] [facility] [address] [address] 07/09/2025 10:00 AM ELECTROCARDIOGRAPH REPAIRER Appointment [facility] [address] [place] [address] 07/16/2025 10:00 AM ELECTROCARDIOGRAPH REPAIRER Office Visit [facility] Oncology and Hematology - Reji [address] [place] [address] Quique Khalil MD [address] [facility] [address] [place] [address] documented as of this encounter Visit Diagnoses Diagnosis Abdominal pain, unspecified site- Primary documented in this encounter Care Teams Seafood Process Worker Relationship Specialty Start Date End Date Silvia Quinonez MD [address] [place] [address] PCP - General Family Practice 11/02/24 No DME 09/02/15 documented as of this encounter
--- OUTSIDE RECORDS SUMMARY | 2025-06-20 11:33 | XMS_ITS | Encounter Summary ---
Author Organization [facility] Address [address] [place] [address] Care Team Providers Care Installer Soft Top Name Role Phone Silvia Quinonez MD Primary Care Provider [phone] Encounter Details Date Type Department Care Team (Latest Contact Info) Description 11/16/2001 Outpatient Historical [facility] Jocy Espinal MD NO ADDRESS ON FILE SCREENING MAMM-MAILG NEOPL-OTHER (Primary Dx) Social History Tobacco Use Types Packs/Day Years Used Date Smoking Tobacco: Never Assessed Comments Unknown Sex and Gender Information Value Date Recorded Sex Assigned at Not on file Legal Sex Female 3:05 AM DIAPER MACHINE TENDER Gender Identity Not on file Sexual Orientation Not on file documented as of this encounter Plan of Treatment Upcoming Encounters Date Type Department Care Team (Late st Contact Info) Description 07/09/2025 9:00 AM DIAPER MACHINE TENDER Office Visit [facility] Cardiovas and Thor Surg at [facility] [address] [address] Miranda Ceballos MD [address] [facility] [place] [address] 07/09/2025 10:00 AM DIAPER MACHINE TENDER Appointment [facility] [address] [place] [address] 07/16/2025 10:00 AM DIAPER MACHINE TENDER Office Visit [facility] Oncology and Hematology - [place] [address] [facility] [address] [place] [address] Quique Khalil MD [address] [facility] [address] [place] [address] documented as of this encounter Visit Diagnoses Diagnosis Other screening mammogram- Primary documented in this encounter Care Teams Installer Soft Top Relationship Specialty Start Date End Date Silvia Quinonez MD [address] [place] [address] PCP - General Family Practice 11/02/24 No DME 09/02/15 documented as of this encounter
--- OUTSIDE RECORDS SUMMARY | 2025-06-20 11:33 | XMS_ITS | Encounter Summary ---
Author Organization [facility] Address [address] [facility] Attn: [place] [address] Care Team Providers Care Float Nurse Name Role Phone Silvia Quinonez MD Primary Care Provider [phone] Encounter Details Date Type Department Care Team (Late st Contact Info) Description 08/05/1994 Outpatient Historical Josr Toledo MD NO ADDRESS ON FILE Social History Tobacco Use Types Packs/Day Years Used Date Smoking Tobacco: Never Assessed Comments Unknown Sex and Gender Information Value Date Recorded Sex Assigned at Not on file Legal Sex Female 3:05 AM INSTRUMENT MAN Gender Identity Not on file Sexual Orientation Not on file documented as of this encounter Plan of Treatment Upcoming Encounters Date Type Department Care Team (Late st Contact Info) Description 07/09/2025 9:00 AM INSTRUMENT MAN Office Visit [facility] Cardiovas and Thor Surg at [facility] [address] [address] Miranda Ceballos MD [address] [facility] [place] [address] 07/09/2025 10:00 AM INSTRUMENT MAN Appointment [facility] [address] [place] [address] 07/16/2025 10:00 AM INSTRUMENT MAN Office Visit [facility] Oncology and Hematology - [place] [address] [facility] [address] [place] [address] Quique Khalil MD [address] [facility] [address] [place] [address] documented as of this encounter Visit Diagnoses Not on filedocumented in this encounter Care Teams Float Nurse Relationship Specialty Start Date End Date Silvia Quinonez MD [address] [place] [id number] PCP - General Family Practice 11/02/24 No DME 09/02/15 documented as of this encounter
--- OUTSIDE RECORDS SUMMARY | 2025-06-20 11:34 | XMS_ITS | Encounter Summary ---
Author Organization [facility] Address [address] [place] [address] Phone Care Team Providers Care Supervisor Lathing Name Role Phone Silvia Quinonez MD Primary Care Provider Silvia Quinonez MD Unavailable [phone] Encounter Details Date Type Department Care Team (Late st Contact Info) Description 04/26/2025 Results Follow-Up [facility] [address] [facility] Advanced Medicine 13th [place] [address] [place] [address] Ezekiel Frank MD [address] [address] XR Femur Right 2 or More Views, Comprehensive metabolic panel, Vitamin D 25 hydroxy, Additional followed-up results: 4 Social History Tobacco Use Types Packs/Day Years Used Date Smoking Tobacco: Former Cigarettes Smokeless Tobacco: Never [facility] Utilities Answer Date Recorded In the [...] week 12/23/2023 How often do you attend [facility]? More than 4 times per year 12/23/2023 Do you belong to any clubs o r organizations such as christian groups, unions, fraternal or athletic groups, or [...] and heating? Not hard at all 12/23/2023 [facility] [place] [facility] Occupat ional Health - Occupational Stress [...] on file Legal Sex Female 8:58 PM SALES PROMOTION OFFICER Gender Identity Female 12/16/2020 9:45 PM CDT [...] on filedocumented in this encounter Care Teams Supervisor Lathing Relationship Specialty Start Date End Date Silvia Quinonez MD PCP - General Family Medicine 12/23/23 Silvia Quinonez MD Family Medicine 12/23/23 documented as of this encounter
--- OUTSIDE RECORDS SUMMARY | 2025-06-20 11:34 | XMS_ITS | Clinical Summary ---
Author Organization [facility] Address [address] [place] [address] Phone Care Team Providers Care Administrative And Program Specialist Name Role Phone Silvia Quinonez MD Primary Care Provider [phone] Allergies Active Allergy Reactions Criticality Noted Date Comments Unclassified Drug Unknown 05/22/2009 SURGICAL MESH Medications vit C-vit [id number] OXIDE-lutein (PRESERVISION ) 226-90-0.8-5 mg Capsule Take 1 Capsule by mouth daily. Active metFORMIN (GLUCOPHAGE) 1,000 mg tablet Take 1,000 mg by mouth 2 times daily. 024 Active levocetirizin e (XYZAL) 5 mg tablet Take 5 mg by mouth 2 times daily. Active hyoscyamine sulfate 0.125 mg tablet Take 0.125 mg by mouth every 4 hours as needed for Spasm. Active FIBER, DEXTRIN, ORAL Take by mouth 2 times daily. Active docusate sodium (COLACE) 100 mg capsule Take 100 mg by mouth 2 times daily. Active cyclobenzapri ne (FLEXERIL) 10 mg tablet Take 10 mg by mouth 3 times daily as needed for Spasm. Active chlorthalidon e (HYGROTON) 25 mg tablet Take 1 Tablet by mouth daily. 025 Active calcium as CARBONATE (CALTRATE) 1,500 mg (600 mg elemental) Tablet Take 1,500 mg by mouth 2 times daily. 024 Active biotin 1,000 mcg Tablet, Chewable Take 1,000 mcg by mouth daily. Active OMEGA-3 FATTY ACIDS ORAL Take 720 mg by mouth 2 times daily. 022 Active pramipexole (MIRAPEX) 0.25 mg tablet Take 0.25 mg by mouth daily at bedtime. 2 tablets by mouth daily at bedtime 024 Active B-complex with vitamin C (SUPER B COMPLEX + C ORAL) Take by mouth daily. Active zoledronic acid-mannitoL -water (RECLAST) 5 mg/100 mL Piggyback Inject 5 mg by intravenous injection one time only. Active losartan (COZAAR) 25 mg tablet Take 1 Tablet by mouth daily. 025 Active Syringe with Needle,Disp, Tray (Monoject Allergy Tray) 1 mL 28 x 07/06 TrayIndicatio ns:Chronic anemia USE WITH B12 INJECTIONS 3 Each 3 025 Active amLODIPine (NORVASC) 10 mg tablet Take 1 Tablet by mouth daily. 025 Active NALTREXONE, BULK, MISC Take 2.5 mg by mouth daily. 025 Active traZODone (DESYREL) 50 mg tablet Take 50 mg by mouth daily at bedtime. Active atorvastatin (LIPITOR) 10 mg tablet Take 1 Tablet by mouth daily. 025 Active Cholecalcifer ol, Vitamin D3, 50 mcg (2,000 unit) Capsule Take 2,000 Units by mouth daily. Active famotidine (PEPCID) 40 mg tablet Take 1 Tablet by mouth 2 times daily. 025 Active Magnesium Citrate Powder by Misc.(Non-Drug; Combo Route) route. Active cyanocobalami n (VITAMIN B-12) 1,000 mcg/mL SolutionIndic ations:Chroni c anemia INJECT 1 ML INTRAMUSCULARLY EVERY 30 DAYS 3 mL 1 025 Active cyanocobalami n (VITAMIN B-12) 1,000 mcg/mL SolutionIndic ations:Chroni c anemia Inject 1 mL (1,000 mcg) by intramuscular injection every 30 days. 3 mL 3 025 2024 Discontinued Active Problems Problem Noted Date Diagnosed [...] Encounters Date Type Department Care Team Description 06/05/2025 Results Follow-Up [facility] Cardiovas and Thor Surg at [place] [address] [facility] [address] [place] [address] Lucho Lma RN US NIKOLAY DOPPLER MAPPING LEGS BILAT 06/04/2025 10:47 AM CNC MACHINIST - 06/04/2025 11:59 PM CNC MACHINIST Hospital Encounter [facility] Diagnostic Vascular Services Lara [place] [address] [place] [address] Miranda Ceballos MD Discharge Disposition: Home or Self Care 06/04/2025 Refill [facility] Oncology and Hematology - [place] [address] [place] [address] Quique Khalil MD Chronic anemia 05/22/2025 External Device Data STL ABSTRACTION Provider, Abstract 05/17/2025 Orders Only [facility] Cardiovas and Thor Surg at [place] [address] [facility] [address] [place] [address] Miranda Ceballos MD Atherosclerosis of [place] coronary artery of [place] heart with angina pectoris (Primary Dx); Aortic valve stenosis, etiology of cardiac valve disease unspecified; Chest pain on breathing 05/10/2025 10:00 AM CNC MACHINIST Office Visit [facility] Cardiovas and Thor Surg at [address] [place] [address] Miranda Ceballos MD Atherosclerosis of [place] coronary artery of [place] heart with angina pectoris (Primary Dx); Aortic valve stenosis, etiology of cardiac valve disease unspecified 04/18/2025 3:45 PM CDT Office Visit [facility] Oncology and Hematology - [place] [address] [place] [address] Quique Khalil MD Chronic anemia 04/18/2025 Orders Only [facility] Hematology [facility] [address] [place] [address] Quique Khalil MD from Last 3 Months [...] Healthy Daughter Heike Heart Disease Mother Christina [place] x 1 Stroke Mother Christina silent Healthy [...] on file Legal Sex Female 3:05 AM CNC MACHINIST Gender Identity Not on file Sexual Orientation Not on file Occupation Industry Job Start Date Job End Date Not on file Not on file Not on file Not on file Last Filed Vital Signs Vital Sign Reading Time Taken Comments Blood Pressure 114/68 05/10/2025 10:24 AM CNC MACHINIST Pulse 86 05/10/2025 10:24 AM CNC MACHINIST Temperature 36.8 C (98.2 F) 04/18/2025 3:41 PM CDT Respiratory Rate 16 04/18/2025 3:41 PM CDT Oxygen Saturation 94% 05/10/2025 10:24 AM CNC MACHINIST Inhaled Oxygen Concentration - - Weight 72.1 kg (159 lb) 05/10/2025 10:24 AM CNC MACHINIST Height 167.6 cm (5' 6) 05/10/2025 10:24 AM CNC MACHINIST Body Mass Index 25.66 05/10/2025 10:24 AM CNC MACHINIST Plan of Treatment Upcoming Encounters Date Type Department Care Team (Late st Contact Info) Description 07/09/2025 9:00 AM CNC MACHINIST [facility] Cardiovas and Thor Surg at [facility] Heart Hosp [address] [facility] [address] [place] [address] Miranda Ceballos MD [address] [facility] [address] [place] [address] 07/09/2025 10:00 AM CNC MACHINIST Appointment [facility] S [facility] [address] [place] [address] 07/16/2025 10:00 AM CNC MACHINIST Office Visit [facility] Oncology and Hematology - [place] [address] [place] [address] Quique Khalil MD [address] [facility] [address] [place] [address] Health Maintenance Due Date Last [...] Procedure Name Priority Date/Time Associated Diagnosis Comments US NIKOLAY DOPPLER MAPPING LEGS BILAT Routine 06/04/2025 11:46 AM CNC MACHINIST Atherosclerosis of [place] coronary artery of [place] heart with angina pectoris Aortic valve stenosis, etiology of cardiac valve disease unspecified Chest pain on breathing VITAMIN B12 LEVEL Routine 04/12/2025 12: 53 PM CDT HM DIABETES EYE EXAM Routine 12/12/2019 LIPID PANEL Routine 11/30/2019 12:13 PM CDT Type 2 diabetes mellitus with other diabetic kidney complication, without long-term current use of insulin ([facility]) HEMOGLOBIN A1C Routine 11/30/2019 12:13 PM CDT Type 2 diabetes mellitus with other diabetic kidney complication, without long-term current use of insulin ([facility]) MICROALBUMIN/CREATIN INE RATIO, RANDOM UR Routine 06/14/2018 2:19 AM CNC MACHINIST Type 2 diabetes mellitus with complication, without long-term current use of insulin ([facility]) XR DEXA BONE DENSITY AXIAL 1 OR MORE SITES Routine 10/01/2015 9:00 AM CDT Menopausal syndrome from Last 3 Months or Most Recently Relevant to Health Maintenance Results * US NIKOLAY DOPPLER MAPPING LEGS BILAT (06/04/2025 11:46 AM CNC MACHINIST) Anatomical Region Laterality Modality Lower Extremity Ultrasound 06/04/2025 11:2 3 AM CNC MACHINIST Narrative 06/04/2025 5:18 PM CNC MACHINIST [address] [address] [email or web address] Vein Mapping Complete Lower Extremity Patient: Loren Bryan Study ID: [id number] Gender: F : 1950 Age: 75 Race: CAU Height Study Date: 06/04/2025 Weight: Access. #: [id number] *Referring Physician:Janae Ceballos M.D., Miranda Ceballos M.D., Miranda CardosoOrdering Physician:* Miranda Ceballos M.D.Draw Frame Operator:Arianne Spears Indications: CABG. Study data: Study status: Routine. Procedure: A vascular evaluation was performed with the patient in the supine position. Image quality was good. Bilateral lower extremity vein mapping Vessel mapping. Birthdate: Patient birthdate: 1950. Age: Patient is 75year(s) old. Sex: gender: female. Study date: Study date: 06/04/2025. Study time: 11:23 AM. Location: Vascular laboratory. Patient status: Outpatient. Impressions 1. Portions of the right great saphenous vein left great saphenous vein and left small saphenous vein demonstrates a diameter marginally suitable for conduit. 2. The right small saphenous vein demonstrates a diameter suitable for conduit. Tables: Venous: + +----+-------+ + + !Location !Zone!Overall!D AP !Flow properties! + +----+-------+ + + !Right great saphenous!1 !Patent !AP: 4.10mm!Compressible ! + +----+-------+ + + !Right great saphenous!2 !Patent !AP: 3.40mm!Compressible ! + +----+-------+ + + !Right great saphenous!3 !Patent !AP: 3.00mm!Compressible ! + +----+-------+ + + !Right great saphenous!4 !Patent !AP: 2.50mm!Compressible ! + +----+-------+ + + !Right great saphenous!5 !Patent !AP: 2.00mm!Compressible ! + +----+-------+ + + !Right great saphenous!6 !Patent !AP: 1.30mm!Compressible ! + +----+-------+ + + !Right great saphenous!7 !Patent !AP: 1.70mm!Compressible ! + +----+-------+ + + !Right small saphenous!4 !Patent !AP: 2.40mm!Compressible ! + +----+-------+ + + !Right small saphenous!5 !Patent !AP: 2.00mm!Compressible ! + +----+-------+ + + !Right small saphenous!6 !Patent !AP: 2.50mm!Compressible ! + +----+-------+ + + !Right small saphenous!7 !Patent !AP: 2.70mm!Compressible ! + +----+-------+ + + !Left great saphenous !1 !Patent !AP: 2.70mm!Compressible ! + +----+-------+ + + !Left great saphenous !2 !Patent !AP: 2.20mm!Compressible ! + +----+-------+ + + !Left great saphenous !3 !Patent !AP: 2.60mm!Compressible ! + +----+-------+ + + !Left great saphenous !4 !Patent !AP: 2.60mm!Compressible ! + +----+-------+ + + !Left great saphenous !5 !Patent !AP: 3.20mm!Compressible ! + +----+-------+ + + !Left great saphenous !6 !Patent !AP: 2.30mm!Compressible ! + +----+-------+ + + !Left great saphenous !7 !Patent !AP: 1.70mm!Compressible ! + +----+-------+ + + !Left small saphenous !4 !Patent !AP: 2.60mm!Compressible ! + +----+-------+ + + !Left small saphenous !5 !Patent !AP: 1.70mm!Compressible ! + +----+-------+ + + !Left small saphenous !6 !Patent !AP: 2.00mm!Compressible ! + +----+-------+ + + !Left small saphenous !7 !Patent !AP: 1.40mm!Compressible ! + +----+-------+ + + *Velocities are expressed in cm/s, Diameters are expressed in mm Prepared and Electronically Authenticated Erick Garcia M.D. [id number]:[id number] Procedure Note Erick Garcia MD - 06/04/[address] [address] [email or web address] Vein Mapping Complete Lower Extremity Patient: Loren Bryan Study ID:[id number] Gender: F :1950 Age: 75 Race: CAU Height Study Date:06/04/2025 Weight: Access. #:[id number] *Referring Physician:* Tucker Judd, Miranda Ceballos M.D.,Miranda CardosoOrdering Physician:Miranda Rebollar M.D.Draw Frame Operator:Arianne Spears Indications: CABG. Study data: Study status: Routine. Procedure: A vascular evaluationwas performed with the patient in the supine position. Image quality wasgood. Bilateral lower extremity vein mapping Vessel mapping. Birthdate: Patient birthdate: 1950. Age: Patient is 75year(s) old. Sex: gender: female. Study date: Study date: 06/04/2025. Study time: 11:23AM. Location: Vascular laboratory. Patient status: Outpatient. Impressions 1. Portions of the right great saphenous vein left great saphenous veinand left small saphenous vein demonstrates a diameter marginally suitablefor conduit. 2. The right small saphenous vein demonstrates a diameter suitable for conduit. Tables: Venous: + +----+-------+ + + !Location !Zone!Overall!D AP !Flow properties! + +----+-------+ + + !Right great saphenous!1 !Patent !AP: 4.10mm!Compressible ! + +----+-------+ + + !Right great saphenous!2 !Patent !AP: 3.40mm!Compressible ! + +----+-------+ + + !Right great saphenous!3 !Patent !AP: 3.00mm!Compressible ! + +----+-------+ + + !Right great saphenous!4 !Patent !AP: 2.50mm!Compressible ! + +----+-------+ + + !Right great saphenous!5 !Patent !AP: 2.00mm!Compressible ! + +----+-------+ + + !Right great saphenous!6 !Patent !AP: 1.30mm!Compressible ! + +----+-------+ + + !Right great saphenous!7 !Patent !AP: 1.70mm!Compressible ! + +----+-------+ + + !Right small saphenous!4 !Patent !AP: 2.40mm!Compressible ! + +----+-------+ + + !Right small saphenous!5 !Patent !AP: 2.00mm!Compressible ! + +----+-------+ + + !Right small saphenous!6 !Patent !AP: 2.50mm!Compressible ! + +----+-------+ + + !Right small saphenous!7 !Patent !AP: 2.70mm!Compressible ! + +----+-------+ + + !Left great saphenous !1 !Patent !AP: 2.70mm!Compressible ! + +----+-------+ + + !Left great saphenous !2 !Patent !AP: 2.20mm!Compressible ! + +----+-------+ + + !Left great saphenous !3 !Patent !AP: 2.60mm!Compressible ! + +----+-------+ + + !Left great saphenous !4 !Patent !AP: 2.60mm!Compressible ! + +----+-------+ + + !Left great saphenous !5 !Patent !AP: 3.20mm!Compressible ! + +----+-------+ + + !Left great saphenous !6 !Patent !AP: 2.30mm!Compressible ! + +----+-------+ + + !Left great saphenous !7 !Patent !AP: 1.70mm!Compressible ! + +----+-------+ + + !Left small saphenous !4 !Patent !AP: 2.60mm!Compressible ! + +----+-------+ + + !Left small saphenous !5 !Patent !AP: 1.70mm!Compressible ! + +----+-------+ + + !Left small saphenous !6 !Patent !AP: 2.00mm!Compressible ! + +----+-------+ + + !Left small saphenous !7 !Patent !AP: 1.40mm!Compressible ! + +----+-------+ + + *Velocities are expressed in cm/s, Diameters are expressed in mm Prepared and Electronically Authenticated Jose Judd, Erick Woods [id number] us Miranda Ceballos MD US ORDERABLES Final Resu lt * VITAMIN B12 LEVEL (04/12/2025 12:53 PM CDT) Blood us Quique Khalil MD CHEMISTRY ORDERABLES Final Resu lt * HM DIABETES EYE EXAM (12/12/2019) us Abstract Provider HEALTH MAINTENANCE Edited Resu lt - Final [facility] CLIA# [id number] [address] [facility] [address] [place] [address] * (ABNORMAL) HEMOGLOBIN A1C (11/30/2019 12:13 PM CDT) HEMOGLOBIN A1C 5.9(H) <5.7 % 11/30/2019 4:00 PM CDT [facility] [employer] [facility] EST. AVG GLUCOSE, A1C 123 mg/dL 11/30/2019 4:00 PM CDT [facility] [employer] [facility] Blood Venipuncture / Unknown 11/30/2019 12:13 PM CDT 11/30/2019 12:13 PM CDT Narrative [facility] [employer] [facility] - 11/30/2019 4:00 PM CDT HGB A1C INTERPRETATION NORMAL: <5.7% PRE-DIABETES: 5.7 - 6.4% DIABETES: 6.5% OR GREATER us Yasmeen Garcia MD CHEMISTRY ORDERABLES Final Res ult [facility] [employer] [facility] [id number] [address] [facility] [place] [address] * (ABNORMAL) LIPID PANEL (11/30/2019 12:13 PM CDT) CHOLESTEROL 145 <200 mg/dL 11/30/2019 4:37 PM CDT [facility] [employer] [facility] TRIGLYCERIDE 76 <150 mg/dL 11/30/2019 4:37 PM T [facility] [employer] [facility] HDL 69(H) 40 - 59 mg/dL 11/30/2019 4:37 PM T [facility] [employer] [facility] LDL CALCULATED 61 <100 mg/dL 11/30/2019 4:37 PM T [facility] [employer] [facility] NON-HDL CHOLESTEROL 76 <130 mg/dL 11/30/2019 4:37 PM T [facility] [employer] [facility] Blood Venipuncture / Unknown 11/30/2019 12:13 PM CDT 11/30/2019 12:13 PM CDT Narrative [facility] [employer] [facility] - 11/30/2019 4:37 PM CDT [...] Garcia MD CHEMISTRY ORDERABLES Final Res ult [facility] LABORATORY SERVICES [facility]# [id number] 5 SWally [facility] [place] [address] * MICROALBUMIN/CREATININE RATIO, RANDOM UR (06/14/2018 2:19 AM CNC MACHINIST) Creatinine, Urine 128 20 - 275 mg/dL peerTransfer [facility] MICROALBUMIN, URINE 0.4 See Note: mg/dL Smart Plate [facility] Comment: Reference Range: Reference Range Not established MICROALBUMIN/CREAT RATIO, UR 3 <30 mcg/mg creat [facility] Comment: The ADA defines abnormalities in albumin excretion as follows: Category Result (mcg/mg creatinine) Normal <30 Microalbuminuria 30-299 Clinical albuminuria > OR = 300 The ADA recommends that at least two of three specimens collected within a 3-6 month period be abnormal before considering a patient to be within a diagnostic category. Test Performed at: [facility] [address] [place] [address] Jens Aguilar D.O., MPH Urine URINE SPECIMEN OBTAINED BY CLEAN CATCH PROCEDURE / Unknown 06/14/2018 2:19 AM CNC MACHINIST Chary Hardin MD URINE ORDERABLES Edited Result - Final peerTransfer [facility] [address] [place] [address] from Last 3 Months or Most Recently Relevant to Health Maintenance [facility] M[facility] Advance Directives For more information, please contact: [phone] Documents on File Type Date Recorded Patient Junior Analyst Expl anation Advance Directive POA 10/03/2014 12:00 [...] 7:06 AM 10/01/2009 2:01 AM Care Teams Administrative And Program Specialist Relationship Specialty Start Date End Date Silvia Quinonez MD [address] [place] [phone] PCP - General Family Practice 11/02/24 No DME 09/02/15
--- OUTSIDE RECORDS SUMMARY | 2025-06-20 11:34 | XMS_ITS | Encounter Summary ---
Author Organization [facility] Address [address] [place] [address] Care Team Providers Care Physician/Allergy/Immunology Name Role Phone Silvia Quinonez MD Primary Care Provider [phone] Encounter Details Date Type Department Care Team (Latest Contact Info) Description 04/23/2003 Outpatient Historical [facility] Tiffanie Snyder MD [address] [facility] [address] [address] OTHER MALAISE AND FATIGUE (Primary Dx) Social History Tobacco Use Types Packs/Day Years Used Date Smoking Tobacco: Never Assessed Comments Unknown Sex and Gender Information Value Date Recorded Sex Assigned at Not on file Legal Sex Female 3:05 AM POLICE MAGISTRATE Gender Identity Not on file Sexual Orientation Not on file documented as of this encounter Plan of Treatment Upcoming Encounters Date Type Department Care Team (Late st Contact Info) Description 07/09/2025 9:00 AM POLICE MAGISTRATE Office Visit [facility] Cardiovas and Thor Surg at [facility] [address] [facility] [address] [place] [address] Miranda Ceballos MD [address] [facility] [address] [place] [address] 07/09/2025 10:00 AM POLICE MAGISTRATE Appointment [facility] [address] [place] [address] 07/16/2025 10:00 AM POLICE MAGISTRATE Office Visit [facility] Oncology and Hematology - [place] [place] [address] Quique Khalil MD [address] [facility] [address] [place] [address] documented as of this encounter Visit Diagnoses Diagnosis Other malaise and fatigue- Primary documented in this encounter Care Teams Physician/Allergy/Immunology Relationship Specialty Start Date End Date Silvia Quinonez MD [address] [place] [address] PCP - General Family Practice 11/02/24 No DME 09/02/15 documented as of this encounter
--- OUTSIDE RECORDS SUMMARY | 2025-06-20 11:34 | XMS_ITS | Encounter Summary ---
Author Organization [facility] Address [address] [place] [address] Care Team Providers Care Binder Stripper Hand Name Role Phone Silvia Quinonez MD Primary Care Provider [phone] Encounter Details Date Type Department Care Team (Late st Contact Info) Description 06/05/2025 Results Follow-Up [facility] Cardiovas and Thor Surg at [address] [address] Lucho Lam RN [employer] LE[employer] BILAT Social History Tobacco Use Types Packs/Day Years Used Date Smoking Tobacco: Former Cigarettes 1 23 1 - 04/04/1986 Smokeless Tobacco: Never Alcohol Use Standard Drinks/Week Comments Yes 0 (1 standard drink = 0.6 oz pur e alcohol) social Comments No Sex and Gender Information Value Date Recorded Sex Assigned at Not on file Legal Sex Female 3:05 AM HATCHERY MAN Gender Identity Not on file Sexual Orientation Not on file Occupation Industry Job Start Date Job End Date Not on file Not on file Not on file Not on file documented as of this encounter Plan of Treatment Upcoming Encounters Date Type Department Care Team (Late st Contact Info) Description 07/09/2025 9:00 AM HATCHERY MAN Office Visit [facility] Cardiovas and Thor Surg at [address] [address] Miranda Ceballos MD [facility] [address] [address] 07/09/2025 10:00 AM HATCHERY MAN Appointment [facility] [address] [place] [address] [place] [address] 07/16/2025 10:00 AM HATCHERY MAN Office Visit [facility] Oncology and Hematology - [place] [address] [facility] [address] [place] [address] Quique Khalil MD [address] [facility] [address] [place] [address] documented as of this encounter Visit Diagnoses Not on filedocumented in this encounter Additional Health Concerns Assessment Noted Time PHQ-9 Depression Total Score: 1 11/30/19 20 11:39 AM CDT documented as of this encounter Care Teams Binder Stripper Hand Relationship Specialty Start Date End Date Silvia Quinonez MD [address] [place] [address] PCP - General Family Practice 11/02/24 No DME 09/02/15 documented as of this encounter
--- OUTSIDE RECORDS SUMMARY | 2025-06-20 11:34 | XMS_ITS | Encounter Summary ---
Author Organization [facility] Address [address] [place] [address] Care Team Providers Care Graphic Coordinator Name Role Phone Silvia Quinonez MD Primary Care Provider [phone] Encounter Details Date Type Department Care Team (Late st Contact Info) Description 04/23/2003 Outpatient Historical Division of Neurology [address] [facility], [address] [address] Tiffanie Marquez MD [address] [facility] [address] [place] [address] Social History Tobacco Use Types Packs/Day Years Used Date Smoking Tobacco: Never Assessed Comments Unknown Sex and Gender Information Value Date Recorded Sex Assigned at Not on file Legal Sex Female 3:05 AM TERRA COTTA SETTER Gender Identity Not on file Sexual Orientation Not on file documented as of this encounter Plan of Treatment Upcoming Encounters Date Type Department Care Team (Late Contact Info) Description 07/09/2025 9:00 AM TERRA COTTA SETTER Office Visit [facility] Cardiovas and Thor Surg at [facility]osp [address] [facility] [address] [place] [address] Miranda Ceballos MD [address] [facility] [address] [place] [address] 07/09/2025 10:00 AM TERRA COTTA SETTER Appointment [facility] [address] [place] [address] 07/16/2025 10:00 AM TERRA COTTA SETTER Office Visit [facility] Oncology and Hematology - [place] [address] [facility] [address] [place] [address] Quique Khalil MD [address] [facility] [address] [place] [address] documented as of this encounter Visit Diagnoses Not on filedocumented in this encounter Care Teams Graphic Coordinator Relationship Specialty Start Date End Date Silvia Quinonez MD [address] [place] [address] PCP - General Family Practice 11/02/24 No DME 09/02/15 documented as of this encounter
== END 2025-06-20 10:00 | disposition home or self-care (01) ==
LOC: ANHFOHIMG 10:03
PROVIDERS: PCP Student in an Organized Health Care Education/Training Program; Visit Provider Student in an Organized Health Care Education/Training Program
DX: Z12.31 Encounter for screening mammogram for malignant neoplasm of breast (principal)
CPT/HCPCS: 77063; 77067